=== PATIENT | female | born 1965 | race Caucasian/White ===

== ENCOUNTER 2020-09-15 10:52 | Emergency (ER) | payer SELFPAY ==
[2020-09-15 10:56] VITALS: BP 173/99; PULSE 89; RESP 16; TEMP 37.1; O2SAT 96; BMI 46.0
--- NOTE | 2020-09-15 11:24 | ED.EXTPRO ---
HPI - Extremity Problem General Chief complaint: Extremity Injury, Upper Stated complaint: shoulder,back and neck pain Time Seen by Provider: 09/15/20 11:24 Source: patient Mode of arrival: ambulatory Limitations: no limitations History of Present Illness HPI Narrative: 55 yo female with past medical history of PAD on plavix here with complaints of left-sided neck pain which radiates down the left arm times 2-3 months. No injury or trauma. Occasionally the patient has zaps of electricity which run down the arm. She denies any numbness or tingling. 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 MD Complaint: extremity pain Onset (ago): month(s) Pain Consistency: intermittent Location: left Quality: burning Radiation: distal Relieving factors: nothing Exacerbating factors: nothing Related Data Previous Rx's Medication Instructions Recorded cyclobenzaprine 10 mg PO TID PRN #10 tab 09/15/20 dexamethasone [Decadron] 4 mg PO DAILY #5 tab 09/15/20 oxycodone 5 mg PO Q6H PRN #10 tab 09/15/20 Allergies Allergy/AdvReac Type Severity Reaction Status Date / Time clarithromycin [From Biaxin] Allergy Unknown UNKNOWN Verified 09/15/20 11:01 Biaxin Allergy Unknown Unknown Uncoded 09/15/20 11:01 Review of Systems Review of Systems: Yes all other systems are reviewed and are negative Constitutional: Constitutional: Reports no additional constitutional complaints, Denies body ache(s), Denies chills, Denies fever(s), Denies headache(s) and Denies weakness Eyes: Eyes: Reports no additional eye complaints and Denies change in vision ENT: Reports system reviewed and no additional complaints, except as documented, Denies dizziness, Denies headache(s), Denies nasal congestion, Denies nasal discharge and Reports neck pain Cardiovascular: Cardiovascular: Reports no additional cardiovascular complaints, Denies chest pain, Denies leg edema and Denies dyspnea Respiratory: Respiratory: Reports no additional respiratory complaints, Denies cough and Denies dyspnea Gastrointestinal: Gastrointestinal: Reports no additional gastrointestinal complaints, Denies abdominal pain, Denies diarrhea, Denies nausea and Denies vomiting Genitourinary: Genitourinary: Reports no additional female genitourinary complaints and Denies urinary incontinence Musculoskeletal: Musculoskeletal: Reports no additional musculoskeletal complaints, Denies back pain, Reports arthralgias, Denies joint swelling, Reports neck pain, Denies numbness and Denies tingling Integumentary/Breasts: Skin/Breast: Reports system reviewed and no additional complaints, except as docu and Denies rash Neurologic: Reports system reviewed and no additional complaints, except as documented, Denies Abnormal speech present, Denies dizziness, Denies headache(s), Denies numbness, Denies tingling and Denies weakness PMFSH Past Medical History Attestation statement: The following information was validated with the patient. Source: old records reviewed and nursing notes reviewed Medical History Carpal tunnel syndrome Kidney stones Peripheral arterial disease Prediabetes Sleep apnea Surgical History History of appendectomy History of foot surgery Tubal ligation status Social History Social History Advance Directives: No Advance Directives Information Provided: Yes Physical Exam Vital Signs: Vital Signs: Last Vital Signs Temp 98.7 F 09/15/20 10:56 Pulse 89 09/15/20 10:56 Resp 16 09/15/20 10:56 BP 173/99 H 09/15/20 10:56 Pulse Ox 96 09/15/20 10:56 Body Mass Index 46.0 Const: General: cooperative, healthy appearing, comfortable and no acute distress Orientation/consciousness: patient oriented x3 Limitations: no limitations HENMT: Head: Yes normal to inspection Ears: hearing grossly normal bilaterally General nose exam: Normal external nose present Face and sinus: Yes normal facial exam Mouth: Normal oral and palatal mucosa present Throat: Yes posterior oropharynx normal Eyes: General: appearance normal, both eyes and all related structures Pupils: Equal, round and reactive pupils present Neck: Neck: Yes normal visual inspection Chest: Chest palpation & inspection: normal inspection of the chest Resp: Effort & Inspection: normal respiratory effort Auscultation: clear to auscultation bilaterally Cardio: Rate: regular rate Rhythm: regular rhythm Peripheral pulses: Peripheral pulses 2+ throughout GI: Inspection: Yes normal to inspection Palpation (GI): Soft to palpation and nontender Auscultation: normal bowel sounds Back/Spine/Pelvis: Other: Tenderness over the left trapezius with palpable muscle spasm. When this area is palpated the pain is able to be reproduced on the left arm. Full range of motion of shoulder. There is some pain withabduction but patient able. Neurovascularly intact distally. Normal cap refill. Thoracic/Lumbar Spine: thoracic and lumbar spine normal to inspection Skin: General skin exam: no rashes or lesions noted Neuro: General: patient oriented x3, no focal motor deficits and normal sensation to monofilament Cranial nerves: Yes Equal, round and reactive pupils present Cognition (Neuro): normal cognition Speech: No Abnormal speech present Gait exam (Neuro): Normal gait present Motor exam (neuro): 5/5 motor strength present throughout Extrem: General: Yes normal to inspection Course Course Course Narrative: 55-year-old female here with left-sided neck pain which radiates down the left arm from several months. 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 No specific injury or trauma. X-ray shows arthritis and possible bursitis with intra-articular loose bodies. A copy of the report was given to the patient. Believe she probably has some off bursitis as well as a cervical radiculopathy component. Recommended follow-up with rheumatology and Orthopedics. Supportive care in the meantime. Reviewed worrisome signs and symptoms of when to return to the emergency department. Comfortable discharge home. MDM - Extremity (Nontraumatic) Imaging Data shoulder xry: Attestation: I personally reviewed and interpreted this imaging study as follows: Radiologist's impression: EXAMINATION: XR SHOULDER, LEFT CLINICAL INFORMATION: Pain COMPARISON: Previous x-ray August 2010 TECHNIQUE: Three views of the left shoulder. FINDINGS: Bone alignment is normal. No fracture or dislocation is seen. There is arthritis at the glenohumeral and acromioclavicular joints. There are multiple periarticular soft tissue calcifications inferior to the clavicle in the region of the coracoclavicular ligament, adjacent to the greater tuberosity and projecting over the humeral head. XR/XR shoulder LT min 2V IMPRESSION: Arthritis at the acromioclavicular and glenohumeral joints. Numerous periarticular soft tissue calcifications questionable for calcific tendinitis, bursitis or possibly intra-articular loose bodies. 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
== END 2020-09-15 12:28 | disposition home or self-care (01) ==
PROVIDERS: Emergency Provider Emergency Medicine; PCP Internal Medicine
DX: M54.12 Radiculopathy, cervical region (principal); M75.52 Bursitis of left shoulder
CPT/HCPCS: 73030; 99283

== ENCOUNTER 2020-09-30 07:37 | Outpatient (REF) | payer OTHER, SELFPAY | END 2020-09-30 07:38 | disposition home or self-care (01) | LOC: HO.LAB 07:37 | PROVIDERS: PCP Internal Medicine; Visit Provider Internal Medicine | DX: Z20.822 Contact with and (suspected) exposure to COVID-19 (principal) | CPT/HCPCS: 36415; C9803; U0003 ==

== ENCOUNTER → 2020-10-01 10:27 | Outpatient (BNVA) | payer OTHER, SELFPAY | PROVIDERS: Visit Provider Physician Assistant | DX: M54.2 Cervicalgia (principal) | CPT/HCPCS: 99202 ==

== ENCOUNTER 2020-10-29 07:41 | Outpatient (REF) | payer OTHER, SELFPAY | END 2020-10-29 07:42 | disposition home or self-care (01) | LOC: HO.LAB 07:41 | PROVIDERS: Visit Provider Internal Medicine | DX: Z20.822 Contact with and (suspected) exposure to COVID-19 (principal) | CPT/HCPCS: 36415; C9803; U0003; U0005 ==

== ENCOUNTER 2021-10-16 10:26 | Emergency (ER) | payer OTHER, SELFPAY ==
[2021-10-16 10:42] VITALS: BP 162/98; PULSE 79; RESP 18; TEMP 36.9; O2SAT 96; BMI 46.0
--- NOTE | 2021-10-16 11:21 | ED_ITS ---
HPI - Skin/Abscess/Foreign Bdy General Chief complaint: Skin/Abscess/Foreign Body Stated complaint: cyst Time Seen by Provider: 10/16/21 10:56 Source: patient Mode of arrival: ambulatory Limitations: no limitations History of Present Illness HPI narrative: 56-year-old female with a history of [id number] diabetes non compliant with her metformin here with reports of redness, swelling and pain to the left side of the abdomen. Patient tells me she noticed a swollen area which is now draining. She denies any fevers or chills. She was recently diagnosed with diabetes and has gained some weight. 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 She has been checking her blood sugars in the been running 280-300. Related Data Previous Rx's Medication Instructions Recorded cyclobenzaprine 10 mg tablet 10 mg PO TID PRN #10 tab 09/15/20 dexamethasone 4 mg tablet 4 mg PO DAILY #5 tab 09/15/20 (Decadron) oxycodone 5 mg tablet 5 mg PO Q6H PRN #10 tab 09/15/20 cephalexin 500 mg capsule 500 mg PO BID #20 cap 10/16/21 doxycycline monohydrate 100 mg 100 mg PO BID #20 tab 10/16/21 tablet Allergies Allergy/AdvReac Type Severity Reaction Status Date / Time clarithromycin [From Allergy Unknown UNKNOWN Verified 09/15/20 11:01 Biaxin] Biaxin Allergy Unknown Unknown Uncoded 09/15/20 11:01 Review of Systems Verdana 4l Review of Systems: Yes all other systems are reviewed and Verdana 4d are negative Verdana 4l Constitutional: Verdana 4d Constitutional: Verdana 4d Verdana 4d Reports no additional constitutional complaints, Denies body ache(s), Denies chills, Denies fever(s), Denies headache(s) and Denies weakness Verdana 4l Eyes: Verdana 4d Verdana 4d Eyes: Verdana 4d Reports no additional eye complaints and Denies change in vision Verdana 4l ENT: Verdana 4d Reports system reviewed and no additional complaints, except as documented, Denies dizziness, Denies headache(s), Denies nasal congestion, Denies nasal discharge and Denies neck pain Verdana 4l Cardiovascular: Verdana 4d Cardiovascular: Verdana 4d Verdana 4d Reports no additional cardiovascular complaints, Denies chest pain, Denies leg edema and Denies dyspnea Verdana 4l Respiratory: Verdana 4d Verdana 4d Respiratory: Verdana 4d Reports no additional respiratory complaints, Denies cough and Denies dyspnea Verdana 4l Gastrointestinal: Verdana 4d Gastrointestinal: Verdana 4d Verdana 4d Reports no additional gastrointestinal complaints, Denies abdominal pain, Denies diarrhea, Denies nausea and Denies vomiting Verdana 4l Genitourinary: Verdana 4d Verdana 4d Genitourinary: Verdana 4d Reports no additional female genitourinary complaints and Denies urinary incontinence Verdana 4l Musculoskeletal: Verdana 4d Musculoskeletal: Verdana 4d Verdana 4d Reports no additional musculoskeletal complaints, Denies back pain, Denies arthralgias, Denies joint swelling, Denies neck pain, Denies numbness and Denies tingling Verdana 4l Integumentary/Breasts: Verdana 4d Skin/Breast: Verdana 4d Verdana 4d Reports system reviewed and no additional complaints, except as docu, Reports furuncle, Reports swelling, Reports erythema and Denies rash Verdana 4l Neurologic: Verdana 4d Reports system reviewed and no additional complaints, except as documented, Denies Abnormal speech present, Denies dizziness, Denies headache(s), Denies numbness, Denies tingling and Denies weakness PMFSH Past Medical History Attestation statement: The following information was validated with the patient. Source: old records reviewed and nursing notes reviewed Medical History Carpal tunnel syndrome Kidney stones Peripheral arterial disease Prediabetes Sleep apnea Surgical History History of appendectomy History of foot surgery Tubal ligation status Social History Social History Advance Directives: Yes Advance Directives Information Provided: Yes Advance Directives on File: No Patient : No Current occupation: [employer] - Right Handed Physical Exam Verdana 4l Vital Signs: Verdana 4d Verdana 4d Vital Signs: Verdana 4d Verdana 4Bd Last Vital Signs Verdana 4d Machine Shorthand Reporter New 4d Machine Shorthand Reporter New 4d Temp 98.5 F 10/16/21 10:42 Machine Shorthand Reporter New 4d Pulse 79 10/16/21 10:42 Machine Shorthand Reporter New 4d Resp 18 10/16/21 10:42 BP 162/98 H 10/16/21 10:42 Pulse Ox 96 10/16/21 10:42 BMI result Body Mass Index 46.0 Const: General: cooperative, healthy appearing, comfortable and no acute distress Orientation/consciousness: patient oriented x3 Limitations: no limitations HENMT: Head: Yes normal to inspection Ears: hearing grossly normal bilaterally General nose exam: Normal external nose present Face and sinus: Yes normal facial exam Mouth: Normal oral and palatal mucosa present Throat: Yes posterior oropharynx normal Eyes: General: appearance normal, both eyes and all related structures Pupils: Equal, round and reactive pupils present Neck: Neck: Yes normal visual inspection Chest: Chest palpation & inspection: normal inspection of the chest Resp: Effort & Inspection: normal respiratory effort Auscultation: clear to auscultation bilaterally Cardio: Rate: regular rate Rhythm: regular rhythm Peripheral pulses: Peripheral pulses 2+ throughout GI: Other: To the left lower abdomen and there is a a area of redness, warmth with a central site with drainage. There is no deeper abscess or fluctuance or induration noted. The area is outlined with a marker and the redness and warmth is within the outlined area Inspection: Yes normal to inspection Palpation (GI): Soft to palpation and nontender Auscultation: normal bowel sounds Back/Spine/Pelvis: Thoracic/Lumbar Spine: thoracic and lumbar spine normal to inspection Skin: General skin exam: no rashes or lesions noted Neuro: General: patient oriented x3, no focal motor deficits and normal sensation to monofilament Cranial nerves: Yes Equal, round and reactive pupils present Cognition (Neuro): normal cognition Speech: No Abnormal speech present Gait exam (Neuro): Normal gait present Motor exam (neuro): 5/5 motor strength present throughout Extrem: General: Yes normal to inspection Course Course Course Narrative: 56-year-old female with a history of thl-cytelji-ylfqssvry diabetes recently diagnosed who has not started her metformin here with reports of abdominal wall abscess with surrounding cellulitis. Patient denies any systemic symptoms of fevers, chills, vomiting. She has been checking her blood sugars and they have been running around 280-300. She has not started her metformin due to the cost. On exam the patient does have a local cellulitis with a central abscess that is already draining. There is no deeper abscess or fluctuance palpated. The area is already marked with a sharpie. There is no redness or warmth outside the marked areas. The patient and I had a lengthy discussion about her diabetes and how she needs to initiate her metformin or this may turn into a worsened infection or she may develop sepsis. Patient tells me that she plans on starting her metformin today and I did call and confirm with her pharmacy that they have this medication available for her. I did recommend we obtain some lab work and a blood glucose level with the patient tells me that she does not want this as financially she does not have the means to pay for the hospital bill. Reviewed worrisome signs and symptoms of when to return to the emergency department. Comfortable discharge home. MDM - Skin/Abscess/Foreign Bdy Differential Diagnosis Differential diagnosis: Likely abscess of skin or subcutaneous tissue Medical Records Attestation: I reviewed the patient's medical records. Lab Data Attestation: I reviewed the patient's lab results. Discharge Plan Discharge Clinical Impression: Cellulitis, Abscess of skin or subcutaneous tissue, Medication refill Patient Disposition: Home, Self-Care Instructions: Cellulitis (ED), Abscess (ED), Medicine Refill (ED) Additional Instructions: I refilled your metformin and is waiting at the pharmacy Return for fever, increasing redness or swelling Prescriptions: New doxycycline monohydrate 100 mg tablet 100 mg PO BID Qty: 20 0RF cephalexin 500 mg capsule 500 mg PO BID Qty: 20 0RF No Action dexamethasone [Decadron] 4 mg tablet 4 mg PO DAILY Qty: 5 0RF cyclobenzaprine 10 mg tablet 10 mg PO TID PRN (Reason: muscle spasm) Qty: 10 0RF oxycodone 5 mg tablet 5 mg PO Q6H PRN (Reason: pain) Qty: 10 0RF Referrals: Manuel Mtz MD [Primary Care Provider] - 1 week Interventions: ED Discharge Assessment Last Done: 10/16/21 11:20 Discharge Date/Time: 10/16/21 11:21
== END 2021-10-16 11:21 | disposition home or self-care (01) ==
PROVIDERS: Emergency Provider Emergency Medicine; PCP Internal Medicine
DX: L02.211 Cutaneous abscess of abdominal wall (principal); L03.311 Cellulitis of abdominal wall; E11.9 Type 2 diabetes mellitus without complications; Z91.14 Patient's other noncompliance with medication regimen
CPT/HCPCS: 99283

== ENCOUNTER 2022-10-31 22:54 | Emergency (ER) | payer OTHER, SELFPAY ==
--- NOTE | ~2022-10-31 | XR_ITS ---
EXAMINATION: XR SHOULDER, LEFT CLINICAL INFORMATION: Severe shoulder pain COMPARISON: 09/15/2020 TECHNIQUE: AP external rotation, Grashey, scapular Y, and axillary views of the left shoulder. FINDINGS: Glenohumeral alignment appears anatomic. No acute fracture is seen. There are soft tissue calcifications posterior and superior to the humeral head suspicious for calcific rotator cuff tendinopathy. Acromioclavicular joint is intact with moderate degenerative change. XR/XR shoulder LT min 2V IMPRESSION: No acute findings identified. Soft tissue calcifications suspicious for calcific rotator cuff tendinopathy.
[2022-10-31 23:09] VITALS: BP 190/105; PULSE 73; RESP 24; TEMP 36.5; O2SAT 97; BMI 41.1
--- NOTE | 2022-11-01 00:48 | ED.EXTPRO ---
HPI - Extremity Problem General Chief complaint: Extremity Injury, Upper Stated complaint: left shoulder pain Time Seen by Provider: 11/01/22 00:42 Source: patient Mode of arrival: ambulatory Limitations: no limitations History of Present Illness HPI Narrative: 57-year-old female came in for evaluation of left shoulder pain, patient is known to have left shoulder rotator cuff tendinitis was scheduled to have surgery on her left shoulder last month patient had to cancel the surgery, for the past 4 days with severe left shoulder pain, patient cannot raise her shoulder or touch it because the severe pain, no recent injury or fall. Related Data Previous Rx's Medication Instructions Recorded cyclobenzaprine 10 mg tablet 10 mg PO TID PRN muscle spasm #10 09/15/20 tabs dexamethasone 4 mg tablet 4 mg PO DAILY #5 tabs 09/15/20 (Decadron) oxycodone 5 mg tablet 5 mg PO Q6H PRN pain #10 tabs 09/15/20 cephalexin 500 mg capsule 500 mg PO BID #20 caps 10/16/21 doxycycline monohydrate 100 mg 100 mg PO BID #20 tabs 10/16/21 tablet oxycodone 5 mg tablet 5 mg PO BID PRN pain #10 tabs 11/01/22 Allergies Allergy/AdvReac Type Severity Reaction Status Date / Time clarithromycin [From Biaxin] Allergy Unknown UNKNOWN Verified 10/31/22 23:16 Biaxin Allergy Unknown Unknown Uncoded 09/15/20 11:01 Review of Systems Review of Systems: All other systems are reviewed and are negative Constitutional: Reports as per HPI and Reports no additional constitutional complaints Eyes: Reports as per HPI and Reports no additional eye complaints Reports system reviewed and no additional complaints, except as documented Cardiovascular: Reports as per HPI and Reports no additional cardiovascular complaints Respiratory: Reports as per HPI and Reports no additional respiratory complaints Gastrointestinal: Reports as per HPI and Reports no additional gastrointestinal complaints Genitourinary: Reports no additional female genitourinary complaints Musculoskeletal: Reports no additional musculoskeletal complaints Skin/Breast: Reports system reviewed and no additional complaints, except as docu Psychiatric: Reports no additional psychiatric complaints Endocrine: Reports no additional endocrine complaints Hematologic/Lymphatic: Reports no additional hematologic/lymphatic complaints Allergic/Immunologic: Reports no additional allergic/immunologic complaints Reports system reviewed and no additional complaints, except as documented and Reports Abnormal speech present [facility] Past Medical History Medical History Carpal tunnel syndrome Kidney stones Peripheral arterial disease Prediabetes Sleep apnea Surgical History History of appendectomy History of foot surgery Tubal ligation status Social History Social History Advance Directives: No Advance Directives Information Provided: Yes Current occupation: [employer] - Right Handed Physical Exam Vital Signs: Vital Signs: Last Vital Signs Temp 97.7 F 10/31/22 23:09 Pulse 81 11/01/22 01:57 Resp 15 11/01/22 01:57 BP 151/61 H 11/01/22 01:57 Pulse Ox 100 11/01/22 01:57 O2 Del Method 11/01/22 01:57 BMI result Body Mass Index 41.1 Vital signs have been reviewed as appeared to be correct. Blood pressure elevated. Heart rate normal. Respiration rate normal. Temperature normal. Oxygen saturation normal. Appearance: Alert. Oriented X3. No acute distress. Head: Normal external exam. Normocephalic. Atraumatic. No [place] signs noted. No raccoon eyes noted Eyes: PERRLA. EOMI. Conjunctiva and sclera normal. Eyelids normal. ENT: TM's Normal. Pharynx normal. Uvula midline. Moist mucous membranes. No trismus noted. No drooling noted. No muffled voice noted. Neck: Normal inspection. Neck supple. FROM. No adenopathy. Thyroid Normal. No meningeal signs. No neck mass noted. CVS: Normal heart rate and rhythm. Heart sound normal. No murmurs noted. Pulses normal throughout. Respiratory: No respiratory distress. Painless inspiration. Breath sounds normal. No wheezes/rales/rhonchi noted. Chest nontender. No accessory muscle usage noted or decreased air movement noted. Abdomen: Soft and nontender. Bowel sounds normal in all 4 quadrants. No distention noted. No organomegaly noted. No visible injury noted. Back: No CVA tenderness. Full range of motion noted. Skin: Skin warm and dry. Normal skin color. Normal skin turgor. No rashes/lesions/lacerations noted. Extremities: Left shoulder exam: Shoulder held in abduction position patient unable to abduct the shoulder, severe tenderness over greater tuberosity of the left humerus, no deformity, intact left brachial artery and left radial artery, sensation is intact distal and proximal to the shoulder. Neuro: Oriented X 3. Cranial nerve exam: II-XII are grossly intact No motor deficit. No sensory deficit. Reflexes normal. Course Course Course Narrative: 57-year-old female came in with severe left shoulder pain due to pre-existing rotator cuff tendinitis, patient was scheduled to have shoulder surgery but was canceled. Given Dilaudid/Toradol in the emergency department feels better with improvement of blood pressure, the x-ray is showing no acute fracture or pathology. Blood pressure was improved after pain control. Medications Administered Discontinued Medications Generic Name Dose Route Start Last Admin Trade Name Freq PRN Reason Stop Dose Admin Hydromorphone HCl 2 mg 11/01/22 00:47 11/01/22 00:57 Hydromorphone Hcl 2 Mg/Ml Vial IM 11/01/22 00:48 2 mg ONCE ONE Administration Protocol Ketorolac Tromethamine 60 mg 11/01/22 00:47 11/01/22 00:57 Ketorolac Tromethamine 60 Mg/2 Ml Vial IM 11/01/22 00:48 60 mg ONCE ONE Administration Medical Decision Making Differential Diagnosis Differential Diagnoses: The differential diagnosis associated with the presentation includes (Rotator cuff tendinitis, impaired mentation of the left shoulder, left shoulder dislocation, left shoulder fracture, left shoulder arthritis.) Independent Interpretation I performed an independent interpretation of an: Plain X-Ray (Left shoulder: No acute fracture dislocation.) Radiology Impression Discussion of test interpretation with radiology: I have reviewed the radiologist's reading. (No acute findings identified. Soft tissue calcifications suspicious for calcific rotator cuff tendinopathy. ) Discharge Plan Discharge Clinical Impression: Impingement syndrome, shoulder, left Patient Disposition: Home, Self-Care Instructions: Shoulder Impingement Syndrome (ED) Prescriptions: New oxycodone 5 mg tablet 5 mg PO BID PRN (Reason: pain) Qty: 10 0RF Rx Instructions: Partial Fill upon patient request. No Action dexamethasone [Decadron] 4 mg tablet 4 mg PO DAILY Qty: 5 0RF cyclobenzaprine 10 mg tablet 10 mg PO TID PRN (Reason: muscle spasm) Qty: 10 0RF oxycodone 5 mg tablet 5 mg PO Q6H PRN (Reason: pain) Qty: 10 0RF doxycycline monohydrate 100 mg tablet 100 mg PO BID Qty: 20 0RF cephalexin 500 mg capsule 500 mg PO BID Qty: 20 0RF Referrals: Naila Vargas MD [Primary Care Provider] -
[2022-11-01] MEDS: HYDROmorphone HCl 2 MG/ML VIAL IM (00:57)
[2022-11-01] MEDS: Ketorolac Tromethamine 60 MG/2 ML VIAL IM (00:57)
[2022-11-01 01:56] VITALS: PULSE 87; RESP 15; O2SAT 100
[2022-11-01 01:57] VITALS: BP 151/61; PULSE 81; RESP 15; O2SAT 100
== END 2022-11-01 02:16 | disposition home or self-care (01) ==
PROVIDERS: Emergency Provider Emergency Medicine; PCP Internal Medicine
DX: M75.42 Impingement syndrome of left shoulder (principal); M25.512 Pain in left shoulder
CPT/HCPCS: 73030; 96372; 99284; J1170; J1885

== ENCOUNTER 2022-11-02 13:24 | Emergency (ER) | payer OTHER, SELFPAY ==
[2022-11-02 14:03] VITALS: BP 220/130; PULSE 75; RESP 20; TEMP 36.6; O2SAT 98; BMI 41.1
--- NOTE | 2022-11-02 14:05 | ED.UPPEXIN ---
HPI - Extremity Injury (Upper) General Chief Complaint: Extremity Injury, Upper <MILI Rudd Last Filed: 11/02/22 14:10> Stated Complaint: L shoulder pain <MILI Rudd Last Filed: 11/02/22 14:10> Time Seen by Provider: 11/02/22 14:24 <MILI Rudd Last Filed: 11/02/22 14:10> Source: patient <MILI Kwan Last Filed: 11/02/22 15:36> Mode of arrival: ambulatory <MILI Kwan Last Filed: 11/02/22 15:36> Limitations: no limitations <MILI Kwan Last Filed: 11/02/22 15:36> History of Present Illness HPI narrative: 57 [id number] presenting today with worsening chronic left shoulder pain x 1 week. She has known left rotator cuff tear requiring surgery which was scheduled in September but she had to cancel it due to financial troubles. She has contacted her orthopedic surgeon, Dr. Eladio Encarnacion at [facility], who is unable to schedule another surgery until February. No new injury. No chest pain. Was seen here on 11/01, where she had dilaudid/toradol, which caused her significant pain relief. She is here for another orthopedic referral as well as an anti-inflammatory medication. She denies any dizziness, chest pain or shortness of breath, extremity edema, recent falls or new trauma, dyspnea on exertion orthopnea, palpitations, paresthesias, weakness or any other symptoms complaints or concerns at this time. <MILI Kwan Last Filed: 11/02/22 15:36> MD complaint: injury to: left <MILI Kwan Last Filed: 11/02/22 15:36> Onset (ago): week(s) (1) <MILI Kwan Last Filed: 11/02/22 15:36> Other Extremity Injury: left: shoulder <MILI Kwan Last Filed: 11/02/22 15:36> Other injuries: none <MILI Kwan Last Filed: 11/02/22 15:36> Severity: moderate <MILI Kwan Last Filed: 11/02/22 15:36> Relieving factors: other (Last time she was seen here she had relief with Toradol and Dilaudid and is requesting anti-inflammatory medications to go home) <MILI Kwan - Last Filed: 11/02/22 15:36> Exacerbating factors: movement of extremity <MILI Kwan Last Filed: 11/02/22 15:36> Associated symptoms: denies other symptoms <MILI Kwan Last Filed: 11/02/22 15:36> Treatments prior to arrival: other (See above) <MILI Kwan Last Filed: 11/02/22 15:36> Related Data Home Medications: Previous Rx's Medication Instructions Recorded cyclobenzaprine 10 mg tablet 10 mg PO TID PRN muscle spasm #10 09/15/20 tabs dexamethasone 4 mg tablet 4 mg PO DAILY #5 tabs 09/15/20 (Decadron) oxycodone 5 mg tablet 5 mg PO Q6H PRN pain #10 tabs 09/15/20 cephalexin 500 mg capsule 500 mg PO BID #20 caps 10/16/21 doxycycline monohydrate 100 mg 100 mg PO BID #20 tabs 10/16/21 tablet oxycodone 5 mg tablet 5 mg PO BID PRN pain #10 tabs 11/01/22 ketorolac 10 mg tablet 10 mg PO Q8H #20 tabs 11/02/22 <MILI Rudd - Last Filed: 11/02/22 14:10> Allergies/Adverse Reactions: Allergies Allergy/AdvReac Type Severity Reaction Status Date / Time clarithromycin [From Biaxin] Allergy Unknown UNKNOWN Verified 11/02/22 14:13 Biaxin Allergy Unknown Unknown Uncoded 11/02/22 14:13 <MILI Rudd - Last Filed: 11/02/22 14:10> Review of Systems Review of Systems: Constitutional : No Weight loss, No Fever, No Chills, No Night Sweats, No Fatigue, No Malaise ENT/Mouth : No Hearing loss, No Ear Pain, No Nasal Congestion, No Sinus Pain, No Hoarseness, No sore throat, No Rhinorrhea, No Swallowing Difficulty Eyes: No Eye Pain, No Swelling, No Redness, No Foreign Body, No Discharge, No Vision Changes Cardiovascular : No Chest Pain, No SOB, No Dyspnea on Exertion, No Orthopnea, No Edema, No Palpitations Respiratory : No Cough, No Sputum, No Wheezing, No Smoke Exposure, No Dyspnea Gastrointestinal : No Nausea, No Vomiting, No Diarrhea, No Constipation, No abdominal Pain, No Hematochezia, No Melena Genitourinary : no irregular bleeding, No Dysuria, No Urinary Frequency, No Hematuria, No Urinary Incontinence, No Urgency, No Flank Pain, No Urinary Flow Changes, No Hesitancy Musculoskeletal : + left shoulder joint pain, No Myalgias, No Joint Swelling Skin : No Skin Lesions, No rash Neuro : No Weakness, No Numbness, No Paresthesias, No Loss of Consciousness, No Dizziness, No Headache Psych : No Anxiety/Panic, No Depression, No SI/HI/AH/VH, No Social Issues, Heme/Lymph: No Bruising, No Bleeding,No Lymphadenopathy Endocrine : No Polyuria, No Polydipsia, No Temperature Intolerance <MILI Kwan - Last Filed: 11/02/22 15:36> Yes all other systems are reviewed and are negative <MILI Kwan - Last Filed: 11/02/22 15:36> [facility] Past Medical History Attestation statement: The following information was validated with the patient. <MILI Kwan - Last Filed: 11/02/22 15:36> Source: old records reviewed and nursing notes reviewed <MILI Kwan - Last Filed: 11/02/22 15:36> Medical History: Medical History Carpal tunnel syndrome Kidney stones Peripheral arterial disease Prediabetes Sleep apnea <MILI Rudd - Last Filed: 11/02/22 14:10> Surgical History: Surgical History History of appendectomy History of foot surgery Tubal ligation status <MILI Rudd - Last Filed: 11/02/22 14:10> Social History Social History: Social History Advance Directives: No Advance Directives Information Provided: Yes Current occupation: [employer] - Right Handed <MILI Rudd - Last Filed: 11/02/22 14:10> Physical Exam Vital Signs: Vital Signs: Last Vital Signs Temp 98 F 11/02/22 14:03 Pulse 75 11/02/22 14:03 Resp 20 11/02/22 14:03 BP 200/81 H 11/02/22 15:12 Pulse Ox 98 11/02/22 14:03 O2 Del Method 11/02/22 14:03 BMI result Body Mass Index 41.1 <MILI Rudd - Last Filed: 11/02/22 14:10> Vital Signs: Last Vital Signs Temp 98 F 11/02/22 14:03 Pulse 75 11/02/22 14:03 Resp 20 11/02/22 14:03 BP 200/81 H 11/02/22 15:12 Pulse Ox 98 11/02/22 14:03 O2 Del Method 11/02/22 14:03 BMI result Body Mass Index 41.1 vital signs have been reviewed as normal and appeared to be correct. Blood pressure normal Heart rate normal. Respiration rate normal. Temperature normal. Oxygen saturation normal. <MILI Kwan - Last Filed: 11/02/22 15:36> Appearance: Alert. Oriented X3. No acute distress. Head: Normal external exam. Normocephalic. Atraumatic. Eyes: PERRLA. EOMI. Conjunctiva and sclera normal. Eyelids normal. ENT: Pharynx normal. Uvula midline. Moist mucous membranes. Neck: Normal inspection. Neck supple. FROM. CVS: Normal heart rate and rhythm. Respiratory: No respiratory distress. Painless inspiration. Skin: Skin warm and dry. Normal skin color. Normal skin turgor. No rashes/lesions/lacerations noted. Extremities: Patient moderate tenderness palpation to left AC joint with limited range of motion due to pain. No obvious weakness. No upper extremity edema. Otherwise all other extremities exhibit normal range of motion nontender. Neuro: Oriented X 3. No motor deficit. No sensory deficit. Reflexes normal. Normal steady gait. No focal neuro deficits noted. Vascular: + radial pulses Normal cap refill. No cyanosis noted to upper extremity nails <MILI Kwan - Last Filed: 11/02/22 15:36> Course Course Course Narrative: RME: 57 [id number] presenting today with worsening chronic left shoulder pain x 1 week. She has known left rotator cuff tear requiring surgery which was scheduled in September but she had to cancel it due to financial troubles. She has contacted her orthopedic surgeon, Dr. Eladio Encarnacion at [facility], who is unable to schedule another surgery until February. No new injury. No chest pain. Was seen here on 11/01, where she had dilaudid/toradol, which caused her significant pain relief. She is here for another orthopedic referral as well as an anti-inflammatory medication. Patient tearful in triage secondary to pain. BP is 220/130 in triage. <MILI Rudd - Last Filed: 11/02/22 14:10> Reevaluation(s) Reevaluation #1: Patient was given Dilaudid and Toradol reports moderate symptomatic relief. Her blood pressure was rechecked and it has improved. Therefore at this time will DC home with referral to our orthopedic surgeons and Toradol with instructions return if any new or worsening symptoms and to continue taking her previously prescribed medications as prescribed. Patient understands agrees with this plan. <MILI Kwan - Last Filed: 11/02/22 15:36> Time: 15:34 <MILI Kwan - Last Filed: 11/02/22 15:36> Medications Administered Discontinued Medications Generic Name Dose Route Start Last Admin Trade Name Freq PRN Reason Stop Dose Admin Hydromorphone HCl 2 mg 11/02/22 14:11 11/02/22 14:29 Hydromorphone Hcl 2 Mg/Ml Vial IM 11/02/22 14:12 2 mg ONCE ONE Administration Protocol Ketorolac Tromethamine 60 mg 11/02/22 14:11 11/02/22 14:29 Ketorolac Tromethamine 60 Mg/2 Ml Vial IM 11/02/22 14:12 60 mg ONCE ONE Administration <MILI Rudd - Last Filed: 11/02/22 14:10> Medications Administered Discontinued Medications Generic Name Dose Route Start Last Admin Trade Name Freq PRN Reason Stop Dose Admin Hydromorphone HCl 2 mg 11/02/22 14:11 11/02/22 14:29 Hydromorphone Hcl 2 Mg/Ml Vial IM 11/02/22 14:12 2 mg ONCE ONE Administration Protocol Ketorolac Tromethamine 60 mg 11/02/22 14:11 11/02/22 14:29 Ketorolac Tromethamine 60 Mg/2 Ml Vial IM 11/02/22 14:12 60 mg ONCE ONE Administration <MILI Kwan - Last Filed: 11/02/22 15:36> Discharge Plan Discharge Clinical Impression: Left shoulder pain <MILI Rudd - Last Filed: 11/02/22 14:10> Patient Disposition: Home, Self-Care <MILI Rudd - Last Filed: 11/02/22 14:10> Instructions: Shoulder Pain (ED) <MILI Rudd - Last Filed: 11/02/22 14:10> Prescriptions: New ketorolac 10 mg tablet 10 mg PO Q8H Qty: 20 0RF Rx Instructions: First dose given in the ER by IM and patient tolerated well. No Action dexamethasone [Decadron] 4 mg tablet 4 mg PO DAILY Qty: 5 0RF cyclobenzaprine 10 mg tablet 10 mg PO TID PRN (Reason: muscle spasm) Qty: 10 0RF oxycodone 5 mg tablet 5 mg PO Q6H PRN (Reason: pain) Qty: 10 0RF doxycycline monohydrate 100 mg tablet 100 mg PO BID Qty: 20 0RF cephalexin 500 mg capsule 500 mg PO BID Qty: 20 0RF oxycodone 5 mg tablet 5 mg PO BID PRN (Reason: pain) Qty: 10 0RF Rx Instructions: Partial Fill upon patient request. <MILI Rudd - Last Filed: 11/02/22 14:10> Referrals: [facility] [place] Orthopedic Surgeons [Provider Group] (Call to make a follow-up appointment as needed) Naila Vargas MD [Primary Care Provider] - <MILI Rudd - Last Filed: 11/02/22 14:10>
[2022-11-02] MEDS: HYDROmorphone HCl 2 MG/ML VIAL IM (14:29)
[2022-11-02] MEDS: Ketorolac Tromethamine 60 MG/2 ML VIAL IM (14:29)
--- NOTE | 2022-11-02 14:41 | PC.NURSE ---
pt medicated per provider order.
[2022-11-02 15:12] VITALS: BP 200/81
[2022-11-02 15:34] VITALS: BP 177/71
== END 2022-11-02 16:14 | disposition home or self-care (01) ==
PROVIDERS: Emergency Provider Emergency Medicine; PCP Internal Medicine
DX: M25.512 Pain in left shoulder (principal); Z79.899 Other long term (current) drug therapy
CPT/HCPCS: 96372; 99283; 99284; J1170; J1885

== ENCOUNTER 2023-10-11 10:14 | Emergency (ER) | payer MEDICAID, SELFPAY ==
--- NOTE | ~2023-10-11 | CT_ITS ---
EXAMINATION: CTA OF THE HEAD AND NECK CLINICAL INFORMATION: Headache. COMPARISON: None available. TECHNIQUE: Test bolus sequences followed by intravenous administration 70 mL of Omnipaque 350. Helical imaging was performed in the axial plane from the mediastinum to the skull vertex. Delayed postcontrast imaging of the head was also performed. The data was processed at the invasive cardiovascular technologist's workstation for generation of MIP sequences. Three-dimensional volume rendered reformatted images were also generated at an offline 3-D workstation. Stenoses are assessed in accordance with NASCET criteria unless otherwise indicated. This CT examination was performed using dose optimization techniques as appropriate, variously including the following: *Automated exposure control *Adjustment of mA and/or kV according to patient size (this includes techniques or standardized protocols for targeted exams where dose is matched to indication/reason for exam; i.e. extremities or head) *Use of iterative reconstruction technique DLP: 2256 mGy-cm. FINDINGS: CT head: There is no evidence of acute intracranial hemorrhage or territorial infarction. There is no loss of [place] to white matter differentiation. No abnormal mass effect or midline shift is seen. No extra-axial fluid collections are identified. There is no pathologic enhancement. The ventricles are normal in size. There is no abnormal attenuation within the brain parenchyma. The osseous structures and soft tissues are normal. The mastoid air cells and visualized portions of the paranasal sinuses are well aerated. CTA neck: The imaged aortic arch and origins of the great vessels are normal. The common carotid arteries are widely patent. The vertebral arteries opacify normally and are of normal caliber. There are mild wall calcifications at the left carotid bifurcation and origin of the left internal carotid artery without significant stenosis. At the right carotid bifurcation, there are moderate atherosclerotic wall calcifications resulting in a severe 80% stenosis. Remainder of the cervical right ICA is otherwise normal in caliber. The soft tissues of the neck are unremarkable. [id number] cervical spondylosis noted with multilevel hypertrophic facet arthropathy and uncovertebral joint spurring resulting in significant foraminal encroachment, particularly on the left side at C2-C3 and C3-C4, and on the right side at the C4-C5 and C5-C6 levels. There are mild subsegmental atelectatic changes in both lungs. CTA head: The intradural vertebral arteries and basilar artery are normal. The posterior cerebral arteries are widely patent. The internal carotid arteries are relatively of normal caliber with mild atherosclerotic wall calcifications. The HUSSEIN and MCA vascular complexes bilaterally are normal. The venous sinuses opacify normally. CT/CT angio head neck IMPRESSION: No hemodynamically significant stenosis or vessel occlusion in the intracranial vasculature at the level of the [place]. Significant atherosclerotic disease at the right carotid bifurcation and origin of the right ICA with an 80% stenosis. Multilevel cervical spondylosis with exuberant facet arthropathy contributing to significant foraminal narrowing at various levels. Imaging findings reported to MILI Ricci at 12:04 PM on 10/11/2023.
[2023-10-11 10:17] VITALS: BP 182/100; PULSE 69; RESP 18; TEMP 36.1; O2SAT 97; BMI 40.3
--- NOTE | 2023-10-11 10:39 | ED_ITS ---
HPI - General Adult General Chief complaint: Headache Stated complaint: Headache Time Seen by Provider: 10/11/23 10:37 Source: patient Mode of arrival: ambulatory Limitations: no limitations History of Present Illness HPI narrative: Patient is a 58 year old assigned female at with a history of HTN and DM presenting to the emergency department today with a headache. Patient states that the lower back of her head has hurt for the last 3 days after she felt something like a pop. Patient denies any dizziness, lightheadedness, abdominal pain, nausea, vomiting, fever, chills, blurry vision, double vision, loss of vision, chest pain, difficulty breathing, shortness of breath, back pain, night sweats, pain with urination, increased urinary frequency, increased urinary urgency, blood in her urine or stool, syncope or a near syncopal episode, recent trauma or falls, bowel incontinence, bladder incontinence, bowel retention, bladder retention, or any other complaints at this time. Location: head Severity: mild Relieving factors: none Exacerbating factors: none Associated symptoms: denies other symptoms Treatments prior to arrival: none Related Data Previous Rx's Medication Instructions Recorded cyclobenzaprine 10 mg tablet 10 mg PO TID PRN muscle spasm #10 09/15/20 tabs dexamethasone 4 mg tablet 4 mg PO DAILY #5 tabs 09/15/20 (Decadron) oxycodone 5 mg tablet 5 mg PO Q6H PRN pain #10 tabs 09/15/20 cephalexin 500 mg capsule 500 mg PO BID #20 caps 10/16/21 doxycycline monohydrate 100 mg 100 mg PO BID #20 tabs 10/16/21 tablet oxycodone 5 mg tablet 5 mg PO BID PRN pain #10 tabs 11/01/22 ketorolac 10 mg tablet 10 mg PO Q8H #20 tabs 11/02/22 cyclobenzaprine 5 mg tablet 5 mg PO TID PRN muscle spasm 7 10/11/23 days #21 tabs Allergies Allergy/AdvReac Type Severity Reaction Status Date / Time clarithromycin [From Biaxin] Allergy Unknown UNKNOWN Verified 11/02/22 14:13 Biaxin Allergy Unknown Unknown Uncoded 11/02/22 14:13 Review of Systems 2 Constitutional: Constitutional: Reports no additional constitutional complaints, Denies chills, Denies fever(s), Reports headache(s) and Denies night sweats Eyes: Eyes: Reports no additional eye complaints, Denies blurry vision, Denies change in vision, Denies diplopia, Denies eye discharge, Denies loss of vision and Denies eye pain ENT: Denies dizziness and Reports headache(s) Cardiovascular: Cardiovascular: Reports no additional cardiovascular complaints, Denies chest pain, Denies lightheadedness, Denies Loss of Consciousness and Denies dyspnea Respiratory: Respiratory: Reports no additional respiratory complaints and Denies dyspnea Gastrointestinal: Gastrointestinal: Reports no additional gastrointestinal complaints, Denies abdominal pain, Denies melena, Denies hematochezia, Denies change in bowel habits and Denies change in stool character Genitourinary: Genitourinary: Denies hematuria, Denies urinary frequency, Denies dysuria, Denies urinary incontinence, Denies urinary hesitancy and Denies urinary urgency Musculoskeletal: Musculoskeletal: Reports no additional musculoskeletal complaints, Denies numbness and Denies tingling Neurologic: Denies dizziness, Reports headache(s), Denies loss of vision, Denies numbness and Denies tingling Psychiatric: Psychiatric: Reports no additional psychiatric complaints Endocrine: Endocrine: Reports no additional endocrine complaints Hematologic/Lymphatic: Hematologic/Lymphatic: Reports no additional hematologic/lymphatic complaints Allergic/Immunologic: Allergic/Immunologic: Reports no additional allergic/immunologic complaints [facility] Past Medical History Attestation statement: The following information was validated with the patient. Source: old records reviewed and nursing notes reviewed Medical History Carpal tunnel syndrome Kidney stones Prediabetes Sleep apnea Peripheral arterial disease Surgical History Tubal ligation status History of appendectomy History of foot surgery Social History Social History Smoked in Last 30 Days: No Use of substances other than those prescribed or required for medical reasons: Yes Substance Use Type: Marijuana Advance Directives: No Advance Directives Information Provided: Yes Patient : No Current occupation: [employer] - Right Handed Physical Exam ED Vital Signs: Vital Signs - 24 hr 10/11/23 10:17 10/11/23 10:44 10/11/23 12:16 Temperature 97 F 98.5 F Pulse Rate 69 64 Respiratory Rate 18 18 17 Blood Pressure 182/100 H 189/97 H Pulse Oximetry 97 99 Oxygen Delivery Method Room Air Room Air BMI result Body Mass Index 40.3 Const General: cooperative, no acute distress, alert and awake Nutritional Appearance: well nourished Orientation/consciousness: patient oriented x3 Limitations: no limitations HENMT Head: Yes normal to inspection and Yes atraumatic Ears: hearing grossly normal bilaterally and external ears normal General nose exam: Normal external nose present, no nasal discharge noted and no epistaxis Face and sinus: Yes normal facial exam, No abrasion and No laceration Mouth: Normal oral and palatal mucosa present, no drooling and no muffled voice Eyes General: appearance normal, both eyes and all related structures Periorbital: periorbital findings normal Eyelids: Yes eyelids normal Conjunctivae: conjunctivae normal Pupils: Equal, round and reactive pupils present EOM: EOMs intact bilaterally Neck Neck: Yes normal visual inspection, Yes full ROM and Yes no lymphadenopathy Chest Chest palpation & inspection: normal inspection of the chest Resp Effort & Inspection: normal respiratory effort and able to speak in complete sentences GI Inspection: Yes normal to inspection Neuro General: patient oriented x3 and moves all extremities Cranial nerves: Yes Equal, round and reactive pupils present Cognition (Neuro): normal cognition Motor exam (neuro): 5/5 motor strength present throughout Sensory Exam: Normal double simultaneous stimulation for sensation Coordination: [id number] test normal Extrem General: Yes normal to inspection, Yes full ROM and Yes capillary refill normal Psych Appearance: grossly normal Mental Status: mental status grossly normal Affect: normal affect Attitude: cooperative Thought process: Normal thought process present Thought content: Normal thought content present Insight: Good insight present (Psych) Medications Administered Discontinued Medications Generic Name Dose Route Start Last Admin Trade Name Malcom PRN Reason Stop Dose Admin Cyclobenzaprine HCl 5 mg 10/11/23 12:44 10/11/23 13:14 Cyclobenzaprine Hcl 5 Mg Tablet PO 10/11/23 12:45 5 mg ONCE ONE Administration Morphine Sulfate 4 mg 10/11/23 12:10 10/11/23 12:16 Morphine Sulfate 4 Mg/Ml Cartridge IVPUSH 10/11/23 12:11 4 mg ONCE ONE Administration Protocol Ondansetron HCl 4 mg 10/11/23 12:10 10/11/23 12:16 Ondansetron Hcl 4 Mg/2 Ml Vial IVPUSH 10/11/23 12:11 4 mg ONCE ONE Administration Medical Decision Making Medical Decision Making [facility] Narrative: Patient is a 58 year old assigned female at with a history of HTN and DM presenting to the emergency department today with a headache after feeling something in her neck pop. Patient's physical exam was unremarkable. Patient's blood work was unremarkable. Patient's urine showed no acute process. Patient's CTA of the head and neck showed no findings that would cause the patient's symptoms. However, the patient was found to have an 80% stenosis of the right ICA. I consulted with the vascular team who recommended outpatient follow up with daily ASA. Patient states that she already takes a daily ASA when she remembers to . I explained to the patient that she needs to take the ASA, daily, every time. I explained my physical exam findings as well as all test results to the patient and the patient's . I answered all questions asked by the patient and the patient's . Patient received IV morphine which she stated helped her symptoms significantly. I stressed the importance of the patient taking her medication as prescribed. I stressed the importance of the patient following up with her primary care provider and the vascular team. I stressed the importance of the patient returning to the emergency department immediately if her symptoms were to worsen or if she were to develop any dizziness, shortness of breath, difficulty breathing, chest pain, blurry vision, loss of vision, nausea, vomiting, abdominal pain, fever, chills, back pain, or any other complaints. Patient verbalized agreement and understanding with this treatment plan and discharge. Differential Diagnosis Differential Diagnoses: The differential diagnosis associated with the presentation includes Headache Aneurysm Intracranial bleed Stroke CVA Admission/Observation Consideration of admission/observation: Escalation of care including admission/observation considered Patient would have been admitted to the hospital had her work up had any findings where hospital admission was appropriate and her clinical presentation warranted hospital admission. Consult Healthcare Provider Management of the patient was discussed with: [employer] (spoke with the vascular team as noted in the MDM Rationale portion of this note.) Lab Data [facility] Lab Attestation statement: I reviewed the patient's lab results. My interpretation of these results are in the MDM Rationale portion of this note. 10/11/23 10:49 10/11/23 10:49 Labs: Lab Results 10/11/23 10/11/23 10/11/23 Range/Units 10:48 10:49 11:23 WBC 6.7 (4.8-10.8) X10*3/uL RBC 4.56 (4.20-5.50) X10*6/uL Hgb 14.9 (12.0-16.0) g/dl Hct 43.6 (37.0-47.0) % MCV 95.6 (80.0-98.0) fL MCH 32.7 (27.0-33.0) pg MCHC 34.2 (31.0-35.0) g/dl RDW 13.4 (11.0-16.0) % Plt Count 280 (160-400) X10*3/uL MPV 8.8 L (9.4-12.3) fL Immature Gran % (Auto) 0.3 (0.0-0.4) % Neut % (Auto) 61.5 (45-73) % Lymph % (Auto) 27.1 (20-40) % [place] % (Auto) 8.0 (2-11) % Eos % (Auto) 2.6 (0-4) % Baso % (Auto) 0.5 (0-2) % Lymph # (Auto) 1.8 (1.2-4.9) X10*3/uL [place] # (Auto) 0.5 (0.1-1.2) X10*3/uL Eos # (Auto) 0.2 (0.0-0.4) X10*3/uL Baso # (Auto) 0.0 (0.0-0.2) X10*3/uL Abs Immat Gran (auto) 0.02 (0.00-0.03) X10*3/uL Absolute Neuts (auto) 4.1 (2.0-8.3) x10*3/uL Absolute Nucleated RBC 0.000 (0.0-0.012) X10*3/uL Nucleated RBC % (auto) 0.0 (0.0-0.2) /100WBC Hold Blue Top SEE NOTE Sodium 141 (135-145) mmol/L Potassium 4.3 (3.3-5.1) mmol/L Chloride 110 H (96-108) mmol/L Carbon Dioxide 21 L (22-29) mmol/L Anion Gap 14 (12-20) BUN 12 (9-16) mg/dL Creatinine 0.83 (0.5-1.4) mg/dL Estim Creat Clear Calc 89.1 Estimated GFR > 60 Random Glucose 135 H (60-115) mg/dL Calcium 9.3 (8.4-10.2) mg/dL Magnesium 2.0 (1.6-2.6) mg/dL Total Bilirubin 0.5 (0.0-1.0) mg/dL AST 27 (5-31) U/L ALT 26 (0-31) U/L Alkaline Phosphatase 58 (39-117) U/L Total Protein 7.5 (6.5-8.0) g/dL Albumin 4.3 (3.5-5.0) g/dL Urine Color Yellow Urine Appearance Clear Urine pH 5.5 (5.0-9.0) Ur Specific [place] 1.020 (1.005-1.025) Urine Protein Negative (Neg-Trace) mg/dL Urine Glucose (UA) Negative (Negative) mg/dL Urine Ketones Negative (Negative) mg/dL Urine Blood Small (1+) H (Negative) Urine Nitrite Negative (Negative) Ur Leukocyte Esterase Negative (Negative) Urine RBC 3-5 H (0-2) /HPF Urine WBC 0-5 (0-5) /HPF Ur Squamous Epith Cells 0-2 (0-2) /HPF Urine Bacteria Trace (None Seen) Hyaline Casts 0-2 (0-2) /LPF Independent Interpretation I performed an independent interpretation of an: CT Scan Interpretation: My interpretation is in agreement with the radiologist's impression of this imaging study. - EXAMINATION: CTA OF THE HEAD AND NECK CLINICAL INFORMATION: Headache. COMPARISON: None available. TECHNIQUE: Test bolus sequences followed by intravenous administration 70 mL of Omnipaque 350. Helical imaging was performed in the axial plane from the mediastinum to the skull vertex. Delayed postcontrast imaging of the head was also performed. The data was processed at the neurodiagnostic technologist's workstation for generation of MIP sequences. Three-dimensional volume rendered reformatted images were also generated at an offline 3-D workstation. Stenoses are assessed in accordance with NASCET criteria unless otherwise indicated. This CT examination was performed using dose optimization techniques as appropriate, variously including the following: *Automated exposure control *Adjustment of mA and/or kV according to patient size (this includes techniques or standardized protocols for targeted exams where dose is matched to indication/reason for exam; i.e. extremities or head) *Use of iterative reconstruction technique DLP: 2256 mGy-cm. FINDINGS: CT head: There is no evidence of acute intracranial hemorrhage or territorial infarction. There is no loss of [place] to white matter differentiation. No abnormal mass effect or midline shift is seen. No extra-axial fluid collections are identified. There is no pathologic enhancement. The ventricles are normal in size. There is no abnormal attenuation within the brain parenchyma. The osseous structures and soft tissues are normal. The mastoid air cells and visualized portions of the paranasal sinuses are well aerated. CTA neck: The imaged aortic arch and origins of the great vessels are normal. The common carotid arteries are widely patent. The vertebral arteries opacify normally and are of normal caliber. There are mild wall calcifications at the left carotid bifurcation and origin of the left internal carotid artery without significant stenosis. At the right carotid bifurcation, there are moderate atherosclerotic wall calcifications resulting in a severe 80% stenosis. Remainder of the cervical right ICA is otherwise normal in caliber. The soft tissues of the neck are unremarkable. [id number] cervical spondylosis noted with multilevel hypertrophic facet arthropathy and uncovertebral joint spurring resulting in significant foraminal encroachment, particularly on the left side at C2-C3 and C3-C4, and on the right side at the C4-C5 and C5-C6 levels. There are mild subsegmental atelectatic changes in both lungs. CTA head: The intradural vertebral arteries and basilar artery are normal. The posterior cerebral arteries are widely patent. The internal carotid arteries are relatively of normal caliber with mild atherosclerotic wall calcifications. The HUSSEIN and MCA vascular complexes bilaterally are normal. The venous sinuses opacify normally. CT/CT angio head neck IMPRESSION: No hemodynamically significant stenosis or vessel occlusion in the intracranial vasculature at the level of the [place]. Significant atherosclerotic disease at the right carotid bifurcation and origin of the right ICA with an 80% stenosis. Multilevel cervical spondylosis with exuberant facet arthropathy contributing to significant foraminal narrowing at various levels. Imaging findings reported to MILI Ricci at 12:04 PM on 10/11/2023. Dictated By: JYOTSNA FREIRE MD Signed By: Electronically signed by JYOTSNA FREIRE MD 10/11/23 6825 Radiology Impression Discussion of test interpretation with radiology: I have reviewed the radiologist's reading. Independent Historian Clinical information obtained from an independent historian. History obtained from or confirmed by: Spouse (patient's provided additional history and confirmed the history provided by the patient.) Chronic Conditions Patient?s care impacted by: Diabetes and Hypertension Critical Care Time Critical Care Time Critical Care Time: Yes Total Critical Care Time: 45 Attestation: I spent 45 minutes of Critical Care Time with this patient. This does not include time spent on separately reported billable procedures. Discharge Plan Discharge Clinical Impression: Muscle spasm, Headache, Carotid artery stenosis Patient Disposition: Home, Self-Care Instructions: Carotid Artery Disease (DC), Acute Headache (DC), Muscle Spasm (ED) Additional Instructions: Follow up with your primary care provider and the vascular team. Your CT scan of the head and neck showed an 80% stenosis (narrowing) of your right internal carotid artery (major vessel needed to live). THIS NEEDS FOLLOW UP WITH A VASCULAR SURGEON. TAKE YOUR ASPIRIN - DAILY. NOT EVERY OTHER DAY. DAILY. Also, please make sure to take your blood pressure medication. Return to the emergency department immediately if your symptoms worsen or if you develop any dizziness, shortness of breath, difficulty breathing, chest pain, blurry vision, loss of vision, nausea, vomiting, abdominal pain, fever, chills, back pain, or any other complaints. Prescriptions: New cyclobenzaprine 5 mg tablet 5 mg PO TID PRN (Reason: muscle spasm) 7 Days Qty: 21 0RF No Action dexamethasone [Decadron] 4 mg tablet 4 mg PO DAILY Qty: 5 0RF cyclobenzaprine 10 mg tablet 10 mg PO TID PRN (Reason: muscle spasm) Qty: 10 0RF oxycodone 5 mg tablet 5 mg PO Q6H PRN (Reason: pain) Qty: 10 0RF doxycycline monohydrate 100 mg tablet 100 mg PO BID Qty: 20 0RF cephalexin 500 mg capsule 500 mg PO BID Qty: 20 0RF ketorolac 10 mg tablet 10 mg PO Q8H Qty: 20 0RF Rx Instructions: First dose given in the ER by IM and patient tolerated well. oxycodone 5 mg tablet 5 mg PO BID PRN (Reason: pain) Qty: 10 0RF Rx Instructions: Partial Fill upon patient request. Referrals: Naila Vargas MD [Primary Care Provider] - Yimi Shafer MD [Physician] - (Call to establish and follow up with a vascular surgeon (to discuss the narrowing of the artery in your neck).) Print Language: Macedonian
[2023-10-11 10:44] VITALS: BP 189/97; PULSE 64; RESP 18; TEMP 36.9; O2SAT 99
[2023-10-11 10:54] LABS: MANUAL DIFF FLAG NO
[2023-10-11 10:58] LABS: Basophils Percent Auto 0.5 % (0-2); Eosinophils Absolute Auto 0.2 X10*3/uL (0.0-0.4); Eosinophils Percent Auto 2.6 % (0-4); Hematocrit 43.6 % (37.0-47.0); Hemoglobin 14.9 g/dl (12.0-16.0); Imm Gran Abs Auto 0.02 X10*3/uL (0.00-0.03); Imm Gran Pct Auto 0.3 % (0.0-0.4); Lymphocytes Absolute Auto 1.8 X10*3/uL (1.2-4.9); Lymphocytes Percent Auto 27.1 % (20-40); Mean Corpuscular HGB Conc 34.2 g/dl (31.0-35.0); Mean Corpuscular Hemoglobin 32.7 pg (27.0-33.0); Mean Corpuscular Volume 95.6 fL (80.0-98.0); Mean Platelet Volume 8.8 fL (9.4-12.3); Monocytes Absolute Auto 0.5 X10*3/uL (0.1-1.2); Neutrophils Absolute Auto 4.1 x10*3/uL (2.0-8.3); Neutrophils Percent Auto 61.5 % (45-73); Platelet Count 280 X10*3/uL (160-400); Red Blood Count 4.56 X10*6/uL (4.20-5.50); Red Cell Distribution Width 13.4 % (11.0-16.0); White Blood Count 6.7 X10*3/uL (4.8-10.8)
--- NOTE | 2023-10-11 10:58 | PC.NURSE ---
Pt awake, alert and oriented. Breathing even and unlabored. Skin warm and dry. Pt reports feeling a pop in her head Monday followed by severe pain on left side of head. Pt reports headache worsening over the past couple of days with dizziness and overall not feeling well. No slurred speech or facial droop noted. Pt reports taking tyelnol with no relief, pain 5/10 now, sharp.
[2023-10-11 11:14] LABS: Alanine Aminotransferase 26 U/L (0-31); Albumin Level 4.3 g/dL (3.5-5.0); Alkaline Phosphatase 58 U/L (39-117); Anion Gap 14 (12-20); Aspartate Amino Transferase 27 U/L (5-31); Bilirubin Total 0.5 mg/dL (0.0-1.0); Blood Urea Nitrogen 12 mg/dL (9-16); Calcium 9.3 mg/dL (8.4-10.2); Carbon Dioxide 21 mmol/L (22-29); Chloride 110 mmol/L (96-108); Creatinine Clr Calc Pharmacy 89.1; Estimated Glomerular Filt Rate > 60; Glucose Random 135 mg/dL (60-115); Potassium 4.3 mmol/L (3.3-5.1); Sodium 141 mmol/L (135-145); Total Protein 7.5 g/dL (6.5-8.0)
--- NOTE | 2023-10-11 11:21 | PC.NURSE ---
pt back from CT.
[2023-10-11 11:32] LABS: Appearance Urine Clear; Color Urine Yellow; Glucose Urine UA Negative (Negative); Leukocyte Esterase Urine Negative (Negative); Nitrite Urine Negative (Negative); PH 5.5 (5.0-9.0); UMIC TRIGGER UACC YES; Urine Blood Small (1+) (Negative); Urine Ketones Negative (Negative); Urine Protein Negative (Neg-Trace)
[2023-10-11 11:48] LABS: Squamous Epithelial Cell Urine 0-2 /HPF (0-2); WBC Urine 0-5 /HPF (0-5)
[2023-10-11 11:49] LABS: Bacteria Urine Trace (None Seen); Hyaline Casts Urine 0-2 /LPF (0-2)
[2023-10-11 12:16] VITALS: RESP 17
[2023-10-11] MEDS: ondansetron HCL 4 MG/2 ML VIAL IVPUSH (12:16)
[2023-10-11] MEDS: Morphine Sulfate 4 MG/ML CARTRIDGE IVPUSH (12:16)
--- NOTE | 2023-10-11 12:22 | PC.NURSE ---
pt reports increase in pain to 6/10, sharp on left side of head. Provider aware, pt medicated per MAR for pain and nausea. pt denies any other new complaints.
[2023-10-11] MEDS: Cyclobenzaprine HCl 5 MG TABLET PO (13:14)
--- NOTE | 2023-10-11 13:17 | PC.NURSE ---
pt resting in bed, no resp distress. pt reports pain improved after morphine to 3/10. pt medicated per MAR
[2023-10-11 14:09] VITALS: BP 149/96; PULSE 62; RESP 16
== END 2023-10-11 14:10 | disposition home or self-care (01) ==
PROVIDERS: Physician Assistant Medical; Emergency Provider Emergency Medicine Emergency Medical Services; PCP Internal Medicine
DX: I65.21 Occlusion and stenosis of right carotid artery (principal); M62.838 Other muscle spasm; R51.9 Headache, unspecified; I10 Essential (primary) hypertension; E11.9 Type 2 diabetes mellitus without complications; E78.00 Pure hypercholesterolemia, unspecified; Z87.891 Personal history of nicotine dependence; Z79.899 Other long term (current) drug therapy
CPT/HCPCS: 36415; 70496; 70498; 80053; 81001; 83735; 85025; 96374; 96375; 99284; J2270; J2405

== ENCOUNTER 2023-10-12 08:52 | Outpatient (AMB) | payer MEDICAID, SELFPAY ==
[2023-10-12 08:51] VITALS: BP 136/82; PULSE 65; O2SAT 98; BMI 40.3
--- NOTE | 2023-10-12 08:51 | A.OFFVIS_ITS ---
Intake Vital Signs 10/12/23 08:51 10/12/23 09:05 Height 5 ft 4 in Weight 235 lb BMI 40.3 BP 136/82 114/74 Blood Pressure Location Rt brachial Lt femoral Position Sitting Sitting Pulse 65 Pulse Source Pulse Oximeter Pulse Oximetry (%) 98 Oxygen Delivery Method Room Air Intake Visit Reasons: [employer]/ ED Urgent Referral for carotid stenosis Intake Note: ED referral urgent per add-on s/p CTA Head/Neck 10/11/23.Pt states that she has had a terrible headache, starting monday night at 630 pm. has had a few episodes since discharge yesterday. Pt seeing spots and electrical like currents, ringing in ears, dizziness and neausea from the pain. Pt states she has pressure at the base of her neck and goes up around ear to temporal area. States 1 week ago she felt/heard a snapping noise in her head. Accompanied by: Spouse Allergies clarithromycin [From Biaxin] Allergy (Unknown, Verified 10/12/23 08:57) UNKNOWN Biaxin Allergy (Unknown, Uncoded 10/12/23 08:57) Unknown HPI [employer]/ ED Urgent Referral for carotid stenosis HPI Details Very pleasant 58-year-old female presents for for follow-up evaluation from the emergency room. At that time she reported pain and dizziness in her head that was present for about 3 days. She had been given medicine and treated for a migraine headache. It seems to have improved. But during the workup she was noted to have high-grade right-sided carotid stenosis. At that time she was negative for stroke. She now presents for urgent follow-up regarding carotid stenosis. Of note she does have a history of PA D. At some point she did have a lower extremity stent performed by Dr. Levy. She reports that it does not work and apparently did not have follow-up with him. 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 Review of Systems Const All systems reviewed & are unremarkable except as noted in HPI and below Reports no additional complaints ENT Reports Normal hearing present Card Denies chest pain, Denies chest pain at rest, Denies chest pain with activity and Denies pedal edema Resp Denies cough GI Denies abdominal pain Musc Denies abnormal gait, Denies muscle cramps and Denies radiating pain into limb Skin/Breast Denies skin ulcer and Denies wounds Neuro Reports Normal hearing present and Denies abnormal gait Psych Reports no additional complaints Physical Exam Vital Signs: Last Vital Signs Pulse 65 10/12/23 08:51 BP 114/74 10/12/23 09:05 Pulse Ox 98 10/12/23 08:51 Oxygen Delivery Method Room Air 10/12/23 08:51 BMI result Body Mass Index 40.3 Const General: cooperative, healthy appearing and comfortable Orientation/consciousness: oriented to person, oriented to place and oriented to time HEENT Head: Yes normal to inspection Neck Neck: Yes normal visual inspection Carotids: no bruits Chest Chest palpation & inspection: normal inspection of the chest Resp Effort & Inspection: normal respiratory effort and able to speak in complete sentences Auscultation: clear to auscultation bilaterally, no crackles, no rales, no rhonchi and no wheezes Cardio Rate: regular rate Rhythm: regular rhythm Heart sounds: S1 normal heart sound present and S2 normal heart sound present Bruits: no carotid bruits Peripheral pulses: Peripheral pulses 2+ throughout GI Inspection: Yes normal to inspection Skin Wounds: no wounds Hair: normal Neuro General: oriented to person, oriented to place and oriented to time Cranial nerves: Yes CN's II-XII intact bilaterally and Yes Normal hearing present Cognition (Neuro): normal cognition Motor exam (neuro): 5/5 motor strength present throughout Extrem Other: venous exam: No significant superficial varicosities or spider telangiectasias, minimal edema General: No clubbing, No cyanosis and No edema Psych Appearance: grossly normal Mental Status: mental status grossly normal Speech and movement: Normal speech and movement present Results Reviewed Results Reviewed: CT angiogram of the carotids dated 10/11/2023 demonstrates right-sided stenosis of 80%. Written report and images were reviewed. Assessment & Plan Assessment & Plan (1) Carotid stenosis, right: Code(s): I65.21 - Occlusion and stenosis of right carotid artery Plan: In short the patient has high-grade right carotid stenosis. She is asymptomatic from this and I do believe that the migraines are separate issue. She does need to be treated for this high-grade carotid stenosis. She will require right carotid endarterectomy. Risks benefits complications including but not limited to bleeding infection stroke and were discussed in detail with the patient. They understood and would like to move forward. was at bedside during discussion. She will require cardiac risk stratification. She is scheduled for surgery for November 06. (2) Peripheral arterial disease: Comment: Unknown lower extremity stenting performed by Dr. Levy Code(s): I73.9 - Peripheral vascular disease, unspecified Plan: She does have a prior history of lower extremity stenting. At the current time would like to dress the carotids 1st. At some point she will require surveillance ultrasound follow-up of the lower extremities in to see the status of that. We did discuss risk factor modification which would be beneficial thank you for allowing us to assist in her care. If there are any questions or concerns please do not hesitate to contact us. Coding Level of Care Code New Pt Level 4 (44295) Diagnoses Carotid stenosis, right I65.21 Peripheral arterial disease I73.9
[2023-10-12 09:05] VITALS: BP 114/74
== END 2023-10-12 09:47 | disposition home or self-care (01) ==
PROVIDERS: PCP Internal Medicine; Visit Provider Surgery Vascular Surgery
DX: I65.21 Occlusion and stenosis of right carotid artery (principal); I73.9 Peripheral vascular disease, unspecified
CPT/HCPCS: 99204

== ENCOUNTER → 2023-10-12 08:52 | Outpatient (BNVA) | payer MEDICAID, SELFPAY | PROVIDERS: PCP Internal Medicine; Visit Provider Surgery Vascular Surgery | DX: I65.21 Occlusion and stenosis of right carotid artery (principal); I73.9 Peripheral vascular disease, unspecified | CPT/HCPCS: 99202 ==

== ENCOUNTER 2023-10-17 10:19 | Emergency (ER) | payer MEDICAID, SELFPAY ==
--- NOTE | ~2023-10-17 | CT_ITS ---
CT HEAD WITHOUT IV CONTRAST INDICATION: Hypertension. Headache. COMPARISON: CTA head and neck 10/11/2023. TECHNIQUE: Multidetector CT acquisitions of the head was obtained without IV contrast. This CT examination was performed using dose optimization techniques as appropriate, variously including the following: *Automated exposure control *Adjustment of mA and/or kV according to patient size (this includes techniques or standardized protocols for targeted exams where dose is matched to indication/reason for exam; i.e. extremities or head) *Use of iterative reconstruction technique FINDINGS: Partially empty sella. There is no intracranial hemorrhage, hydrocephalus, extra-axial surface collection, midline shift, or other herniation pattern. [place]ouse to white matter differentiation is diffusely maintained without evidence of an evolved acute territorial infarct. The basilar cisterns are preserved. No significant soft tissue abnormality. No acute osseous abnormality. The paranasal sinuses and the mastoid air cells are well aerated. CT/CT head/brain wo IV con IMPRESSION: No acute intracranial abnormality. Partially empty sella.
--- NOTE | ~2023-10-17 | XR_ITS ---
EXAMINATION: XR CHEST CLINICAL INFORMATION: Hypertension. COMPARISON: None available. TECHNIQUE: Frontal view of the chest was obtained. FINDINGS: The lungs are clear. The cardiomediastinal silhouette is normal in size. There is no pleural effusion or pneumothorax. No acute osseous abnormality. XR/XR chest 1V IMPRESSION: No acute cardiopulmonary findings.
[2023-10-17 10:34] VITALS: BP 204/126; PULSE 80; RESP 20; TEMP 36.1; O2SAT 96; BMI 41.6
--- NOTE | 2023-10-17 11:42 | ECG_ITS ---
Test Reason : HEADACHE Blood Pressure : / mmHG Vent. Rate : 079 BPM Atrial Rate : 079 BPM P-R Int : 134 ms QRS Dur : 086 ms QT Int : 416 ms P-R-T Axes : 055 -04 066 degrees QTc Int : 477 ms Sinus rhythm with occasional Premature ventricular complexes Low voltage QRS Borderline ECG When compared with ECG of 05-JAN-2012 07:47, Premature ventricular complexes are now Present Referred By: Eleonora Arce Electronically Signed By:DONAVAN BATES
--- NOTE | 2023-10-17 11:50 | ED.HA ---
HPI - Headache General Chief Complaint: Headache Stated Complaint: Head Pain Vomiting Time Seen by Provider: 10/17/23 11:30 Source: patient Mode of arrival: ambulatory Limitations: no limitations History of Present Illness HPI Narrative: 58-year-old female history of hypertension presented with severe headache for the past 8 days. Patient was seen and evaluated 2 weeks ago for similar headache was noted a very high blood pressure throughout the ED visit. patient had CT angio of the head and neck which showed grossly normal intracranial cerebral vessels but patient had 80% right carotid artery occlusion that the patient is going for carotid endarterectomy by Dr. Shafer in the next couple weeks. Headache today started about 8 days ago described as severe, associated with nausea and vomiting today, no photophobia, no blurry vision, no neck pain or neck stiffness. No fever, no chills. blood pressure was noted again to be very high in the emergency department. Patient takes losartan at home to control blood pressure. Related Data Home Medications Medication Instructions Recorded Confirmed albuterol sulfate 90 mcg/actuation 1 inh inhalation QID 10/12/23 aerosol inhaler biotin 10,000 mcg capsule mcg PO 10/12/23 cholecalciferol (vitamin D3) 125 125 mcg PO DAILY 10/12/23 mcg (5,000 unit) capsule cilostazol 100 mg tablet 100 mg PO BID 10/12/23 fluoxetine 20 mg capsule 20 mg PO DAILY 10/12/23 levothyroxine 25 mcg capsule 25 mcg PO DAILY 10/12/23 losartan 25 mg tablet 25 mg PO DAILY 10/12/23 mecobalamin (vitamin B12) 500 mcg mcg PO 10/12/23 chewable tablet metformin 500 mg tablet 500 mg PO BID 10/12/23 omeprazole 40 mg capsule,delayed 40 mg PO DAILY 10/12/23 release simvastatin 40 mg tablet 40 mg PO DAILY 10/12/23 Previous Rx's Medication Instructions Recorded cyclobenzaprine 10 mg tablet 10 mg PO TID PRN muscle spasm #10 09/15/20 tabs dexamethasone 4 mg tablet 4 mg PO DAILY #5 tabs 09/15/20 (Decadron) oxycodone 5 mg tablet 5 mg PO Q6H PRN pain #10 tabs 09/15/20 cephalexin 500 mg capsule 500 mg PO BID #20 caps 10/16/21 doxycycline monohydrate 100 mg 100 mg PO BID #20 tabs 10/16/21 tablet oxycodone 5 mg tablet 5 mg PO BID PRN pain #10 tabs 11/01/22 ketorolac 10 mg tablet 10 mg PO Q8H #20 tabs 11/02/22 cyclobenzaprine 5 mg tablet 5 mg PO TID PRN muscle spasm 7 10/11/23 days #21 tabs amlodipine 2.5 mg tablet 2.5 mg PO DAILY #14 tabs 10/17/23 Allergies Allergy/AdvReac Type Severity Reaction Status Date / Time clarithromycin [From Biaxin] Allergy Unknown UNKNOWN Verified 10/17/23 10:40 Biaxin Allergy Unknown Unknown Uncoded 10/17/23 10:40 Review of Systems Review of Systems: All other systems are reviewed and are negative Constitutional: Reports as per HPI and Reports no additional constitutional complaints Eyes: Reports as per HPI and Reports no additional eye complaints Reports system reviewed and no additional complaints, except as documented Cardiovascular: Reports as per HPI and Reports no additional cardiovascular complaints Respiratory: Reports as per HPI and Reports no additional respiratory complaints Gastrointestinal: Reports as per HPI and Reports no additional gastrointestinal complaints Genitourinary: Reports no additional female genitourinary complaints Musculoskeletal: Reports no additional musculoskeletal complaints Skin/Breast: Reports system reviewed and no additional complaints, except as docu Psychiatric: Reports no additional psychiatric complaints Endocrine: Reports no additional endocrine complaints Hematologic/Lymphatic: Reports no additional hematologic/lymphatic complaints Allergic/Immunologic: Reports no additional allergic/immunologic complaints Reports system reviewed and no additional complaints, except as documented and Reports Abnormal speech present COUNT INCLUDES THE [facility] Past Medical History Medical History Hypothyroidism Hypercholesteremia Carpal tunnel syndrome Kidney stones Prediabetes Sleep apnea Peripheral arterial disease Surgical History Tubal ligation status History of appendectomy History of foot surgery Social History Social History Patient Tobacco Use Status: Former Tobacco user Quit Date: 2016 Smoked in Last 30 Days: No Substance Use Type: Other Substance Use Type Other:: cbd gummies Advance Directives: No Advance Directives Information Provided: Yes Patient : No Current occupation: [employer] - Right Handed Physical Exam Vital Signs: Vital Signs: Last Vital Signs Temp 98.2 F 10/17/23 13:13 Pulse 66 10/17/23 13:13 Resp 16 10/17/23 13:13 BP 142/65 H 10/17/23 13:13 Pulse Ox 96 10/17/23 13:13 O2 Del Method Room Air 10/17/23 13:13 BMI result Body Mass Index 41.6 Vital signs have been reviewed and appear to be correct. Blood pressure elevated. Heart rate normal. Respiratory rate normal. Temperature normal. Oxygen saturation normal. Appearance: Alert. Oriented X3. No acute distress. Head: Normal external exam. Normocephalic. Atraumatic. No [place] signs noted. No raccoon eyes noted Eyes: PERRLA. EOMI. Conjunctiva and sclera normal. Eyelids normal. ENT: TM's Normal. Pharynx normal. Uvula midline. Moist mucous membranes. No trismus noted. No drooling noted. No muffled voice noted. Neck: Normal inspection. Neck supple. FROM. No adenopathy. Thyroid Normal. No meningeal signs. No neck mass noted. CVS: Normal heart rate and rhythm. Heart sound normal. No murmurs noted. Pulses normal throughout. Respiratory: No respiratory distress. Painless inspiration. Breath sounds normal. No wheezes/rales/rhonchi noted. Chest nontender. No accessory muscle usage noted or decreased air movement noted. Abdomen: Soft and nontender. Bowel sounds normal in all 4 quadrants. No distention noted. No organomegaly noted. No visible injury noted. Back: No CVA tenderness. Full range of motion noted. Skin: Skin warm and dry. Normal skin color. Normal skin turgor. No rashes/lesions/lacerations noted. Extremities: No lower extremity edema. Extremities exhibit normal range of motion. Extremities nontender. Neuro: Oriented X 3. Cranial nerve exam: II-XII are grossly intact No motor deficit. No sensory deficit. Reflexes normal. NIH Stroke Scale Time: 12:05 Level of Consciousness: Alert Level of Consciousness Questions: Answers both questions correctly Level of Consciousness Commands: Performs both tasks correctly Best Gaze: Normal Visual: No visual loss Facial Palsy: Normal Motor Arm (Right): No drift Motor Arm (Left): No drift Motor Leg (Right): No drift Motor Leg (Left): No drift Limb Ataxia: Absent Sensory: Normal Best Language: No aphasia Dysarthia: Normal Extinction and Inattention: No abnormality Score: 0 Course Reevaluation(s) Reevaluation #1: Chart with old VS record was reviewed patient had high blood pressure in particular diastolic blood pressure when she complains of headache, head CT /neuro exam is unremarkable for acute neurological deficit, CT angio of the head and neck done 2 weeks ago is unremarkable for aneurysm, patient today was given amlodipine which helped to gradually lower the blood pressure patient now is feeling much better, repeat neuro exam is unremarkable. patient need a better blood pressure control management will add amlodipine 2.5 mg daily to her current medication patient was instructed to follow-up with her PCP for continuous BP monitoring. Time: 14:40 Medications Administered Discontinued Medications Generic Name Dose Route Start Last Admin Trade Name Freq PRN Reason Stop Dose Admin Amlodipine Besylate 5 mg 10/17/23 11:42 10/17/23 11:52 Amlodipine Besylate 5 Mg Tablet PO 10/17/23 11:43 5 mg ONCE ONE Administration Protocol Sodium Chloride 1,000 mls @ 500 mls/hr 10/17/23 11:42 10/17/23 11:52 Ns IV 10/17/23 13:41 500 mls/hr .Q2H ONE Administration Morphine Sulfate 1 mg 10/17/23 11:51 10/17/23 11:58 Morphine Sulfate 2 Mg/Ml Cartridge IVPUSH 10/17/23 11:52 1 mg ONCE ONE Administration Protocol Ondansetron HCl 4 mg 10/17/23 11:44 10/17/23 11:52 Ondansetron Hcl 4 Mg/2 Ml Vial IVPUSH 10/17/23 11:45 4 mg ONCE ONE Administration Medical Decision Making Differential Diagnosis Differential Diagnoses: The differential diagnosis associated with the presentation includes ( Intracranial bleed, stroke, cerebral aneurysm, hypertensive urgency, ACS, electrolyte abnormality, severe anemia , UTI.) Admission/Observation Consideration of admission/observation: Escalation of care including admission/observation considered Lab Data MDM Lab Attestation statement: I reviewed the patient's lab results. 10/17/23 11:54 10/17/23 11:54 Labs: Lab Results 10/17/23 Range/Units 11:54 WBC 9.9 (4.8-10.8) X10*3/uL RBC 4.57 (4.20-5.50) X10*6/uL Hgb 15.1 (12.0-16.0) g/dl Hct 43.4 (37.0-47.0) % MCV 95.0 (80.0-98.0) fL MCH 33.0 (27.0-33.0) pg MCHC 34.8 (31.0-35.0) g/dl RDW 13.4 (11.0-16.0) % Plt Count 291 (160-400) X10*3/uL MPV 8.7 L (9.4-12.3) fL Immature Gran % (Auto) 0.3 (0.0-0.4) % Neut % (Auto) 67.1 (45-73) % Lymph % (Auto) 22.0 (20-40) % [place] % (Auto) 6.2 (2-11) % Eos % (Auto) 4.0 (0-4) % Baso % (Auto) 0.4 (0-2) % Lymph # (Auto) 2.2 (1.2-4.9) X10*3/uL [place] # (Auto) 0.6 (0.1-1.2) X10*3/uL Eos # (Auto) 0.4 (0.0-0.4) X10*3/uL Baso # (Auto) 0.0 (0.0-0.2) X10*3/uL Abs Immat Gran (auto) 0.03 (0.00-0.03) X10*3/uL Absolute Neuts (auto) 6.7 (2.0-8.3) x10*3/uL Absolute Nucleated RBC 0.000 (0.0-0.012) X10*3/uL Nucleated RBC % (auto) 0.0 (0.0-0.2) /100WBC Sodium 140 (135-145) mmol/L Potassium 3.6 (3.3-5.1) mmol/L Chloride 105 (96-108) mmol/L Carbon Dioxide 24 (22-29) mmol/L Anion Gap 15 (12-20) BUN 8 L (9-16) mg/dL Creatinine 1.01 (0.5-1.4) mg/dL Estim Creat Clear Calc 74.5 Estimated GFR 56 Random Glucose 140 H (60-115) mg/dL Calcium 9.6 (8.4-10.2) mg/dL Total Bilirubin 0.4 (0.0-1.0) mg/dL Direct Bilirubin 0.2 (0.0-0.5) mg/dL AST 17 (5-31) U/L ALT 18 (0-31) U/L Alkaline Phosphatase 62 (39-117) U/L Troponin I High Sens < 2.7 (<3.5-17.0) ng/L B-Natriuretic Peptide < 10 (<100) pg/mL Total Protein 7.6 (6.5-8.0) g/dL Albumin 4.5 (3.5-5.0) g/dL Lipase 10 (8-78) U/L Urine Color Yellow Urine Appearance Clear Urine pH 5.5 (5.0-9.0) Ur Specific [place] 1.015 (1.005-1.025) Urine Protein Negative (Neg-Trace) mg/dL Urine Glucose (UA) Negative (Negative) mg/dL Urine Ketones Negative (Negative) mg/dL Urine Blood Trace H (Negative) Urine Nitrite Negative (Negative) Ur Leukocyte Esterase Negative (Negative) Urine RBC 0-2 (0-2) /HPF Urine WBC 0-5 (0-5) /HPF Ur Squamous Epith Cells 0-2 (0-2) /HPF Urine Bacteria None Seen (None Seen) Hyaline Casts 0-2 (0-2) /LPF Acetaminophen < 3 (<30) mcg/mL Independent Interpretation I performed an independent interpretation of an: CT Scan ( Head: No acute intracranial pathology.) Radiology Impression Discussion of test interpretation with radiology: I have reviewed the radiologist's reading. Chronic Conditions Patient?s care impacted by: Hypertension Critical Care Time Critical Care Time Critical Care Time: Yes Total Critical Care Time: 40 Attestation: I spent 40 minutes providing critical care service to the patient, this including time spent at the bedside to evaluate the patient, reassess the patient, monitoring vital signs, review labs, and radiographic studies, counseling the patient/family, discussing the case with consultants, disposition the patient. Discharge Plan Discharge Clinical Impression: Tension headache, Hypertensive urgency Patient Disposition: Home, Self-Care Instructions: Tension Headache (ED) Prescriptions: New amlodipine 2.5 mg tablet 2.5 mg PO DAILY Qty: 14 0RF No Action dexamethasone [Decadron] 4 mg tablet 4 mg PO DAILY Qty: 5 0RF cyclobenzaprine 10 mg tablet 10 mg PO TID PRN (Reason: muscle spasm) Qty: 10 0RF oxycodone 5 mg tablet 5 mg PO Q6H PRN (Reason: pain) Qty: 10 0RF doxycycline monohydrate 100 mg tablet 100 mg PO BID Qty: 20 0RF cephalexin 500 mg capsule 500 mg PO BID Qty: 20 0RF ketorolac 10 mg tablet 10 mg PO Q8H Qty: 20 0RF Rx Instructions: First dose given in the ER by IM and patient tolerated well. oxycodone 5 mg tablet 5 mg PO BID PRN (Reason: pain) Qty: 10 0RF Rx Instructions: Partial Fill upon patient request. cyclobenzaprine 5 mg tablet 5 mg PO TID PRN (Reason: muscle spasm) 7 Days Qty: 21 0RF cilostazol 100 mg tablet 100 mg PO BID omeprazole 40 mg capsule,delayed release(DR/EC) 40 mg PO DAILY metformin 500 mg tablet 500 mg PO BID losartan 25 mg tablet 25 mg PO DAILY fluoxetine 20 mg capsule 20 mg PO DAILY simvastatin 40 mg tablet 40 mg PO DAILY levothyroxine 25 mcg capsule 25 mcg PO DAILY albuterol sulfate 90 mcg/actuation HFA aerosol inhaler 1 inh inhalation QID biotin 10,000 mcg capsule PO mecobalamin (vitamin B12) 500 mcg tablet,chewable PO cholecalciferol (vitamin D3) 125 mcg (5,000 unit) capsule 125 mcg PO DAILY Referrals: Naila Vargas MD [Primary Care Provider] -
[2023-10-17] MEDS: 0.9 % Sodium Chloride 1,000 ML 500 ML IV (11:52)
[2023-10-17] MEDS: amLODIPine Besylate 5 MG TABLET PO (11:52)
[2023-10-17] MEDS: ondansetron HCL 4 MG/2 ML VIAL IVPUSH (11:52)
[2023-10-17 11:58] LABS: MANUAL DIFF FLAG NO
[2023-10-17] MEDS: Morphine Sulfate 2 MG/ML CARTRIDGE 1 MG IVPUSH (11:58)
[2023-10-17 12:00] LABS: Basophils Percent Auto 0.4 % (0-2); Eosinophils Absolute Auto 0.4 X10*3/uL (0.0-0.4); Hematocrit 43.4 % (37.0-47.0); Hemoglobin 15.1 g/dl (12.0-16.0); Imm Gran Abs Auto 0.03 X10*3/uL (0.00-0.03); Imm Gran Pct Auto 0.3 % (0.0-0.4); Lymphocytes Absolute Auto 2.2 X10*3/uL (1.2-4.9); Mean Corpuscular HGB Conc 34.8 g/dl (31.0-35.0); Mean Platelet Volume 8.7 fL (9.4-12.3); Monocytes Absolute Auto 0.6 X10*3/uL (0.1-1.2); Monocytes Percent Auto 6.2 % (2-11); Neutrophils Absolute Auto 6.7 x10*3/uL (2.0-8.3); Neutrophils Percent Auto 67.1 % (45-73); Platelet Count 291 X10*3/uL (160-400); Red Blood Count 4.57 X10*6/uL (4.20-5.50); Red Cell Distribution Width 13.4 % (11.0-16.0); White Blood Count 9.9 X10*3/uL (4.8-10.8)
--- NOTE | 2023-10-17 12:01 | PC.NURSE ---
pt a&ox3, vss, ekg performed, pt c/o 02/18 headache, pt medicated for pain, ivf running per order, pt to have head ct, call garza withinr each, will continue to monitor
[2023-10-17 12:02] LABS: Appearance Urine Clear; Color Urine Yellow; Glucose Urine UA Negative (Negative); Leukocyte Esterase Urine Negative (Negative); Nitrite Urine Negative (Negative); PH 5.5 (5.0-9.0); Specific Gravity - Urine 1.015 (1.005-1.025); UMIC TRIGGER UACC YES; Urine Blood Trace (Negative); Urine Ketones Negative (Negative); Urine Protein Negative (Neg-Trace)
[2023-10-17 12:07] LABS: Bacteria Urine None Seen (None Seen); Hyaline Casts Urine 0-2 /LPF (0-2); RBC Urine 0-2 /HPF (0-2); Squamous Epithelial Cell Urine 0-2 /HPF (0-2); WBC Urine 0-5 /HPF (0-5)
[2023-10-17 12:16] LABS: Alanine Aminotransferase 18 U/L (0-31); Albumin Level 4.5 g/dL (3.5-5.0); Alkaline Phosphatase 62 U/L (39-117); Anion Gap 15 (12-20); Aspartate Amino Transferase 17 U/L (5-31); Bilirubin Direct 0.2 mg/dL (0.0-0.5); Bilirubin Total 0.4 mg/dL (0.0-1.0); Blood Urea Nitrogen 8 mg/dL (9-16); Calcium 9.6 mg/dL (8.4-10.2); Carbon Dioxide 24 mmol/L (22-29); Chloride 105 mmol/L (96-108); Creatinine Clr Calc Pharmacy 74.5; Estimated Glomerular Filt Rate 56; Glucose Random 140 mg/dL (60-115); Lipase 10 U/L (8-78); Potassium 3.6 mmol/L (3.3-5.1); Sodium 140 mmol/L (135-145); Total Protein 7.6 g/dL (6.5-8.0)
[2023-10-17 12:20] LABS: B Type Natriuretic Peptide < 10 pg/mL (<100)
[2023-10-17 12:43] LABS: Acetaminophen LAB < 3 mcg/mL (<30)
[2023-10-17 12:57] LABS: Troponin-I High Sensitivity < 2.7 ng/L (<3.5-17.0)
[2023-10-17 13:13] VITALS: BP 142/65; PULSE 66; RESP 16; TEMP 36.8; O2SAT 96
== END 2023-10-17 15:20 | disposition home or self-care (01) ==
PROVIDERS: Emergency Provider Emergency Medicine; PCP Internal Medicine
DX: G44.209 Tension-type headache, unspecified, not intractable (principal); I16.0 Hypertensive urgency; E78.00 Pure hypercholesterolemia, unspecified; E11.9 Type 2 diabetes mellitus without complications; Z87.891 Personal history of nicotine dependence; Z79.899 Other long term (current) drug therapy; Z79.84 Long term (current) use of oral hypoglycemic drugs; Z79.02 Long term (current) use of antithrombotics/antiplatelets
CPT/HCPCS: 36415; 70450; 71045; 80048; 80076; 80143; 81001; 81003; 83690; 83880; 84484; 85025; 93005; 96374; 96375; 99284; 99285; J2270; J2405

== ENCOUNTER → 2023-10-17 11:42 | Outpatient (BNV) | payer MEDICAID, SELFPAY | PROVIDERS: Emergency Provider Emergency Medicine; PCP Internal Medicine; Visit Provider Internal Medicine | DX: I49.3 Ventricular premature depolarization (principal) | CPT/HCPCS: 93010 ==

== ENCOUNTER 2023-11-06 06:15 | Inpatient (IN) | payer OTHER, SELFPAY ==
--- NOTE | 2023-11-02 10:24 | HO.ANESPROP2 ---
Documented by User: Shaneka Lyman NP 11/03/23 13:33 HPI - Anesthesia Eval Consult details Narrative: 58yo F for Right Carotid Endarterectomy ED visit for SANDOVAL, no stroke, no residual Cardiology optimization at [facility] pending nml stress test. (Negative nuc stress 11/01/23) No recent illness No CP/SOB Asthma. Advair daily. Rescue inhaler ~ 1 x monthly DM. Metformin. Random BS ~ 180 GERD. ppi controls well MARSHA. CPAP QHS PAD. Hx of LE stent 2019. PMFSH Active Problems Active Problems: All Active Problems (Updated 11/02/23 @ 10:20 by Kenya Guardado RN) Carotid stenosis, right (Acute) Cervical pain (neck) (Acute) Impingement syndrome, shoulder, left (Acute) Peripheral arterial disease (Acute) Past Medical History Medical History Asthma Pre-op exam Depression Arthritis Cervical radiculitis Renal calculi HTN (hypertension) Diabetes Glaucoma GERD (gastroesophageal reflux disease) Hypothyroidism Hypercholesteremia Carpal tunnel syndrome Sleep apnea Peripheral arterial disease Family History Family history of problems with anesthesia: No Surgical History Surgical History History of esophagogastroduodenoscopy (EGD) Hx of colonoscopy Hx of tubal ligation Hx of repair of rotator cuff Hx of carpal tunnel repair Hx of lithotripsy History of appendectomy History of foot surgery History of Problems with Anesthesia: No Social History Social History Are you a primary special needs child caregiver to a significant other at home: No Do you presently have visiting nurse or other home services: No Comment: uses cane occasionally Patient Tobacco Use Status: Former Tobacco user Quit Date: 2016 Tobacco use type: Cigarette Years Smoked: 40 Use of substances other than those prescribed or required for medical reasons: Yes Substance Use Type: Other Substance Use Type Other:: THC/CBD gummy combo Substance Use Frequency: Occasionally Have you been hit, kicked, punched, or otherwise hurt by someone within the past year? If so, by whom?: No Are you DNR?: No Advance Directives: No Advance Directives Information Provided: Yes (brochure given) Advance Directives on File: No Recently lost weight without trying: No Eating poorly because of decreased appetite: No Nutrition Risks: No Nutritional Risk FDLMP: N/A Poor oral hygiene: No (lower partial, does not wear / upper & lower missing teeth) Current occupation: [employer] - Right Handed Meds Allergies Allergy/AdvReac Type Severity Reaction Status Date / Time clarithromycin [From Biaxin] Allergy Intermediate Rash Verified 11/02/23 10:36 Home Medications Medication Instructions Recorded Confirmed Last Taken Type cilostazol 100 mg tablet 100 mg PO BID 10/12/23 11/06/23 11/05/23 History 100 mg fluoxetine 20 mg capsule 20 mg PO QAM 10/12/23 11/06/23 11/05/23 History levothyroxine 25 mcg capsule 25 mcg PO QAM 10/12/23 11/06/23 11/05/23 History losartan 25 mg tablet 25 mg PO QAM 10/12/23 11/06/23 11/05/23 History mecobalamin (vitamin B12) 500 mcg 500 mcg PO QAM 10/12/23 11/06/23 11/05/23 History chewable tablet metformin 500 mg tablet 500 mg PO BID 10/12/23 11/06/23 11/05/23 History omeprazole 40 mg capsule,delayed 40 mg PO QAM 10/12/23 11/06/23 11/06/23 History release simvastatin 40 mg tablet 40 mg PO QAM 10/12/23 11/06/23 11/05/23 History albuterol sulfate 90 mcg/actuation 2 puff inhalation Q4-6H PRN 11/01/23 11/06/23 11/06/23 History aerosol inhaler (Ventolin HFA) Shortness Of Breath Or Wheezing ascorbic acid (vitamin C) 100 mg 100 mg PO QAM 11/01/23 11/06/23 11/05/23 History tablet aspirin 81 mg tablet,delayed 81 mg PO BEDTIME 11/01/23 11/06/23 11/05/23 History release fluticasone propionate 230 2 puff inhalation BID 11/01/23 11/06/23 11/05/23 History mcg-salmeterol 21 mcg/actuation HFA inhaler (Advair HFA) lamotrigine 25 mg tablet 25 mg PO QAM 11/01/23 11/06/23 11/05/23 History quetiapine 50 mg tablet 50 mg PO QAM 11/01/23 11/06/23 11/05/23 History amlodipine 2.5 mg tablet 2.5 mg PO QAM 11/02/23 11/06/23 11/06/23 History biotin 1,000 mcg chewable tablet 1,000 mcg PO QAM 11/02/23 11/06/23 11/05/23 History cholecalciferol (vitamin D3) 1,250 1,250 mcg PO QWEEK 11/06/23 11/06/23 Unknown History mcg (50,000 unit) capsule Exam Pertinent Lab Results Pertinent Lab Results: Laboratory Tests 10/17/23 11:54 WBC 9.9 Hgb 15.1 Hct 43.4 Plt Count 291 Sodium 140 Potassium 3.6 Chloride 105 Carbon Dioxide 24 BUN 8 L Creatinine 1.01 Calcium 9.6 Total Bilirubin 0.4 Direct Bilirubin 0.2 AST 17 ALT 18 Alkaline Phosphatase 62 Troponin I High Sens < 2.7 B-Natriuretic Peptide < 10 Total Protein 7.6 Albumin 4.5 Lipase 10 Narrative Narrative: EKG 10/2023 Vent. Rate : 079 BPM Atrial Rate : 079 BPM P-R Int : 134 ms QRS Dur : 086 ms QT Int : 416 ms P-R-T Axes : 055 -04 066 degrees QTc Int : 477 ms Sinus rhythm with occasional Premature ventricular complexes Low voltage QRS Borderline ECG When compared with ECG of 05-JAN-2012 07:47, Premature ventricular complexes are now Present Nuc Stress 11/01/23 Negative stress with nuc imaging. No CP and no EKG changes suggestive of ischemia. Nuc imaging revealed nml perfusion imaging with Regadenoson. Nml LV function and thickening with an LVEF 75% with stress. Mod coronary artery calcification on CT Airway Mallampati Class: II TM Dist: >3cm Neck ROM: Full Partial: Lower Heart: RRR Lungs: CTAB Assessment and Plan Assessment Anesthesia Assessment: Anesthesia Plan Discussed and PAT Visit Final Anesthetic Review Family History of Problems with Anesthesia: No History of Problems with Anesthesia: No Documented by User: Adriana Mcwilliams MD 11/06/23 08:28 [facility] Past Medical History Medical History Asthma Pre-op exam Depression Arthritis Cervical radiculitis Renal calculi HTN (hypertension) Diabetes Glaucoma GERD (gastroesophageal reflux disease) Hypothyroidism Hypercholesteremia Carpal tunnel syndrome Sleep apnea Peripheral arterial disease Surgical History Surgical History History of esophagogastroduodenoscopy (EGD) Hx of colonoscopy Hx of tubal ligation Hx of repair of rotator cuff Hx of carpal tunnel repair Hx of lithotripsy History of appendectomy History of foot surgery Social History Social History Are you a primary special needs child caregiver to a significant other at home: No Do you presently have visiting nurse or other home services: No Comment: uses cane occasionally Patient Tobacco Use Status: Former Tobacco user Quit Date: 2016 Tobacco use type: Cigarette Years Smoked: 40 Use of substances other than those prescribed or required for medical reasons: Yes Substance Use Type: Other Substance Use Type Other:: THC/CBD gummy combo Substance Use Frequency: Occasionally Have you been hit, kicked, punched, or otherwise hurt by someone within the past year? If so, by whom?: No Are you DNR?: No Advance Directives: No Advance Directives Information Provided: Yes (brochure given) Advance Directives on File: No Recently lost weight without trying: No Eating poorly because of decreased appetite: No Nutrition Risks: No Nutritional Risk FDLMP: N/A Poor oral hygiene: No (lower partial, does not wear / upper & lower missing teeth) Current occupation: [email or web address] - Right Handed Meds Allergies Allergy/AdvReac Type Severity Reaction Status Date / Time clarithromycin [From Biaxin] Allergy Intermediate Rash Verified 11/02/23 10:36 Home Medications Medication Instructions Recorded Confirmed Last Taken Type cilostazol 100 mg tablet 100 mg PO BID 10/12/23 11/06/23 11/05/23 History 100 mg fluoxetine 20 mg capsule 20 mg PO QAM 10/12/23 11/06/23 11/05/23 History levothyroxine 25 mcg capsule 25 mcg PO QAM 10/12/23 11/06/23 11/05/23 History losartan 25 mg tablet 25 mg PO QAM 10/12/23 11/06/23 11/05/23 History mecobalamin (vitamin B12) 500 mcg 500 mcg PO QAM 10/12/23 11/06/23 11/05/23 History chewable tablet metformin 500 mg tablet 500 mg PO BID 10/12/23 11/06/23 11/05/23 History omeprazole 40 mg capsule,delayed 40 mg PO QAM 10/12/23 11/06/23 11/06/23 History release simvastatin 40 mg tablet 40 mg PO QAM 10/12/23 11/06/23 11/05/23 History albuterol sulfate 90 mcg/actuation 2 puff inhalation Q4-6H PRN 11/01/23 11/06/23 11/06/23 History aerosol inhaler (Ventolin HFA) Shortness Of Breath Or Wheezing ascorbic acid (vitamin C) 100 mg 100 mg PO QAM 11/01/23 11/06/23 11/05/23 History tablet aspirin 81 mg tablet,delayed 81 mg PO BEDTIME 11/01/23 11/06/23 11/05/23 History release fluticasone propionate 230 2 puff inhalation BID 11/01/23 11/06/23 11/05/23 History mcg-salmeterol 21 mcg/actuation HFA inhaler (Advair HFA) lamotrigine 25 mg tablet 25 mg PO QAM 11/01/23 11/06/23 11/05/23 History quetiapine 50 mg tablet 50 mg PO QAM 11/01/23 11/06/23 11/05/23 History amlodipine 2.5 mg tablet 2.5 mg PO QAM 11/02/23 11/06/23 11/06/23 History biotin 1,000 mcg chewable tablet 1,000 mcg PO QAM 11/02/23 11/06/23 11/05/23 History cholecalciferol (vitamin D3) 1,250 1,250 mcg PO QWEEK 11/06/23 11/06/23 Unknown History mcg (50,000 unit) capsule Assessment and Plan Final Anesthetic Review NPO: Yes ASA Class: III Final Preanesthetic Review: Meds/Allgs Chart Reviewed, Consent Obtained/Reviewed and Anes Risks/Benef Reviewed Patient Risk: Intermediate Procedure Risk: High Anesthetic Plan Anesthetic Plan: GA Disposition: Inp. Admit - ICU
[2023-11-02 10:36] VITALS: BP 147/77; PULSE 70; RESP 18; O2SAT 97; BMI 41.2
[2023-11-06] VITALS (23 sets, daily range): BP systolic 109–178; BP diastolic 45–108; PULSE 73–105; RESP 12–26; TEMP 36.2–37; O2SAT 89–100; BMI 47.4
[2023-11-06 06:26] LABS: Glucose, Whole Blood 148 mg/dL (60-115)
[2023-11-06] MEDS: Lactated Ringers 1,000 ML 100 ML IVCONT ×2 (06:52→11:49)
[2023-11-06 07:01] LABS: Hematocrit 40.9 % (37.0-47.0); Hemoglobin 14.4 g/dl (12.0-16.0); Mean Corpuscular HGB Conc 35.2 g/dl (31.0-35.0); Mean Corpuscular Hemoglobin 33.3 pg (27.0-33.0); Mean Corpuscular Volume 94.7 fL (80.0-98.0); Mean Platelet Volume 8.5 fL (9.4-12.3); Platelet Count 310 X10*3/uL (160-400); Red Blood Count 4.32 X10*6/uL (4.20-5.50); Red Cell Distribution Width 13.1 % (11.0-16.0); White Blood Count 10.8 X10*3/uL (4.8-10.8)
[2023-11-06 07:08] LABS: INTERNATIONAL NORM RATIO 0.9 (0.9-1.1); Prothrombin Time 10.9 SEC (11.1-13.3)
[2023-11-06 07:10] LABS: Partial Thromboplastin Time 28.7 SEC (26.0-36.8)
[2023-11-06 07:14] LABS: Anion Gap 11 (12-20); Blood Urea Nitrogen 9 mg/dL (9-16); Calcium 9.6 mg/dL (8.4-10.2); Carbon Dioxide 25 mmol/L (22-29); Chloride 108 mmol/L (96-108); Creatinine Clr Calc Pharmacy 109.3; Estimated Glomerular Filt Rate > 60; Glucose Random 131 mg/dL (60-115); Potassium 3.6 mmol/L (3.3-5.1); Sodium 140 mmol/L (135-145)
--- NOTE | 2023-11-06 07:40 | MHC.SHP ---
Pre-Procedural Eval Section A - 24 Hr Update-Section A only Date of Service: 11/06/23 The patient is an INPATIENT: No Changes since office visit: Yes Patient answered all questions The patient has been examined within 24 hours of the surgical procedure. The History & Physical has been completed within 30 days and I have reviewed it.: Yes Section B - Complete if H&P > 30 days Chief Complaint: Postop Allergies: Allergies Allergy/AdvReac Type Severity Reaction Status Date / Time clarithromycin [From Biaxin] Allergy Intermediate Rash Verified 11/02/23 10:36 Plan I have reviewed the history and physical and performed a pertinent physical examination on my patient. No changes have occurred unless specified. Time Spent With Patient Time: Total time managing care of this patient today ____ minutes.
--- NOTE | 2023-11-06 08:01 | PHA.MEDREC ---
Pharmacy Consult ? Medication Reconciliation Pharmacy has reviewed the medication reconciliation done by RN. I did change 1 thing however, RN had vitamin D2 however patient is on vitamin D3 [id number]
--- NOTE | 2023-11-06 08:06 | PC.NURSE ---
received call from chemistry. lab missed covid spec during change of shift. will need reswab in pacu. call placed in preop prior to pt leaving preop ? about covid, placed on hold for a time. dr. mancini states ok, just need prior to admission.
--- NOTE | 2023-11-06 10:46 | P.OP_ITS ---
Operative Note Operative Note Date of Service: 11/06/23 Narrative: Operative note by [facility] Preoperative diagnosis:1. Right Carotid stenosis Postoperative diagnosis: Same Procedure: Right Carotid endarterectomy with patch angioplasty Surgeon:Yimi Shafer M.D. Telephone Operators Supervisor: None Anesthesia: General Specimens: 1 Drains: 1 Estimated blood loss: 100 mL Indications: 58-year-old female who originally presented to the emergency room for workup for migraine headache. At the time she was found to have high-grade carotid stenosis. She had CTA which confirmed right-sided 80% stenosis. She now presents for operative intervention The patient has signed the informed consent after reviewing risks, complications, benefits, and alternatives previously discussed with the patient. The patient was given the opportunity to ask any additional questions or voice any concerns. All questions were answered to the patient's satisfaction. Procedure in detail: Patient was taken to the operating room and placed in a supine position and prepped and draped in sterile manner with ChloraPrep. Longitudinal incision was made along the right anterior border of the sternocleidomastoid carried down through the subcutaneous fat and fascia. Hemostasis was obtained with electrocautery. The platysma muscle was then divided. The carotid sheath was identified in open. The vagus nerve, Ancef cervicalis, and hypoglossal nerves were identified and avoided. The common internal and external carotids were then freed from the surrounding tissue. At this point, 8000 units of heparin was administered and allowed to circulate for 5 minutes time to take effect. The internal, common, external carotids were clamped in that order. Once this was accomplished, we proceeded with the procedure. The carotid bulb was opened with an 11 blade and extended with Baldwin scissors through the very tight lesion into normal internal carotid artery. This was then extended down into the common carotid artery. We then placed a Cornelius shunt. Then the plaque was sharply excised proximally and an eversion endarterectomy was performed successfully at the external. The plaque tapered nicely on to the internal and no tacking sutures were necessary. Heparinized saline was injected and no evidence of flapping or other debris was noted. The remaining carotid was examined, which showed no debris or flaps present. At this point a XenoSure patch was brought on to the field. This was anastomosed to the artery using a 6 0 Prolene in a running fashion. Once approximately 4/5 of the patch was sewn in the shunt was then removed. Prior to the last stitch the internal carotid was back bled through this. Heparinized saline was instilled into the carotid. The last stitch was tied. Hemostasis was excellent. The internal carotid was gently occluded while while of the external and internal were open in that order. Finally the internal was then opened and flow was restored to the entire system. Hemostasis was achieved with interrupted 7-0 Prolene sutures. The wound was irrigated thoroughly. We then placed a 7 flat Herberth-Aguilar drain. Deep layer was reapproximated using a 2-0 poly Sorb and finally the superficial layer with a 3-0 Polysorb. The skin was closed in a subcuticular manner. The patient awoke and neurologic status was checked and appeared to be intact. Sponge, needle and instrument counts were correct. The patient tolerated the procedure well. Returned to recovery with stable vitals. This note is constructed using voice recognition software. While every effort has been made to ensure accuracy, bike technician errors may have been included. Thank you for allowing me to participate in the care of your patient. Yours sincerely, Yimi Shafer MD, FACS, R.P.V.I.
[2023-11-06] MEDS: ondansetron HCL 4 MG/2 ML VIAL IVPUSH (10:58)
[2023-11-06] MEDS: Morphine Sulfate 2 MG/ML CARTRIDGE IVPUSH ×2 (11:38→18:40)
[2023-11-06] MEDS: fentaNYL citrate/PF 100 MCG/2 ML VIAL 50 MCG IVPUSH (13:20)
[2023-11-06 13:21] LABS: Glucose, Whole Blood 181 mg/dL (60-115)
[2023-11-06] MEDS: amLODIPine Besylate 10 MG TABLET PO (13:44)
[2023-11-06] MEDS: Omeprazole 40 MG CAPSULE.DR PO (13:45)
[2023-11-06] MEDS: FLUoxetine HCl 20 MG CAPSULE PO (13:45)
[2023-11-06] MEDS: Levothyroxine Sodium 25 MCG TABLET PO (13:45)
[2023-11-06] MEDS: lamoTRIgine 25 MG TABLET PO (13:46)
[2023-11-06] MEDS: Losartan Potassium 25 MG TABLET PO (13:46)
[2023-11-06] MEDS: QUEtiapine Fumarate 50 MG TABLET PO (13:46)
--- NOTE | 2023-11-06 13:58 | P.HPCC_ITS ---
History of Present Illness Date of Service: 11/06/23 Chief Complaint: Status post elective right carotid endarterectomy 58-year-old lady with underlying history of hypertension, diabetes mellitus, peripheral artery disease, hypothyroidism now postoperative day 0 after an elective right carotid endarterectomy being monitored in the intensive care unit. Review of Systems 2 Constitutional: Constitutional: Denies daytime sleepiness, Denies excessive sweating, Denies fatigue, Denies fever(s), Denies lethargy, Denies malaise, Denies night sweats, Denies snoring and Denies weight loss Eyes: Eyes: Denies blurry vision and Denies itchy eyes ENT: Denies nasal congestion, Denies post nasal drip, Denies sinus pain, Denies sinus pressure and Denies other ( Thrush) Cardiovascular: Cardiovascular: Denies chest pain, Denies pedal edema, Denies dyspnea, Denies orthopnea and Denies paroxysmal nocturnal dyspnea Respiratory: Respiratory: Denies cough, Denies hemoptysis, Denies excessive phlegm production, Denies dyspnea, Denies snoring and Denies wheezing Gastrointestinal: Gastrointestinal: Denies abdominal pain and Denies heartburn Musculoskeletal: Musculoskeletal: Denies myalgias, Denies arthralgias and Denies joint swelling Integumentary/Breasts: Skin/Breast: Denies rash Neurologic: Denies memory loss and Denies seizure-like activity Psychiatric: Psychiatric: Denies abnormal sleep pattern, Denies anxiety and Denies memory loss Endocrine: Endocrine: Denies excessive sweating, Denies fatigue and Denies heat intolerance Hematologic/Lymphatic: Hematologic/Lymphatic: Denies easy bruising Allergic/Immunologic: Allergic/Immunologic: Denies itchy eyes, Denies seasonal rhinorrhea and Denies wheezing PMFSH Past Medical History Medical History (Updated 11/06/23 @ 14:00 by Augie Fong MD) Asthma Pre-op exam Depression Arthritis Cervical radiculitis Renal calculi HTN (hypertension) Diabetes Glaucoma GERD (gastroesophageal reflux disease) Hypothyroidism Hypercholesteremia Carpal tunnel syndrome Sleep apnea Peripheral arterial disease Surgical History Surgical History History of esophagogastroduodenoscopy (EGD) Hx of colonoscopy Hx of tubal ligation Hx of repair of rotator cuff Hx of carpal tunnel repair Hx of lithotripsy History of appendectomy History of foot surgery Social History Social History Are you a primary manager of care to a significant other at home: No Do you presently have visiting nurse or other home services: No Comment: counts correct Patient Tobacco Use Status: Former Tobacco user Quit Date: 2016 Tobacco use type: Cigarette Years Smoked: 40 Use of substances other than those prescribed or required for medical reasons: Yes Substance Use Type: Other Substance Use Type Other:: THC/CBD gummy combo Substance Use Frequency: Occasionally Have you been hit, kicked, punched, or otherwise hurt by someone within the past year? If so, by whom?: No Are you DNR?: No Advance Directives: No Advance Directives Information Provided: Yes (brochure given) Advance Directives on File: No Recently lost weight without trying: No Eating poorly because of decreased appetite: No Nutrition Risks: No Nutritional Risk FDLMP: N/A Poor oral hygiene: No (lower partial, does not wear / upper & lower missing teeth) Current occupation: [employer] Allergies Allergy/AdvReac Type Severity Reaction Status Date / Time clarithromycin [From Biaxin] Allergy Intermediate Rash Verified 11/02/23 10:36 Active Medications: Current Medications Acetaminophen (Acetaminophen 325 Mg Tablet) 650 mg PO ONCE PRN PRN Reason: Pain, Mild (Pain Scale 1-3) Albuterol Sulfate (Albuterol Sulfate 90 Mcg 8 Gm Inhaler) 2 puff INHALE Q4H PRN PRN Reason: Shortness Of Breath Or Wheezing Amlodipine Besylate (Amlodipine Besylate 2.5 Mg Tablet) 2.5 mg PO DAILY [facility]; Protocol Last Admin: 11/06/23 13:48 Dose: Not Given Amlodipine Besylate (Amlodipine Besylate 10 Mg Tablet) 10 mg PO DAILY [facility]; Protocol Last Admin: 11/06/23 13:44 Dose: 10 mg Aspirin (Aspirin Enteric Coated 81 Mg Tablet.Dr) 81 mg PO BEDTIME [facility] Atorvastatin Calcium (Atorvastatin Calcium 20 Mg Tablet) 20 mg PO DAILY@0900 [facility] Cilostazol (Cilostazol 100 Mg Tablet) 100 mg PO BID [facility] Cyclobenzaprine HCl (Cyclobenzaprine Hcl 5 Mg Tablet) 5 mg PO TID PRN PRN Reason: muscle spasm Fluoxetine HCl (Fluoxetine Hcl 20 Mg Capsule) 20 mg PO DAILY [facility] Last Admin: 11/06/23 13:45 Dose: 20 mg Lactated Ringer's (Lr) 1,000 mls @ 100 mls/hr IVCONT .Q10H [facility] Last Admin: 11/06/23 11:49 Dose: 100 mls/hr Cefazolin Sodium/Dextrose (Ancef) 2 gm in 50 mls @ 100 mls/hr IV POSTOP ONE Stop: 11/06/23 14:29 Insulin Human Lispro (Insulin Lispro 100 Unit/Ml 3 Ml Vial) 0 unit SUBCUT QIDACHS [facility]; Protocol Lamotrigine (Lamotrigine 25 Mg Tablet) 25 mg PO DAILY [facility] Last Admin: 11/06/23 13:46 Dose: 25 mg Levothyroxine Sodium (Levothyroxine Sodium 25 Mcg Tablet) 25 mcg PO DAILY [facility] Last Admin: 11/06/23 13:45 Dose: 25 mcg Losartan Potassium (Losartan Potassium 25 Mg Tablet) 25 mg PO DAILY [facility]; Protocol Last Admin: 11/06/23 13:46 Dose: 25 mg Metformin HCl (Metformin Hcl 500 Mg Tablet) 500 mg PO BID [facility] Morphine Sulfate (Morphine Sulfate 2 Mg/Ml Cartridge) 2 mg IVPUSH Q4H PRN; Protocol PRN Reason: Pain, Severe (Pain Scale 7-10) Last Admin: 11/06/23 11:38 Dose: 2 mg Omeprazole (Omeprazole 40 Mg Capsule.Dr) 40 mg PO DAILY [facility] Last Admin: 11/06/23 13:45 Dose: 40 mg Oxycodone HCl (Oxycodone Hcl Immed Release 5 Mg Tablet) 5 mg PO ONCE PRN PRN Reason: Pain, Severe (Pain Scale 7-10) Oxycodone HCl (Oxycodone Hcl Immed Release 5 Mg Tablet) 5 mg PO Q4H PRN PRN Reason: Pain, Moderate(Pain Scale 4-6) Quetiapine Fumarate (Quetiapine Fumarate 50 Mg Tablet) 50 mg PO DAILY [facility] Last Admin: 11/06/23 13:46 Dose: 50 mg Sodium Chloride (0.9 % Sodium Chloride Flush 3 Ml Syringe) 3 ml IVFLUSH QSHIFT [facility] Home Medications Medication Instructions Recorded Confirmed Last Taken Type cilostazol 100 mg tablet 100 mg PO BID 10/12/23 11/06/23 11/05/23 History 100 mg fluoxetine 20 mg capsule 20 mg PO QAM 10/12/23 11/06/23 11/05/23 History levothyroxine 25 mcg capsule 25 mcg PO QAM 10/12/23 11/06/23 11/05/23 History losartan 25 mg tablet 25 mg PO QAM 10/12/23 11/06/23 11/05/23 History mecobalamin (vitamin B12) 500 mcg 500 mcg PO QAM 10/12/23 11/06/23 11/05/23 History chewable tablet metformin 500 mg tablet 500 mg PO BID 10/12/23 11/06/23 11/05/23 History omeprazole 40 mg capsule,delayed 40 mg PO QAM 10/12/23 11/06/23 11/06/23 History release simvastatin 40 mg tablet 40 mg PO QAM 10/12/23 11/06/23 11/05/23 History albuterol sulfate 90 mcg/actuation 2 puff inhalation Q4-6H PRN 11/01/23 11/06/23 11/06/23 History aerosol inhaler (Ventolin HFA) Shortness Of Breath Or Wheezing ascorbic acid (vitamin C) 100 mg 100 mg PO QAM 11/01/23 11/06/23 11/05/23 History tablet aspirin 81 mg tablet,delayed 81 mg PO BEDTIME 11/01/23 11/06/23 11/05/23 History release fluticasone propionate 230 2 puff inhalation BID 11/01/23 11/06/23 11/05/23 History mcg-salmeterol 21 mcg/actuation HFA inhaler (Advair HFA) lamotrigine 25 mg tablet 25 mg PO QAM 11/01/23 11/06/23 11/05/23 History quetiapine 50 mg tablet 50 mg PO QAM 11/01/23 11/06/23 11/05/23 History amlodipine 2.5 mg tablet 2.5 mg PO QAM 11/02/23 11/06/23 11/06/23 History biotin 1,000 mcg chewable tablet 1,000 mcg PO QAM 11/02/23 11/06/23 11/05/23 History cholecalciferol (vitamin D3) 1,250 1,250 mcg PO QWEEK 11/06/23 11/06/23 Unknown History mcg (50,000 unit) capsule Physical Exam 2 Vital Signs: Vital Signs: Last Vital Signs Temp 97.7 F 11/06/23 13:13 Pulse 86 11/06/23 13:00 Resp 17 11/06/23 13:00 BP 178/86 H 11/06/23 13:00 Pulse Ox 100 11/06/23 13:00 O2 Del Method Nasal Cannula 11/06/23 13:00 O2 Flow Rate 2 11/06/23 13:00 Oxygen Flow Rate 2 11/06/23 08:28 BMI result Body Mass Index 47.4 Const: General: no acute distress and alert Nutritional Appearance: obese Orientation/consciousness: Other orientation findings ( oriented) HEENT: Head: Yes atraumatic Eyes: General: appearance normal, both eyes and all related structures S clerae: sclerae normal EOM: EOMs intact bilaterally Neck: Other: Right carotid surgical access site without hematoma Neck: Yes supple Lymphatic: no lymphadenopathy noted Resp: Effort & Inspection: normal respiratory effort and no use of accessory muscles Auscultation: clear to auscultation bilaterally Cardio: Rate: regular rate Rhythm: regular rhythm Heart sounds: no gallops, no murmurs and no rubs GI: Palpation (GI): Soft to palpation and nontender Auscultation: normal bowel sounds Skin: General skin exam: other ( warm) Extrem: General: No clubbing, No cyanosis and No edema Results Labs 11/06/23 06:39 11/06/23 06:39 Labs: Laboratory Results - last 24 hr 11/06/23 11/06/23 11/06/23 06:22 06:39 13:07 MCV 94.7 MCH 33.3 H MCHC 35.2 H RDW 13.1 Plt Count 310 MPV 8.5 L Absolute Nucleated RBC 0.000 Nucleated RBC % (auto) 0.0 PT 10.9 L INR 0.9 APTT 28.7 Anion Gap 11 L Estim Creat Clear Calc 109.3 Estimated GFR > 60 POC Glucose 148 H 181 H Random Glucose 131 H Calcium 9.6 Assessment and Plan (1) Carotid stenosis, right: Status: Acute (2) Diabetes: Status: Acute (3) HTN (hypertension): Status: Acute (4) Hypothyroidism: Status: Acute Plan Assessment: 58-year-old lady with underlying peripheral artery disease, hypertension, diabetes mellitus now day 0 status post elective right carotid endarterectomy being monitored in the intensive care unit. Plan: Neuro: No acute issues. Cardiac: Postoperative day 0 status post right carotid endarterectomy. Vascular surgery service care appreciated. Underlying history of peripheral artery disease and hypertension. Pulmonary: No acute issues. Renal: No acute issues. Endo: No acute issues. Underlying history of diabetes mellitus and hypothyroidism. GI: No acute issues. ID: No acute issues Heme/Onc: No acute issues. Psych: No acute issues. Miscellaneous: No acute issues. Prophylaxis: Per vascular surgery Diet: Diabetic
[2023-11-06] MEDS: Atorvastatin Calcium 20 MG TABLET PO (14:02)
[2023-11-06] MEDS: ceFAZolin Sodium/Dextrose,Iso 2 GM/50 ML PIGGYBACK IV (14:18)
--- NOTE | 2023-11-06 15:31 | PC.NURSE ---
Addendum entered by Anastasiia Jacobo RN 11/06/23 15:47: Per ICU MD, hold IVP lopressor 5mg and hold IVF LR @100 for hemodynamic stability. 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 Pt alert, awake, A+Ox4 Pt states headache 4/10 to right side of head with associated nausea. Pt has elevated SBP. ICU and Sx MD notified of BP 184/83. 10 mg amlodipine PO and 50 mcg fantanyl IVP given for rising headache pain 5/10. Neuro checks: midline tongue, equal arm raise and hand squeeze, equal foot strength. Right side of smile appears flat compared to left. MD notified. PERRLA 3mm. Pt able to take PO medications after water and saltine crackers. Pt slept in naps 15:15-15:45. BP improved to 134/56 via right radial arterial line. Pt ate late lunch 15:45, tolerated well.
[2023-11-06] MEDS: 0.9 % Sodium Chloride Flush 3 ML SYRINGE IVFLUSH (16:49)
[2023-11-06] MEDS: Insulin Lispro 100 UNIT/ML 3 ML VIAL SUBCUT (16:55)
[2023-11-06 16:56] LABS: Glucose, Whole Blood 213 mg/dL (60-115)
[2023-11-06 20:39] LABS: Glucose, Whole Blood 164 mg/dL (60-115)
[2023-11-06] MEDS: Aspirin Enteric Coated 81 MG TABLET.DR PO (22:02)
[2023-11-06] MEDS: metFORMIN HCl 500 MG TABLET PO (22:02)
[2023-11-06] MEDS: cilostazoL 100 MG TABLET PO (22:02)
[2023-11-06] MEDS: oxyCODONE HCl Immed Release 5 MG TABLET PO (22:06)
[2023-11-07] VITALS (15 sets, daily range): BP systolic 101–142; BP diastolic 47–81; PULSE 82–95; RESP 13–25; TEMP 36.2–36.4; O2SAT 92–98; BMI 47.4
[2023-11-07] MEDS: 0.9 % Sodium Chloride Flush 3 ML SYRINGE IVFLUSH ×2 (00:12→07:45)
[2023-11-07] MEDS: Morphine Sulfate 2 MG/ML CARTRIDGE IVPUSH (00:23)
[2023-11-07 04:47] LABS: MANUAL DIFF FLAG NO
[2023-11-07 04:51] LABS: Basophils Percent Auto 0.1 % (0-2); Hematocrit 38.4 % (37.0-47.0); Hemoglobin 13.1 g/dl (12.0-16.0); Imm Gran Abs Auto 0.03 X10*3/uL (0.00-0.03); Imm Gran Pct Auto 0.3 % (0.0-0.4); Lymphocytes Absolute Auto 1.4 X10*3/uL (1.2-4.9); Lymphocytes Percent Auto 12.9 % (20-40); Mean Corpuscular HGB Conc 34.1 g/dl (31.0-35.0); Mean Corpuscular Hemoglobin 33.2 pg (27.0-33.0); Mean Corpuscular Volume 97.2 fL (80.0-98.0); Mean Platelet Volume 8.7 fL (9.4-12.3); Monocytes Absolute Auto 0.9 X10*3/uL (0.1-1.2); Monocytes Percent Auto 7.8 % (2-11); Neutrophils Absolute Auto 8.8 x10*3/uL (2.0-8.3); Neutrophils Percent Auto 78.9 % (45-73); Platelet Count 261 X10*3/uL (160-400); Red Blood Count 3.95 X10*6/uL (4.20-5.50); Red Cell Distribution Width 13.2 % (11.0-16.0); White Blood Count 11.2 X10*3/uL (4.8-10.8)
[2023-11-07 05:12] LABS: Anion Gap 15 (12-20); Blood Urea Nitrogen 9 mg/dL (9-16); Calcium 9.5 mg/dL (8.4-10.2); Carbon Dioxide 23 mmol/L (22-29); Chloride 108 mmol/L (96-108); Creatinine Clr Calc Pharmacy 112.2; Estimated Glomerular Filt Rate > 60; Glucose Random 128 mg/dL (60-115); Magnesium 2.1 mg/dL (1.6-2.6); Phosphorus 3.5 mg/dL (2.7-4.5); Potassium 3.9 mmol/L (3.3-5.1); Sodium 142 mmol/L (135-145)
[2023-11-07 07:21] LABS: COVID-19 Test Negative (Negative); IDNOW Serial# 08D9AD1C
[2023-11-07 07:22] LABS: Glucose, Whole Blood 124 mg/dL (60-115)
[2023-11-07] MEDS: amLODIPine Besylate 10 MG TABLET PO (07:36)
[2023-11-07] MEDS: lamoTRIgine 25 MG TABLET PO (07:37)
[2023-11-07] MEDS: FLUoxetine HCl 20 MG CAPSULE PO (07:37)
[2023-11-07] MEDS: Omeprazole 40 MG CAPSULE.DR PO (07:38)
[2023-11-07] MEDS: metFORMIN HCl 500 MG TABLET PO (07:38)
[2023-11-07] MEDS: QUEtiapine Fumarate 50 MG TABLET PO (07:40)
[2023-11-07] MEDS: Losartan Potassium 25 MG TABLET PO (07:40)
[2023-11-07] MEDS: Levothyroxine Sodium 25 MCG TABLET PO (07:41)
[2023-11-07] MEDS: Atorvastatin Calcium 20 MG TABLET PO (07:41)
[2023-11-07] MEDS: cilostazoL 100 MG TABLET PO (07:42)
[2023-11-07] MEDS: oxyCODONE HCl Immed Release 5 MG TABLET PO ×2 (07:43→12:25)
--- NOTE | 2023-11-07 09:30 | MHC.CM.PN ---
Addendum entered by Hina Newby 11/07/23 09:32: Correction: HCP information given: pt will request CM assistance should she decide on completion Original Note: Met w/pt to review d/c planning needs: pt resides w/spouse, is independent w/all care needs and has no services or DME. Pt has a cell and will call her friend for transportation to home: No additional needs anticipated. HCP on file and verified
--- NOTE | 2023-11-07 10:17 | P.CDIM_ITS ---
PROVIDER RESPONSE TEXT: To clarify, the appropriate diagnosis supported by the clinical indicators: Severe or Morbid Obesity QUERY TEXT: PHYSICIAN'S DOCUMENTATION REQUEST Date of Query: 11/07/2023 08:36 AM EST Patient Name: Mis Garcia Admit Date: 11/06/2023 Dear Augie Fong, A review of the medical record indicates additional documentation may be needed. Please review below and update the documentation accordingly. Clinical Indicators: BMI 47.4 5ft 5in 129.3kg If possible, please provide an associated diagnosis related to the abnormal BMI, such as: Severe or Morbid Obesity Other Other (explain) Clinically unable to determine (explain) Thank you, Rebekah Copeland, CCS, CDIS Use of terms such as suspected, likely, concern for, or probable (associated with a specific diagnosi s that is being evaluated, monitored, or treated as if it exists) are acceptable and can be coded in the inpatient se tting, when documented at the time of discharge. Please use your independent medical judgment in providing your response. THIS QUERY IS PART OF THE PERMANENT MEDICAL RECORD
[2023-11-07] MEDS: Lactulose 20 GM/30 ML SOLUTION 30 GM PO (10:48)
[2023-11-07 11:42] LABS: Glucose, Whole Blood 127 mg/dL (60-115)
--- NOTE | 2023-11-07 12:29 | HO.POSTANES ---
Post Anesthesia Evaluation Post Anesthesia Evaluation Date of Service: 11/07/23 Vital Signs: Vital Signs Temp Pulse Resp BP Pulse Ox O2 Del Method O2 Flow Rate 11/07/23 12:00 97.5 F 86 25 H 142/78 H 98 Room Air 11/07/23 11:00 84 24 H 122/72 96 Room Air 11/07/23 10:00 89 22 H 125/72 97 Room Air 11/07/23 09:00 90 22 H 102/47 L 94 Room Air 11/07/23 08:28 95 Room Air 11/07/23 08:00 92 16 114/73 95 Room Air 11/07/23 07:00 85 23 H 119/55 L 95 Room Air 11/07/23 06:00 87 17 116/80 92 Room Air 11/07/23 05:00 92 20 114/63 93 Room Air 11/07/23 04:00 97.1 F 82 18 125/71 95 Room Air 11/07/23 03:00 93 18 101/61 95 Room Air 2 11/07/23 02:00 93 22 H 119/71 94 Room Air 2 11/07/23 01:00 95 20 103/57 L 95 Room Air 2 11/07/23 00:31 82 13 139/81 96 Room Air 1 Anesthesia: General Endotracheal-GETA Mental Status: Awake Pain Control: Satisfactory Nausea/Vomiting: None Hydration: Adequate Anesthesia-Related Issues: No Anes. Related Issues
--- NOTE | 2023-11-07 13:12 | PM.DS ---
DS: Providers Provider Date of Service: 11/07/23 Date of admission: 11/06/23 06:15 Primary care physician: Naila Vargas MD DS: Diagnosis Discharge Diagnosis (1) Carotid stenosis, right: Status: Acute (2) Diabetes: Status: Acute (3) HTN (hypertension): Status: Acute (4) Hypothyroidism: Status: Acute DS: Summary Hospital Course Hospital Course: Patient underwent right carotid endarterectomy on 11/06/2023. Postoperatively did well and was observed in our ICU. That same day tolerated a diet postop day 1 was hemodynamically stable A-line and Duarte were removed. She was up and ambulating. In addition RODERICK drain was removed as well. She was subsequently discharged neurologically intact with stable vitals Time Attestation Discharge coordination time: Greater than 30 minutes Quality: Safe Use of Opioids Does Pt have an Active Cancer Diagnosis on the Problem List?: No Quality: Stroke Does the patient have a stroke diagnosis?: No Physical Exam Vital Signs: Vital Signs: Last Vital Signs Temp 97.5 F 11/07/23 12:00 Pulse 86 11/07/23 12:00 Resp 25 H 11/07/23 12:00 BP 142/78 H 11/07/23 12:00 Pulse Ox 98 11/07/23 12:00 O2 Del Method Room Air 11/07/23 12:00 O2 Flow Rate 2 11/07/23 03:00 Oxygen Flow Rate 2 11/06/23 08:28 BMI result Body Mass Index 47.4 Const: General: cooperative, healthy appearing and no acute distress Orientation/consciousness: oriented to person, oriented to place and oriented to time HEENT: Head: Yes normal to inspection Neck: Carotids: no bruits Chest: Chest palpation & inspection: normal inspection of the chest Resp: Effort & Inspection: normal respiratory effort and able to speak in complete sentences Auscultation: clear to auscultation bilaterally Cardio: Rate: regular rate Heart sounds: S1 normal heart sound present and S2 normal heart sound present GI: Inspection: Yes normal to inspection Skin: Other: Neck incision well healing Steri-Strips intact RODERICK drain removed General skin exam: no rashes or lesions noted Wounds: no wounds Neuro: General: oriented to person, oriented to place, oriented to time and CN's II-XI intact bilaterally Extrem: General: Yes normal to inspection, Yes full ROM and Yes no clubbing, cyanosis or edema Psych: Appearance: grossly normal and well kempt Speech and movement: Normal speech and movement present Affect: normal affect DS: Data Data Completed and Pending Pending studies at discharge: Pending at discharge 11/06/23 09:20 Surgical [PTH] Routine Labs on day of discharge: Laboratory Results - last 24 hr 11/06/23 11/06/23 11/06/23 13:07 16:52 20:36 WBC RBC Hgb Hct MCV MCH MCHC RDW Plt Count MPV Immature Gran % (Auto) Neut % (Auto) Lymph % (Auto) Davison % (Auto) Eos % (Auto) Baso % (Auto) Lymph # (Auto) Davison # (Auto) Eos # (Auto) Baso # (Auto) Abs Immat Gran (auto) Absolute Neuts (auto) Absolute Nucleated RBC Nucleated RBC % (auto) Sodium Potassium Chloride Carbon Dioxide Anion Gap BUN Creatinine Estim Creat Clear Calc Estimated GFR POC Glucose 181 H 213 H 164 H Random Glucose Calcium Phosphorus Magnesium COVID-19 (SAM) COVID-19 Clin Com 11/07/23 11/07/23 11/07/23 04:29 06:25 07:18 WBC 11.2 H RBC 3.95 L Hgb 13.1 Hct 38.4 MCV 97.2 MCH 33.2 H MCHC 34.1 RDW 13.2 Plt Count 261 MPV 8.7 L Immature Gran % (Auto) 0.3 Neut % (Auto) 78.9 H Lymph % (Auto) 12.9 L Davison % (Auto) 7.8 Eos % (Auto) 0.0 Baso % (Auto) 0.1 Lymph # (Auto) 1.4 Davison # (Auto) 0.9 Eos # (Auto) 0.0 Baso # (Auto) 0.0 Abs Immat Gran (auto) 0.03 Absolute Neuts (auto) 8.8 H Absolute Nucleated RBC 0.000 Nucleated RBC % (auto) 0.0 Sodium 142 Potassium 3.9 Chloride 108 Carbon Dioxide 23 Anion Gap 15 BUN 9 Creatinine 0.75 Estim Creat Clear Calc 112.2 Estimated GFR > 60 POC Glucose 124 H Random Glucose 128 H Calcium 9.5 Phosphorus 3.5 Magnesium 2.1 COVID-19 (SAM) Negative COVID-19 Clin Com See Note 11/07/23 11:36 WBC RBC Hgb Hct MCV MCH MCHC RDW Plt Count MPV Immature Gran % (Auto) Neut % (Auto) Lymph % (Auto) Davison % (Auto) Eos % (Auto) Baso % (Auto) Lymph # (Auto) Davison # (Auto) Eos # (Auto) Baso # (Auto) Abs Immat Gran (auto) Absolute Neuts (auto) Absolute Nucleated RBC Nucleated RBC % (auto) Sodium Potassium Chloride Carbon Dioxide Anion Gap BUN Creatinine Estim Creat Clear Calc Estimated GFR POC Glucose 127 H Random Glucose Calcium Phosphorus Magnesium COVID-19 (SAM) COVID-19 Clin Com Discharge Plan Discharge Anticipated Discharge Date/Time: 11/07/23 13:08 Patient Disposition: Home, Self-Care Discharge Diagnosis: s/p right CEA Referrals: Naila Vargas MD [Primary Care Provider] - 1 Week Discharge Medications: New oxycodone-acetaminophen [Percocet] 5-325 mg tablet 1 tab PO Q8H PRN (Reason: pain) Qty: 10 0RF Rx Instructions: Partial Fill upon patient request. Continued cyclobenzaprine 5 mg tablet 5 mg PO TID PRN (Reason: muscle spasm) 7 Days Qty: 21 0RF aspirin 81 mg Tablet,Delayed Release (Dr/Ec) 81 mg PO BEDTIME lamotrigine 25 mg tablet 25 mg PO QAM ascorbic acid (vitamin C) 100 mg Tablet 100 mg PO QAM albuterol sulfate [Ventolin HFA] 90 mcg/actuation Hfa Aerosol Inhaler 2 puff INHALATION Q4-6H PRN (Reason: Shortness Of Breath Or Wheezing) quetiapine 50 mg tablet 50 mg PO QAM fluticasone propion-salmeterol [Advair HFA] 230-21 mcg/actuation Hfa Aerosol Inhaler 2 puff INHALATION BID biotin 1,000 mcg Tablet,Chewable 1,000 mcg PO QAM amlodipine 2.5 mg tablet 2.5 mg PO QAM cholecalciferol (vitamin D3) 1,250 mcg (50,000 unit) capsule 1,250 mcg PO QWEEK cilostazol 100 mg tablet 100 mg PO BID omeprazole 40 mg capsule,delayed release(DR/EC) 40 mg PO QAM metformin 500 mg tablet 500 mg PO BID losartan 25 mg tablet 25 mg PO QAM fluoxetine 20 mg capsule 20 mg PO QAM simvastatin 40 mg tablet 40 mg PO QAM levothyroxine 25 mcg capsule 25 mcg PO QAM mecobalamin (vitamin B12) 500 mcg tablet,chewable 500 mcg PO QAM Discharge Orders: Discharge Order (Routine); Ordered 11/07/23 Ordered By: Yimi Shafer Diet: Advance to usual diet Activity on Discharge: As tolerated Stand Alone Forms: Patient Portal Discharge page Activity Restrictions/Additional Instructions: You may shower tomorrow Take it easy today and you may ambulate around the house. Within 24 hours you can resume normal activity You may climb a flight of stairs as tolerated Do not lift anything heavier than a gallon of milk for [address] Shafer in follow-up in approximately 2 weeks time. You should already have an appointment if not please call my office at [phone] Please see above for any change in medications If you notice excessive bleeding from the neck please immediately call my office or return to the emergency room. Care Plan Goals: Prevent stroke Health Concerns: Carotid stenosis Plan of Treatment: Surveillance follow-up of carotids Assessment: Status post carotid endarterectomy
== END 2023-11-07 14:01 | disposition home or self-care (01) | DRG 24 ==
LOC: HO.SSSA 06:21 → HO.ICU 11:09
PROVIDERS: Admitting Provider Surgery Vascular Surgery; PCP Internal Medicine; Visit Provider Internal Medicine Pulmonary Disease
PROC: 03CM0ZZ Extirpation of Matter from Right External Carotid Artery, Open Approach (ICD-10-PCS; CPT 35301; principal; 2023-11-06 07:30)
DX: I65.21 Occlusion and stenosis of right carotid artery (principal); E11.51 Type 2 diabetes mellitus with diabetic peripheral angiopathy without gangrene; E03.9 Hypothyroidism, unspecified; I10 Essential (primary) hypertension; E66.01 Morbid (severe) obesity due to excess calories; Z68.42 Body mass index [BMI] 45.0-49.9, adult; Z20.822 Contact with and (suspected) exposure to COVID-19; Z87.891 Personal history of nicotine dependence; Z79.51 Long term (current) use of inhaled steroids; Z79.82 Long term (current) use of aspirin; Z79.84 Long term (current) use of oral hypoglycemic drugs; Z79.890 Hormone replacement therapy; Z79.899 Other long term (current) drug therapy
CPT/HCPCS: 36415; 80048; 82947; 83735; 84100; 85025; 85027; 85610; 85730; 86850; 86900; 86901; 87635; 88304; 88311; A4649; C1758; C1768; J0690; J1100; J1644; J1920; J2250; J2270; J2305; J2405; J2598; J2704; J2795; J3010; J7120

== ENCOUNTER → 2023-11-06 06:15 | Outpatient (BNV) | payer OTHER, SELFPAY | PROVIDERS: Admitting Provider Surgery Vascular Surgery; PCP Internal Medicine; Visit Provider Surgery Vascular Surgery | DX: I65.21 Occlusion and stenosis of right carotid artery (principal); E11.9 Type 2 diabetes mellitus without complications; I10 Essential (primary) hypertension; E03.9 Hypothyroidism, unspecified | CPT/HCPCS: 35301; 99024 ==

== ENCOUNTER → 2023-11-06 06:15 | Outpatient (BNV) | payer OTHER, SELFPAY | PROVIDERS: Admitting Provider Surgery Vascular Surgery; PCP Internal Medicine; Visit Provider Internal Medicine Pulmonary Disease | DX: I65.21 Occlusion and stenosis of right carotid artery (principal); E11.9 Type 2 diabetes mellitus without complications; I10 Essential (primary) hypertension; E03.9 Hypothyroidism, unspecified | CPT/HCPCS: 99222 ==

== ENCOUNTER 2023-11-30 14:40 | Outpatient (AMB) | payer OTHER, SELFPAY ==
--- NOTE | 2023-11-30 14:49 | A.OFFVIS_ITS ---
Intake Intake Visit Reasons: post op CEA 11/06/23 Intake Note: Patient presents for post op CEA 11/06/23. Patient states she can now move her neck more. Says the incision spot is sore but only if she touches it. Headaches are gone but she still sees spots and sometimes vision is fuzzy but she will be seeing an eye doctor for that. Accompanied by: Self / Same As Patient Allergies clarithromycin [From Biaxin] Allergy (Intermediate, Verified 11/30/23 14:53) Rash HPI post op CEA 11/06/23 HPI Details Very pleasant 58-year-old female status post right carotid endarterectomy. No postoperative issues. Doing relatively well. Pain well controlled. Incision healing well. [facility] Medical History Asthma Pre-op exam Depression Arthritis Cervical radiculitis Renal calculi HTN (hypertension) Diabetes Glaucoma GERD (gastroesophageal reflux disease) Hypothyroidism Hypercholesteremia Carpal tunnel syndrome Sleep apnea Peripheral arterial disease Surgical History History of esophagogastroduodenoscopy (EGD) Hx of colonoscopy Hx of tubal ligation Hx of repair of rotator cuff Hx of carpal tunnel repair Hx of lithotripsy History of appendectomy History of foot surgery Social History Household Members: Spouse Housing: House Are you a primary care team assistant to a significant other at home: No Do you presently have visiting nurse or other home services: No Comment: counts correct Patient Tobacco Use Status: Former Tobacco user Quit Date: 2016 Tobacco use type: Cigarette Years Smoked: 40 e-Cigarette/Vaping Use: Former Use Second Hand Smoke Exposure: No Substance Use Type: Marijuana service: No 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 Review of Systems Const All systems reviewed & are unremarkable except as noted in HPI and below Reports no additional complaints ENT Reports Normal hearing present Card Denies chest pain, Denies chest pain at rest, Denies chest pain with activity and Denies pedal edema Resp Denies cough GI Denies abdominal pain Musc Denies abnormal gait, Denies muscle cramps and Denies radiating pain into limb Skin/Breast Denies skin ulcer and Denies wounds Neuro Reports Normal hearing present and Denies abnormal gait Psych Reports no additional complaints Physical Exam Const General: cooperative, healthy appearing and comfortable Orientation/consciousness: oriented to person, oriented to place and oriented to time HEENT Head: Yes normal to inspection Neck Neck: Yes normal visual inspection Carotids: no bruits Chest Chest palpation & inspection: normal inspection of the chest Resp Effort & Inspection: normal respiratory effort and able to speak in complete sentences Auscultation: clear to auscultation bilaterally, no crackles, no rales, no rhonchi and no wheezes Cardio Rate: regular rate Rhythm: regular rhythm Heart sounds: S1 normal heart sound present and S2 normal heart sound present Bruits: no carotid bruits Peripheral pulses: Peripheral pulses 2+ throughout GI Inspection: Yes normal to inspection Skin Other: Incision line healing well. Steri-Strips removed Wounds: no wounds Hair: normal Neuro General: oriented to person, oriented to place and oriented to time Cranial nerves: Yes CN's II-XII intact bilaterally and Yes Normal hearing present Cognition (Neuro): normal cognition Motor exam (neuro): 5/5 motor strength present throughout Extrem Other: venous exam: No significant superficial varicosities or spider telangiectasias, minimal edema General: No clubbing, No cyanosis and No edema Psych Appearance: grossly normal Mental Status: mental status grossly normal Speech and movement: Normal speech and movement present Assessment & Plan Assessment & Plan (1) Bilateral carotid artery stenosis: Comment: 11/06/2023 - right carotid endarterectomy Code(s): I65.23 - Occlusion and stenosis of bilateral carotid arteries Plan: Doing well status post right carotid endarterectomy. Will plan for 3 month surveillance follow-up. (2) Peripheral arterial disease: Comment: lower extremity stenting performed by Dr. Levy ~ 2019 Code(s): I73.9 - Peripheral vascular disease, unspecified Plan: Has not had surveillance follow-up. Will need with surveillance follow-up of this at her next visit. Orders: Orders US carotid duplex BI 3 Months I65.23 - Occlusion and stenosis of bilateral carotid arteries Coding Level of Care Code Est Pt Level 4 (52957) Diagnoses Bilateral carotid artery stenosis I65.23 Peripheral arterial disease I73.9
== END 2023-11-30 15:07 | disposition home or self-care (01) ==
PROVIDERS: PCP Internal Medicine; Visit Provider Surgery Vascular Surgery
DX: I65.23 Occlusion and stenosis of bilateral carotid arteries (principal); I73.9 Peripheral vascular disease, unspecified
CPT/HCPCS: 99024

== ENCOUNTER → 2023-11-30 14:40 | Outpatient (BNVA) | payer OTHER, SELFPAY | PROVIDERS: PCP Internal Medicine; Visit Provider Surgery Vascular Surgery | DX: Z48.812 Encounter for surgical aftercare following surgery on the circulatory system (principal); I65.23 Occlusion and stenosis of bilateral carotid arteries; I73.9 Peripheral vascular disease, unspecified; Z98.890 Other specified postprocedural states | CPT/HCPCS: 99212 ==

== ENCOUNTER 2024-02-23 09:13 | Emergency (ER) | payer OTHER, SELFPAY ==
--- NOTE | ~2024-02-23 | XR_ITS ---
EXAMINATION: XR CHEST CLINICAL INFORMATION: Pain COMPARISON: Previous chest x-ray October 2023 TECHNIQUE: Frontal view of the chest was obtained. FINDINGS: No significant abnormality is noted involving the heart, lungs, mediastinum, bony thorax or soft tissues. XR/XR chest 1V IMPRESSION: Unremarkable examination.
--- NOTE | 2024-02-23 09:14 | ECG_ITS ---
Test Reason : chest pain Blood Pressure : / mmHG Vent. Rate : 068 BPM Atrial Rate : 068 BPM P-R Int : 140 ms QRS Dur : 080 ms QT Int : 422 ms P-R-T Axes : 033 -19 037 degrees QTc Int : 448 ms Sinus rhythm with occasional Premature ventricular complexes Otherwise normal ECG When compared with ECG of 17-OCT-2023 11:55, No significant change was found Referred By: Generic ED Physician Electronically Signed By:DONAVAN BATES
[2024-02-23 09:23] VITALS: BP 163/93; PULSE 68; RESP 18; TEMP 36.3; O2SAT 97; BMI 42.4
[2024-02-23 09:57] VITALS: BP 125/81; PULSE 65; RESP 24; TEMP 36.8; O2SAT 94
[2024-02-23 10:09] LABS: MANUAL DIFF FLAG NO
[2024-02-23 10:11] LABS: Basophils Percent Auto 0.6 % (0-2); Eosinophils Absolute Auto 0.2 X10*3/uL (0.0-0.4); Eosinophils Percent Auto 2.4 % (0-4); Hematocrit 40.5 % (37.0-47.0); Hemoglobin 14.2 g/dl (12.0-16.0); Imm Gran Abs Auto 0.03 X10*3/uL (0.00-0.03); Imm Gran Pct Auto 0.4 % (0.0-0.4); Lymphocytes Absolute Auto 1.5 X10*3/uL (1.2-4.9); Lymphocytes Percent Auto 21.6 % (20-40); Mean Corpuscular HGB Conc 35.1 g/dl (31.0-35.0); Mean Corpuscular Volume 94.2 fL (80.0-98.0); Mean Platelet Volume 8.7 fL (9.4-12.3); Monocytes Absolute Auto 0.5 X10*3/uL (0.1-1.2); Monocytes Percent Auto 7.2 % (2-11); Neutrophils Absolute Auto 4.8 x10*3/uL (2.0-8.3); Neutrophils Percent Auto 67.8 % (45-73); Platelet Count 285 X10*3/uL (160-400); Red Cell Distribution Width 13.3 % (11.0-16.0); White Blood Count 7.1 X10*3/uL (4.8-10.8)
--- NOTE | 2024-02-23 10:11 | PC.NURSE ---
a&ox4. vss and up to date aside from being slightly tachypneic. 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 pt presents to the ED w/ right sided chest pain that radiates to back of neck x 2 weeks. pt also verbalizing sob/naidu x some time. pt verbalizes hx of asthma and an increase in swelling in left ankle. slight swelling noted to left foot. otherwise no edema noted. lung sounds CTA. slight sob noted. pt positioned upright to promote patent airway. 20gIV placed in the left forearm - labs obtained/sent to lab. pt seen by ED provider/aware of plan of care moving forward. bedside for support. plan of care ongoing. call garza placed within reach.
[2024-02-23 10:26] LABS: Alanine Aminotransferase 26 U/L (0-31); Albumin Level 4.3 g/dL (3.5-5.0); Alkaline Phosphatase 55 U/L (39-117); Anion Gap 12 (12-20); Aspartate Amino Transferase 24 U/L (5-31); Bilirubin Total 0.4 mg/dL (0.0-1.0); Blood Urea Nitrogen 7 mg/dL (9-16); Calcium 9.7 mg/dL (8.4-10.2); Carbon Dioxide 26 mmol/L (22-29); Chloride 106 mmol/L (96-108); Creatinine Clr Calc Pharmacy 90.5; Estimated Glomerular Filt Rate > 60; Glucose Random 183 mg/dL (60-115); Potassium 3.9 mmol/L (3.3-5.1); Sodium 140 mmol/L (135-145); Total Protein 7.2 g/dL (6.5-8.0)
[2024-02-23 10:32] LABS: B Type Natriuretic Peptide < 10 pg/mL (<100)
--- NOTE | 2024-02-23 10:35 | ED_ITS ---
HPI - Chest Pain General Chief Complaint: Chest Pain Stated Complaint: CP X 2 Wks L Eye Infection Time Seen by Provider: 02/23/24 09:49 Source: patient and old records reviewed Mode of arrival: ambulatory Limitations: no limitations History of Present Illness ED Provider: JOSEPHINE NICOLE narrative: 59 yo female with PMH of DM, HTN, hypothyroidism, MARSHA, PAD, GERD who per records had normal cardiac cath in September of 2023 with Janina and had normal stress test at that time as well prior to her carotid endarterectomy. She presents today with c/o chest pain with exertion and dyspnea x 2 weeks when she exerts herself and notes she thought it was anxiety. She denies GIB symptoms, travel or procedures. MD complaint: chest pain Onset (ago): week(s) (2) Timing of current episode: episodic Prior episodes: Yes Onset: during exertion Pain location: left chest and right chest Pain radiation: none Severity: moderate Quality: heaviness Relieving factors: rest Exacerbating factors: exertion Associated symptoms: dyspnea Treatment prior to arrival: none Related Data Home Medications ?Medication ?Instructions ?Recorded ?Confirmed cilostazol 100 mg tablet 100 mg PO BID 10/12/23 11/06/23 fluoxetine 20 mg capsule 20 mg PO QAM 10/12/23 11/06/23 levothyroxine 25 mcg capsule 25 mcg PO QAM 10/12/23 11/06/23 losartan 25 mg tablet 25 mg PO QAM 10/12/23 11/06/23 mecobalamin (vitamin B12) 500 mcg 500 mcg PO QAM 10/12/23 11/06/23 chewable tablet metformin 500 mg tablet 500 mg PO BID 10/12/23 11/06/23 omeprazole 40 mg capsule,delayed 40 mg PO QAM 10/12/23 11/06/23 release simvastatin 40 mg tablet 40 mg PO QAM 10/12/23 11/06/23 albuterol sulfate 90 mcg/actuation 2 puff inhalation Q4-6H PRN 11/01/23 11/06/23 aerosol inhaler (Ventolin HFA) Shortness Of Breath Or Wheezing ascorbic acid (vitamin C) 100 mg 100 mg PO QAM 11/01/23 11/06/23 tablet aspirin 81 mg tablet,delayed 81 mg PO BEDTIME 11/01/23 11/06/23 release fluticasone propionate 230 2 puff inhalation BID 11/01/23 11/06/23 mcg-salmeterol 21 mcg/actuation HFA inhaler (Advair HFA) lamotrigine 25 mg tablet 25 mg PO QAM 11/01/23 11/06/23 quetiapine 50 mg tablet 50 mg PO QAM 11/01/23 11/06/23 amlodipine 2.5 mg tablet 2.5 mg PO QAM 11/02/23 11/06/23 biotin 1,000 mcg chewable tablet 1,000 mcg PO QAM 11/02/23 11/06/23 cholecalciferol (vitamin D3) 1,250 1,250 mcg PO QWEEK 11/06/23 11/06/23 mcg (50,000 unit) capsule Previous Rx's ?Medication ?Instructions ?Recorded cyclobenzaprine 5 mg tablet 5 mg PO TID PRN muscle spasm 7 10/11/23 days #21 tabs oxycodone-acetaminophen 5 mg-325 1 tab PO Q8H PRN pain #10 tabs 11/07/23 mg tablet (Percocet) ofloxacin 0.3 % eye drops 1 drp ophthalmic (eye) QID 5 days 02/23/24 #5 mL Allergies Allergy/AdvReac Type Severity Reaction Status Date / Time clarithromycin [From Biaxin] Allergy Intermediate Rash Verified 02/23/24 09:28 Review of Systems 2 Review of Systems: Constitutional : No Weight loss, No Fever, No Chills ENT/Mouth : No sore throat, No Rhinorrhea Eyes: No Eye Pain, No Swelling Cardiovascular : pos Chest Pain, pos SOB, no Dyspnea on Exertion, No Orthopnea, No Edema, No Palpitations Respiratory : No Cough, No Sputum Gastrointestinal : no Nausea, No Vomiting, No Diarrhea, No abdominal Pain, No Hematochezia, No Melena Genitourinary : No Dysuria, No Urinary Frequency Musculoskeletal : No joint pain, No Myalgias, No Joint Swelling Skin : No Skin Lesions, No rash Neuro : No Weakness, No Numbness, No Dizziness, No Headache Psych : No Anxiety/Panic, No Depression All other systems reviewed and are negative ON LICENSE OF [facility] Past Medical History Attestation statement: The following information was validated with the patient. Source: old records reviewed Medical History Asthma Pre-op exam Depression Arthritis Cervical radiculitis Renal calculi HTN (hypertension) Diabetes Glaucoma GERD (gastroesophageal reflux disease) Hypothyroidism Hypercholesteremia Carpal tunnel syndrome Sleep apnea Peripheral arterial disease Surgical History History of esophagogastroduodenoscopy (EGD) Hx of colonoscopy Hx of tubal ligation Hx of repair of rotator cuff Hx of carpal tunnel repair Hx of lithotripsy History of appendectomy History of foot surgery Social History Social History Household Members: Spouse Housing: House Are you a primary dog daycare provider to a significant other at home: No Do you presently have visiting nurse or other home services: No Alcohol intake: current Alcohol intake frequency: holidays/special occasions only Comment: counts correct Patient Tobacco Use Status: Former Tobacco user Tobacco use type: Cigarette Years Smoked: 40 Smoked in Last 30 Days: No e-Cigarette/Vaping Use: Former Use Second Hand Smoke Exposure: No Use of substances other than those prescribed or required for medical reasons: Yes Substance Use Type: Marijuana Advance Directives: No Advance Directives Information Provided: Yes Do you have a plan to hurt others: No Plan Patient : No service: No 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 Oriented X3. No acute distress. Eyes: Pupils equal, round and reactive to light. L lower lid mild erythema and stye noted no periorbital cellulitis ENT: Pharynx normal. Neck: Normal inspection. Neck supple. CVS: Normal heart rate and rhythm. Pulses normal. Respiratory: No respiratory distress. Breath sounds normal. Abdomen: Soft and nontender. Skin: Skin warm and dry. Normal skin color. Normal skin turgor. Extremities: No lower extremity edema. No calf ttp Neuro: Oriented X 3. No motor deficit. No sensory deficit. Medications Administered Discontinued Medications Generic Name Dose Route Start Last Admin Trade Name Malcom PRN Reason Stop Dose Admin Aspirin 81 mg 02/23/24 12:37 02/23/24 12:48 Aspirin 81 Mg Tab.Chew PO 02/23/24 12:38 81 mg ONCE ONE Administration Medical Decision Making Medical Decision Making [facility] Narrative: 59 yo female with PMH of DM, HTN, hypothyroidism, MARSHA, PAD, GERD who per reports just had clean cath in September and stress test at this time will obtain records to review and while her story is concerning if she had normal cardiac catheterization that does not make sense. Her EKG and trop are flat. Will obtain ddimer and CXR as well. Possible anxiety, ACS, VTE, deconditioning. outside records - no cardiac catheterization in past and patient confirms this she had normal stress test but CT scan with moderate coronary calcifications at this time I am going to call her cardiology provider through Differential Diagnosis Differential Diagnoses: The differential diagnosis associated with the presentation includes anxiety, ACS, VTE, deconditioning. Admission/Observation Consideration of admission/observation: Escalation of care including admission/observation considered spoke to Katlyn from cardiology who advised given symptoms concerning for UA to transfer to [facility] for possible cath I spoke to the patient and she states she cannot be admitted or transferred due to prior engagements. she refuses admission at this time and states she is going to go to [facility] if she has any recurrence of symptoms - she is alert and oriented answering questions I explained this was a serious issue and I am concerned she could have a heart attack and and she is aware Consult Healthcare Provider Management of the patient was discussed with: Electronic Assembler Group Leader Lab Data [facility] Lab Attestation statement: I reviewed the patient's lab results. 02/23/24 10:02 02/23/24 10:02 Labs: Lab Results 02/23/24 02/23/24 Range/Units 10:02 11:13 WBC 7.1 (4.8-10.8) X10*3/uL RBC 4.30 (4.20-5.50) X10*6/uL Hgb 14.2 (12.0-16.0) g/dl Hct 40.5 (37.0-47.0) % MCV 94.2 (80.0-98.0) fL MCH 33.0 (27.0-33.0) pg MCHC 35.1 H (31.0-35.0) g/dl RDW 13.3 (11.0-16.0) % Plt Count 285 (160-400) X10*3/uL MPV 8.7 L (9.4-12.3) fL Immature Gran % (Auto) 0.4 (0.0-0.4) % Neut % (Auto) 67.8 (45-73) % Lymph % (Auto) 21.6 (20-40) % Bracken % (Auto) 7.2 (2-11) % Eos % (Auto) 2.4 (0-4) % Baso % (Auto) 0.6 (0-2) % Lymph # (Auto) 1.5 (1.2-4.9) X10*3/uL Bracken # (Auto) 0.5 (0.1-1.2) X10*3/uL Eos # (Auto) 0.2 (0.0-0.4) X10*3/uL Baso # (Auto) 0.0 (0.0-0.2) X10*3/uL Abs Immat Gran (auto) 0.03 (0.00-0.03) X10*3/uL Absolute Neuts (auto) 4.8 (2.0-8.3) x10*3/uL Absolute Nucleated RBC 0.000 (0.0-0.012) X10*3/uL Nucleated RBC % (auto) 0.0 (0.0-0.2) /100WBC D-Dimer High Sensitivty < 150 NG/ML Sodium 140 (135-145) mmol/L Potassium 3.9 (3.3-5.1) mmol/L Chloride 106 (96-108) mmol/L Carbon Dioxide 26 (22-29) mmol/L Anion Gap 12 (12-20) BUN 7 L (9-16) mg/dL Creatinine 0.83 (0.5-1.4) mg/dL Estim Creat Clear Calc 90.5 Estimated GFR > 60 Random Glucose 183 H (60-115) mg/dL Calcium 9.7 (8.4-10.2) mg/dL Total Bilirubin 0.4 (0.0-1.0) mg/dL AST 24 (5-31) U/L ALT 26 (0-31) U/L Alkaline Phosphatase 55 (39-117) U/L Troponin I High Sens < 2.7 (<3.5-17.0) ng/L B-Natriuretic Peptide < 10 (<100) pg/mL Total Protein 7.2 (6.5-8.0) g/dL Albumin 4.3 (3.5-5.0) g/dL Influenza Type A (PCR) NEGATIVE (Negative) Influenza Type B (PCR) NEGATIVE (Negative) RSV RNA Qual (PCR) NEGATIVE (Negative) SARS-CoV-2 RNA (RT-PCR) NEGATIVE (Negative) Independent Interpretation I performed an independent interpretation of an: EKG and Plain X-Ray (normal ) Interpretation: Rate: 68 Rhythm: NSR with PVCs Guild: normal Normal P waves. Normal SHAN. Normal QRS complex. ST T wave : no SHAHNAZ, inverted t wave V1 qTC: 448 prior studies: no acute ischemia The study has been interpreted contemporaneously by me. . Radiology Impression Discussion of test interpretation with radiology: I have reviewed the radiologist's reading. Independent Historian Clinical information obtained from an independent historian. History obtained from or confirmed by: Spouse External Record Review External record reviewed: Outpatient record Critical Care Time Critical Care Time Critical Care Time: Yes Total Critical Care Time: 35 Attestation: review of records, medical consult, attempts to transfer, bedside discussions to get the patient to stay I attest to this time spent taking care of the patient Discharge Plan Discharge Clinical Impression: Unstable angina Hordeolum eyelid Qualifiers: Hordeolum type: unspecified type Laterality: left Eyelid: lower Qualified Code(s): H00.015 - Hordeolum externum left lower eyelid Patient Disposition: Left Against Medical Advice Instructions: Angina (ED), Stye (ED), Acute Coronary Syndrome (ED), Against Medical Advice (ED) Additional Instructions: you were advised to stay and be transferred for cardiac catheterization or further cardiac workup after spoke to your cardiology team. you declined. you need to take aspirin every day. seek immediate care for chest pain, trouble breathing, fainting or any other concerns. this is serious you could Prescriptions: New ofloxacin 0.3 % drops 1 drp ophthalmic (eye) QID 5 Days Qty: 5 0RF No Action cyclobenzaprine 5 mg tablet 5 mg PO TID PRN (Reason: muscle spasm) 7 Days Qty: 21 0RF aspirin 81 mg Tablet,Delayed Release (Dr/Ec) 81 mg PO BEDTIME lamotrigine 25 mg tablet 25 mg PO QAM ascorbic acid (vitamin C) 100 mg Tablet 100 mg PO QAM albuterol sulfate [Ventolin HFA] 90 mcg/actuation Hfa Aerosol Inhaler 2 puff INHALATION Q4-6H PRN (Reason: Shortness Of Breath Or Wheezing) quetiapine 50 mg tablet 50 mg PO QAM fluticasone propion-salmeterol [Advair HFA] 230-21 mcg/actuation Hfa Aerosol Inhaler 2 puff INHALATION BID biotin 1,000 mcg Tablet,Chewable 1,000 mcg PO QAM amlodipine 2.5 mg tablet 2.5 mg PO QAM cholecalciferol (vitamin D3) 1,250 mcg (50,000 unit) capsule 1,250 mcg PO QWEEK oxycodone-acetaminophen [Percocet] 5-325 mg tablet 1 tab PO Q8H PRN (Reason: pain) Qty: 10 0RF Rx Instructions: Partial Fill upon patient request. cilostazol 100 mg tablet 100 mg PO BID omeprazole 40 mg capsule,delayed release(DR/EC) 40 mg PO QAM metformin 500 mg tablet 500 mg PO BID losartan 25 mg tablet 25 mg PO QAM fluoxetine 20 mg capsule 20 mg PO QAM simvastatin 40 mg tablet 40 mg PO QAM levothyroxine 25 mcg capsule 25 mcg PO QAM mecobalamin (vitamin B12) 500 mcg tablet,chewable 500 mcg PO QAM Print Language: Georgian
[2024-02-23 10:37] LABS: Troponin-I High Sensitivity < 2.7 ng/L (<3.5-17.0)
[2024-02-23 10:56] LABS: Influenza A PCR NEGATIVE (Negative); Influenza B PCR NEGATIVE (Negative); Resp Syncy Virus RNA Qual PCR NEGATIVE (Negative); SARS COV2 PCR INHOUSE NEGATIVE (Negative)
--- NOTE | 2024-02-23 11:19 | PC.NURSE ---
labs obtained/sent to lab. pt waiting for chest xray to be completed at this time.
[2024-02-23 11:49] LABS: D Dimer High Sensitivity < 150 NG/ML
[2024-02-23 12:30] VITALS: BP 148/78; PULSE 69; RESP 14; TEMP 36.2; O2SAT 94
[2024-02-23] MEDS: Aspirin 81 MG TAB.CHEW PO (12:48)
[2024-02-23 13:08] VITALS: BP 148/78; PULSE 69; RESP 14; TEMP 36.2; O2SAT 94
--- NOTE | 2024-02-23 13:18 | PC.NURSE ---
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 dr. layne explained risks/possible complications inn the room. pt still refused. AMA form signed/filled out.
== END 2024-02-23 13:19 | disposition left against medical advice (07) ==
PROVIDERS: Emergency Provider Emergency Medicine; PCP Internal Medicine
DX: H00.015 Hordeolum externum left lower eyelid (principal); I20.0 Unstable angina; R06.02 Shortness of breath; R07.89 Other chest pain; Z87.891 Personal history of nicotine dependence; Z79.899 Other long term (current) drug therapy
CPT/HCPCS: 0241U; 36415; 71045; 80053; 83880; 84484; 85025; 85379; 93005; 99283; 99285

== ENCOUNTER → 2024-02-23 09:14 | Outpatient (BNV) | payer OTHER, SELFPAY | PROVIDERS: Emergency Provider Emergency Medicine; PCP Internal Medicine; Visit Provider Internal Medicine | DX: R07.9 Chest pain, unspecified (principal); I49.3 Ventricular premature depolarization | CPT/HCPCS: 93010 ==

== ENCOUNTER 2024-03-26 09:52 | Outpatient (REF) | payer OTHER, SELFPAY ==
--- NOTE | ~2024-03-26 | US_ITS ---
EXAMINATION: US EXTRACRANIAL CAROTID DUPLEX, BILATERAL CLINICAL INFORMATION: Bilateral carotid artery stenosis with history of CEA 11/06/2023. COMPARISON: None available. TECHNIQUE: Real-time ultrasound and Doppler techniques (integrating B-mode 2-D vascular images, Doppler spectral analysis and color-flow Doppler imaging) were utilized to interrogate the extracranial carotid arteries, the vertebral arteries and proximal subclavian arteries bilaterally. The degree of stenosis is determined by criteria similar to NASCET. FINDINGS: Right Side: 1. There is mild atherosclerotic plaque seen in the bifurcation/proximal ICA region. 2. The common carotid artery PSV proximally is 139 cm/s and distally 90 cm/s. 3. The proximal internal carotid artery velocities are 121 cm/s systolic and 23 cm/s diastolic. 4. The proximal external carotid artery PSV is 274 cm/s. 5. The vertebral artery shows antegrade flow. 6. The subclavian artery waveforms are normal. Left Side: 1. There is mild atherosclerotic plaque seen in the bifurcation/proximal ICA region. 2. The common carotid artery PSV proximally is 125 cm/s and distally 83 cm/s. 3. The proximal internal carotid artery velocities are 58 cm/s systolic and 18 cm/s diastolic. 4. The proximal external carotid artery PSV is 98 cm/s. 5. The vertebral artery shows antegrade flow. 6. The subclavian artery waveforms are normal. US/US carotid duplex BI IMPRESSION: 1. RIGHT: Minimal, non-hemodynamically significant stenosis of the proximal right internal carotid artery corresponding to a 0-49% stenosis by velocity criteria. 2. LEFT: Minimal, non-hemodynamically significant stenosis of the proximal left internal carotid artery corresponding to a 0-49% stenosis by velocity criteria.
== END 2024-03-26 09:53 | disposition home or self-care (01) ==
LOC: HO.US 09:52
PROVIDERS: PCP Internal Medicine; Visit Provider Surgery Vascular Surgery
DX: I65.23 Occlusion and stenosis of bilateral carotid arteries (principal)
CPT/HCPCS: 93880

== ENCOUNTER 2024-03-30 08:54 | Emergency (ER) | payer OTHER, SELFPAY ==
[2024-03-30 08:58] VITALS: BP 151/99; PULSE 94; RESP 18; TEMP 36.8; O2SAT 98; BMI 42.8
--- NOTE | 2024-03-30 09:35 | ED_ITS ---
HPI - Skin/Abscess/Foreign Bdy General Chief complaint: Skin/Abscess/Foreign Body Stated complaint: ? Kidney Infection Rash Time Seen by Provider: 03/30/24 09:18 Source: patient Mode of arrival: ambulatory Limitations: no limitations History of Present Illness ED Provider: Yesenia Tejada APRN HPI narrative: 59 yo female with PMH of DM, HTN, hypothyroidism, MARSHA, PAD on dual platelet therapy, GERD here with complaints of painful/burning rash to left flank. Patient reports she had prodrome of body aches, joint pain for several days. Noticed the rash <12 hrs ago. No fevers, chills, vomiting, abdominal pain, neck pain, headache, urinary symptoms, shortness of breath or URI symptoms. Also c/o left lower eyelid swelling/redness. Diagnosed with hordelum one month ago. Using unknown antibiotic drop, warm compresses with no change. Has not seen opthamologist. Related Data Home Medications ?Medication ?Instructions ?Recorded ?Confirmed cilostazol 100 mg tablet 100 mg PO BID 10/12/23 11/06/23 fluoxetine 20 mg capsule 20 mg PO QAM 10/12/23 11/06/23 levothyroxine 25 mcg capsule 25 mcg PO QAM 10/12/23 11/06/23 losartan 25 mg tablet 25 mg PO QAM 10/12/23 11/06/23 mecobalamin (vitamin B12) 500 mcg 500 mcg PO QAM 10/12/23 11/06/23 chewable tablet metformin 500 mg tablet 500 mg PO BID 10/12/23 11/06/23 omeprazole 40 mg capsule,delayed 40 mg PO QAM 10/12/23 11/06/23 release simvastatin 40 mg tablet 40 mg PO QAM 10/12/23 11/06/23 albuterol sulfate 90 mcg/actuation 2 puff inhalation Q4-6H PRN 11/01/23 11/06/23 aerosol inhaler (Ventolin HFA) Shortness Of Breath Or Wheezing ascorbic acid (vitamin C) 100 mg 100 mg PO QAM 11/01/23 11/06/23 tablet aspirin 81 mg tablet,delayed 81 mg PO BEDTIME 11/01/23 11/06/23 release fluticasone propionate 230 2 puff inhalation BID 11/01/23 11/06/23 mcg-salmeterol 21 mcg/actuation HFA inhaler (Advair HFA) lamotrigine 25 mg tablet 25 mg PO QAM 11/01/23 11/06/23 quetiapine 50 mg tablet 50 mg PO QAM 11/01/23 11/06/23 amlodipine 2.5 mg tablet 2.5 mg PO QAM 11/02/23 11/06/23 biotin 1,000 mcg chewable tablet 1,000 mcg PO QAM 11/02/23 11/06/23 cholecalciferol (vitamin D3) 1,250 1,250 mcg PO QWEEK 11/06/23 11/06/23 mcg (50,000 unit) capsule Previous Rx's ?Medication ?Instructions ?Recorded cyclobenzaprine 5 mg tablet 5 mg PO TID PRN muscle spasm 7 10/11/23 days #21 tabs oxycodone-acetaminophen 5 mg-325 1 tab PO Q8H PRN pain #10 tabs 11/07/23 mg tablet (Percocet) ofloxacin 0.3 % eye drops 1 drp ophthalmic (eye) QID 5 days 02/23/24 #5 mL erythromycin 5 mg/gram (0.5 %) eye 0.5 inch ophthalmic (eye) TID #3.5 03/30/24 ointment grams gabapentin 100 mg capsule 100 mg PO TID #21 caps 03/30/24 valacyclovir 1 gram tablet 1,000 mg PO BID #14 tabs 03/30/24 (Valtrex) Allergies Allergy/AdvReac Type Severity Reaction Status Date / Time clarithromycin [From Biaxin] Allergy Intermediate Rash Verified 03/30/24 09:01 Review of Systems 2 Review of Systems: Yes all other systems are reviewed and are negative Constitutional: Constitutional: Reports no additional constitutional complaints, Reports body ache(s), Denies chills, Denies fever(s), Denies headache(s) and Denies weakness Eyes: Eyes: Reports no additional eye complaints and Denies change in vision ENT: Reports system reviewed and no additional complaints, except as documented, Denies dizziness, Denies headache(s), Denies nasal congestion, Denies nasal discharge and Denies neck pain Cardiovascular: Cardiovascular: Reports no additional cardiovascular complaints, Denies chest pain, Denies leg edema and Denies dyspnea Respiratory: Respiratory: Reports no additional respiratory complaints, Denies cough and Denies dyspnea Gastrointestinal: Gastrointestinal: Reports no additional gastrointestinal complaints, Denies abdominal pain, Denies diarrhea, Denies nausea and Denies vomiting Genitourinary: Genitourinary: Reports no additional female genitourinary complaints and Denies urinary incontinence Musculoskeletal: Musculoskeletal: Reports no additional musculoskeletal complaints, Denies back pain, Denies arthralgias, Denies joint swelling, Denies neck pain, Denies numbness and Denies tingling Integumentary/Breasts: Skin/Breast: Reports system reviewed and no additional complaints, except as docu and Reports rash Neurologic: Reports system reviewed and no additional complaints, except as documented, Denies Abnormal speech present, Denies dizziness, Denies headache(s), Denies numbness, Denies tingling and Denies weakness PMFSH Past Medical History Attestation statement: The following information was validated with the patient. Source: old records reviewed and nursing notes reviewed Medical History Asthma Pre-op exam Depression Arthritis Cervical radiculitis Renal calculi HTN (hypertension) Diabetes Glaucoma GERD (gastroesophageal reflux disease) Hypothyroidism Hypercholesteremia Carpal tunnel syndrome Sleep apnea Peripheral arterial disease Surgical History History of esophagogastroduodenoscopy (EGD) Hx of colonoscopy Hx of tubal ligation Hx of repair of rotator cuff Hx of carpal tunnel repair Hx of lithotripsy History of appendectomy History of foot surgery Social History Social History Household Members: Spouse Housing: House Are you a primary health care assistant to a significant other at home: No Do you presently have visiting nurse or other home services: No Alcohol intake: current Alcohol intake frequency: holidays/special occasions only Comment: counts correct Patient Tobacco Use Status: Former Tobacco user Tobacco use type: Cigarette Years Smoked: 40 e-Cigarette/Vaping Use: Former Use Second Hand Smoke Exposure: No Substance Use Type: Marijuana Advance Directives: No Advance Directives Information Provided: No service: No 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 Physical Exam 2 Vital Signs: Vital Signs: Last Vital Signs Temp 98.2 F 03/30/24 08:58 Pulse 94 03/30/24 08:58 Resp 18 03/30/24 08:58 BP 151/99 H 03/30/24 08:58 Pulse Ox 98 03/30/24 08:58 O2 Del Method Room Air 03/30/24 08:58 BMI result Body Mass Index 42.8 Const: General: cooperative, healthy appearing, comfortable and no acute distress Orientation/consciousness: patient oriented x3 Limitations: no limitations HEENT: Head: Yes normal to inspection Ears: hearing grossly normal bilaterally General nose exam: Normal external nose present Face and sinus: Yes normal facial exam Mouth: Normal oral and palatal mucosa present Throat: Yes posterior oropharynx normal Eyes: Other: Hordeolum left lower eyelid General: appearance normal, both eyes and all related structures Visual Grimes: normal visual grimes by confrontation Alignment and Position: a lignment normal Periorbital: periorbital findings normal Conjunctivae: c onjunctivae normal Sclerae: sclerae normal Corneas: corneas normal P upils: Equal, round and reactive pupils present EOM: EOMs intact bilaterally Neck: Neck: Yes normal visual inspection, Yes full ROM, Yes no lymphadenopathy and Yes no meningeal signs Chest: Chest palpation & inspection: normal inspection of the chest Resp: Effort & Inspection: normal respiratory effort Auscultation: clear to auscultation bilaterally Cardio: Rate: regular rate Rhythm: regular rhythm Peripheral pulses: P eripheral pulses 2+ throughout GI: Inspection: Yes normal to inspection Palpation (GI): Soft to palpation and nontender Auscultation: normal bowel sounds Back/Spine/Pelvis: Thoracic/Lumbar Spine: thoracic and lumbar spine normal to inspection Skin: Other: Neuro: General: patient oriented x3, no meningeal signs, no focal motor deficits and normal sensation to monofilament Cranial nerves: Yes Equal, round and reactive pupils present Cognition (Neuro): normal cognition S peech: No Abnormal speech present Gait exam (Neuro): Normal gait present M otor exam (neuro): 5/5 motor strength present throughout Extrem: General: Yes normal to inspection Medical Decision Making Medical Decision Making MDM Narrative: 59 yo female with PMH of DM, HTN, hypothyroidism, MARSHA, PAD on dual platelet therapy, GERD here with complaints of painful/burning rash to left flank. Patient reports she had prodrome of body aches, joint pain for several days. Noticed the rash <12 hrs ago. No fevers, chills, vomiting, abdominal pain, neck pain, headache, urinary symptoms, shortness of breath or URI symptoms. Also c/o left lower eyelid swelling/redness. Diagnosed with hordelum one month ago. Using unknown antibiotic drop, warm compresses with no change. Has not seen opthamologist. See pictures in PE. C/W with herpes zoster. Will discharge patient with valtrex/gabapentin Also continued hordeleum. Has plans to see tech intern. Will recommend continuing warm compresses and erythromycin Differential Diagnosis Differential Diagnoses: The differential diagnosis associated with the presentation includes Herpes zoster Low suspicion for ACS, pyelonephritis, renal colic, cellulitis Hordeolum Low suspicion for orbital cellulitis, chalazion, Admission/Observation Consideration of admission/observation: Escalation of care including admission/observation considered Lab Data MDM Lab Attestation statement: I reviewed the patient's lab results. Labs: Lab Results 03/30/24 Range/Units 09:15 Urine Color Yellow Urine Appearance Clear Urine pH 5.5 (5.0-9.0) Ur Specific [place] 1.020 (1.005-1.025) Urine Protein Trace (Neg-Trace) mg/dL Urine Glucose (UA) Negative (Negative) mg/dL Urine Ketones Negative (Negative) mg/dL Urine Blood Small (1+) H (Negative) Urine Nitrite Negative (Negative) Ur Leukocyte Esterase Negative (Negative) Prescription Management I considered prescription management with: Pain Medication and Antibiotic Chronic Conditions Patient?s care impacted by: Diabetes Discharge Plan Discharge Clinical Impression: Herpes zoster, Hordeolum Patient Disposition: Home, Self-Care Instructions: Shingles (ED), Stye (ED) Additional Instructions: For your eye continue warm compresses. Use the topical antibiotic ointment. Follow-up with your tech intern For your shingles please take medications as prescribed. Follow up with primary care doctor as needed. Keep the areas covered with a shirt. Avoid contact with young children and elderly patients. Return for worsening symptoms Prescriptions: New erythromycin 5 mg/gram (0.5 %) ointment 0.5 inch ophthalmic (eye) TID Qty: 3.5 0RF valacyclovir [Valtrex] 1 gram tablet 1,000 mg PO BID Qty: 14 0RF gabapentin 100 mg capsule 100 mg PO TID Qty: 21 0RF No Action cyclobenzaprine 5 mg tablet 5 mg PO TID PRN (Reason: muscle spasm) 7 Days Qty: 21 0RF ofloxacin 0.3 % drops 1 drp ophthalmic (eye) QID 5 Days Qty: 5 0RF aspirin 81 mg Tablet,Delayed Release (Dr/Ec) 81 mg PO BEDTIME lamotrigine 25 mg tablet 25 mg PO QAM ascorbic acid (vitamin C) 100 mg Tablet 100 mg PO QAM albuterol sulfate [Ventolin HFA] 90 mcg/actuation Hfa Aerosol Inhaler 2 puff INHALATION Q4-6H PRN (Reason: Shortness Of Breath Or Wheezing) quetiapine 50 mg tablet 50 mg PO QAM fluticasone propion-salmeterol [Advair HFA] 230-21 mcg/actuation Hfa Aerosol Inhaler 2 puff INHALATION BID biotin 1,000 mcg Tablet,Chewable 1,000 mcg PO QAM amlodipine 2.5 mg tablet 2.5 mg PO QAM cholecalciferol (vitamin D3) 1,250 mcg (50,000 unit) capsule 1,250 mcg PO QWEEK oxycodone-acetaminophen [Percocet] 5-325 mg tablet 1 tab PO Q8H PRN (Reason: pain) Qty: 10 0RF Rx Instructions: Partial Fill upon patient request. cilostazol 100 mg tablet 100 mg PO BID omeprazole 40 mg capsule,delayed release(DR/EC) 40 mg PO QAM metformin 500 mg tablet 500 mg PO BID losartan 25 mg tablet 25 mg PO QAM fluoxetine 20 mg capsule 20 mg PO QAM simvastatin 40 mg tablet 40 mg PO QAM levothyroxine 25 mcg capsule 25 mcg PO QAM mecobalamin (vitamin B12) 500 mcg tablet,chewable 500 mcg PO QAM Print Language: Romanian
[2024-03-30 09:43] LABS: Appearance Urine Clear; Color Urine Yellow; Glucose Urine UA Negative (Negative); Leukocyte Esterase Urine Negative (Negative); Nitrite Urine Negative (Negative); PH 5.5 (5.0-9.0); UMIC TRIGGER UACC YES; Urine Blood Small (1+) (Negative); Urine Ketones Negative (Negative); Urine Protein Trace mg/dL (Neg-Trace)
[2024-03-30 09:57] LABS: Bacteria Urine None Seen (None Seen); Hyaline Casts Urine 0-2 /LPF (0-2); WBC Urine 0-5 /HPF (0-5)
[2024-03-30 10:17] VITALS: BP 151/99; PULSE 94; RESP 18; TEMP 36.8; O2SAT 98
== END 2024-03-30 10:18 | disposition home or self-care (01) ==
PROVIDERS: Emergency Provider Emergency Medicine; PCP Internal Medicine
DX: B02.9 Zoster without complications (principal); H00.015 Hordeolum externum left lower eyelid
CPT/HCPCS: 81001; 99282; 99283

== ENCOUNTER 2024-05-07 09:00 | Outpatient (AMB) | payer OTHER, SELFPAY ==
--- NOTE | 2024-05-07 09:00 | MHC.OFFVIS ---
Vital Signs 05/07/24 09:05 05/07/24 09:15 Height 5 ft 4 in Weight 249 lb BMI 42.7 BP 110/68 114/82 Blood Pressure Location Lt brachial Rt brachial Position Sitting Sitting Intake Visit Reasons: 3m follow up s/p Carotid US 03/26/24 Intake Note: 3 mo follow up carotid US 03/26/24 s/p Right CEA 11/06/23, pt states that she still has some numbness. Pt states that she has PAD and her legs are bothersome, states she gets cramping in bilateral LE, pins and needles. Left Leg worse than the Right Leg. Does have nueropathy. Pt has had falls due to LE weakness. Accompanied by: Self / Same As Patient Allergies clarithromycin [From Biaxin] Allergy (Intermediate, Verified 05/07/24 09:11) Rash HPI HPI 3m follow up s/p Carotid US 03/26/24: Details: Very pleasant 59-year-old female presents for follow-up regarding right carotid endarterectomy. This was done 3 months prior. She reports she is doing fairly well. No subsequent issues. Of note she is being maintained on an aspirin and statin. Upon further discussion with her she notes that she is having lower extremity discomfort. It is left more so than right. She can walk barely about 100-200 yd before cramping of the calves. She is concerned about that as well. [facility] Medical History Asthma Pre-op exam Depression Arthritis Cervical radiculitis Renal calculi HTN (hypertension) Diabetes Glaucoma GERD (gastroesophageal reflux disease) Hypothyroidism Hypercholesteremia Carpal tunnel syndrome Sleep apnea Peripheral arterial disease Surgical History History of esophagogastroduodenoscopy (EGD) Hx of colonoscopy Hx of tubal ligation Hx of repair of rotator cuff Hx of carpal tunnel repair Hx of lithotripsy History of appendectomy History of foot surgery Social History Household Members: Spouse Housing: House Are you a primary career coordinator to a significant other at home: No Do you presently have visiting nurse or other home services: No Alcohol intake: current Alcohol intake frequency: holidays/special occasions only Comment: counts correct Patient Tobacco Use Status: Former Tobacco user Tobacco use type: Cigarette Years Smoked: 40 e-Cigarette/Vaping Use: Former Use Second Hand Smoke Exposure: No Substance Use Type: Marijuana service: No 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 Review of Systems Const All systems reviewed & are unremarkable except as noted in HPI and below Reports no additional complaints ENT Reports Normal hearing present Card Denies chest pain, Denies chest pain at rest, Denies chest pain with activity and Denies pedal edema Resp Denies cough GI Denies abdominal pain Musc Denies abnormal gait, Denies muscle cramps and Denies radiating pain into limb Skin/Breast Denies skin ulcer and Denies wounds Neuro Reports Normal hearing present and Denies abnormal gait Psych Reports no additional complaints Physical Exam Vital Signs: Last Vital Signs BP 114/82 05/07/24 09:15 BMI result Body Mass Index 42.7 Const General: cooperative, healthy appearing and comfortable Orientation/consciousness: oriented to person, oriented to place and oriented to time HEENT Head: Yes normal to inspection Neck Neck: Yes normal visual inspection Carotids: no bruits Chest Chest palpation & inspection: normal inspection of the chest Resp Effort & Inspection: normal respiratory effort and able to speak in complete sentences Auscultation: clear to auscultation bilaterally, no crackles, no rales, no rhonchi and no wheezes Cardio Other: Bilateral DP signals Rate: regular rate Rhythm: regular rhythm Heart sounds: S1 normal heart sound present and S2 normal heart sound present Bruits: no carotid bruits Peripheral pulses: Peripheral pulses 2+ throughout GI Inspection: Yes normal to inspection Skin Wounds: no wounds Hair: normal Neuro General: oriented to person, oriented to place and oriented to time Cranial nerves: Yes CN's II-XII intact bilaterally and Yes Normal hearing present Cognition (Neuro): normal cognition Motor exam (neuro): 5/5 motor strength present throughout Extrem Other: venous exam: No significant superficial varicosities or spider telangiectasias, minimal edema General: No clubbing, No cyanosis and No edema Psych Appearance: grossly normal Mental Status: mental status grossly normal Speech and movement: Normal speech and movement present Results Reviewed Results Reviewed: Carotid ultrasound dated 03/26/2024 demonstrates bilateral 0-49% stenosis with peak systolic on the right of 121 and on the left of 58 Assessment & Plan Assessment & Plan (1) Bilateral carotid artery stenosis: Comment: 11/06/2023 - right carotid endarterectomy Code(s): I65.23 - Occlusion and stenosis of bilateral carotid arteries Category: Medical Plan: In short patient has is stable from her carotid endarterectomy. We have reviewed signs and symptoms of a stroke. We also discussed risk factor modification inclusive a healthy diet low in cholesterol. The patient will follow up with us with surveillance ultrasound of the carotids 6 months. Should there be any changes or signs or symptoms of a stroke we will be happy to see them back sooner. Thank you for allowing us to participate in this patient's care. If there are any questions or concerns please do not hesitate to contact us. Please note a longitudinal relationship has been created with the patient and we have been following and surveillance this chronic condition. (2) Peripheral arterial disease: Comment: lower extremity stenting performed by Dr. Levy ~ 2019 Code(s): I73.9 - Peripheral vascular disease, unspecified Category: Medical Plan: She does have an element of peripheral vascular disease. We will have to reassess this and I will order arterial surveillance follow-up for this. We did discuss routine risk factor modification and she will follow up with us as soon as testing is done. Orders: Orders US arterial duplex LE BI 1 Week I73.9 - Peripheral vascular disease, unspecified Coding Level of Care Code Est Pt Level 4 (84972) Complex EM visit Add On G2211 Diagnoses Bilateral carotid artery stenosis I65.23 Peripheral arterial disease I73.9
[2024-05-07 09:05] VITALS: BP 110/68; BMI 42.7
[2024-05-07 09:15] VITALS: BP 114/82
== END 2024-05-07 09:47 | disposition home or self-care (01) ==
PROVIDERS: PCP Internal Medicine; Visit Provider Surgery Vascular Surgery
DX: I65.23 Occlusion and stenosis of bilateral carotid arteries (principal); I73.9 Peripheral vascular disease, unspecified
CPT/HCPCS: 99213; G2211

== ENCOUNTER → 2024-05-07 09:00 | Outpatient (BNVA) | payer OTHER, SELFPAY | PROVIDERS: PCP Internal Medicine; Visit Provider Surgery Vascular Surgery | DX: I65.23 Occlusion and stenosis of bilateral carotid arteries (principal); I73.9 Peripheral vascular disease, unspecified | CPT/HCPCS: 99212 ==

== ENCOUNTER 2024-06-03 08:52 | Outpatient (REF) | payer OTHER, SELFPAY ==
--- NOTE | ~2024-06-03 | US_ITS ---
EXAMINATION: Noninvasive assessment of the bilateral lower extremities with ARTERIAL DUPLEX and ANKLE BRACHIAL INDICES (ABIs). CLINICAL INFORMATION: Peripheral vascular disease TECHNIQUE: Duplex Doppler techniques with waveform analysis and measurement of velocities in the bilateral common femoral, profunda femoris, superficial femoral, popliteal and tibial arteries were performed. Additionally, ankle pulse volume recordings, ankle pressure measurements and ankle brachial indices were obtained of the lower extremity arterial system bilaterally. The study was performed only at rest. COMPARISON: None FINDINGS: DIRECT DUPLEX DOPPLER FINDINGS: RIGHT LEG: Common femoral artery: 50.3 cm/s, phasicity: Triphasic Profunda femoris artery: 59.4 cm/s, phasicity: Triphasic Superficial femoral artery (proximal): Occluded Superficial femoral artery (mid): Occluded Superficial femoral artery (distal): 48 cm/s, phasicity: Monophasic Popliteal artery: 40.4 cm/s, phasicity: Monophasic Posterior tibial artery: 25.1 cm/s, phasicity: Monophasic Peroneal artery: 28.9 cm/s, phasicity: Monophasic Anterior tibial artery: 31.4 cm/s, phasicity: Monophasic Dorsalis pedis artery: 17.6 cm/s, phasicity:Monophasic LEFT LEG: Common femoral artery: 80.0 cm/s, phasicity: Triphasic Profunda femoris artery: 55.4 cm/s, phasicity: Biphasic Superficial femoral artery (proximal): Occluded Superficial femoral artery (mid): Occluded Superficial femoral artery (distal): Occluded Popliteal artery: 12.4 cm/s, phasicity: Monophasic Posterior tibial artery: 33.6 cm/s, phasicity: Monophasic Peroneal artery: 13.7 cm/s, phasicity: Monophasic Anterior tibial artery: 15.7 cm/s, phasicity: Monophasic Dorsalis pedis artery: 19.0 cm/s, phasicity: Monophasic ANKLE-BRACHIAL INDEX: Right: 0.77 Left: 0.86 ANKLE PRESSURES: Right: PT 125, DP 97 Left: PT 139, DP 129 ANKLE PVR WAVEFORMS: Right: Abnormal Left: Abnormal US/US arterial duplex LE BI IMPRESSION: Right leg: Mildly decreased ankle brachial index with moderately dampened PVR waveform. Chronic appearing occlusion of the proximal and mid superficial femoral artery with reconstituted monophasic flow in the popliteal below-knee runoff vessels as described above Left leg: Mildly decreased ankle brachial index with moderately dampened PVR waveform. Chronic appearing occlusion of the superficial femoral artery with reconstituted monophasic flow in the popliteal below-knee runoff vessels as described above DORA Reference: - >1.4 = calcified vessels - 0.9 - 1.4 = normal - no significant arterial disease - 0.7 - 0.89 = mild peripheral arterial disease - 0.51 - 0.69 = moderate peripheral arterial disease - d 0.50 = severe peripheral arterial disease - < .30 = critical arterial disease Electronically signed by: Fransisco Samano MD 06/03/2024 01:09 PM EDT
== END 2024-06-03 08:53 | disposition home or self-care (01) ==
LOC: HO.US 08:52
PROVIDERS: PCP Internal Medicine; Visit Provider Surgery Vascular Surgery
DX: I73.9 Peripheral vascular disease, unspecified (principal)
CPT/HCPCS: 93923; 93925

== ENCOUNTER 2024-07-02 10:59 | Outpatient (AMB) | payer OTHER, SELFPAY ==
--- NOTE | 2024-07-02 11:05 | MHC.OFFVIS ---
Vital Signs 07/02/24 11:06 Height 5 ft 4 in Weight 249 lb BMI 42.7 Intake Visit Reasons: follow up Arterial US 06/03/24 Intake Note: follow up arterial US 06/03/24. Pt states Left LE is worse than the right LE, however she states the pain in her Right Foot 2nd & 3rd toe are very extreme. Pt states she can barely walk 50 ft before severe cramping. Accompanied by: Self / Same As Patient Allergies clarithromycin [From Biaxin] Allergy (Intermediate, Verified 07/02/24 11:09) Rash HPI HPI follow up Arterial US 06/03/24: Details: Very pleasant 51-year-old female presents for follow-up regarding peripheral vascular disease. She reports that she is having an extremely difficult time ambulating. She can barely walk about 100-200 yd before she experiences bilateral calf cramping. 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 She now presents for routine follow-up with noninvasive arterial testing. Of note patient is being maintained on aspirin and statin. [facility] Medical History Asthma Pre-op exam Depression Arthritis Cervical radiculitis Renal calculi HTN (hypertension) Diabetes Glaucoma GERD (gastroesophageal reflux disease) Hypothyroidism Hypercholesteremia Carpal tunnel syndrome Sleep apnea Peripheral arterial disease Surgical History History of esophagogastroduodenoscopy (EGD) Hx of colonoscopy Hx of tubal ligation Hx of repair of rotator cuff Hx of carpal tunnel repair Hx of lithotripsy History of appendectomy History of foot surgery Social History Household Members: Spouse Housing: House Are you a primary home care provider to a significant other at home: No Do you presently have visiting nurse or other home services: No Alcohol intake: current Alcohol intake frequency: holidays/special occasions only Comment: counts correct Patient Tobacco Use Status: Former Tobacco user Tobacco use type: Cigarette Years Smoked: 40 e-Cigarette/Vaping Use: Former Use Second Hand Smoke Exposure: No Substance Use Type: Marijuana service: No 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 Review of Systems Const All systems reviewed & are unremarkable except as noted in HPI and below Reports no additional complaints ENT Reports Normal hearing present Card Denies chest pain, Denies chest pain at rest, Denies chest pain with activity and Denies pedal edema Resp Denies cough GI Denies abdominal pain Musc Denies abnormal gait, Denies muscle cramps and Denies radiating pain into limb Skin/Breast Denies skin ulcer and Denies wounds Neuro Reports Normal hearing present and Denies abnormal gait Psych Reports no additional complaints Physical Exam Vital Signs: BMI result Body Mass Index 42.7 Const General: cooperative, healthy appearing and comfortable Orientation/consciousness: oriented to person, oriented to place and oriented to time HEENT Head: Yes normal to inspection Neck Neck: Yes normal visual inspection Carotids: no bruits Chest Chest palpation & inspection: normal inspection of the chest Resp Effort & Inspection: normal respiratory effort and able to speak in complete sentences Auscultation: clear to auscultation bilaterally, no crackles, no rales, no rhonchi and no wheezes Cardio Other: Bilateral DP signals Rate: regular rate Rhythm: regular rhythm Heart sounds: S1 normal heart sound present and S2 normal heart sound present Bruits: no carotid bruits Peripheral pulses: Peripheral pulses 2+ throughout GI Inspection: Yes normal to inspection Skin Wounds: no wounds Hair: normal Neuro General: oriented to person, oriented to place and oriented to time Cranial nerves: Yes CN's II-XII intact bilaterally and Yes Normal hearing present Cognition (Neuro): normal cognition Motor exam (neuro): 5/5 motor strength present throughout Extrem Other: venous exam: No significant superficial varicosities or spider telangiectasias, minimal edema General: No clubbing, No cyanosis and No edema Psych Appearance: grossly normal Mental Status: mental status grossly normal Speech and movement: Normal speech and movement present Results Reviewed Results Reviewed: Noninvasive arterial testing dated 06/03/2024 demonstrates bilateral SFA occlusion Assessment & Plan Assessment & Plan (1) Peripheral arterial disease: Comment: Left lower extremity stenting performed by Dr. Levy ~ 2019 Code(s): I73.9 - Peripheral vascular disease, unspecified Category: Medical Plan: Unfortunately she has a known history of peripheral vascular disease. Stenting was performed by Interventional Radiology but had no post follow-up. It has progressively gotten worse. At the current time her right lower extremity seems to be more of an issue. I have discussed the pathophysiology of peripheral vascular disease with the patient. I have also discussed risk factor modification. I have reviewed the patient's arterial testing which reveals bilateral SFA occlusion. the patient would benefit from a right leg endovascular peripheral angiogram with possible angioplasty, stent, and/or atherectomy. This has been discussed in detail with the patient along with risks, benefits, and complications. This includes but is not limited to bleeding, infection, heart attack, need for emergent surgical repair, limb ischemia, blood vessel damage, bleeding, puncture, kidney injury, bruising, allergic reaction, and skin reaction. The patient demonstrates a clear understanding. We will schedule for the next appropriate time. Thank you for allowing us to assist in this patient's care. Please note a longitudinal relationship has been created with the patient and we have been following and surveillance this chronic condition. Coding Level of Care Code Est Pt Level 4 (92082) Complex EM visit Add On G2211 Diagnoses Peripheral arterial disease I73.9
[2024-07-02 11:06] VITALS: BMI 42.7
== END 2024-07-02 11:31 | disposition home or self-care (01) ==
PROVIDERS: PCP Internal Medicine; Visit Provider Surgery Vascular Surgery
DX: I73.9 Peripheral vascular disease, unspecified (principal)
CPT/HCPCS: 99214; G2211

== ENCOUNTER → 2024-07-02 10:59 | Outpatient (BNVA) | payer OTHER, SELFPAY | PROVIDERS: PCP Internal Medicine; Visit Provider Surgery Vascular Surgery | DX: E11.51 Type 2 diabetes mellitus with diabetic peripheral angiopathy without gangrene (principal) | CPT/HCPCS: 99212 ==

== ENCOUNTER 2024-07-10 05:46 | Day surgery (SDC) | payer OTHER, SELFPAY ==
[2024-07-10] VITALS (7 sets, daily range): BP systolic 104–140; BP diastolic 60–72; PULSE 70–84; RESP 16–18; TEMP 36.4–36.7; O2SAT 94–97; BMI 43.3
[2024-07-10 07:02] LABS: MANUAL DIFF FLAG NO
[2024-07-10 07:07] LABS: Basophils Percent Auto 0.6 % (0-2); Eosinophils Absolute Auto 0.5 X10*3/uL (0.0-0.4); Eosinophils Percent Auto 7.6 % (0-4); Hematocrit 40.9 % (37.0-47.0); Imm Gran Abs Auto 0.03 X10*3/uL (0.00-0.03); Imm Gran Pct Auto 0.4 % (0.0-0.4); Lymphocytes Absolute Auto 1.8 X10*3/uL (1.2-4.9); Lymphocytes Percent Auto 25.4 % (20-40); Mean Corpuscular HGB Conc 34.2 g/dl (31.0-35.0); Mean Corpuscular Hemoglobin 33.3 pg (27.0-33.0); Mean Corpuscular Volume 97.4 fL (80.0-98.0); Monocytes Absolute Auto 0.6 X10*3/uL (0.1-1.2); Monocytes Percent Auto 8.8 % (2-11); Neutrophils Absolute Auto 4.1 x10*3/uL (2.0-8.3); Neutrophils Percent Auto 57.2 % (45-73); Platelet Count 278 X10*3/uL (160-400); Red Cell Distribution Width 13.6 % (11.0-16.0); White Blood Count 7.1 X10*3/uL (4.8-10.8)
[2024-07-10 07:21] LABS: Blood Urea Nitrogen 10 mg/dL (9-16); Creatinine Clr Calc Pharmacy 89.4; Estimated Glomerular Filt Rate > 60
--- NOTE | 2024-07-10 09:09 | P.OP_ITS ---
Operative Note Operative Note Date of Service: 07/10/24 Narrative: Angiogram report from [facility] Preoperative diagnosis: Atherosclerosis of bilateral lower extremity with activity limiting claudication Postoperative diagnosis: Same Procedure: 1. Ultrasound-guided right common femoral access 2. Aortogram with bilateral lower extremity runoff Surgeon:Yimi Shafer M.D., FACS, RPVI Bag Press Operator:None Anesthesia: Local with moderate conscious sedation. Total intraservice moderate sedation time was 29 minutes. I monitored the patient's level of consciousness and physiologic status continuously throughout the procedure. Specimens:none Drains:none Estimated blood loss: Less than 10 ml Implant: None Indications: Pleasant 59-year-old female with a prior history of left SFA stenting at an outside location presents with activity limiting claudication. On noninvasive testing there was concern of inflow disease along with bilateral SFA disease. She now presents for endovascular intervention The patient has signed the informed consent after reviewing risks, complications, benefits, and alternatives previously discussed with the patient. The patient was given the opportunity to ask any additional questions or voice any concerns. All questions were answered to the patient's satisfaction. Procedure in detail: Patient was brought to the angiography suite prior to which a time-out was called for patient identification and site verification. Bilateral groins were prepped and draped in the standard surgical fashion. Under ultrasound guidance right common femoral was punctured with micro puncture needle and wire. Subsequently a precision 4 [place] Ze[place]ander sheath was then placed. Bentson wire was advanced to the level of the aorta. 4 [place]ander Flush catheter was brought up and parked at the level of the renal arteries. Aortogram was then undertaken. Catheter was brought down to the level of the iliac bifurcation. Iliacs were subsequently imaged. Catheter was then brought in up and over to the left side profundus. Runoff study was then undertaken. Patient was recognized to have a total SFA occlusion with reconstitution at the above knee pop. Multiple orthogonal views were undertaken. There is no option for intervention. We removed catheter and wire. Through the 5 [place] Ze[place]ander sheath we did a right lower extremity runoff study as well. Once again we recognized there was an SFA occlusion here as well. At this point it was determined that no intervention was possible. Sheath was then removed and aCELT closure device was deployed. Adequate hemostasis was achieved. Patient was returned to recovery with stable vitals. Interpretation of films: 1. Ultrasound demonstrates appropriate femoral access site. Vessel was patent with minimal stenosis. Needle entry was visualized. Image of ultrasound was saved. 2. Aortogram demonstrates appropriate caliber aorta. Minimal disease. Appropriate take-off of the renals. 3. Iliac images demonstrate no significant disease. Bifurcation was relatively clean. 4. Left Leg Common femoral artery: No significant disease Profundus Femoris: No significant disease Superficial femoral artery: Total occlusion prior stent was occluded does reconstitute at the above knee popliteal Popliteal artery (p1,p2,p3): P1 segment was present but was small in caliber, P2 and P3 were patent Anterior tibial artery: Patent to foot Peroneal artery: Patent to foot Posterior tibial artery: Occluded Dorsalis pedis/plantar arch: Incomplete 5. RightLeg Common femoral artery: No significant disease Profundus Femoris: No significant disease Superficial femoral artery: Total occlusion reconstitutes above knee popliteal Popliteal artery (p1,p2,p3): P1 P2 P3 segments were all patent with good caliber Anterior tibial artery: Patent to foot Peroneal artery: Patent to foot Posterior tibial artery: Patent to foot Dorsalis pedis/plantar arch: Complete Conclusion: 1. Successful diagnostic angiogram. Unable to intervene. If clinically indicated will require bilateral fem-pop bypasses. 2. Anticoagulation status: No change This note is constructed using voice recognition software. While every effort has been made to ensure accuracy, calendar control clerk blood bank errors may have been included. Thank you for allowing me to participate in the care of your patient. Yours sincerely, Yimi Shafer MD, FACS, R.P.V.I.
[2024-07-10 09:51] LABS: Glucose, Whole Blood 139 mg/dL (60-115)
[2024-07-10] MEDS: oxyCODONE HCl Immed Release 5 MG TABLET PO (10:41)
== END 2024-07-10 11:12 | disposition home or self-care (01) ==
PROVIDERS: PCP Internal Medicine; Visit Provider Surgery Vascular Surgery
DX: E11.51 Type 2 diabetes mellitus with diabetic peripheral angiopathy without gangrene (principal); I70.213 Atherosclerosis of native arteries of extremities with intermittent claudication, bilateral legs; Z79.84 Long term (current) use of oral hypoglycemic drugs
CPT/HCPCS: 36247; 36415; 75630; 76937; 82565; 82947; 84520; 85025; 99152; 99153; C1760; C1769; C1887; C1894; J1644; J2250; J2270; J2310; J3010; Q9967

== ENCOUNTER → 2024-07-10 05:46 | Outpatient (BNV) | payer OTHER, SELFPAY | PROVIDERS: PCP Internal Medicine; Visit Provider Surgery Vascular Surgery | DX: I70.213 Atherosclerosis of native arteries of extremities with intermittent claudication, bilateral legs (principal) | CPT/HCPCS: 36247; 75625; 75716; 76937; 99152 ==

== ENCOUNTER 2024-07-23 10:52 | Outpatient (AMB) | payer OTHER, SELFPAY ==
--- NOTE | 2024-07-23 11:00 | A.OFFVIS_ITS ---
Intake Visit Reasons: 2w follow up s/p Right leg angiogram Intake Note: 2 week follow up Right LE angiogram 07/10/24, pt states that she is having extreme cramping w/ or w/o ambulation and nocturnal. Accompanied by: Self / Same As Patient Allergies clarithromycin [From Biaxin] Allergy (Intermediate, Verified 07/23/24 11:09) Rash HPI HPI 2w follow up s/p Right leg angiogram: Details: Very pleasant 59-year-old female with a prior history of SFA stenting on the left leg and outside institution presents for follow-up status post are angiogram. This was done on 07/10/2024. She reports no postprocedure complications but continuous significant pain bilateral lower extremities. Is not associated with ambulation. Of note she does have a prior history of spinal stenosis. [facility] Medical History Asthma Pre-op exam Depression Arthritis Cervical radiculitis Renal calculi HTN (hypertension) Diabetes Glaucoma GERD (gastroesophageal reflux disease) Hypothyroidism Hypercholesteremia Carpal tunnel syndrome Sleep apnea Peripheral arterial disease Surgical History History of esophagogastroduodenoscopy (EGD) Hx of colonoscopy Hx of tubal ligation Hx of repair of rotator cuff Hx of carpal tunnel repair Hx of lithotripsy History of appendectomy History of foot surgery Social History Household Members: Spouse Housing: House Are you a primary urgent care technician to a significant other at home: No Do you presently have visiting nurse or other home services: No Alcohol intake: current Alcohol intake frequency: holidays/special occasions only Comment: counts correct Patient Tobacco Use Status: Former Tobacco user Tobacco use type: Cigarette Years Smoked: 40 e-Cigarette/Vaping Use: Former Use Second Hand Smoke Exposure: No Substance Use Type: Marijuana service: No 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 Review of Systems Const All systems reviewed & are unremarkable except as noted in HPI and below Reports no additional complaints ENT Reports Normal hearing present Card Denies chest pain, Denies chest pain at rest, Denies chest pain with activity and Denies pedal edema Resp Denies cough GI Denies abdominal pain Musc Denies abnormal gait, Denies muscle cramps and Denies radiating pain into limb Skin/Breast Denies skin ulcer and Denies wounds Neuro Reports Normal hearing present and Denies abnormal gait Psych Reports no additional complaints Physical Exam Const General: cooperative, healthy appearing and comfortable Orientation/consciousness: oriented to person, oriented to place and oriented to time HEENT Head: Yes normal to inspection Neck Neck: Yes normal visual inspection Carotids: no bruits Chest Chest palpation & inspection: normal inspection of the chest Resp Effort & Inspection: normal respiratory effort and able to speak in complete sentences Auscultation: clear to auscultation bilaterally, no crackles, no rales, no rhonchi and no wheezes Cardio Other: Bilateral DP signals Rate: regular rate Rhythm: regular rhythm Heart sounds: S1 normal heart sound present and S2 normal heart sound present Bruits: no carotid bruits GI Inspection: Yes normal to inspection Skin Wounds: no wounds Hair: normal Neuro General: oriented to person, oriented to place and oriented to time Cranial nerves: Yes CN's II-XII intact bilaterally and Yes Normal hearing present Cognition (Neuro): normal cognition Motor exam (neuro): 5/5 motor strength present throughout Extrem Other: venous exam: No significant superficial varicosities or spider tel angiectasias, minimal edema General: No clubbing, No cyanosis and No edema Psych Appearance: grossly normal Mental Status: mental status grossly normal Speech and movement: Normal speech and movement present Assessment & Plan Assessment & Plan (1) Bilateral carotid artery stenosis: Comment: 11/06/2023 - right carotid endarterectomy Code(s): I65.23 - Occlusion and stenosis of bilateral carotid arteries Category: Medical Plan: Patient will require routine surveillance regarding her carotids. (2) Peripheral arterial disease: Comment: Left lower extremity stenting performed by Dr. Levy ~ 2019 Code(s): I73.9 - Peripheral vascular disease, unspecified Category: Medical Plan: Will plan for 3 month arterial surveillance follow-up of the lower extremities. She does appear to be well collateral circulation vascularized. At the current time I do believe that the majority of her issues may be related to her back and may be more neurogenic in nature. (3) Spinal stenosis: Code(s): M48.00 - Spinal stenosis, site unspecified Category: Medical Qualifiers: Spinal region: lumbar Neurogenic claudication status: unspecified Qualified Code(s): M48.061 - Spinal stenosis, lumbar region without neurogenic claudication Plan: In short she does have spinal stenosis and may have an element of neurogenic claudication. We have taken the liberty of referring her to pain management. She will follow up with us for her carotids and peripheral vascular disease. But I do believe that the majority of her pain will be more neurogenic in nature. Orders: Orders US arterial duplex LE BI 3 Months I73.9 - Peripheral vascular disease, unspecified US carotid duplex BI 3 Months I65.23 - Occlusion and stenosis of bilateral carotid arteries Referrals Pain Management Referral M79.604 - Pain in right leg, M79.605 - Pain in left leg Coding Level of Care Code Est Pt Level 4 (17319) Complex EM visit Add On G2211 Diagnoses Bilateral carotid artery stenosis I65.23 Peripheral arterial disease I73.9 Spinal stenosis of lumbar region, unspecified whether neurogenic claudication present M48.061 Spinal region: lumbar Neurogenic claudication status: unspecified
== END 2024-07-23 11:37 | disposition home or self-care (01) ==
PROVIDERS: PCP Internal Medicine; Visit Provider Surgery Vascular Surgery
DX: I65.23 Occlusion and stenosis of bilateral carotid arteries (principal); I73.9 Peripheral vascular disease, unspecified; M48.061 Spinal stenosis, lumbar region without neurogenic claudication
CPT/HCPCS: 99214; G2211

== ENCOUNTER → 2024-07-23 10:52 | Outpatient (BNVA) | payer OTHER, SELFPAY | PROVIDERS: PCP Internal Medicine; Visit Provider Surgery Vascular Surgery | DX: I65.23 Occlusion and stenosis of bilateral carotid arteries (principal); I73.9 Peripheral vascular disease, unspecified; M48.061 Spinal stenosis, lumbar region without neurogenic claudication; M79.604 Pain in right leg; M79.605 Pain in left leg | CPT/HCPCS: 99212 ==

== ENCOUNTER 2024-10-11 07:30 | Emergency (ER) | payer OTHER, SELFPAY ==
[2024-10-11 07:33] VITALS: BP 148/97; PULSE 78; RESP 16; TEMP 36.9; O2SAT 93; BMI 41.6
--- NOTE | 2024-10-11 07:45 | ED_ITS ---
HPI - Skin/Abscess/Foreign Bdy General Chief complaint: Skin/Abscess/Foreign Body Stated complaint: Cellulitis, kidney pain Time Seen by Provider: 10/11/24 07:41 Source: patient and old records reviewed Mode of arrival: ambulatory Limitations: no limitations History of Present Illness ED Provider: JOSEPHINE NICOLE narrative: 59 yo female with PMH of hypothyroidism, GERD, asthma, HTN, DM, PAD, spinal stenosis here with c/o 2 days of L lower abdominal pain and redness. Subjective fevers but no n/v/d. She denies any history of MRSA. She is able to eat and drink MD complaint: rash Onset (ago): day(s) (2) Tetanus up to date: yes Location: generalized (abdominal pain) Severity: moderate Quality: constant Pain Consistency: constant Relieving factors: none Exacerbating factors: palpation Associated symptoms: fever Treatments prior to arrival: none Related Data Home Medications ?Medication ?Instructions ?Recorded ?Confirmed cilostazol 100 mg tablet 100 mg PO BID 10/12/23 11/06/23 fluoxetine 20 mg capsule 20 mg PO QAM 10/12/23 11/06/23 levothyroxine 25 mcg capsule 25 mcg PO QAM 10/12/23 11/06/23 losartan 25 mg tablet 25 mg PO QAM 10/12/23 11/06/23 mecobalamin (vitamin B12) 500 mcg 500 mcg PO QAM 10/12/23 11/06/23 chewable tablet metformin 500 mg tablet 500 mg PO BID 10/12/23 11/06/23 omeprazole 40 mg capsule,delayed 40 mg PO QAM 10/12/23 11/06/23 release simvastatin 40 mg tablet 40 mg PO QAM 10/12/23 11/06/23 albuterol sulfate 90 mcg/actuation 2 puff inhalation Q4-6H PRN 11/01/23 11/06/23 aerosol inhaler (Ventolin HFA) Shortness Of Breath Or Wheezing ascorbic acid (vitamin C) 100 mg 100 mg PO QAM 11/01/23 11/06/23 tablet aspirin 81 mg tablet,delayed 81 mg PO BEDTIME 11/01/23 11/06/23 release fluticasone propionate 230 2 puff inhalation BID 11/01/23 11/06/23 mcg-salmeterol 21 mcg/actuation HFA inhaler (Advair HFA) lamotrigine 25 mg tablet 25 mg PO QAM 11/01/23 11/06/23 quetiapine 50 mg tablet 50 mg PO QAM 11/01/23 11/06/23 amlodipine 2.5 mg tablet 2.5 mg PO QAM 11/02/23 11/06/23 biotin 1,000 mcg chewable tablet 1,000 mcg PO QAM 11/02/23 11/06/23 cholecalciferol (vitamin D3) 1,250 1,250 mcg PO QWEEK 11/06/23 11/06/23 mcg (50,000 unit) capsule Previous Rx's ?Medication ?Instructions ?Recorded cyclobenzaprine 5 mg tablet 5 mg PO TID PRN muscle spasm 7 10/11/23 days #21 tabs oxycodone-acetaminophen 5 mg-325 1 tab PO Q8H PRN pain #10 tabs 11/07/23 mg tablet (Percocet) ofloxacin 0.3 % eye drops 1 drp ophthalmic (eye) QID 5 days 02/23/24 #5 mL erythromycin 5 mg/gram (0.5 %) eye 0.5 inch ophthalmic (eye) TID #3.5 03/30/24 ointment grams gabapentin 100 mg capsule 100 mg PO TID #21 caps 03/30/24 valacyclovir 1 gram tablet 1,000 mg PO BID #14 tabs 03/30/24 (Valtrex) cephalexin 500 mg capsule 500 mg PO QID 7 days #28 caps 10/11/24 doxycycline hyclate 100 mg capsule 100 mg PO BID 7 days #14 caps 10/11/24 Allergies Allergy/AdvReac Type Severity Reaction Status Date / Time clarithromycin [From Biaxin] Allergy Intermediate Rash Verified 10/11/24 07:35 Review of Systems 2 Review of Systems: Constitutional : pos Fever, No Chills ENT/Mouth : No sore throat, No Rhinorrhea Eyes: No Eye Pain, No Swelling, No Redness Cardiovascular : No Chest Pain, No SOB Respiratory : No Cough, No Sputum Gastrointestinal : No Nausea, No Vomiting, No Diarrhea, No abdominal Pain Genitourinary : No Dysuria, No Hematuria Musculoskeletal : No joint pain, No Myalgias, No Joint Swelling Skin : No Skin Lesions, positive skin rash Neuro : No Weakness, No Numbness, No Headache Psych : No Anxiety, No Depression Heme/Lymph: No Bruising, No Bleeding,No Lymphadenopathy Endocrine : No Polyuria, No Polydipsia All other systems reviewed and are negative [facility] Past Medical History Attestation statement: The following information was validated with the patient. Source: old records reviewed Medical History Asthma Pre-op exam Depression Arthritis Cervical radiculitis Renal calculi HTN (hypertension) Diabetes Glaucoma GERD (gastroesophageal reflux disease) Hypothyroidism Hypercholesteremia Carpal tunnel syndrome Sleep apnea Peripheral arterial disease Surgical History History of esophagogastroduodenoscopy (EGD) Hx of colonoscopy Hx of tubal ligation Hx of repair of rotator cuff Hx of carpal tunnel repair Hx of lithotripsy History of appendectomy History of foot surgery Social History Social History Household Members: Spouse Housing: House Are you a primary district manager primary care sales to a significant other at home: No Do you presently have visiting nurse or other home services: No Alcohol intake: current Alcohol intake frequency: holidays/special occasions only Comment: counts correct Patient Tobacco Use Status: Former Tobacco user Tobacco use type: Cigarette Years Smoked: 40 e-Cigarette/Vaping Use: Former Use Second Hand Smoke Exposure: No Substance Use Type: Marijuana Advance Directives: No Advance Directives Information Provided: Yes service: No Current occupation: [id number] - Right Handed Physical Exam 2 Vital Signs: Vital Signs: Last Vital Signs Temp 97.9 F 10/11/24 10:26 Pulse 70 10/11/24 10:26 Resp 16 10/11/24 10:26 BP 139/72 10/11/24 10:26 Pulse Ox 98 10/11/24 10:26 O2 Del Method Room Air 10/11/24 10:26 BMI result Body Mass Index 41.6 Appearance: Alert. Oriented X3. No acute distress. Eyes: Pupils equal, round and reactive to light. ENT: Pharynx normal. Neck: Normal inspection. Neck supple. CVS: Normal heart rate and rhythm. Pulses normal. Respiratory: No respiratory distress. Breath sounds normal. Abdomen: Soft and nontender. L lower pannus redness and no abscess noted 6cm area noted, no crepitus felt Skin: Skin warm and dry. Normal skin color. Normal skin turgor. Extremities: No lower extremity edema. No calf ttp Neuro: Oriented X 3. No motor deficit. No sensory deficit. CN2-12 intact Medications Administered Discontinued Medications Generic Name Dose Route Start Last Admin Trade Name Kamronq PRN Reason Stop Dose Admin Piperacillin Sod/Tazobactam 50 mls @ 100 mls/hr 10/11/24 08:06 10/11/24 09:30 Sod 3.375 gm/ Sodium Chloride IV 10/11/24 08:35 Infused ONCE ONE Infusion Vancomycin HCl 2,000 mg in 500 mls @ 250 mls/hr 10/11/24 08:06 10/11/24 09:36 Vancomycin/Ns IV 10/11/24 10:05 250 mls/hr ONCE ONE Administration Medical Decision Making Medical Decision Making [facility] Narrative: 59 yo female with PMH of hypothyroidism, HTN, DM, PAD, spinal stenosis here with c/o L lower pannus rash and pain - subj fevers on exam there is a small cellulitis L pannus but no abscess or fluctuance noted. She will need basic labs, start IV abx and reassess possible oral therapy if labs reassuring and no spreading of area during her visit. She is not toxic. Differential Diagnosis Differential Diagnoses: The differential diagnosis associated with the presentation includes cellulitis, pannicultitis Admission/Observation Consideration of admission/observation: Escalation of care including admission/observation considered no WBC count, no fevers, not toxic can be managed as oupatient repeat exam no extension of cellulitis while in ED Lab Data [facility] Lab Attestation statement: I reviewed the patient's lab results. 10/11/24 07:55 10/11/24 07:55 Labs: Lab Results 10/11/24 10/11/24 10/11/24 Range/Units 07:55 08:00 08:25 WBC 5.3 (4.8-10.8) X10*3/uL RBC 4.10 L (4.20-5.50) X10*6/uL Hgb 13.5 (12.0-16.0) g/dl Hct 39.4 (37.0-47.0) % MCV 96.1 (80.0-98.0) fL MCH 32.9 (27.0-33.0) pg MCHC 34.3 (31.0-35.0) g/dl RDW 13.7 (11.0-16.0) % Plt Count 241 (160-400) X10*3/uL MPV 8.7 L (9.4-12.3) fL Immature Gran % (Auto) 0.4 (0.0-0.4) % Neut % (Auto) 55.4 (45-73) % Lymph % (Auto) 31.9 (20-40) % Kershaw % (Auto) 8.1 (2-11) % Eos % (Auto) 3.6 (0-4) % Baso % (Auto) 0.6 (0-2) % Lymph # (Auto) 1.7 (1.2-4.9) X10*3/uL Kershaw # (Auto) 0.4 (0.1-1.2) X10*3/uL Eos # (Auto) 0.2 (0.0-0.4) X10*3/uL Baso # (Auto) 0.0 (0.0-0.2) X10*3/uL Abs Immat Gran (auto) 0.02 (0.00-0.03) X10*3/uL Absolute Neuts (auto) 2.9 (2.0-8.3) x10*3/uL Absolute Nucleated RBC 0.000 (0.0-0.012) X10*3/uL Nucleated RBC % (auto) 0.0 (0.0-0.2) /100WBC Sodium 141 (135-145) mmol/L Potassium 3.9 (3.3-5.1) mmol/L Chloride 109 H (96-108) mmol/L Carbon Dioxide 23 (22-29) mmol/L Anion Gap 13 (12-20) BUN 10 (9-16) mg/dL Creatinine 0.77 (0.5-1.4) mg/dL Estim Creat Clear Calc 100.0 Estimated GFR > 60 Random Glucose 149 H (60-115) mg/dL Lactic Acid 1.3 (0.5-2.0) mmol/L Calcium 9.3 (8.4-10.2) mg/dL Total Bilirubin 0.4 (0.0-1.0) mg/dL AST 32 H (5-31) U/L ALT 36 H (0-31) U/L Alkaline Phosphatase 58 (39-117) U/L Total Protein 7.2 (6.5-8.0) g/dL Albumin 4.1 (3.5-5.0) g/dL Urine Color Yellow Urine Appearance Clear Urine pH 5.5 (5.0-9.0) Ur Specific Herman 1.025 (1.005-1.025) Urine Protein Trace (Neg-Trace) mg/dL Urine Glucose (UA) Negative (Negative) mg/dL Urine Ketones Trace (Negative) mg/dL Urine Blood Trace H (Negative) Urine Nitrite Negative (Negative) Ur Leukocyte Esterase Negative (Negative) Urine RBC 3-5 H (0-2) /HPF Urine WBC 0-5 (0-5) /HPF Ur Squamous Epith Cells 3-5 (0-2) /HPF Urine Bacteria None Seen (None Seen) Hyaline Casts 0-2 (0-2) /LPF External Record Review External record reviewed: Outpatient record Prescription Management I considered prescription management with: Antibiotic Discharge Plan Discharge Clinical Impression: Cellulitis Qualifiers: Site of cellulitis: trunk Site of cellulitis of trunk: abdominal wall Qualified Code(s): L03.311 - Cellulitis of abdominal wall Patient Disposition: Home, Self-Care Instructions: Cellulitis (ED) Additional Instructions: return for fevers, vomiting or any other concerns make sure redness and swelling does not worsen next dose of antiboitics dinner time tonight take both with food On a cephalosporin?antibiotic, softer bowel movements are to be expected. Call your provider if you move your bowels more than 4 times a day, your bowel movements are almost all liquid, or you get a rash.?? On doxycycline, do not take pills immediately before going to bed and swallow pills with plenty of water. Avoid direct sunlight, iron, antacids, and Pepto Bismol. Call your provider if you develop new ringing in your ears, new problems hearing, dizziness, difficulty swallowing, rash, abdominal discomfort, nausea, or diarrhea.? Prescriptions: New doxycycline hyclate 100 mg capsule 100 mg PO BID 7 Days Qty: 14 0RF cephalexin 500 mg capsule 500 mg PO QID 7 Days Qty: 28 0RF No Action cyclobenzaprine 5 mg tablet 5 mg PO TID PRN (Reason: muscle spasm) 7 Days Qty: 21 0RF ofloxacin 0.3 % drops 1 drp ophthalmic (eye) QID 5 Days Qty: 5 0RF aspirin 81 mg Tablet,Delayed Release (Dr/Ec) 81 mg PO BEDTIME lamotrigine 25 mg tablet 25 mg PO QAM ascorbic acid (vitamin C) 100 mg Tablet 100 mg PO QAM albuterol sulfate [Ventolin HFA] 90 mcg/actuation Hfa Aerosol Inhaler 2 puff INHALATION Q4-6H PRN (Reason: Shortness Of Breath Or Wheezing) quetiapine 50 mg tablet 50 mg PO QAM fluticasone propion-salmeterol [Advair HFA] 230-21 mcg/actuation Hfa Aerosol Inhaler 2 puff INHALATION BID biotin 1,000 mcg Tablet,Chewable 1,000 mcg PO QAM amlodipine 2.5 mg tablet 2.5 mg PO QAM cholecalciferol (vitamin D3) 1,250 mcg (50,000 unit) capsule 1,250 mcg PO QWEEK oxycodone-acetaminophen [Percocet] 5-325 mg tablet 1 tab PO Q8H PRN (Reason: pain) Qty: 10 0RF Rx Instructions: Partial Fill upon patient request. erythromycin 5 mg/gram (0.5 %) ointment 0.5 inch ophthalmic (eye) TID Qty: 3.5 0RF valacyclovir [Valtrex] 1 gram tablet 1,000 mg PO BID Qty: 14 0RF gabapentin 100 mg capsule 100 mg PO TID Qty: 21 0RF cilostazol 100 mg tablet 100 mg PO BID omeprazole 40 mg capsule,delayed release(DR/EC) 40 mg PO QAM metformin 500 mg tablet 500 mg PO BID losartan 25 mg tablet 25 mg PO QAM fluoxetine 20 mg capsule 20 mg PO QAM simvastatin 40 mg tablet 40 mg PO QAM levothyroxine 25 mcg capsule 25 mcg PO QAM mecobalamin (vitamin B12) 500 mcg tablet,chewable 500 mcg PO QAM Print Language: Macedonian
[2024-10-11 08:04] LABS: MANUAL DIFF FLAG NO
[2024-10-11 08:05] LABS: Basophils Percent Auto 0.6 % (0-2); Eosinophils Absolute Auto 0.2 X10*3/uL (0.0-0.4); Eosinophils Percent Auto 3.6 % (0-4); Hematocrit 39.4 % (37.0-47.0); Hemoglobin 13.5 g/dl (12.0-16.0); Imm Gran Abs Auto 0.02 X10*3/uL (0.00-0.03); Imm Gran Pct Auto 0.4 % (0.0-0.4); Lymphocytes Absolute Auto 1.7 X10*3/uL (1.2-4.9); Lymphocytes Percent Auto 31.9 % (20-40); Mean Corpuscular HGB Conc 34.3 g/dl (31.0-35.0); Mean Corpuscular Hemoglobin 32.9 pg (27.0-33.0); Mean Corpuscular Volume 96.1 fL (80.0-98.0); Mean Platelet Volume 8.7 fL (9.4-12.3); Monocytes Absolute Auto 0.4 X10*3/uL (0.1-1.2); Monocytes Percent Auto 8.1 % (2-11); Neutrophils Absolute Auto 2.9 x10*3/uL (2.0-8.3); Neutrophils Percent Auto 55.4 % (45-73); Platelet Count 241 X10*3/uL (160-400); Red Cell Distribution Width 13.7 % (11.0-16.0); White Blood Count 5.3 X10*3/uL (4.8-10.8)
--- OUTSIDE RECORDS SUMMARY | 2024-10-11 08:06 | XMS_ITS | Clinical Summary ---
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 12/20/19 23 Active aspirin 81 MG EC tablet Take 81 mg by mouth in the morning. Active Azelastine HCl 0.15 % solution azelastine 205.5 mcg (0.15 %) nasal spray USE 1 TO 2 SPRAYS INTRANASALLY TWICE A DAY Active baclofen (Lioresal) 10 MG tablet baclofen 10 mg tablet TAKE 1 TABLET BY MOUTH EVERY DAY Active Cetirizine HCl (ZyrTEC ALLERGY) 10 MG capsule Take 10 mg by mouth in the morning. 12/20/19 23 Active cholecalciferol (Vitamin D-3) 1.25 MG (96208 UT) capsule Take 50,000 Units by mouth once a week. 12/16/19 23 Active ciclopirox (Loprox) 0.77 % cream Apply to affected cuticle after washing hands 07/09/20 20 Active cilostazol (Pletal) 100 MG tablet cilostazol 100 mg tablet TAKE 1 TABLET BY MOUTH TWICE A DAY 02/17/20 22 Active colchicine 0.6 MG tablet PLEASE SEE ATTACHED FOR DETAILED DIRECTIONS 02/02/20 23 Active cyanocobalamin (Vitamin B-12) 1000 MCG tablet cyanocobalamin (vit B-12) 1,000 mcg tablet TAKE 1 TABLET BY MOUTH EVERY DAY 12/16/19 23 Active FLUoxetine (PROzac) 20 MG capsule Take 20 mg by mouth in the morning. 09/18/19 23 Active fluticasone (Flonase) 50 MCG/ACT nasal spray Administer 100 mcg into affected nostril(s). 12/20/19 23 Active fluticasone-salm eterol (Advair HFA) 230-21 MCG/ACT inhaler Inhale 2 puffs. 12/20/19 23 Active influenza vaccine split quadravalent (Afluria Quadrivalent) 0.5 ML suspension prefilled syringe Afluria Qd 2018- (36 mos up)(PF)60 mcg (15 mcg x4)/0.5 mL IM syringe Active lamoTRIgine (LaMICtal) 25 MG tablet 12/15/19 23 Active lisinopril 5 MG tablet lisinopril 5 mg tablet TAKE 1 TABLET BY MOUTH EVERY DAY Active losartan (Cozaar) 25 MG tablet losartan 25 mg tablet TAKE 1 TABLET BY MOUTH EVERY DAY 03/25/20 22 Active metFORMIN (Glucophage) 500 MG tablet Take 1 tablet by mouth with breakfast and with evening meal. 01/07/20 23 Active miSOPROStol (Cytotec) 100 MCG tablet misoprostol 100 mcg tablet TAKE 1 TABLET BY MOUTH TWICE A DAY WITH FOOD WITH DICLOFENAC 03/22/20 21 Active neomycin-polymyx in-dexAMETHasone 0.1 % ointment neomycin 3.5 mg/g-polymyxin B 10,000 unit/g-dexameth 0.1 % eye oint Active omeprazole (PriLOSEC) [address] capsule omeprazole 40 mg capsule,delayed release TAKE 1 CAPSULE BY MOUTH DAILY 30 MINUTES PRIOR TO FOOD OR DRINK 02/02/20 23 Active QUEtiapine (SEROquel) 50 MG tablet 12/15/19 23 Active simvastatin (Zocor) 40 MG tablet simvastatin 40 mg tablet TAKE 1 TABLET BY MOUTH EVERYDAY AT BEDTIME 03/24/20 22 Active tiotropium (Spiriva HandiHaler) 18 MCG inhalation capsule Spiriva with HandiHaler 18 mcg and inhalation capsules Active Active Problems Problem Noted Date Diagnosed Date Normal oral exam 09/03/2024 Periodontal disease 10/23/2023 Excessive attrition of teeth, limited to enamel 10/23/2023 Dental calculus 02/10/2023 Localized gingival recession 02/10/2023 Encounters Date Type Department Care Team Description 09/03/2024 8:00 AM EST Office Visit [facility] [address] [place], [place] [id number] Socorro Kelly Periodontal disease (Primary Dx); Localized gingival recession; Dental calculus; Excessive attrition of teeth, limited to enamel; Normal oral exam from Last 3 Months Social History Tobacco Use Types Packs/Day Years Used Date Smoking Tobacco: Former Cigarettes Passive Smoke Exposure: Never Smokeless Tobacco: Never Tobacco Cessation:Counseling Given: Not Answered Comments Unknown Sex and Gender Information Value Date Recorded Sex Assigned at Female 07/11/2022 10:23 AM EDT Legal Sex Female 10:23 AM EDT Gender Identity Female 07/11/2022 10:23 AM EDT Sexual Orientation Choose not to disclose 2021 10:23 AM EDT Last Filed Vital Signs Vital Sign Reading Time Taken Comments Blood Pressure 140/88 09/03/2024 8:02 AM EST Pulse 72 10/23/2023 10:04 AM EST Temperature - - Respiratory Rate - - Oxygen Saturation - - Inhaled Oxygen Concentration - - Weight - - Height - - Body Mass Index - - Plan of Treatment Upcoming Encounters Date Type Department Care Team (Late st Contact Info) Description 03/05/2025 10:00 AM EDT Office Visit [facility] [address] [place] [address] Socorro Kelly [address] [place] [address] Health Maintenance Due Date Last Done Comments CT Colonography 1966 Colonoscopy 1966 Colorectal Cancer Screening 1966 Depression Screening 1966 FIT DNA/Cologuard 1966 FIT 1966 FOBT 1966 HIV Screening 1966 Lipid Panel 1966 SDOH Screening 1966 Sigmoidoscopy 1966 Alcohol/Substance Use Screening 1978 Hepatitis C Screening 02/15/1984 DTaP/Tdap/Td Vaccines (1 - Tdap) 1985 Hepatitis B Vaccines (1 of 3 - 19+ 3-dose series) 1985 Pap Smear 1987 Cervical Cancer Screening 02/15/1996 HPV/Cotest 02/15/1996 Zoster Vaccines (1 of 2) 02/15/2016 Pneumococcal Vaccine: 50+ Years (2 of 2 - PCV) 10/06/2022 10/06/2021 COVID-19 Vaccine ( season) 2024 06/13/2022, 08/15/2021, 12/26/2020, Additional history exists Dental Oral Exam 03/05/2025 09/03/2024, 08/2024, 04/22/2022, Additional history exists Dental Prophylaxis 03/05/2025 09/03/2024, 0 10/23/2023, 02/10/2023, Additional history exists Tobacco Screening 09/03/2025 09/03/2024 Dental X-Ray: Bitewings 09/04/2025 09/03/20, 10/23/2023, 04/22/2022, Additional history exists Mammogram 08/26/2026 08/26/2024 Dental X-Ray: Full Mouth 10/24/2026 024, 11/14/2019, 07/02/2015, Additional history exists RSV Patients and Patients Aged 60 years or older (1 - 1-dose 75+ series) 2041 Pneumococcal Vaccine: Pediatrics (0 to 5 Years) and At-Risk Patients (6 to 49) Years) Aged Out 10/06/2021 No longer eligible based on patient's age to complete this topic Influenza Vaccine Completed 07/09/2024, , 07/25/2022, Additional history exists HIB Vaccines Aged Out No longer eligi ble based on patient's age to complete this topic HPV Vaccines Aged Out No longer eligi ble based on patient's age to complete this topic Hepatitis A Vaccines Aged Out No long er eligible based on patient's age to complete this topic IPV Vaccines Aged Out No longer eligi ble based on patient's age to complete this topic Meningococcal Vaccine Aged Out No stephan krishan eligible based on patient's age to complete this topic RSV under 20 months Aged Out No longe r eligible based on patient's age to complete this topic Rotavirus Vaccines Aged Out No longer eligible based on patient's age to complete this topic Procedures Procedure Name Priority Date/Time Associated Diagnosis Comments PERIODIC ORAL EVALUATION - ESTABLISHED PATIENT Routine 09/03/2024 8:00 AM EST ADJUNCTIVE GENERAL SERVICES - PROFESSIONAL VISITS - CASE PRESENTATION, SUBSEQUENT TO DETAILED AND EXTENSIVE TREATMENT PLANNING Routine 09/03/2024 8:00 AM EST Periodontal disease Localized gingival recession Dental calculus Excessive attrition of teeth, limited to enamel INTRAORAL - PERIAPICAL FIRST RADIOGRAPHIC IMAGE Routine 09/03/2024 8:00 AM EST Periodontal disease Localized gingival recession Dental calculus Excessive attrition of teeth, limited to enamel INTRAORAL - PERIAPICAL EACH ADDITIONAL RADIOGRAPHIC IMAGE Routine 09/03/2024 8:00 AM EST Periodontal disease Localized gingival recession Dental calculus Excessive attrition of teeth, limited to enamel ORAL HYGIENE INSTRUCTIONS Routine 2023 8:00 AM EST Periodontal disease Localized gingival recession Dental calculus Excessive attrition of teeth, limited to enamel BITEWINGS - 4 RADIOGRAPHIC IMAGES Routine 09/03/2024 8:00 AM EST Periodontal disease Localized gingival recession Dental calculus Excessive attrition of teeth, limited to enamel Full PROPHYLAXIS - ADULT Routine 024 8:00 AM EST Periodontal disease Dental calculus DIAGNOSTIC - DIAGNOSTIC IMAGING - INTRAORAL - COMPREHENSIVE SERIES OF RADIOGRAPHIC IMAGES Routine 10/23/2023 10:00 AM EST Dental calculus Periodontal disease Localized gingival recession from Last 3 Months or Most Recently Relevant to Health Maintenance Insurance [facility] MEDICAID STAND ADULT
--- OUTSIDE RECORDS SUMMARY | 2024-10-11 08:06 | XMS_ITS | Encounter Summary ---
Author Organization [facility] Address [address] [place] [address] Care Team Providers Care Chemical Research Worker Name Role Phone Naila Vargas MD Primary Care Provider [phone] Encounter Details Date Type Department Care Team (Late st Contact Info) Description 09/27/2024 Telephone Pulmonolgy - [place] [address] [address] [place] [id number] Maricel Hawkins NP [address] [facility] [address] [place] [address] Social History Tobacco Use Types Packs/Day Years Used Date Smoking Tobacco: Former Cigarettes 1 34.2 0 09/11/1983 - 12/07/2017 Smokeless Tobacco: Never Alcohol Use Standard Drinks/Week Comments No 0 (1 standard drink = 0.6 oz pur e alcohol) Sex and Gender Information Value Date Recorded Sex Assigned at Not on file Gender Identity Not on file Sexual Orientation Not on file Job Start Date Occupation Industry Not on file Not on file Not on file documented as of this encounter Progress Notes * Irish Lorenzo MA - 09/27/2024 10:12 AM EST I will fax over to [employer] today. * Mer Mota - 09/27/2024 9:58 AM EST Patient was called as she was under the impression that provider was going to send in a NEBULIZER machine as well, as patient has never had a NEBULIZER, and provider intentions was to give her nebulizer from the office but there were non available in our office. Can we please send in order to vendor and or Jin. Please call patient when changes have been made and order has been send. Patient will be at work after 1:30 Please advice documented in this encounter Plan of Treatment Upcoming Encounters Date Type Department Care Team (Late st Contact Info) Description 11/22/2024 1:00 PM EDT Office Visit Adult Medicine [facility] [address] [place] [address] Naila Vargas MD [address] [place] [phone] 12/23/2024 9:30 AM EDT Office Visit Pulmonolgy - [place] [address] [facility] [address] [place] [address] Maricel Hawkins NP [address] [facility] [address] [place] [address] documented as of this encounter Visit Diagnoses Not on filedocumented in this encounter Care Teams Chemical Research Worker Relationship Specialty Start Date End Date Naila Vargas MD [address] [place] [id number] PCP - General Internal Medicine 04/18/22 documented as of this encounter
--- OUTSIDE RECORDS SUMMARY | 2024-10-11 08:06 | XMS_ITS | Encounter Summary ---
Author Organization [facility] Address [address] [place] [address] Care Team Providers Care [employer] Name Role Phone Niala Vargas MD Primary Care Provider [phone] Reason for Referral * Medications - Pending Review Specialty Diagnoses / Procedures Referred By Case ha Referred To Contact Diagnoses Moderate persistent asthma with exacerbation Maricel Hawkins NP [address] [facility] [address] [place] [address] Referral ID Status Reason Start Date Expiration Date V isits Requested Visits Authorized [id number] Pending Review 1 1 * Medications - Closed Specialty Diagnoses / Procedures Referred By Case ha Referred To Contact Diagnoses Moderate persistent asthma with exacerbation Maricel Hawkins NP [address] [facility] [address] [place] [address] Referral ID Status Reason Start Date Expiration Date Visits Re quested Visits Authorized [id number] Closed 1 1 Reason for Visit * Reason Comments sick visit +covid 09/13/24, Pneumonia Encounter Details Date Type Department Care Team (Late st Contact Info) Description 09/20/2024 9:30 AM EST Office Visit Pulmonolgy - [place] [address] [facility] [address] [place] [address] Maricel Hawkins NP [address] [facility] [address] [place] [address] Moderate persistent asthma with exacerbation (Primary Dx); Obstructive sleep apnea; Nocturnal hypoxia; Morbid obesity with BMI of 40.0-44.9, adult ([facility]) Social History Tobacco Use Types Packs/Day Years Used Date Smoking Tobacco: Former Cigarettes 1 34.2 0 09/11/1983 - 12/07/2017 Smokeless Tobacco: Never Tobacco Cessation:Counseling Given: Not Answered Alcohol Use Standard Drinks/Week Comments No 0 (1 standard drink = 0.6 oz pur e alcohol) Sex and Gender Information Value Date Recorded Sex Assigned at Not on file Gender Identity Not on file Sexual Orientation Not on file Job Start Date Occupation Industry Not on file Not on file Not on file documented as of this encounter Last Filed Vital Signs Vital Sign Reading Time Taken Comments Blood Pressure 130/90 09/20/2024 9:22 AM EST Pulse 71 09/20/2024 9:22 AM EST Temperature 36 ??C (96.8 ??F) 09/20/2024 9:22 AM EST Respiratory Rate 18 09/20/2024 9:22 AM EST Oxygen Saturation 97% 09/20/2024 9:22 AM EST Inhaled Oxygen Concentration - - Weight 114 kg (250 lb 6.4 oz) 09/20/2024 9:22 AM EST Height 162.6 cm (5' 4 ) 09/20/2024 9:22 AM EST Body Mass Index 42.98 09/20/2024 9:22 AM EST documented in this encounter Ordered Prescriptions Prescription Sig Dispensed Refills Start Date End Da te albuterol HFA (PROAIR HFA ; PROVENTIL HFA ; VENTOLIN HFA) 90 mcg/actuation inhalerIndications:Mod erate persistent asthma with exacerbation Inhale 2 puffs by mouth every 4 (four) hours if needed for wheezing or shortness of breath (cough and chest tightness). 54 g 3 09/20/2024 fluticasone propion-salmeteroL (ADVAIR HFA) 230-21 mcg/actuation inhalerIndications:Mod erate persistent asthma with exacerbation Inhale 2 puffs by mouth 2 (two) times a day. Rinse mouth with water after use to reduce aftertaste and incidence of candidiasis. Do not swallow. 3 each 2 09/20/2024 tiotropium (Spiriva Respimat) 2.5 mcg/actuation inhalation sprayIndications:Moder ate persistent asthma with exacerbation Inhale 2 puffs by mouth 1 (one) time each day. 1 each 12 09/20/2024 09/20/2025 albuterol 2.5 mg /3 mL (0.083 %) nebulizer solutionIndications:Mo derate persistent asthma with exacerbation Take 3 mL (2.5 mg total) by nebulization every 6 (six) hours if needed for wheezing. 75 mL 09/20/2024 09/20/2025 albuterol 2.5 mg /3 mL (0.083 %) nebulizer solutionIndications:Mo derate persistent asthma with exacerbation Take 3 mL (2.5 mg total) by nebulization every 6 (six) hours if needed for wheezing. 100 mL 2 09/20/2024 09/20/2025 predniSONE (DELTASONE) 10 mg tabletIndications:Mode rate persistent asthma with exacerbation Take 1 tablet (10 mg total) by mouth 1 (one) time each day for 7 days, THEN 0.5 tablets (5 mg total) 1 (one) time each day for 7 days. 11 tablet 09/20/2024 10/04/2024 documented in this encounter Progress Notes * Maricel Hawkins, PERFECT BINDER OPERATOR - 09/20/2024 9:30 AM EST ADULT PULMONARY MEDICINE FOLLOW UP CHIEF COMPLAINT or REASON FOR CONSULTATION: sick visit (+covid 09/13/24, ) and Pneumonia HISTORY OF PRESENT ILLNESS: Mis Garcia is a 59 y.o. female, former smoker with hx of asthma/COD overlap and moderate MARSHA who comes for sick visit post . Has PMH of PAD, DM 2, HTN, PVD, HLD, depression/anxiety and morbid obesity. She was last seen 12/22/2023 and comes for follow up.and sick visit Since last appointment contracted COVID on 09/13/2023. Her breathing worsened. She used Advair 3 x day and Albuterol 4-5 per day but did not help. No home nebulizer but states helped when given previously. States her grandson was sickbut was diagnosed with RSV few weeks earlier.She went to [facility] where CXR was taken and showedPneumonia and she was given Doxy 100 mg BID x 5 days after which felt better but her wheezes and dyspnea still persisted. States was not given prednisone. States has cough which clear if productive white cough, wheezing, occasional chest tightness on exertion with shortness of breath with short dist ances and mild hills or stairs about 6-8 steps or bending. Unfortunately patient has allergies and GERD which affects her breathing. She is former smoker quit in 2018. Last LDCT was done in 02/2024. received letter to follow up in 1 year. She alllergies welll controlled on Cetirizine and Flonase Has been using PAP therapy since 2019. Last machine since 04/2020. Current machine setting is CPAP at 6-16cm through [facility] for [place]. Sleep apnea and CPAP previously managed by: Salma Pretreatment symptoms based on patient recall were: snoring, observed apnea, nocturnal dyspnea, restless legs, abnormal behavior during sleep, chronic insomnia, excessive daytime sleepiness and AM headache or confusion. While using the machine: nocturnal dyspnea, restless legs, abnormal behavior during sleep and chronic insomnia. Having the following issues with therapy: need supplies Current Sleep History Normal hours of sleep: 730-530 Length of time to fall asleep: 5min Cause(s) of waking at night: pee, turn Times waking at night: 3 Length of time to fall back to asleep after nighttime wakincsec [place] Sleep Scale Score: 10(previous) Restless Leg Symptoms: Do you feel a crawling, tingling, restless, cramping or painful discomfort in your legs while sitting or lying down? Yes Do you have an urge to move your legs while sitting or lying down? Yes Does movement relieve the urge to move your legs? Yes Do you have the urge to move your legs more often in the evening? Yes Sleep position: back Weight in the past year: loss 5lb States had carotid endoractomy in and was not able to use machine to due strap rubbing onincision. Patient has history of high blood pressure and compliant with medications resume losartan 25 mg daily. She denies any side effects of medications. Patient states that her depression is worsening and now she is also having anxiety and panic attacks. Started to see this specialist who prescribed her 2 medications but she was not able to obtain them due to morning issues at this time. Patient seeing therapist as well. Reflux controlled on omeprazole increased dose States seeing Pipo Fatima in GI. She is morbidly obese but multiple comorbidities affecting/hindering her weight loss. Not able to do anything at this time. ALLERGIES: Allergies Allergen Reactions Clarithromycin Other Environmental seasonal allergies; Seasonal Allergies Pollen Extracts ACTIVE MEDICATIONS: Outpatient Medications Marked as Taking for the 09/20/24 encounter (Office Visit) with Maricel Hawkins NP Medication Sig Dispense Refill acetaminophen (TYLENOL) 500 mg tablet Take 1 Tablet by mouth every 6 hours as needed. albuterol HFA (PROAIR HFA ; PROVENTIL HFA ; VENTOLIN HFA) 90 mcg/actuation inhaler Inhale 2 puffs by mouth every 4 (four) hours if needed for wheezing or shortness of breath (cough and chest tightness). 54 g 3 amLODIPine (NORVASC) 2.5 mg tablet Take 1 Tablet by mouth daily. aspirin 81 mg EC tablet Take 81 mg by mouth daily. biotin 10 mg tablet Take by mouth. blood sugar diagnostic (FreeStyle Lite Strips) test strip Use to check blood sugar once daily blood-glucose meter kit Use to check blood sugar once daily blood-glucose meter kit Use to check blood sugar daily as needed cetirizine (ZyrTEC) 10 mg capsule Take 10 mg by mouth daily. ciclopirox (LOPROX) 0.77 % cream Apply to affected cuticle after washing hands cilostazoL (PLETAL) 100 mg tablet TAKE 1 TABLET BY MOUTH TWICE A DAY cyanocobalamin (VITAMIN B-12) 1,000 mcg tablet Take 1 Tablet by mouth daily. diclofenac (VOLTAREN) 1 % topical gel Apply 2 g topically 2 times daily as needed for Other (Elbow pain). DIETARY SUPPLEMENT ORAL Take by mouth. 10,000 Units once a week doxycycline (ADOXA) 100 mg tablet Take 1 tablet (100 mg total) by mouth 2 (two) times a day. for 5 days FINASTERIDE ORAL Take by mouth daily. FLUoxetine (PROzac) 20 mg capsule TAKE 1 CAPSULE BY MOUTH EVERY DAY 90 capsule 1 fluticasone propion-salmeteroL (ADVAIR HFA) 230-21 mcg/actuation inhaler Inhale 2 puffs by mouth 2 (two) times a day. Rinse mouth with water after use to reduce aftertaste and incidence of candidiasis. Do not swallow. 3 each 2 fluticasone propionate (FLONASE) 50 mcg/actuation nasal spray 2 Sprays by Each Nare route daily. gabapentin (NEURONTIN) 300 mg capsule Take 1 Capsule by mouth at bedtime. hydrOXYzine HCL (ATARAX) 25 mg tablet lamoTRIgine (LaMICtal) 25 mg tablet daily. lancets (OneTouch Delica Plus Lancet) 33 gauge USE ONCE DAILY TO CHECK FASTING BLOOD SUGAR 100 each1 levothyroxine (SYNTHROID, LEVOTHROID) 25 mcg tablet TAKE 1 TABLET BY MOUTH EVERY DAY yanpet-wxyvomgv-plgazsg (Creon) 36,000-114,000- 180,000 unit capsule,delayed release(DR/EC) Take 2 Capsules by mouth 3 times daily (with meals). poodln-uwnwjwpj-chcqjhd (Creon) 36,000-114,000- 180,000 unit capsule,delayed release(DR/EC) Take 2 capsules by mouth 3 (three) times a day. 540 capsule 4 losartan (COZAAR) 25 mg tablet Take 1 Tablet by mouth daily. metFORMIN (GLUCOPHAGE) 500 mg tablet TAKE 2 TABLETS BY MOUTH TWICE A DAY WITH MEALS 360 tablet 1 vvxghsfw-mfqklsxus-hfdwsumogkrcrkbndq (POLYDEX) 3.5 mg/g-10,000 unit/g-0.1 % ointment neomycin 3.5 mg/g-polymyxin B 10,000 unit/g-dexameth 0.1 % eye oint omeprazole (PriLOSEC) [address] capsule TAKE 1 CAPSULE BY MOUTH DAILY. TAKE IN A.M. ON EMPTY STOMACH, WAIT 30 MINUTES AND THEN EAT ONETOUCH DELICA LANCETS MISC Use to test blood sugar daily QUEtiapine (SEROquel) 50 mg tablet daily. simvastatin (ZOCOR) 40 mg tablet TAKE 1 TABLET BY MOUTH AT BEDTIME. valacyclovir HCl (VALACYCLOVIR ORAL) Take 1,000 mg by mouth 2 times daily. Vitamin C tablet Take 1 Tablet by mouth daily. [DISCONTINUED] albuterol HFA (PROAIR HFA ; PROVENTIL HFA ; VENTOLIN HFA) 90 mcg/actuation inhaler Inhale 2 Puffs into the lungs every 6 hours as needed for Cough, Wheezing or Shortness of Breath. [DISCONTINUED] fluticasone propion-salmeteroL (ADVAIR HFA) 230-21 mcg/actuation inhaler Inhale 2 Puffs into the lungs 2 times daily. This medication has inhaler steroid: Rinse mouth with water and expectorate after each dose to prevent oral/esophageal candidiasis or fungal infection. [DISCONTINUED] tiotropium (SPIRIVA) 18 mcg per inhalation capsule Spiriva with HandiHaler 18 mcg and inhalation capsules REVIEW OF SYSTEMS: GENERAL: No wt lost, fever, chills or night sweats or +fatigue. ENT: Denies any changes in taste, smell, vision or voice. +runny nose, itchy nose, ears and eyes.+ PND Eye:Patient denies any eye pain, changes in vision, or watery eyes,+ risk for glaucoma RESPIRATORY: See HPI CARDIOVASCULAR: No chest pain, +leg swelling and no palpitations GI: Denies abdominal pain, changes in bowels,+ acid reflux better on omerpasole MUSCULOSKELETAL: No joint or muscle aches HEMATOLOGY/LYMPHOLOGY No prolonged bleeding, easy bruisability ENDOCRINE: No cold/heat intolerance,No polyphagia polyuria or polydypsia NEURO: Denies persistent headache, syncope, numbness and tingling to L hand going for CTS(better). .:Denies urinary problem but has stress incontinence Psych some depression and anxiety slight canges on medication no suicidal thoughts. PAST MEDICAL HISTORY: Past Medical History: Diagnosis Date Achilles tendon disorder right DX:Achilles tendon disorder; COMMENT: s/p PT, f/u with bilingual manager Anatomical narrow angle 11/20/2017 DX:Anatomical narrow angle Arthritis DX:Arthritis; COMMENT: Hips, knees. Atherosclerosis of [place] artery of both lower extremities with intermittent claudication ([facility])03/21/2018 DX:Atherosclerosis of [place] artery of both lower extremities with intermittent claudication ([facility]) Atypical chest pain 02/12/2018 DX:Atypical chest pain; COMMENT: Negative nuclear stress 02/2018 Carpal tunnel syndrome, bilateral 05/16/2018 DX:Carpal tunnel syndrome, bilateral; COMMENT: Severe s/p EMG 05/2018 referred to general surgery Change in bowel function DX:Change in bowel function; COMMENT: More oily and floating in the toilet DM (diabetes mellitus), type 2 with neurological complications (CMS/HCC) 11/01/2021 DX:DM (diabetes mellitus), type 2 with neurological complications (HCC) DM (diabetes mellitus), type 2 with peripheral vascular complications (CMS/HCC) 02/15/2021 DX:DM (diabetes mellitus), type 2 with peripheral vascular complications (HCC) Dyslipidemia DX:Dyslipidemia Esophageal reflux DX:Esophageal reflux Family history of breast cancer 10/09/2015 DX:Family history of breast cancer; COMMENT: Patient is BRCA negative Former tobacco use DX:Former tobacco use; COMMENT: Since age 13, quit 02/2018 Gassiness DX:Gassiness Gassiness DX:Gassiness Nuclear sclerosis of both eyes 11/20/2017 DX:Nuclear sclerosis of both eyes Obesity (BMI 35.0-39.9 without comorbidity) 02/21/2019 DX:Obesity (BMI 35.0-39.9 without comorbidity) PAD (peripheral artery disease) ([facility]) 12/18/2017 DX:PAD (peripheral artery disease) ([facility]); COMMENT: CT angio with bilateral SFA occlusions, pending repair 12/2017, follows with vascular Pancreatic insufficiency DX:Pancreatic insufficiency Plantar fasciitis, bilateral 12/11/2017 DX:Plantar fasciitis, bilateral; COMMENT: Follows with orthopedic and podiatry Prediabetes 11/14/2017 DX:Prediabetes Stye external DX:Stye external Tarsal tunnel syndrome, right 12/11/2017 DX:Tarsal tunnel syndrome, right; COMMENT: Follows with podiatry Type 2 diabetes mellitus with cataract ([facility]) 04/16/2022 DX:Type 2 diabetes mellitus with cataract ([facility]) Vitamin D deficiency DX:Vitamin D deficiency PAST SURGICAL HISTORY: Past Surgical History: Procedure Laterality Date APPENDECTOMY PROCEDURE: HISTORICAL APPENDECTOMY CARPAL TUNNEL RELEASE PROCEDURE: ID NEUROPLASTY &/TRANSPOS MEDIAN NRV CARPAL TUNNE; COMMENT: L side COLONOSCOPY 09/25 PROCEDURE: HISTORICAL COLONOSCOPY COLONOSCOPY PROCEDURE: HISTORICAL COLONOSCOPY; COMMENT: Performed on November 24, 2020 with endoscopy, no evidenceof microscopic colitis ESOPHAGOGASTRODUODENOSCOPY PROCEDURE: ID EGD TRANSORAL BIOPSY SINGLE/MULTIPLE; COMMENT: Performed on November 24, 2020-performed with colonoscopy, negative celiac FOOT SURGERY Left 2009 PROCEDURE: HISTORICAL FOOT SURGERY; COMMENT: arthritis KNEE SURGERY Left 2009 PROCEDURE: HISTORICAL KNEE SURGERY; COMMENT: OA LITHOTRIPSY PROCEDURE: HISTORICAL LITHOTRIPSY; COMMENT: x 2 OTHER SURGICAL HISTORY PROCEDURE: ID EXCISION PILONIDAL CYST/SINUS COMPLICATED; COMMENT: x 2 TONSILLECTOMY PROCEDURE: HISTORICAL TONSILLECTOMY TUBAL LIGATION PROCEDURE: HISTORICAL TUBAL LIGATION SOCIAL HISTORY: TOBACCO: Started 19years old, Quit: 2018 around 1 pack daily at the most, for at least 34 years. Patient is 35 PPY. 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 LUNGS FAMILY HISTORY: uncle-mesothelioma, grandma emphysema IMMUNIZATION: past Influenza Vaccine never Pneumococcal 13 never Pneumococcal 23 12/2020 Pfizer and 08/15/21 booster PULMONARY HOSPITALIZATION Hx: Never PHYSICAL EXAM: Visit Vitals BP (!) 130/90 Pulse 71 Temp 36 ??C (96.8 ??F) (Temporal) Resp 18 Ht 1.626 m (64 ) Wt 114 kg (250 lb 6.4 oz) SpO2 97% BMI 42.98 kg/m?? OB Status Perimenopausal Smoking Status Former BSA 2.16 m?? BMI PLAN BMI BMI is greater than 25.0 (above the normal range) - see Plan APPEARANCE: Morbidly obese(42.98). Not falling asleep female. Alert and in no acute distress but became weepy when speaks of depression. Speaks in full sentences. EYES: PERRL, conjunctiva and sclera normal. NOSE/SINUS: Nares normal. Septum midline. Mucosa pale boggy with millky drainage without sinus tenderness. MOUTH/THROAT: Moist and pink without erythema or exudates. Mallampati class IV NECK: Neck supple, no adenopathy, thyroid symmetric and of enlarge neck size HEART: RRR with normal S1 and S2, no murmurs, no gallops, no JVD appreciated CHEST: non-tender LUNG: Bilateral lung sounds adequate without wheezing, rhonchi, rales, crackles, or rales. Tactile fremitus is normal. Equal chest expansion. EXTREMITIES: Extremities warm and well perfused without clubbing, cyanosis, or edema NEURO: Awake, alert and oriented x 3 with symmetrical reflexes SKIN: Skin color, texture, turgor normal. No rashes or lesions. DIAGNOSTIC TESTING: PULMONARY RELATED OXYGEN TEST: Peripheral oxygen saturation or SpO2 on RA today is 97%. PULMONARY RELATED LAB TEST: 08/2023 TSH normal CARDIOPULMONARY TEST: Last Pulmonary function Test showed: 07/22/2020. Complete PFT with pre/post bronchodilator, lung volumes and DLCO diffusion Technique: Reproducible and Repeatable Graphic recording: There is not obstruction or restriction on the graphic recording. No Obstruction. No Restriction. Normal DLCO diffusion. All of these findings compatible with Normal PFT SPO2 on RA 97% RADIOLOGIST IMAGING: Radiologic Exam Chest 2 Views Result Date: 08/07/2019 PA and lateral chest: HISTORY: Cough COMPARISON: 12/29/2014 No active lung or pleural pathology. Mildly prominent costal cartilage calcification unchanged from baseline study. Heart and mediastinal contours appear normal. No focal bone pathology. IMPRESSION: No active lung disease or interval change from baseline 12/29/2014. Polysomnography: Home sleep apnea testing on April 01, 2020 Indications: Excessive fatigue/sleepiness, snoring, witnessed apnea, choking/gasping, and leg jerksduring the sleep. Interpretation: This study demonstrates sufficient respiratory disturbances to meet diagnostic criteria for obstructive sleep apnea. The PET apnea/hypopnea index was 26 events per hour. Average oxygen saturation was 95% and oxygen yvrose was 83%. Frequent snoring was recorded. Recommendations study are consistent with moderate degree of sleep apnea. In lab CPAP titration study or trial of home auto CPAP with pressures ranges of 6 to 16 cm H2O are advised. ASSESSMENT: 1. Moderate persistent asthma with exacerbation Nebulizer Set Up predniSONE (DELTASONE) 10 mg tablet albuterol 2.5 mg /3 mL (0.083 %) nebulizer solution albuterol 2.5 mg /3 mL (0.083 %) nebulizer solution tiotropium (Spiriva Respimat) 2.5 mcg/actuation inhalation spray fluticasone propion-salmeteroL (ADVAIR HFA) 230-21 mcg/actuation inhaler albuterol HFA (PROAIR HFA ; PROVENTIL HFA ; VENTOLIN HFA) 90 mcg/actuation inhaler 2. Obstructive sleep apnea 3. Nocturnal hypoxia 4. Morbid obesity with BMI of 40.0-44.9, adult ([facility]) Mis is former smoker with mild persistant asthma/COPD and moderate MARSHA. Since last visit on 12/22/2023 since which was doing well until contracted COVID on September 13. [facility] acute bronchitis with left lower lobe pneumonia. Treated with doxycycline 100 mg twice a day for 5 days. Feeling better but her breathing still not acting baseline. She uses Advair 230/21 2p 2-3 times daily and albuterol multiple times but does not feel relief. She feels wheezy but her lungs are clear today. This is consistent with postviral asthma exacerbation and will treat with prednisone 10 mg taper 4 tablets x 3 days, 3 tablets x 3 days, 2 tablets, 3 days, and 1 tablet for 3 days. Patient would benefit from home nebulizer machine which will prescribe. Will uptitrate her therapy by adding Spiriva 2.5 mcg. Her PFT in 12/29/2022 shows continuous loss of function but in normal ranges FEV1/FVC is 88%, FEV1 is 107, FVC 94, no bronchodilator changes, TLC 99, RV 88, and DLCO 82%. 6MWT close no significant drop in oxygen with exertion and slight dyspnea with normal cardiac response. Patient is former smoker with 34 PPD and followed by lung screening program. Last CT scan in February 2024 shows no significant nodules and minimal emphysema. She will follow-up with program in February 2025. Her MARSHA well controlled on CPAP and she tolerating well with good compliance. Feels that current pressure sometimes is insuffucient Continued use is medically necessary.[facility]. Sleep study had O2 83%. Overnight oximetry on CPAP on 01/30/2023 shows good control of her oxygenation. Her Airview shows AHI 3.9 in the last year. She uses 82% and compliant with treatment. She has HTN and DM2 and HLD which prone her to CAD and untreated MARSHA can worsen this risk. HTN wellcontrolled on Losartan 25mg. BP is 112/70 today. She has GERD which improved on PPI which she will continue. She is morbidly obese and would benefit from significant weight loss. Unfortunately, at this time patient is not following any particular diet or exercise program. She educated on the weight loss approaches. PLAN: MARSHA --Pathophysiology, diagnostic, treatment options, risks and benefits of CPAP/Bipap use, risks of nontreatment of MARSHA/central apnea, and care/maintenance of CPAP/BiPAP were discussed. All questions answered. Patient also agreed not to drive or operate heavy machinery if he/she should feel sleepy, toe puller to a safe part of the road and not resume until fully awake. -sent to [facility] CPAP 02-24 with mask of patient's choice -discussed contacting provider if pressure are uncofortable -discussed to contact DME if mask, humidification, temp is not working correctly. HYPOXIA - shows good control on CPAP. FORMER SMOKER -Continue to follow-up with thoracic surgery for low-dose CT screening. Next on 02/2025 HTN -continue on Losartan 25mg. -discused link MARSHA and HTN -discussed lower sodium intake -instructed to follow up with pcp on this heaht issue GERD -continue on Omeprazole 40mg daily -discussed low acidic diet -instructed to follow up with pcp on this health issue ASTHMA - continue Advair to 230/21 2 puff BID -Add Spiriva 2.5 mcg 2 puffs daily -continue on Albuterol 2pff Q6H PRN -Prescribed nebulizer set -Start albuterol nebs every 6 hours as needed -Prescribe prednisone taper ALLERGIES -continue on Cetrizine 10mg daily prn -continue on Flonase 2 sprays daily prn -continue on nasal wash prn - obtain blood work for allergies. OBESITY -discussed portion control -discused diet changes -discussed physical activities -instructed to follow up with pcp on this health issue. - The patient was educated about asthma exacerbation and when to seek emergency care, discussed useof CPAP machine and weight loss management for improving outcomes, assessment and plan was reviewedand explained, some educational material about his pulmonary problems was given with the discharge summary. All questions were answered. Based on physical exam, symptomatology, tests requested and baseline pulmonary evaluation/disease, I instructed the patient to follow-up with in 3 month(s) and as needed in the interim if other concerns/worsening symptoms. - Follow up with Naila Vargas for the other co-morbidities. Thanks Naila Vargas for allowing me to have the opportunity to assist in the care of this patient. documented in this encounter Plan of Treatment Upcoming Encounters Date Type Department Care Team (Late st Contact Info) Description 11/22/2024 1:00 PM EDT Office Visit Adult Medicine [address] [phone] Naila Vargas MD [address] [place] [id number] 12/23/2024 9:30 AM EDT Office Visit Pulmonol[address] [place] [id number] Maricel Hawkins, ALFREDA [address] [facility] [address] [place] [address] documented as of this encounter Visit Diagnoses Diagnosis Moderate persistent asthma with exacerbation- Primary Unspecified asthma, with exacerbation Obstructive sleep apnea Obstructive sleep apnea (adult) (pediatric) Nocturnal hypoxia Morbid obesity with BMI of 40.0-44.9, adult ([facility]) documented in this encounter Discontinued Medications Medication Sig Discontinue Reason Start Date End Da te tiotropium (SPIRIVA) 18 mcg per inhalation capsule Spiriva with HandiHaler 18 mcg and inhalation capsules 09/20/2024 albuterol HFA (PROAIR HFA ; PROVENTIL HFA ; VENTOLIN HFA) 90 mcg/actuation inhaler Inhale 2 Puffs into the lungs every 6 hours as needed for Cough, Wheezing or Shortness of Breath. Reorder 12/22/2023 09/20/2024 fluticasone propion-salmeteroL (ADVAIR HFA) 230-21 mcg/actuation inhaler Inhale 2 Puffs into the lungs 2 times daily. This medication has inhaler steroid: Rinse mouth with water and expectorate after each dose to prevent oral/esophageal candidiasis or fungal infection. Reorder 12/22/2023 09/20/2024 documented as of this encounter Historical Medications * This list may reflect changes made after this encounter. Medication Sig Dispensed Refills Start Date End Date doxycycline (ADOXA) 100 mg tablet Take 1 tablet (100 mg total) by mouth 2 (two) times a day. for 5 days 09/14/2024 added in this encounter Orders General Supply Count Last Ordered Date First Or dered Date CPAP DME 1 09/29/2024 NEBULIZER SET UP 09/20/2024 documented in this encounter Care Teams [employer] Relationship Specialty Start Date End Date Naila Vargas MD [address] [place] [id number] PCP - General Internal Medicine 04/18/22 documented as of this encounter
--- OUTSIDE RECORDS SUMMARY | 2024-10-11 08:06 | XMS_ITS | Clinical Summary ---
Author Organization [facility] Address [address] [place] [address] Phone Care Team Providers Care Economics Faculty Member Name Role Phone Naila Vargas MD Primary Care Provider [phone] Allergies Active Allergy Reactions Criticality Noted Date Comments Clarithromycin 01/15/2014 Other 02/21/2019 Environmental seasonal allergies; Seasonal Allergies Pollen Extracts 02/21/2019 Medications Medication Sig Dispensed Refills Start Date End Date Status acetaminophen (TYLENOL) 500 mg tablet Take 1 Tablet by mouth every 6 hours as needed. Active amLODIPine (NORVASC) 2.5 mg tablet Take 1 Tablet by mouth daily. 4 Active Vitamin C tablet Take 1 Tablet by mouth daily. Active aspirin 81 mg EC tablet Take 81 mg by mouth daily. Active biotin 10 mg tablet Take by mouth. Active blood-glucose meter kit Use to check blood sugar once daily 4 Active blood-glucose meter kit Use to check blood sugar daily as needed 4 Active cetirizine (ZyrTEC) 10 mg capsule Take 10 mg by mouth daily. 4 Active ciclopirox (LOPROX) 0.77 % cream Apply to affected cuticle after washing hands 2 Active cyanocobalamin (VITAMIN B-12) 1,000 mcg tablet Take 1 Tablet by mouth daily. 3 Active diclofenac (VOLTAREN) 1 % topical gel Apply 2 g topically 2 times daily as needed for Other (Elbow pain). 4 Active FINASTERIDE ORAL Take by mouth daily. Active fluticasone propionate (FLONASE) 50 mcg/actuation nasal spray 2 Sprays by Each Nare route daily. 4 Active gabapentin (NEURONTIN) 300 mg capsule Take 1 Capsule by mouth at bedtime. 4 Active blood sugar diagnostic (FreeStyle Lite Strips) test strip Use to check blood sugar once daily 4 Active lamoTRIgine (LaMICtal) 25 mg tablet daily. 3 Active losartan (COZAAR) 25 mg tablet Take 1 Tablet by mouth daily. 3 Active neomycin-polymyx in-dexamethameth asone (POLYDEX) 3.5 mg/g-10,000 unit/g-0.1 % ointment neomycin 3.5 mg/g-polymyxin B 10,000 unit/g-dexameth 0.1 % eye oint Active omeprazole (PriLOSEC) [address] capsule TAKE 1 CAPSULE BY MOUTH DAILY. TAKE IN A.M. ON EMPTY STOMACH, WAIT 30 MINUTES AND THEN EAT 4 Active ONETOUCH DELICA LANCETS MISC Use to test blood sugar daily 2 Active lipase-protease- amylase (Creon) 36,000-114,000- 180,000 unit capsule,delayed release(DR/EC) Take 2 Capsules by mouth 3 times daily (with meals). 4 Active QUEtiapine (SEROquel) 50 mg tablet daily. 3 Active simvastatin (ZOCOR) 40 mg tablet TAKE 1 TABLET BY MOUTH AT BEDTIME. 4 Active valacyclovir HCl (VALACYCLOVIR ORAL) Take 1,000 mg by mouth 2 times daily. Active DIETARY SUPPLEMENT ORAL Take by mouth. 10,000 Units once a week Active metFORMIN (GLUCOPHAGE) 500 mg tablet TAKE 2 TABLETS BY MOUTH TWICE A DAY WITH MEALS 360 tablet 1 4 Active FLUoxetine (PROzac) 20 mg capsule TAKE 1 CAPSULE BY MOUTH EVERY DAY 90 capsule 1 4 Active lancets (OneTouch Delica Plus Lancet) 33 gauge USE ONCE DAILY TO CHECK FASTING BLOOD SUGAR 100 each 1 4 Active hydrOXYzine HCL (ATARAX) 25 mg tablet 4 Active lipase-protease- amylase (Creon) 36,000-114,000- 180,000 unit capsule,delayed release(DR/EC) Take 2 capsules by mouth 3 (three) times a day. 540 capsule 4 4 Active doxycycline (ADOXA) 100 mg tablet Take 1 tablet (100 mg total) by mouth 2 (two) times a day. for 5 days 5 Active albuterol 2.5 mg /3 mL (0.083 %) nebulizer solutionIndicati ons:Moderate persistent asthma with exacerbation Take 3 mL (2.5 mg total) by nebulization every 6 (six) hours if needed for wheezing. 100 mL 2 5 09/20/19 26 Active albuterol 2.5 mg /3 mL (0.083 %) nebulizer solutionIndicati ons:Moderate persistent asthma with exacerbation Take 3 mL (2.5 mg total) by nebulization every 6 (six) hours if needed for wheezing. 75 mL 5 09/20/19 26 Active tiotropium (Spiriva Respimat) 2.5 mcg/actuation inhalation sprayIndications :Moderate persistent asthma with exacerbation Inhale 2 puffs by mouth 1 (one) time each day. 1 each 12 5 09/20/19 26 Active fluticasone propion-salmeter oL (ADVAIR HFA) 230-21 mcg/actuation inhalerIndicatio ns:Moderate persistent asthma with exacerbation Inhale 2 puffs by mouth 2 (two) times a day. Rinse mouth with water after use to reduce aftertaste and incidence of candidiasis. Do not swallow. 3 each 2 5 Active albuterol HFA (PROAIR HFA ; PROVENTIL HFA ; VENTOLIN HFA) 90 mcg/actuation inhalerIndicatio ns:Moderate persistent asthma with exacerbation Inhale 2 puffs by mouth every 4 (four) hours if needed for wheezing or shortness of breath (cough and chest tightness). 54 g 3 5 Active cilostazoL (PLETAL) 100 mg tablet TAKE 1 TABLET BY MOUTH TWICE A DAY 180 tablet 5 Active levothyroxine (SYNTHROID, LEVOTHROID) 25 mcg tablet TAKE 1 TABLET BY MOUTH EVERY DAY 90 tablet 1 5 Active albuterol HFA (PROAIR HFA ; PROVENTIL HFA ; VENTOLIN HFA) 90 mcg/actuation inhaler Inhale 2 Puffs into the lungs every 6 hours as needed for Cough, Wheezing or Shortness of Breath. 4 09/20/19 25 Discontinued(Re order) cilostazoL (PLETAL) 100 mg tablet TAKE 1 TABLET BY MOUTH TWICE A DAY 4 10/07/19 25 Discontinued fluticasone propion-salmeter oL (ADVAIR HFA) 230-21 mcg/actuation inhaler Inhale 2 Puffs into the lungs 2 times daily. This medication has inhaler steroid: Rinse mouth with water and expectorate after each dose to prevent oral/esophageal candidiasis or fungal infection. 4 09/20/19 25 Discontinued(Re order) levothyroxine (SYNTHROID, LEVOTHROID) 25 mcg tablet TAKE 1 TABLET BY MOUTH EVERY DAY 10/07/19 25 Discontinued tiotropium (SPIRIVA) 18 mcg per inhalation capsule Spiriva with HandiHaler 18 mcg and inhalation capsules 09/20/19 25 Discontinued predniSONE (DELTASONE) 10 mg tabletIndication s:Moderate persistent asthma with exacerbation Take 1 tablet (10 mg total) by mouth 1 (one) time each day for 7 days, THEN 0.5 tablets (5 mg total) 1 (one) time each day for 7 days. 11 tablet 5 10/04/19 25 Active Problems Problem Noted Date Diagnosed Date Achilles tendon disorder 07/18/2024 Overview (07/18/2024): Right s/p PT, f/u with pairer Arthritis 07/18/2024 Overview (07/18/2024): Hips, knees. Follows with [facility] Dyslipidemia 07/18/2024 Pancreatic insufficiency 07/18/2024 Vitamin D deficiency 07/18/2024 Precordial pain 03/01/2024 Carotid artery stenosis 10/31/2023 Overview (07/18/2024): Right ICA 80% on CTA @ [facility] 10/11/2023 Nocturnal hypoxia 03/09/2023 Overview (07/18/2024): 01/30/2023 overnight oximetry on CPAP showed pulmonary 1. Lowest oxygen saturation 87%. 2. Time spent<88 or below is 2 minutes. 3. Time spent on CPAP with adequate oxygen. 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), type 2 with neurological complications 11/01/2021 Overview (07/18/2024): Dx 09/2021, significant improvement with dietary management DM (diabetes mellitus), type 2 with peripheral vascular complications 02/15/2021 Vitamin B12 deficiency 02/15/2021 Essential hypertension 01/29/2021 Morbid obesity with BMI of 40.0-44.9, adult 01/10 Cervical radiculitis 10/28/2020 Obstructive sleep apnea 04/07/2020 Overview (07/18/2024): moderate AHI 20 SMS Home Sleep Apnea Test: Date 04/01/2020; BMI 39; RDI 31, AHI 27; average oxygen saturation 95% (lowest 83% without saturations <88% for 5% or more of study) - Obstructive Sleep Apnea - moderate; without sleep related hypoventilation by 2019 home sleep apnea test. Stress incontinence of urine 02/07/2020 SOB (shortness of breath) 01/07/2020 Overview (07/18/2024): PFT pending, normal chest x-ray and nuclear stress test, normal CT chest 02/2020 Moderate episode of recurrent major depressive d isorder 10/08/2019 Carpal tunnel syndrome, bilateral 05/16/2018 Overview (07/18/2024): Severe s/p EMG 05/2018 referred to general surgery Atypical chest pain 02/12/2018 Overview (07/18/2024): Negative nuclear stress 02/2018 Peripheral vascular disease 12/18/2017 Overview (07/18/2024): CT angio with bilateral SFA occlusions, s/p left SFA repair 12/2017, follows with vascular Plantar fasciitis, bilateral 12/11/2017 Overview (07/18/2024): Follows with orthopedic and podiatry Tarsal tunnel syndrome, bilateral 12/11/2017 Overview (07/18/2024): Follows with podiatry Anatomical narrow angle 11/20/2017 Overview (07/18/2024): s/p LPI Nuclear sclerosis of both eyes 11/20/2017 Encounters Date Type Department Care Team Description 09/30/2024 Telephone Pulmonolgy - [place] [address] [phone] Irish Lorenzo MA DME 09/30/2024 Telephone Pulmonolgy - [place] [address] [phone] Irish Lorenzo MA DME 09/27/2024 Telephone Pulmonolgy - [place] [address] [phone] Maricel Hawkins NP 09/20/2024 9:30 AM EST Office Visit Pulmonolgy [address] [phone] Maricel Hawkins NP Moderate persistent asthma with exacerbation (Primary Dx); Obstructive sleep apnea; Nocturnal hypoxia; Morbid obesity with BMI of 40.0-44.9, adult ([facility]) 08/26/2024 9:04 AM EST - 08/26/2024 11:59 PM EST Hospital Encounter Radiology Department - [address] [phone] Screening breast examination Discharge Disposition: Home or Self Care 08/21/2024 9:20 AM EST Office Visit Gastroenterology - [place] [address] [phone] Pipo Fatima PA Gastroesophageal reflux disease without esophagitis (Primary Dx); Pancreatic insufficiency; Rectal bleeding; PVD (peripheral vascular disease) ([facility]/HCC); Diabetes 1.5, managed as type 2 ([facility]) from Last 3 Months Immunizations Name Administration Dates Next Due Influenza Quadravalent, MDCK , 0.5ml, preservative free (Flucelvax) 6mo and older 08/09/2023,07/25/2022,05/28/2020 Influenza trivalent, 0.5mL, preservative free (Fluarix; FluLaval; Fluzone) ages 6mo and older (Afluria) 3 years and older 07/09/2024,07/02/2018,08/22/2017,06/27,07/01/2014 Influenza, Unspecified 06/21/2021,07/07/2019 Pneumococcal polysaccharide 23 valent (Pneumovax 23) 2yo and older 10/06/2021 Surgical History Surgery Date Site/Laterality Comments KNEE SURGERY 2009 Left PROCEDURE: HISTORICAL KNEE SURGERY; COMMENT: OA FOOT SURGERY 2009 Left PROCEDURE: HISTORICAL FOOT SURGERY; COMMENT: arthritis TONSILLECTOMY PROCEDURE: HISTORICAL TONSILLECTOMY APPENDECTOMY PROCEDURE: HISTORICAL APPENDECTOMY TUBAL LIGATION PROCEDURE: HISTORICAL TUBAL LIGATION OTHER SURGICAL HISTORY PROCEDURE: CO EXCISION PILONIDAL CYST/SINUS COMPLICATED; COMMENT: x 2 COLONOSCOPY 09/25 PROCEDURE: HISTORICAL COLONOSCOPY LITHOTRIPSY PROCEDURE: HISTORICAL LITHOTRIPSY; COMMENT: x 2 CARPAL TUNNEL RELEASE PROCEDURE: CO NEUROPLASTY &/TRANSPOS MEDIAN NRV CARPAL TUNNE; COMMENT: L side ESOPHAGOGASTRODUODENOSCOPY PROCEDURE: CO EGD TRANSORAL BIOPSY SINGLE/MULTIPLE; COMMENT: Performed on November 24, 2020-performed with colonoscopy, negative celiac COLONOSCOPY PROCEDURE: HISTORICAL COLONOSCOPY; COMMENT: Performed on November 24, 2020 with endoscopy, no evidence of microscopic colitis Medical History Medical History Date Comments Dyslipidemia DX:Dyslipidemia Achilles tendon disorder right DX:Achi lles tendon disorder; COMMENT: s/p PT, f/u with pairer Vitamin D deficiency DX:Vitamin D deficiency Prediabetes 11/14/2017 DX:Prediabetes Tarsal tunnel syndrome, right 12/11/2017 DX :Tarsal tunnel syndrome, right; COMMENT: Follows with podiatry Plantar fasciitis, bilateral 12/11/2017 DX: Plantar fasciitis, bilateral; COMMENT: Follows with orthopedic and podiatry Anatomical narrow angle 11/20/2017 DX:Anato mical narrow angle Arthritis DX:Arthritis; CO MMENT: Hips, knees. Family history of breast cancer 10/09/2015 DX:Family history of breast cancer; COMMENT: Patient is BRCA negative Nuclear sclerosis of both eyes 11/20/2017 D X:Nuclear sclerosis of both eyes PAD (peripheral artery disea se) ([facility]/HCC) 12/18/2017 DX:PAD (peripheral artery di sease) ([facility]); COMMENT: CT angio with bilateral SFA occlusions, pending repair 12/2017, follows with vascular Atypical chest pain 02/12/2018 DX:Atypical chest pain; COMMENT: Negative nuclear stress 02/2018 Carpal tunnel syndrome, bilateral 05/16/2018 DX:Carpal tunnel syndrome, bilateral; COMMENT: Severe s/p EMG 05/2018 referred to general surgery Former tobacco use DX:Former tob acco use; COMMENT: Since age 13, quit 02/2018 Atherosclerosis of [place] of both lower extremities with intermittent claudication ([facility]/HCC) 03/21/2018 DX:Atherosclerosis of [place] artery of both lower extremities with intermittent claudication ([facility]) Obesity (BMI 35.0-39.9 witho ut comorbidity) 02/21/2019 DX:Obesity (BMI 35.0-39.9 wi thout comorbidity) Gassiness DX:Gassiness Change in bowel function DX:[place] ge in bowel function; COMMENT: More oily and floating in the toilet Pancreatic insufficiency DX:Panc reatic insufficiency DM (diabetes mellitus), type 2 with peripheral vascular complications ([facility]) 02/15/2021 DX:DM (diabetes mellitus), t ype 2 with peripheral vascular complications (HCC) DM (diabetes mellitus), type 2 with neurological complications ([facility]) 11/01/2021 DX:DM (diabetes m ellitus), type 2 with neurological complications (HCC) Type 2 diabetes mellitus wit h cataract ([facility]) 04/16/2022 DX:Type 2 diabetes mellitus with cataract (HCC) Gassiness DX:Gassiness Esophageal reflux DX:Esophageal reflux Stye external DX:Stye external Family History Medical History Relation Name Comments Other: cancer,other Maternal Grandfather worked at [employer]; in his mid 50s Cataracts Maternal Grandmother Emphysema Maternal Grandmother - age 82 Breast cancer Mother's side 1 2 m cousin 30s Breast cancer Mother's side 2 aunt -with nodes Breast cancer Mother's side 3 1st cousin- bilateral Breast cancer Mother's side 4 1st cousin- bilateral Ovarian cancer Mother's side 5 aunt; poss ibly cervical; in her 40s Breast cancer Other m neiram 40s maternal niece x2 40's Other: Other Paternal Grandfather unknown to Homero Breast cancer Sister 1 50s Breast cancer Sister 2 60ish Other: mesothelioma Uncle in his 50s Relation Name Status Comments Maternal Grandfather Maternal Grandmother Mother's side 1 2 m cousin 30s Alive Mother's side 2 Mother's side 3 Mother's side 4 Mother's side 5 Other m neiram 40s Alive Paternal Grandfather Sister 1 50s Alive Sister 2 60ish Uncle Social History Tobacco Use Types Packs/Day Years [...] file Not on file Not on file Obstetrics History Para Term AB IAB SAB Ectopic Multiple Livin g Live Births 0 0 0 Last Filed Vital Signs Vital Sign Reading [...] Mass Index 42.98 09/20/2024 9:22 AM EST Plan of Treatment Upcoming Encounters Date Type Department Care Team (Late st Contact Info) Description 11/22/2024 1:00 PM EDT Office Visit Adult Medicine [address] [phone] Naila Vargas MD [address] [place] [phone] 12/23/2024 9:30 AM EDT Office Visit Pulmonolgy - [place] [address] [place] [phone] Maricel Hawkins NP [address] [place] [address] Health Maintenance Due Date Last Done Comments Diabetes: Annual Foot Exam 02/15/1976 Diabetes: Annual Retina Eye Exam 02/15/1976 DTaP,Tdap,and Td Vaccines (1 - Tdap) 1985 Hepatitis B Vaccines (1 of 3 - 19+ 3-dose series) 1985 Zoster Vaccines (1 of 2) 02/15/2016 HIV Screening 08/20/2022 Social Influencers of Health Screening 08/20/2022 Pneumococcal Vaccine: Pediatrics (0 to 5 Years) and At-Risk Patients (6 to 64 Years) (2 of 2 - PCV) 10/06/2022 10/06/2021 COVID-19 Vaccine ( season) 2024 06/13/2022, 08/15/2021, 12/26/2020, Additional history exists Diabetes: Blood Sugar Control Test (HGBA1C) 10/25/2024 04/24/2024, 04/24/2024, 10/04/2022 Lung Cancer Screening (Low Dose CT) 02/20/2025 02/21/2024, 02/21/2024 Depression Screening 04/08/2025 04/08/2024 Diabetes: Annual Urine Albumin-Creatinine Ratio (uACR) 04/24/2025 04/24/2024 Cervical Cancer Screening: HPV 08/05/2025 08/05/2020 Diabetes: Annual GFR (Glomerular Filtration Rate) 08/21/2025 08/21/2024, 05/07/2024, 05/07/2024, Additional history exists Hypertension/CHF/CAD Annual BMP Blood Test 08/21/2025 08/21/2024, 05/07/2024, 05/07/2024, Additional history exists Breast Cancer Screening 08/26/2026 08/26/20 24, 05/20/2023, 05/14/2022, Additional history exists Cholesterol Screening (Lipid Panel) 03/01/2029 03/01/2024, 03/01/2024 Colorectal Cancer Screening: Colonoscopy 11/24/2030 11/24/2020 Hepatitis C Screening Completed 05/20/2014 Influenza Vaccine Completed 07/09/2024, , 07/25/2022, Additional [...] on patient's age to complete this topic MMR Vaccines Aged Out No longer eligi ble based on patient's age to complete this topic Meningococcal ACWY Vaccine Aged Out N o longer eligible based on patient's age to complete this topic RSV Immunization Patients Under 20 months Aged Out No longer eligible based on patient's age to complete this topic Varicella Vaccines Aged Out No longer eligible based on patient's age to complete this topic Procedures Procedure Name Priority Date/Time Associated Diagnosis Comments MG MAMMO DIGITAL SCREENING W FARAZ BILAT Routine 08/26/2024 9:27 AM EST Screening breast examination CBC WITH AUTO DIFFERENTIAL Routine 08/21/2024 10:33 AM EST Gastroesophageal reflux disease without esophagitis Pancreatic insufficiency Rectal bleeding PVD (peripheral vascular disease) (CMS/HCC) IRON Routine 08/21/2024 10:33 AM EST Gastroesophageal reflux disease without esophagitis Pancreatic insufficiency Rectal bleeding PVD (peripheral vascular disease) (CMS/HCC) FERRITIN Routine 08/21/2024 10:33 AM EST Gastroesophageal reflux disease without esophagitis Pancreatic insufficiency Rectal bleeding PVD (peripheral vascular disease) (CMS/HCC) COMPREHENSIVE METABOLIC PANEL Routine 08/21/2024 10:33 AM EST Gastroesophageal reflux disease without esophagitis Pancreatic insufficiency Rectal bleeding PVD (peripheral vascular disease) (CMS/HCC) CBC AND DIFFERENTIAL Routine 08/21/2024 10:33 AM EST Gastroesophageal reflux disease without esophagitis Pancreatic insufficiency Rectal bleeding PVD (peripheral vascular disease) (CMS/HCC) HM URINE ALBUMIN CREATININE RATIO Routine 04/24/2024 HEMOGLOBIN A1C Routine 04/24/2024 HM DEPRESSION SCREENING Routine 04/08/2024 LIPID PANEL Routine 03/01/2024 CT LUNG SCREENING LOW DOSE Routine 02/21/2024 11:38 AM EDT Encounter for screening for malignant neoplasm of respiratory organs HM COLONOSCOPY Routine 11/24/2020 HM HPV Routine 08/05/2020 HEPATITIS C SCREENING Routine 05/20/2014 from Last 3 Months or Most Recently Relevant to Health Maintenance Results * MG Mammo Digital Screening w Faraz bilat (08/26/2024 9:27 AM EST) Anatomical Region Laterality Modality Breast Bilateral Mammography 08/26/2024 9:41 AM EST Addenda Addendum by Michaela Mccallum MD on 08/26/2024 9:45 AM EST EXAMINATION TYPE: MG MAMMO DIGITAL SCREENING W FARAZ BILAT DATE OF EXAM ORDERED: 08/26/2024 9:09 AM COMPARISON: Prior mammograms, latest from 05/20/2023. REASON FOR STUDY: ??Breast cancer screen, avg risk, asymptomatic (Age => 40y) TECHNIQUE: Bilateral mediolateral oblique and craniocaudal views ??were obtained digitally with 3-D mammogram (digital breast tomosynthesis) with CAD. Computer-aided detection was utilized in evaluation of this examination (SecondLook; iCAD). FINDINGS: The breast tissue distribution pattern is unchanged. There is no suspicious mass, suspicious calcifications or suspicious architectural distortion. BREAST DENSITY: B - There are scattered areas of fibroglandular density. IMPRESSION: No mammographic evidence for malignancy. BI-RADS CATEGORY: 1 - NEGATIVE RECOMMENDATION: Screening bilateral mammogram is recommended in 1 year. Screening bilateral mammogram is recommended in 1 year. -------- FINAL REPORT -------- Dictated By: Michaela Mccallum Dictated Date: 08/26/2024 09:41 ET Assigned Physician: Michaela Mccallum Reviewed and Electronically Signed By: Michaela Mccallum Signed Date: 08/26/2024 09:45 ET Workstation ID: [id number] Transcribed By: Self Edit Transcribed Date: 08/26/2024 09:41 ET Impressions 08/26/2024 9:45 AM EST No mammographic evidence for malignancy. BI-RADS CATEGORY: 1 - NEGATIVE RECOMMENDATION: Screening bilateral mammogram is recommended in 1 year. Screening bilateral mammogram is recommended in 1 year. -------- FINAL REPORT -------- Dictated By: Michaela Mccallum Dictated Date: 08/26/2024 09:41 ET Assigned Physician: Michaela Mccallum Reviewed and Electronically Signed By: Michaela Mccallum Signed Date: 08/26/2024 09:45 ET Workstation ID: [id number] Transcribed By: Self Edit Transcribed Date: 08/26/2024 09:41 ET Narrative 08/26/2024 9:45 AM EST EXAMINATION TYPE: MAMMO DIGITAL SCREENING W FARAZ BILAT DATE OF EXAM ORDERED: 08/26/2024 9:09 AM COMPARISON: Prior mammograms, latest from 05/20/2023. REASON FOR STUDY: ??Breast cancer screen, avg risk, asymptomatic (Age => 40y) TECHNIQUE: Bilateral mediolateral oblique and craniocaudal views ??were obtained digitally with 3-D mammogram (digital breast tomosynthesis) with CAD. Computer- aided detection was utilized in evaluation of this examination (Forgame; iCAD). FINDINGS: The breast tissue distribution pattern is unchanged. There is no suspicious mass, suspicious calcifications or suspicious architectural distortion. BREAST DENSITY: B - There are scattered areas of fibroglandular density. Procedure Note Michaela Mccallum MD - 08/26/2024 EXAMINATION TYPE: MG MAMMO DIGITAL SCREENING W FARAZ BILAT DATE OF EXAM ORDERED: 08/26/2024 9:09 AM COMPARISON: Prior mammograms, latest from 05/20/2023. REASON FOR STUDY: Breast cancer screen, avg risk, asymptomatic (Age =>40y) TECHNIQUE: Bilateral mediolateral oblique and craniocaudal views wereobtained digitally with 3-D mammogram (digital breast tomosynthesis) withCAD. Computer- aided detection was utilized in evaluation of thisexamination (SecondLook; iCAD). FINDINGS: The breast tissue distribution pattern is unchanged. There is nosuspicious mass, suspicious calcifications or suspicious architecturaldistortion. BREAST DENSITY: B - There are scattered areas of fibroglandular density. IMPRESSION: No mammographic evidence for malignancy. BI-RADS CATEGORY: 1 - NEGATIVE RECOMMENDATION: Screening bilateral mammogram is recommended in 1 year. Screeningbilateral mammogram is recommended in 1 year. -------- FINAL REPORT -------- Dictated By: Michaela Mccallum Dictated Date: 08/26/2024 09:41 ET Assigned Physician: Michaela Mccallum Reviewed and Electronically Signed By: Michaela Mccallum Signed Date: 08/26/2024 09:45 ET Workstation ID: [id number] Transcribed By: Self Edit Transcribed Date: 08/26/2024 09:41 ET Naila Vargas MD [facility] [place] BI PROCEDURES * (ABNORMAL) CBC auto differential (08/21/2024 10:33 AM EST) WBC 7.1 4.8 - 10.8 K/mcL LAB HEMETOLOGY METHOD 08/21/2024 2:29 PM EST [facility] RBC 4.40 3.80 - 4.80 M/mcL LAB HEMETOLOGY METHOD 08/21/2024 2:29 PM EST [facility] Hemoglobin 14.1 11.5 - 16.0 g/dL LAB HEMETOLOGY METHOD 08/21/2024 2:29 PM [facility] Hematocrit 43.0 35.0 - 47.0 % LAB HEMETOLOGY METHOD 08/21/2024 2:29 PM [facility] MCV 98.9(H) 79.0 - 98.0 FL LAB HEMETOLOGY METHOD 08/21/2024 2:29 PM [facility] MCH 32.4(H) 27.0 - 32.0 pcg LAB HEMETOLOGY METHOD 08/21/2024 2:29 PM [facility] MCHC 32.8 32.0 - 37.0 g/dL LAB HEMETOLOGY METHOD 08/21/2024 2:29 PM [facility] RDW 13.6 11.0 - 15.0 % LAB HEMETOLOGY METHOD 08/21/2024 2:29 PM [facility] Platelets 300 130 - 400 K/mcL LAB HEMETOLOGY METHOD 08/21/2024 2:29 PM [facility] MPV 9.4 7.0 - 11.0 FL LAB HEMETOLOGY METHOD 08/21/2024 2:29 PM [facility] NRBC 0.0 <1.0 % LAB HEMETOLOGY METHOD 08/21/2024 2:29 PM [facility] NRBC Absolute 0.00 <0.10 K/mcL LAB HEMETOLOGY METHOD 08/21/2024 2:29 PM [facility] Neutrophils Relative 60.2 % LAB HEMETOLOGY METHOD 08/21/2024 2:29 PM [facility] Lymphocytes Relative 28.5 % LAB HEMETOLOGY METHOD 08/21/2024 2:29 PM [facility] Monocytes Relative 7.9 % LAB HEMETOLOGY METHOD 08/21/2024 2:29 PM [facility] Eosinophils Relative 2.5 % LAB HEMETOLOGY METHOD 08/21/2024 2:29 PM EST [facility] Basophils Relative 0.6 % LAB HEMETOLOGY METHOD 08/21/2024 2:29 PM EST [facility] Immature Granulocytes Relative 0.3 % LAB HEMETOLOGY METHOD 08/21/2024 2:29 PM EST [facility] Neutrophils Absolute 4.26 1.50 - 7.00 K/mcL LAB HEMETOLOGY METHOD 08/21/2024 2:29 PM EST [facility] Lymphocytes Absolute 2.02 1.00 - 5.00 K/mcL LAB HEMETOLOGY METHOD 08/21/2024 2:29 PM EST [facility] Monocytes Absolute 0.56 0.20 - 1.00 K/mcL LAB HEMETOLOGY METHOD 08/21/2024 2:29 PM [facility] Eosinophils Absolute 0.18 0.00 - 0.50 K/mcL LAB HEMETOLOGY METHOD 08/21/2024 2:29 PM EST [facility] Basophils Absolute 0.04 0.00 - 0.20 K/mcL LAB HEMETOLOGY METHOD 08/21/2024 2:29 PM EST [facility] Immature Granulocytes Absolute 0.02 0.00 - 0.03 K/mcL LAB HEMETOLOGY METHOD 08/21/2024 2:29 PM [facility] Blood Venous blood specimen / Unknown Venipuncture / Unknown 08/21/2024 10:33 AM EST 08/21/2024 10:33 AM EST Pipo GARCES LAB BLOOD ORDERABLES [facility] [address] [place] [address], * Iron (08/21/2024 10:33 AM EST) Iron 115 40 - 150 mcg/dL LAB CHEMISTRY METHOD 08/21/2024 3:19 PM EST [facility] Blood Venous blood specimen / Unknown Venipuncture / Unknown 08/21/2024 10:33 AM EST 08/21/2024 10:33 AM EST Pipo Aidan GARCES LAB BLOOD ORDERABLES Performing Organization Address City/[facility]/ZIP Co de Phone Number [facility] [address] [place] [address], * Ferritin (08/21/2024 10:33 AM EST) Pathologist [facility] Ferritin 60 8 - 252 ng/mL LAB CHEMISTRY METHOD 08/21/2024 3:19 PM [facility] Blood Venous blood specimen / Unknown Venipuncture / Unknown 08/21/2024 10:33 AM EST 08/21/2024 10:33 AM EST Pipo Aidan GARCES LAB BLOOD ORDERABLES Performing Organization Address City/[facility]/ZIP Co de Phone Number [facility] [address] [place] [address], * (ABNORMAL) Comprehensive metabolic panel (08/21/2024 10:33 AM EST) Pathologist [facility] Sodium 138 133 - 145 mmol/L LAB CHEMISTRY METHOD 08/21/2024 3:19 PM [facility] Potassium 4.2 3.5 - 5.5 mmol/L LAB CHEMISTRY METHOD 08/21/2024 3:19 PM [facility] Chloride 105 96 - 110 mmol/L LAB CHEMISTRY METHOD 08/21/2024 3:19 PM [facility] CO2 26 21 - 32 mmol/L LAB CHEMISTRY METHOD 08/21/2024 3:19 PM [facility] Anion Gap 7 3 - 11 LAB CHEMISTRY METHOD 08/21/2024 3:19 PM [facility] Glucose 123(H) 70 - 100 mg/dL LAB CHEMISTRY METHOD 08/21/2024 3:19 PM [facility] BUN 8 5 - 25 mg/dL LAB CHEMISTRY METHOD 08/21/2024 3:19 PM [facility] Creatinine 0.94 0.50 - 1.10 mg/dL LAB CHEMISTRY METHOD 08/21/2024 3:19 PM [facility] eGFR 70 >=60 mL/min/1. 73m2 LAB CHEMISTRY METHOD 08/21/2024 3:19 PM [facility] Comment:Calculation based on the??Chronic Kidney Disease Epidemiology Collaboration (CKD-EPI) equation refit??without adjustment for race. BUN/Creatinine Ratio 8.5 LAB CHEMISTRY METHOD 08/21/2024 3:19 PM [facility] Calcium 9.8 8.5 - 10.5 mg/dL LAB CHEMISTRY METHOD 08/21/2024 3:19 PM [facility] AST (SGOT) 22 10 - 42 unit/L LAB CHEMISTRY METHOD 08/21/2024 3:19 PM [facility] ALT (SGPT) 48 10 - 60 unit/L LAB CHEMISTRY METHOD 08/21/2024 3:19 PM [facility] Alkaline Phosphatase 61 42 - 121 unit/L LAB CHEMISTRY METHOD 08/21/2024 3:19 PM [facility] Total Protein 7.4 6.0 - 8.0 g/dL LAB CHEMISTRY METHOD 08/21/2024 3:19 PM [facility] Albumin 4.2 3.2 - 5.0 g/dL LAB CHEMISTRY METHOD 08/21/2024 3:19 PM [facility] Total Bilirubin 0.4 0.0 - 1.4 mg/dL LAB CHEMISTRY METHOD 08/21/2024 3:19 PM [facility] Blood Venous blood specimen / Unknown Venipuncture / Unknown 08/21/2024 10:33 AM EST 08/21/2024 10:33 AM EST Pipo GARCES LAB BLOOD ORDERABLES [facility] [address] [place] [address], * HM Urine Albumin Creatinine Ratio (04/24/2024) Urine Albumin Creatinine Ratio Abstracted Historical Provider MD LOERA MAINALICIAANC E * (ABNORMAL) Hemoglobin A1c (04/24/2024) Hemoglobin A1C 6.9(A) 6.5 % Blood Venous blood specimen / Unknown Historical Provider LAB BLOOD ORDERAB LES * Hm Depression Screening (04/08/2024) Depression Screening Abstracted Historical Provider [facility] MAINALICIAANC E * (ABNORMAL) Lipid panel (03/01/2024) LDL/HDL Ratio 4 0 - 4 Triglycerides 267(A) 0 - 150 mg/dL Cholesterol 194 0 - 200 mg/dL HDL 49 40 mg/dL LDL Cholesterol 92 0 - 100 mg/dL Blood Venous blood specimen / Unknown Historical Provider LAB BLOOD ORDERAB LES * CT LUNG SCREENING LOW DOSE (02/21/2024 11:38 AM EDT) Anatomical Region Laterality Modality Computed Tomogra phy 02/21/2024 9:18 AM EDT Narrative 02/21/2024 11:38 AM EDT [facility] Diagnostic Imaging Department [address] [place], [place] [id number] Patient: ??HOMERO ALEGRIA ?/Age/Sex: 1965 - 59 - F Unit#: ??[id number] ? Location/Status: ??SPDICATLS/REG CLI ? Mnemonic/Ordering Site: ??CTLUNGLD/SPCT Ordering Physician: ??DOUG VILLARREAL MD CT Lung Screening Low Dose - 02/21/24 - 1023 Report Status:Signed PROCEDURE: CT chest lung cancer screening low dose examination. INDICATION: CT lung screening. TECHNIQUE: Chest CT without intravenous contrast was performed. ??Low-dose examination was performed. ??Reformatted images were evaluated. DOSE: CTDIvol: 4.8mGy. ??Total exam DLP: 155.0mGy-cm COMPARISON: ??None. ??Baseline exam FINDINGS: NODULES: No significant nodules are identified. LUNGS: Minimal emphysematous changes. OTHER: Limited views of the upper abdomen appear normal. ??Mediastinum appears within normal limits. ??No significant mediastinal lymphadenopathy. ??Coronary atherosclerotic disease. ??Mild degenerative changes in the spine. IMPRESSION: No significant nodules identified. Lung-RADS 1. ??Follow up examination is advised in one year. Dictating Physician: ??EHLAM KIRK MD Electronically Signed by: ??ELHAM KIRK MD Dic Date/Time: ??02/21/24 1126 Sign date/Time: ??02/21/24 1138 Procedure Note Elham Kirk MD - 06/26/2024 [facility] Diagnostic Imaging Department [address] [place] [address] Patient: HOMERO ALEGRIA /Age/Sex: 1965 - 59 - F Unit#: [id number] Location/Status: SPDICATLS/REG CLI Mnemonic/[facility] Ordering Physician: DOUG VILLARREAL MD CT Lung Screening Low Dose - 02/21/24 - 1023 Report Status:Signed PROCEDURE: CT chest lung cancer screening low dose examination. INDICATION: CT lung screening. TECHNIQUE: Chest CT without intravenous contrast was performed.Low-dose examination was performed. Reformatted images were evaluated. DOSE: CTDIvol: 4.8mGy. Total exam DLP: 155.0mGy-cm COMPARISON: None. Baseline exam FINDINGS: NODULES: No significant nodules are identified. LUNGS: Minimal emphysematous changes. OTHER: Limited views of the upper abdomen appear normal. Mediastinumappears within normal limits. No significant mediastinal lymphadenopathy.Coronary atherosclerotic disease. Mild degenerative changes in the spine. IMPRESSION: No significant nodules identified. Lung-RADS 1. Follow up examination is advised in one year. Dictating Physician: ELHAM KIRK MD Electronically Signed by: ELHAM KIRK MD Dic Date/Time: 02/21/24 1126 Sign date/Time: 02/21/24 1138 Doug Villarreal MD [facility] CT PROCEDURES * Colonoscopy (11/24/2020) Colonoscopy No interpretation , Abstracted Anatomical Region Laterality Modality Other Historical Provider [facility] CHICHI E * Cervical Cancer Screening: HPV (08/05/2020) Cervical Cancer Screening: HPV Negative, Abstracted Historical Provider MD LUZ MARIA Alcantara * Hepatitis C Screening (05/20/2014) Hepatitis C Screening Abstracted Historical Provider MD LUZ MARIA CADET E from Last 3 Months or Most Recently Relevant to Health Maintenance Advance Directives Documents on File Type Date Recorded Patient Storeperson Expl anation Health Care Decision (hx) 12/30/2017 AD CHAVEZ DIRECTIVE Health Care Decision (hx) 12/30/2017 AD CHAVEZ DIRECTIVE Health Care Decision (hx) 12/30/2017 AD CHAVEZ DIRECTIVE Health Care Decision (hx) 12/30/2017 AD CHAVEZ DIRECTIVE Health Care Decision (hx) 12/30/2017 AD CHAVEZ DIRECTIVE Health Care Decision (hx) 12/30/2017 AD CHAVEZ DIRECTIVE Health Care Decision (hx) 12/30/2017 AD CHAVEZ DIRECTIVE Health Care Decision (hx) 12/30/2017 AD CHAVEZ DIRECTIVE Health Care Decision (hx) 12/30/2017 AD CHAVEZ DIRECTIVE Health Care Decision (hx) 12/30/2017 AD CHAVEZ DIRECTIVE Health Care Decision (hx) 12/30/2017 AD CHAVEZ DIRECTIVE Health Care Decision (hx) 12/30/2017 AD CHAVEZ DIRECTIVE Health Care Decision (hx) 12/30/2017 AD CHAVEZ DIRECTIVE Health Care Decision (hx) 12/30/2017 AD CHAVEZ DIRECTIVE Care Teams Economics Faculty Member Relationship Specialty Start Date End Date Naila Vargas MD [address] [place] [address] PCP - General Internal Medicine 04/18/22
--- OUTSIDE RECORDS SUMMARY | 2024-10-11 08:06 | XMS_ITS | Encounter Summary ---
Author Organization [facility] Address [address] [place] [address] Care Team Providers Care Drug Abuse Counselor Name Role Phone Naila Vargas MD Primary Care Provider [phone] Reason for Visit * Reason Onset Date Comments DME 09/30/2024 Encounter Details Date Type Department Care Team (Late Contact Info) Description 09/30/2024 Telephone Pulmonol - [place] [address] [facility] [address] [place] [phone] Irish Lorenzo MA DME Social History Tobacco Use Types Packs/Day Years [...] as of this encounter Progress Notes * Karla Chavez MA - 10/04/2024 9:28 AM EST Nebulizer order sent to [facility] due to [facility] don't take [facility] * Irish Lorenzo MA - 09/30/2024 1:52 PM EST Order for nebulizer faxed to [facility]. Fax confirmation received. documented in this encounter Plan of Treatment Upcoming Encounters Date Type Department Care Team (Late st Contact Info) Description 11/22/2024 1:00 PM EDT Office Visit Adult Medicine [facility] [address] [place] [address] Naila Vargas MD [address] [place] [address] 12/23/2024 9:30 AM EDT Office Visit Pulmonolgy - [place] [address] [facility] [address] [place] [address] Maricel Hawkins NP [address] [facility] [address] [place] [address] documented as of this encounter Visit Diagnoses Not on filedocumented in this encounter Care Teams Drug Abuse Counselor Relationship Specialty Start Date End Date Naila Vargas MD [address] [place] [phone] PCP - General Internal Medicine 04/18/22 documented as of this encounter
--- OUTSIDE RECORDS SUMMARY | 2024-10-11 08:06 | XMS_ITS | Encounter Summary ---
Author Organization [facility] Address [address] [facility] 7 [place] [address] Care Team Providers Care Dental Resident Name Role Phone Unavailable Primary Care Provider Unavailabl e Encounter Details Date Type Department Care Team (Latest Contact Info) Description 02/18/2021 Abstract [facility] CONVERSIONS Dental, Provider, DDS Social History Tobacco Use Types Packs/Day Years Used Date Smoking Tobacco: Never Assessed Comments Unknown Sex and Gender Information Value Date Recorded Sex Assigned at Female 07/11/2022 10:23 AM EDT Legal Sex Female 10:23 AM EDT Gender Identity Female 07/11/2022 10:23 AM EDT Sexual Orientation Choose not to disclose 2021 10:23 AM EDT documented as of this encounter Plan of Treatment Upcoming Encounters Date Type Department Care Team (Late st Contact Info) Description 03/05/2025 10:00 AM EDT Office Visit [facility] ADULT DENTAL [address] [place] [address] [place], [place] [address] [place] [address] documented as of this encounter Visit Diagnoses Not on filedocumented in this encounter
--- OUTSIDE RECORDS SUMMARY | 2024-10-11 08:06 | XMS_ITS | Encounter Summary ---
Author Organization [facility] Address [address] [place] [address] Care Team Providers Care Physical Science Professor Name Role Phone Naila Vargas MD Primary Care Provider [phone] Reason for Visit * Reason Onset Date Comments DME 09/30/2024 Encounter Details Date Type Department Care Team (Late Contact Info) Description [facility] [address] [facility] [address] [place] [address] Irish Lorenzo MA DME Social History Tobacco [...] Progress Notes * Irish Lorenzo MA - 09/30/2024 3:30 PM EST Order for CPAP supplies faxed to [facility]. Fax confirmation received. documented in this encounter Plan of Treatment Upcoming Encounters Date Type Department Care Team (Late Contact Info) Description 11/22/2024 1:00 PM EDT Office Visit Adult Medicine [address] [address] Naila Vargas MD [address] [place] [address] 12/23/2024 9:30 AM EDT Office Visit Pulmonolgy - [place] [address] [facility] [address] [place] [address] Maricel Hawkins NP [address] [facility] [address] [place] [address] documented as of this encounter Visit Diagnoses Not on filedocumented in this encounter Care Teams Physical Science Professor Relationship Specialty Start Date End Date Naila Vargas MD [address] [place] [phone] PCP - General Internal Medicine 04/18/22 documented as of this encounter
--- OUTSIDE RECORDS SUMMARY | 2024-10-11 08:06 | XMS_ITS | Encounter Summary ---
Author Organization [facility] Address [address] [facility] [address] [place] [address] Care Team Providers Care Oil Exploration Engineer Name Role Phone Unavailable Primary Care Provider Unavailabl e Encounter Details Date Type Department Care Team (Latest Contact Info) Description 11/14/2019 Abstract [facility] CONVERSIONS Dental, Provider, DDS Social History [...] Description 03/05/2025 10:00 AM EDT Office Visit [facility] ADULT DENTAL [address] [place] [address] [place] [address] [place] [address] documented as of this encounter Visit Diagnoses Not on filedocumented in this encounter
--- OUTSIDE RECORDS SUMMARY | 2024-10-11 08:06 | XMS_ITS | Encounter Summary ---
Author Organization [facility] Address [address] [facility] [address] [place] [address] Care Team Providers Care Transmission Line Engineer Name Role Phone Unavailable Primary Care Provider Unavailabl e Encounter Details Date Type Department Care Team (Latest Contact Info) Description 04/22/2022 Abstract [facility] CONVERSIONS Dental, Provider, DDS Social History [...] Description 03/05/2025 10:00 AM EDT Office Visit [facility] ADULT DENTAL [address] [place] [address] [place], [place] [address] [place] [address] documented as of this encounter Visit Diagnoses Not on filedocumented in this encounter
--- OUTSIDE RECORDS SUMMARY | 2024-10-11 08:07 | XMS_ITS | Encounter Summary ---
Author Organization [facility] Address [address] [facility] [address] [place] [address] Care Team Providers Care Radiographer Mammographer Name Role Phone Unavailable Primary Care Provider Unavailabl e Encounter Details Date Type Department Care Team (Latest Contact Info) Description 11/09/2018 Abstract [facility] CONVERSIONS Dental, Provider, DDS Social History [...] Description 03/05/2025 10:00 AM EDT Office Visit [facility] ADULT DENTAL [address] [place] [address] [place] [address] [place] [address] documented as of this encounter Visit Diagnoses Not on filedocumented in this encounter
[2024-10-11 08:10] LABS: Appearance Urine Clear; Color Urine Yellow; Glucose Urine UA Negative (Negative); Leukocyte Esterase Urine Negative (Negative); Nitrite Urine Negative (Negative); PH 5.5 (5.0-9.0); Specific Gravity - Urine 1.025 (1.005-1.025); UMIC TRIGGER UACC YES; Urine Blood Trace (Negative); Urine Ketones Trace mg/dL (Negative); Urine Protein Trace mg/dL (Neg-Trace)
[2024-10-11 08:15] LABS: Bacteria Urine None Seen (None Seen); Hyaline Casts Urine 0-2 /LPF (0-2); WBC Urine 0-5 /HPF (0-5)
[2024-10-11] MEDS: Piperacillin Sodium/Tazobactam 3.375 GM in 0.9 % Sodium Chloride 50 ML IV (08:34)
[2024-10-11 08:36] LABS: Albumin Level 4.1 g/dL (3.5-5.0); Alkaline Phosphatase 58 U/L (39-117); Anion Gap 13 (12-20); Aspartate Amino Transferase 32 U/L (5-31); Bilirubin Total 0.4 mg/dL (0.0-1.0); Blood Urea Nitrogen 10 mg/dL (9-16); Calcium 9.3 mg/dL (8.4-10.2); Carbon Dioxide 23 mmol/L (22-29); Chloride 109 mmol/L (96-108); Estimated Glomerular Filt Rate > 60; Glucose Random 149 mg/dL (60-115); Potassium 3.9 mmol/L (3.3-5.1); Sodium 141 mmol/L (135-145); Total Protein 7.2 g/dL (6.5-8.0)
[2024-10-11 08:42] LABS: Alanine Aminotransferase 36 U/L (0-31)
[2024-10-11 08:48] LABS: Lactic Acid 1.3 mmol/L (0.5-2.0)
[2024-10-11] MEDS: vancomycin/NS 2,000 MG/500 ML PLAST..BAG 250 MG IV (09:36)
[2024-10-11 10:26] VITALS: BP 139/72; PULSE 70; RESP 16; TEMP 36.6; O2SAT 98
[2024-10-11 11:32] VITALS: BP 130/74; PULSE 74; RESP 18; TEMP 36.7; O2SAT 98
== END 2024-10-11 11:44 | disposition home or self-care (01) ==
PROVIDERS: Emergency Provider Emergency Medicine; PCP Internal Medicine
DX: L03.311 Cellulitis of abdominal wall (principal); I10 Essential (primary) hypertension; E11.9 Type 2 diabetes mellitus without complications; R50.9 Fever, unspecified; R10.2 Pelvic and perineal pain; Z79.899 Other long term (current) drug therapy; Z87.891 Personal history of nicotine dependence
CPT/HCPCS: 36415; 80053; 81001; 83605; 85025; 87040; 96365; 96366; 96367; 99283; 99284; J2543; J3370

== ENCOUNTER 2024-11-05 12:34 | Inpatient (IN) | payer OTHER, SELFPAY ==
--- NOTE | ~2024-11-05 | XR_ITS ---
EXAMINATION: XR CHEST CLINICAL INFORMATION: chest pain COMPARISON: February 23, 2024. TECHNIQUE: 2 views of the chest were obtained. FINDINGS: Indistinct margins in the perihilar regions. Prominence of the interstitial markings. No consolidation pleural effusion or pneumothorax. Cardiomediastinal silhouette size is normal. Multilevel thoracic spondylosis. XR/XR chest 2V IMPRESSION: Pulmonary edema versus small airway acute inflammatory process. Electronically signed by: Amilcar Valencia MD 11/05/2024 02:21 PM SHORTY PEPE
--- NOTE | 2024-11-05 12:35 | ECG_ITS ---
Test Reason : chest pain Blood Pressure : */* mmHG Vent. Rate : 84 BPM Atrial Rate : 84 BPM P-R Int : 132 ms QRS Dur : 76 ms QT Int : 388 ms P-R-T Axes : 37 -15 68 degrees QTcB Int : 458 ms Normal sinus rhythm Nonspecific ST and T wave abnormality Abnormal ECG When compared with ECG of 23-Feb-2024 09:18, Premature ventricular complexes are no longer Present Referred By: Lena Russell Electronically Signed By: DONAVAN BATES
[2024-11-05 13:38] VITALS: BP 137/90; PULSE 83; RESP 22; TEMP 37.1; O2SAT 96; BMI 41.6
--- NOTE | 2024-11-05 13:39 | ED.GENADULT ---
HPI - General Adult General Chief complaint: Chest Pain Stated complaint: chest pain Time Seen by Provider: 11/05/24 16:21 Source: patient and old records reviewed Mode of arrival: ambulatory Limitations: no limitations History of Present Illness ED Provider: DR. Arce HPI narrative: 59-year-old female history of HTN, DM, HLD, ex-smoker, PVD presented for evaluation of chest pain. Chest pain started since 23:00 last night woke her up from sleep, patient tried to walk to the bathroom felt generalized weakness, near syncope, with mid chest heaviness and bilateral arm pain, pain persistent next morning came to the hospital for further evaluation. No recent travel, no lower extremity swelling or tenderness, no fever, no chills. Related Data Home Medications ?Medication ?Instructions ?Recorded ?Confirmed cilostazol 100 mg tablet 100 mg PO BID 10/12/23 11/05/24 fluoxetine 20 mg capsule 20 mg PO DAILY 10/12/23 11/05/24 metformin 500 mg tablet 1,000 mg PO BID 10/12/23 11/05/24 omeprazole 40 mg capsule,delayed 40 mg PO QAM 10/12/23 11/05/24 release albuterol sulfate 90 mcg/actuation 2 puff inhalation Q4-6H PRN 11/01/23 11/05/24 aerosol inhaler (Ventolin HFA) Shortness Of Breath Or Wheezing aspirin 81 mg tablet,delayed 81 mg PO BEDTIME 11/01/23 11/05/24 release fluticasone propionate 230 2 puff inhalation BID PRN 11/01/23 11/05/24 mcg-salmeterol 21 mcg/actuation Shortness Of Breath Or Wheezing HFA inhaler (Advair HFA) lamotrigine 25 mg tablet 50 mg PO DAILY 11/01/23 11/05/24 amlodipine 2.5 mg tablet 2.5 mg PO DAILY 11/02/23 11/05/24 biotin 1,000 mcg chewable tablet 1,000 mcg PO DAILY 11/02/23 11/05/24 albuterol sulfate 2.5 mg/3 mL 2.5 mg inhalation Q6H PRN wheezing 11/05/24 11/05/24 (0.083 %) solution for nebulization cetirizine 10 mg tablet 10 mg PO DAILY PRN Allergy Symptoms 11/05/24 11/05/24 cholecalciferol (vitamin D3) 25 25 mcg PO DAILY 11/05/24 11/05/24 mcg (1,000 unit) tablet fluticasone propionate 50 2 spray intranasal DAILY PRN 11/05/24 11/05/24 mcg/actuation nasal Allergy Symptoms spray,suspension hydroxyzine HCl 25 mg tablet 25 mg PO TID PRN Anxiety 11/05/24 11/05/24 levothyroxine 25 mcg tablet 25 mcg PO DAILY 11/05/24 11/05/24 [id number]-[id number] 2 cap PO TIDWM 11/05/24 11/05/24 36,000-114,000-180,000 unit capsule,delay rel (Creon) multivitamin 1 tab PO DAILY 11/05/24 11/05/24 tiotropium bromide 2.5 2 puff inhalation DAILY PRN 11/05/24 11/05/24 mcg/actuation mist for inhalation Shortness Of Breath Or Wheezing (Spiriva Respimat) Previous Rx's ?Medication ?Instructions ?Recorded atorvastatin 40 mg tablet 40 mg PO DAILY #30 tabs 11/07/24 enoxaparin 120 mg/0.8 mL 110 mg (0.7333 mL) subcut Q12H #4 11/07/24 subcutaneous syringe mL insulin lispro 100 unit/mL See Protocol subcut QIDACHS #10 mL 11/07/24 subcutaneous solution (Admelog U-100 Insulin lispro) metoprolol tartrate 25 mg tablet 25 mg PO BID #60 tabs 11/07/24 oseltamivir 75 mg capsule (Tamiflu) 75 mg PO BID #6 caps 11/07/24 Allergies Allergy/AdvReac Type Severity Reaction Status Date / Time clarithromycin [From Biaxin] Allergy Intermediate Rash Verified 11/05/24 13:41 Review of Systems Review of Systems: All other systems are reviewed and are negative Constitutional: Reports as per HPI and Reports no additional constitutional complaints Eyes: Reports as per HPI and Reports no additional eye complaints Reports system reviewed and no additional complaints, except as documented Cardiovascular: Reports as per HPI and Reports no additional cardiovascular complaints Respiratory: Reports as per HPI and Reports no additional respiratory complaints Gastrointestinal: Reports as per HPI and Reports no additional gastrointestinal complaints Genitourinary: Reports no additional female genitourinary complaints Musculoskeletal: Reports no additional musculoskeletal complaints Skin/Breast: Reports system reviewed and no additional complaints, except as docu Psychiatric: Reports no additional psychiatric complaints Endocrine: Reports no additional endocrine complaints Hematologic/Lymphatic: Reports no additional hematologic/lymphatic complaints Allergic/Immunologic: Reports no additional allergic/immunologic complaints Reports system reviewed and no additional complaints, except as documented and Reports Abnormal speech present FOR[facility]LY [facility] Past Medical History Medical History Asthma Pre-op exam Depression Arthritis Cervical radiculitis Renal calculi HTN (hypertension) Diabetes Glaucoma GERD (gastroesophageal reflux disease) Hypothyroidism Hypercholesteremia Carpal tunnel syndrome Sleep apnea Peripheral arterial disease Surgical History History of esophagogastroduodenoscopy (EGD) Hx of colonoscopy Hx of tubal ligation Hx of repair of rotator cuff Hx of carpal tunnel repair Hx of lithotripsy History of appendectomy History of foot surgery Social History Social History Household Members: Significant Other Housing: House Are you a primary date night caregiver to a significant other at home: No Do you presently have visiting nurse or other home services: No Alcohol intake: current Alcohol intake frequency: holidays/special occasions only Comment: counts correct Patient Tobacco Use Status: Former Tobacco user Tobacco use type: Cigarette Years Smoked: 40 e-Cigarette/Vaping Use: Former Use Second Hand Smoke Exposure: No Substance Use Type: Marijuana service: No 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 Blood pressure elevated. Heart rate normal. Respiratory rate normal. Temperature normal. Oxygen saturation normal. Appearance: Alert. Oriented X3. No acute distress. Head: Normal external exam. Normocephalic. Atraumatic. No [place] signs noted. No raccoon eyes noted Eyes: PERRLA. EOMI. Conjunctiva and sclera normal. Eyelids normal. ENT: TM's Normal. Pharynx normal. Uvula midline. Moist mucous membranes. No trismus noted. No drooling noted. No muffled voice noted. Neck: Normal inspection. Neck supple. FROM. No adenopathy. Thyroid Normal. No meningeal signs. No neck mass noted. CVS: Normal heart rate and rhythm. Heart sound normal. No murmurs noted. Pulses normal throughout. Respiratory: No respiratory distress. Painless inspiration. Breath sounds normal. No wheezes/rales/rhonchi noted. Chest nontender. No accessory muscle usage noted or decreased air movement noted. Abdomen: Soft and nontender. Bowel sounds normal in all 4 quadrants. No distention noted. No organomegaly noted. No visible injury noted. Back: No CVA tenderness. Full range of motion noted. Skin: Skin warm and dry. Normal skin color. Normal skin turgor. No rashes/lesions/lacerations noted. Extremities: No lower extremity edema. Extremities exhibit normal range of motion. Extremities nontender. Neuro: Oriented X 3. Cranial nerve exam: II-XII are grossly intact No motor deficit. No sensory deficit. Reflexes normal. Course Course Course Narrative: This is a rapid medical exam performed by Rafaela Russell NP: Additional HPI, ROS, PE not included below will be deferred to primary provider. Patient is a 59-year-old female with history of DM, HTN, high cholesterol, bilat carotid stenosis, PAD presenting with complaint of chest pain which woke her from sleep at 11:15 last night. Pain radiated to both arms, was to right of sternum, associated shortness of breath. Rates a 9/10 at onset, 2/10 now. Has been missing her losartan for the past month, lost the bottle and unable to fill due to insurance. Plan: EKG, labs, CXR Reevaluation(s) Reevaluation #1: NSTEMI 1. Case discussed with Dr. Jackson who recommended either to transfer out to [facility] (no available beds at [facility] and closed for transfer), or admit the patient to [facility]. 2. Will start on aspirin, nitro, beta kannan, Lovenox, statin. 3. Influenza A positive. Time: 16:48 Medications Administered Discontinued Medications Generic Name Dose Route Start Last Admin Trade Name Freq PRN Reason Stop Dose Admin Acetaminophen 650 mg 11/05/24 16:56 11/05/24 17:00 Acetaminophen 325 Mg Tablet PO 11/05/24 16:57 650 mg ONCE STA Administration Acetaminophen 650 mg 11/05/24 17:33 11/06/24 17:49 Acetaminophen 325 Mg Tablet PO 650 mg Q6H PRN Administration Pain, Mild 1-3,fever,headache Amlodipine Besylate 2.5 mg 11/06/24 09:00 11/07/24 09:31 Amlodipine Besylate 2.5 Mg Tablet PO 2.5 mg DAILY DARSHAN Administration Protocol Aspirin 325 mg 11/05/24 16:29 11/05/24 16:48 Aspirin 325 Mg Tablet PO 11/05/24 16:30 325 mg ONCE ONE Administration Aspirin 81 mg 11/06/24 09:00 11/07/24 09:31 Aspirin 81 Mg Tab.Chew PO 81 mg DAILY DARSHAN Administration Atorvastatin Calcium 80 mg 11/05/24 16:29 11/05/24 16:47 Atorvastatin Calcium 80 Mg Tablet PO 11/05/24 16:30 80 mg ONCE ONE Administration Atorvastatin Calcium 40 mg 11/06/24 09:00 11/07/24 09:32 Atorvastatin Calcium 40 Mg Tablet PO 40 mg DAILY DARSHAN Administration Cilostazol 100 mg 11/05/24 21:00 11/07/24 10:40 Cilostazol 100 Mg Tablet PO 100 mg BID DARSHAN Administration Enoxaparin Sodium 120 mg 11/05/24 16:34 11/05/24 16:49 Enoxaparin Sodium 120 Mg/0.8 Ml Syringe 1 mg/kg (120 mg) 11/05/24 16:35 120 mg SUBCUT Administration ONCE ONE Enoxaparin Sodium 110 mg 11/06/24 05:00 11/07/24 16:55 Enoxaparin Sodium 120 Mg/0.8 Ml Syringe SUBCUT 110 mg Q12H DARSHAN Administration Fluoxetine HCl 20 mg 11/06/24 09:00 11/07/24 09:31 Fluoxetine Hcl 20 Mg Capsule PO 20 mg DAILY DARSHAN Administration Fluticasone/Vilanterol 1 puff 11/06/24 08:00 11/07/24 07:56 Fluticasone/Vilanterol 200/25 Blst.W.Dev INHALE 1 puff RDAILY DARSHAN Administration Hydroxyzine HCl 25 mg 11/05/24 20:02 11/06/24 21:52 Hydroxyzine Hcl 25 Mg Tablet PO 25 mg TID PRN Administration Anxiety Insulin Human Lispro 0 unit 11/05/24 21:00 11/07/24 16:54 Insulin Lispro 100 Unit/Ml 3 Ml Vial SUBCUT 2 unit QIDACHS [facility] Administration Protocol Lamotrigine 50 mg 11/06/24 09:00 11/07/24 09:31 Lamotrigine 25 Mg Tablet PO 50 mg DAILY [facility] Administration Levothyroxine Sodium 25 mcg 11/06/24 06:00 11/07/24 05:57 Levothyroxine Sodium 25 Mcg Tablet PO 25 mcg DAILY@0600 [facility] Administration Lorazepam 1 mg 11/05/24 20:10 11/05/24 20:26 Lorazepam 1 Mg Tablet PO 11/05/24 20:11 1 mg ONCE ONE Administration Magnesium Hydroxide 30 ml 11/05/24 17:33 11/07/24 16:56 Milk Of Magnesia 30 Ml Oral.Susp PO 30 ml DAILY PRN Administration Constipation Metoprolol Tartrate 12.5 mg 11/05/24 16:29 11/05/24 16:47 Metoprolol Tartrate 12.5 Mg Halftab PO 11/05/24 16:30 12.5 mg ONCE ONE Administration Protocol Metoprolol Tartrate 25 mg 11/06/24 09:00 11/07/24 09:31 Metoprolol Tartrate 25 Mg Tablet PO 25 mg BID [facility] Administration Protocol Multivitamins/Vitamin C 1 tab 11/06/24 09:00 11/07/24 09:31 Multivitamin Tablet PO 1 tab DAILY [facility] Administration Nitroglycerin 1 inch 11/05/24 16:29 11/05/24 16:48 Nitroglycerin 2 % Oint 1 Gm Packet TRANSDERMA 11/05/24 16:30 1 inch ONCE ONE Administration Oseltamivir Phosphate 75 mg 11/05/24 21:00 11/07/24 09:31 Oseltamivir Phosphate 75 Mg Capsule PO 11/10/24 09:01 75 mg BID [facility] Administration Pantoprazole Sodium 40 mg 11/06/24 06:30 11/07/24 05:57 Pantoprazole Sodium 20 Mg Tablet.Dr PO 40 mg DAILY@0630 [facility] Administration Tiotropium Frederic 2 puff 11/05/24 20:02 11/07/24 07:56 Tiotropium Frederic 2.5 Mcg 1 Puff/2.5 Mcg Mist.Inhal INHALE 2 puff DAILY PRN Administration Shortness Of Breath Or Wheezing Vitamin D 25 mcg 11/06/24 09:00 11/07/24 09:31 Cholecalciferol (Vitamin D3) 25 Mcg Tablet PO 25 mcg DAILY DARSHAN Administration Medical Decision Making Differential Diagnosis Differential Diagnoses: The differential diagnosis associated with the presentation includes (ACS, pneumonia, pneumothorax, pleural effusion, pulmonary embolism, influenza a, COVID-19 infection, RSV, electrolyte derangement, severe anemia) Admission/Observation Consideration of admission/observation: Escalation of care including admission/observation considered Lab Data 11/06/24 04:37 11/06/24 04:37 Labs: Lab Results 11/05/24 11/05/24 11/05/24 Range/Units 13:49 15:53 16:53 WBC 6.8 6.3 (4.8-10.8) X10*3/uL RBC 4.42 4.37 (4.20-5.50) X10*6/uL Hgb 14.7 14.3 (12.0-16.0) g/dl Hct 42.2 42.2 (37.0-47.0) % MCV 95.5 96.6 (80.0-98.0) fL MCH 33.3 H 32.7 (27.0-33.0) pg MCHC 34.8 33.9 (31.0-35.0) g/dl RDW 13.4 13.5 (11.0-16.0) % Plt Count 238 225 (160-400) X10*3/uL MPV 8.9 L 8.9 L (9.4-12.3) fL Immature Gran % (Auto) 0.3 (0.0-0.4) % Neut % (Auto) 76.9 H (45-73) % Lymph % (Auto) 13.0 L (20-40) % [place] % (Auto) 8.2 (2-11) % Eos % (Auto) 1.2 (0-4) % Baso % (Auto) 0.4 (0-2) % Lymph # (Auto) 0.9 L (1.2-4.9) X10*3/uL [place] # (Auto) 0.6 (0.1-1.2) X10*3/uL Eos # (Auto) 0.1 (0.0-0.4) X10*3/uL Baso # (Auto) 0.0 (0.0-0.2) X10*3/uL Abs Immat Gran (auto) 0.02 (0.00-0.03) X10*3/uL Absolute Neuts (auto) 5.2 (2.0-8.3) x10*3/uL Absolute Nucleated RBC 0.000 0.000 (0.0-0.012) X10*3/uL Nucleated RBC % (auto) 0.0 0.0 (0.0-0.2) /100WBC PT 11.7 11.8 (10.9-12.4) SEC INR 1.0 1.0 (0.9-1.1) APTT 26.6 (26.0-36.8) SEC D-Dimer High Sensitivty 158 NG/ML Sodium 139 (135-145) mmol/L Potassium 3.8 (3.3-5.1) mmol/L Chloride 109 H (96-108) mmol/L Carbon Dioxide 20 L (22-29) mmol/L Anion Gap 14 (12-20) BUN 7 L (9-16) mg/dL Creatinine 0.80 (0.5-1.4) mg/dL Estim Creat Clear Calc 96.3 Estimated GFR > 60 Random Glucose 159 H (60-115) mg/dL Calcium 9.8 (8.4-10.2) mg/dL Total Bilirubin 0.6 (0.0-1.0) mg/dL AST 54 H (5-31) U/L ALT 40 H (0-31) U/L Alkaline Phosphatase 62 (39-117) U/L Troponin I High Sens 211.8 H* D 302.6 H* (<3.5-17.0) ng/L Total Protein 8.0 (6.5-8.0) g/dL Albumin 4.4 (3.5-5.0) g/dL Influenza Type A (PCR) POSITIVE A (Negative) Influenza Type B (PCR) NEGATIVE (Negative) RSV RNA Qual (PCR) NEGATIVE (Negative) SARS-CoV-2 RNA (RT-PCR) NEGATIVE (Negative) Discharge Plan Discharge Clinical Impression: Non-ST elevation myocardial infarction (NSTEMI) Patient Disposition: Admitted As Inpatient Interventions: Admission Worksheet (ED) Last Done: 11/07/24 07:59 Discharge Date/Time: 11/07/24 08:56
[2024-11-05 13:56] LABS: MANUAL DIFF FLAG NO
[2024-11-05 13:57] LABS: Basophils Percent Auto 0.4 % (0-2); Eosinophils Absolute Auto 0.1 X10*3/uL (0.0-0.4); Eosinophils Percent Auto 1.2 % (0-4); Hematocrit 42.2 % (37.0-47.0); Hemoglobin 14.7 g/dl (12.0-16.0); Imm Gran Abs Auto 0.02 X10*3/uL (0.00-0.03); Imm Gran Pct Auto 0.3 % (0.0-0.4); Lymphocytes Absolute Auto 0.9 X10*3/uL (1.2-4.9); Mean Corpuscular HGB Conc 34.8 g/dl (31.0-35.0); Mean Corpuscular Hemoglobin 33.3 pg (27.0-33.0); Mean Corpuscular Volume 95.5 fL (80.0-98.0); Mean Platelet Volume 8.9 fL (9.4-12.3); Monocytes Absolute Auto 0.6 X10*3/uL (0.1-1.2); Monocytes Percent Auto 8.2 % (2-11); Neutrophils Absolute Auto 5.2 x10*3/uL (2.0-8.3); Neutrophils Percent Auto 76.9 % (45-73); Platelet Count 238 X10*3/uL (160-400); Red Blood Count 4.42 X10*6/uL (4.20-5.50); Red Cell Distribution Width 13.4 % (11.0-16.0); White Blood Count 6.8 X10*3/uL (4.8-10.8)
[2024-11-05 14:01] LABS: Prothrombin Time 11.7 SEC (10.9-12.4)
[2024-11-05 14:18] LABS: Alanine Aminotransferase 40 U/L (0-31); Albumin Level 4.4 g/dL (3.5-5.0); Alkaline Phosphatase 62 U/L (39-117); Anion Gap 14 (12-20); Aspartate Amino Transferase 54 U/L (5-31); Bilirubin Total 0.6 mg/dL (0.0-1.0); Blood Urea Nitrogen 7 mg/dL (9-16); Calcium 9.8 mg/dL (8.4-10.2); Carbon Dioxide 20 mmol/L (22-29); Chloride 109 mmol/L (96-108); Creatinine Clr Calc Pharmacy 96.3; Estimated Glomerular Filt Rate > 60; Glucose Random 159 mg/dL (60-115); Potassium 3.8 mmol/L (3.3-5.1); Sodium 139 mmol/L (135-145)
[2024-11-05 14:21] LABS: Troponin-I High Sensitivity 211.8 ng/L (<3.5-17.0)
[2024-11-05 14:36] LABS: Influenza A PCR POSITIVE (Negative); Influenza B PCR NEGATIVE (Negative); Resp Syncy Virus RNA Qual PCR NEGATIVE (Negative); SARS COV2 PCR INHOUSE NEGATIVE (Negative)
[2024-11-05 16:04] VITALS: BP 151/84; PULSE 98; RESP 25; TEMP 37.7; O2SAT 96
--- OUTSIDE RECORDS SUMMARY | 2024-11-05 16:13 | XMS_ITS | Encounter Summary ---
Author Organization [employer] [facility] Address [address] [place] [address] Care Team Providers Care Kiln Burner Helper Name Role Phone Unavailable Primary Care Provider Unavailabl e Encounter Details Date Type Department Care Team (Latest Contact Info) Description 04/22/2022 Abstract [facility] CONVERSIONS Dental, Provider, DDS Social History [...] Description 03/05/2025 10:00 AM EDT Office Visit [facility] ADULT DENTAL [address] [place] [address] Leticia, [place] [address] [place] [address] documented as of this encounter Visit Diagnoses Not on filedocumented in this encounter
--- OUTSIDE RECORDS SUMMARY | 2024-11-05 16:13 | XMS_ITS | Encounter Summary ---
Author Organization [employer] [facility] Address [address] [place] [address] Care Team Providers Care Pitch Filler Name Role Phone Unavailable Primary Care Provider Unavailabl e Encounter Details Date Type Department Care Team (Latest Contact Info) Description 02/18/2021 Abstract [facility] CONVERSIONS Dental, Provider, DDS Social History Tobacco [...] Description 03/05/2025 10:00 AM EDT Office Visit [facility] ADULT DENTAL [address] [place] [address] Leticia, [place] [address] [place] [address] documented as of this encounter Visit Diagnoses Not on filedocumented in this encounter
--- OUTSIDE RECORDS SUMMARY | 2024-11-05 16:13 | XMS_ITS | Encounter Summary ---
Author Organization [employer] [facility] Address [address] [place] [address] Care Team Providers Care [place] Gold Attendant Name Role Phone Unavailable Primary Care Provider Unavailabl e Encounter Details Date Type Department Care Team (Latest Contact Info) Description 11/14/2019 Abstract [facility] CONVERSIONS Dental, Provider, DDS Social History [...] Description 03/05/2025 10:00 AM EDT Office Visit [facility] ADULT DENTAL [address] [place] [address] Leticia [place] [address] [place] [address] documented as of this encounter Visit Diagnoses Not on filedocumented in this encounter
--- OUTSIDE RECORDS SUMMARY | 2024-11-05 16:13 | XMS_ITS | Clinical Summary ---
Author Organization 175 [facility] Address [address] [place] [address] Phone Care Team Providers Care Vision Teacher Name Role Phone Naila Vargas MD Primary Care Provider [phone] Allergies Active Allergy Reactions Criticality Noted Date Comments Clarithromycin 01/15/2014 Other 02/21/2019 Environmental seasonal allergies; Seasonal Allergies Pollen Extracts 02/21/2019 Medications acetaminophen (TYLENOL) 500 mg tablet Take 1 Tablet by mouth every 6 hours as needed. Active amLODIPine (NORVASC) 2.5 mg tablet Take 1 Tablet by mouth daily. 07/09/20 24 Active Vitamin C tablet Take 1 Tablet by mouth daily. Active aspirin 81 mg EC tablet Take 81 mg by mouth daily. Active biotin 10 mg tablet Take by mouth. Activ e blood-glucose meter kit Use to check blood sugar once daily 07/09/20 24 Active blood-glucose meter kit Use to check blood sugar daily as needed 04/11/20 24 Active cetirizine (ZyrTEC) 10 mg capsule Take 10 mg by mouth daily. 12/22/19 24 Active ciclopirox (LOPROX) 0.77 % cream Apply to affected cuticle after washing hands 07/25/20 22 Active cyanocobalamin (VITAMIN B-12) 1,000 mcg tablet Take 1 Tablet by mouth daily. 01/07/20 23 Active diclofenac (VOLTAREN) 1 % topical gel Apply 2 g topically 2 times daily as needed for Other (Elbow pain). 07/09/20 24 Active FINASTERIDE ORAL Take by mouth daily. Active fluticasone propionate (FLONASE) 50 mcg/actuation nasal spray 2 Sprays by Each Nare route daily. 12/22/19 24 Active gabapentin (NEURONTIN) 300 mg capsule Take 1 Capsule by mouth at bedtime. 04/08/20 24 Active blood sugar diagnostic (FreeStyle Lite Strips) test strip Use to check blood sugar once daily 07/09/20 24 Active lamoTRIgine (LaMICtal) 25 mg tablet daily. 12/15/19 23 Active losartan (COZAAR) 25 mg tablet Take 1 Tablet by mouth daily. 09/29/19 23 Active neomycin-polymy shivam-dexamethame thasone (POLYDEX) 3.5 mg/g-10,000 unit/g-0.1 % ointment neomycin 3.5 mg/g-polymyxin B 10,000 unit/g-dexameth 0.1 % eye oint Active omeprazole (PriLOSEC) [address] capsule TAKE 1 CAPSULE BY MOUTH DAILY. TAKE IN A.M. ON EMPTY STOMACH, WAIT 30 MINUTES AND THEN EAT 06/11/20 24 Active ONETOUCH DELICA LANCETS MISC Use to test blood sugar daily 09/30/19 22 Active lipase-protease -amylase (Creon) 36,000-114,000- 180,000 unit capsule,delayed release(DR/EC) Take 2 Capsules by mouth 3 times daily (with meals). 01/10/20 24 Active QUEtiapine (SEROquel) 50 mg tablet daily. 12/15/19 23 Active simvastatin (ZOCOR) 40 mg tablet TAKE 1 TABLET BY MOUTH AT BEDTIME. 01/26/20 24 Active valacyclovir HCl (VALACYCLOVIR ORAL) Take 1,000 mg by mouth 2 times daily. Active DIETARY SUPPLEMENT ORAL Take by mouth. 10,000 Units once a week Active metFORMIN (GLUCOPHAGE) 500 mg tablet TAKE 2 TABLETS BY MOUTH TWICE A DAY WITH MEALS 360 tablet 1 07/29/20 24 Active FLUoxetine (PROzac) 20 mg capsule TAKE 1 CAPSULE BY MOUTH EVERY DAY 90 capsule 1 08/19/20 24 Active lancets (OneTouch Delica Plus Lancet) 33 gauge USE ONCE DAILY TO CHECK FASTING BLOOD SUGAR 100 each 1 08/19/20 24 Active hydrOXYzine HCL (ATARAX) 25 mg tablet 08/14/20 24 Active lipase-protease -amylase (Creon) 36,000-114,000- 180,000 unit capsule,delayed release(DR/EC) Take 2 capsules by mouth 3 (three) times a day. 540 capsule 4 08/21/20 24 Active doxycycline (ADOXA) 100 mg tablet Take 1 tablet (100 mg total) by mouth 2 (two) times a day. for 5 days 09/14/19 25 Active albuterol 2.5 mg /3 mL (0.083 %) nebulizer solutionIndicat ions:Moderate persistent asthma with exacerbation Take 3 mL (2.5 mg total) by nebulization every 6 (six) hours if needed for wheezing. 100 mL 2 09/20/19 25 2025 Active albuterol 2.5 mg /3 mL (0.083 %) nebulizer solutionIndicat ions:Moderate persistent asthma with exacerbation Take 3 mL (2.5 mg total) by nebulization every 6 (six) hours if needed for wheezing. 75 mL 09/20/19 25 2025 Active tiotropium (Spiriva Respimat) 2.5 mcg/actuation inhalation sprayIndication s:Moderate persistent asthma with exacerbation Inhale 2 puffs by mouth 1 (one) time each day. 1 each 12 09/20/19 25 2025 Active fluticasone propion-salmete roL (ADVAIR HFA) 230-21 mcg/actuation inhalerIndicati ons:Moderate persistent asthma with exacerbation Inhale 2 puffs by mouth 2 (two) times a day. Rinse mouth with water after use to reduce aftertaste and incidence of candidiasis. Do not swallow. 3 each 2 09/20/19 25 Active albuterol HFA (PROAIR HFA ; PROVENTIL HFA ; VENTOLIN HFA) 90 mcg/actuation inhalerIndicati ons:Moderate persistent asthma with exacerbation Inhale 2 puffs by mouth every 4 (four) hours if needed for wheezing or shortness of breath (cough and chest tightness). 54 g 3 09/20/19 25 Active cilostazoL (PLETAL) 100 mg tablet TAKE 1 TABLET BY MOUTH TWICE A DAY 180 tablet 10/07/19 25 Active levothyroxine (SYNTHROID, LEVOTHROID) 25 mcg tablet TAKE 1 TABLET BY MOUTH EVERY DAY 90 tablet 1 10/07/19 25 Active cilostazoL (PLETAL) 100 mg tablet TAKE 1 TABLET BY MOUTH TWICE A DAY 06/17/20 24 2024 Discontinued levothyroxine (SYNTHROID, LEVOTHROID) 25 mcg tablet TAKE 1 TABLET BY MOUTH EVERY DAY 03/06/20 24 2024 Discontinued Active Problems Problem Noted Date Diagnosed Date Achilles tendon disorder 07/18/2024 Overview (07/18/2024): Right s/p PT, f/u with pictures editor Arthritis 07/18/2024 Overview (07/18/2024): Hips, knees. Follows with [facility] Dyslipidemia 07/18/2024 Pancreatic insufficiency 07/18/2024 Vitamin D deficiency 07/18/2024 Precordial pain 03/01/2024 Carotid artery stenosis 10/31/2023 Overview (07/18/2024): Right ICA 80% on CTA @ [facility] 10/11/2023 Nocturnal hypoxia 03/09/2023 Overview (07/18/2024): [...] Morbid obesity with BMI of 40.0-44.9, adult /09/2020 Cervical radiculitis 10/28/2020 Obstructive sleep apnea 04/07/2020 [...] Care Team Description 09/30/2024 Telephone [place]gy [place] [address] [facility] [address] [place] [phone] Irish Lorenzo MA DME 09/30/2024 Telephone Pulmonolgy - [place] [address] [place] [phone] Irish Lorenzo MA DME 09/27/2024 Telephone [facility] [place] [address] [place] [phone] Maricel Hawkins NP 09/20/2024 9:30 AM EST Office Visit [facility]olgy [place] [address] [facility] [address] [place] [phone] Maricel Hawkins NP Moderate persistent asthma with exacerbation (Primary Dx); Obstructive sleep apnea; Nocturnal hypoxia; Morbid obesity with BMI of 40.0-44.9, adult ([facility]) 08/26/2024 9:04 AM EST - 08/26/2024 11:59 PM EST Hospital Encounter Radiology Department - [address] [phone] Screening breast examination Discharge Disposition: Home or Self Care 08/21/2024 9:20 AM EST Office Visit Gastroenterology - [place] [facility] [address] [place] [phone] Pipo Fatima, PA Gastroesophageal reflux disease without esophagitis (Primary Dx); Pancreatic insufficiency; Rectal bleeding; PVD (peripheral vascular disease) ([facility]); Diabetes 1.5, managed as type 2 ([facility]) from Last 3 Months Immunizations Name Administration [...] HISTORICAL TUBAL LIGATION OTHER SURGICAL HISTORY PROCEDURE: IN EXCISION PILONIDAL CYST/SINUS COMPLICATED; COMMENT: x 2 COLONOSCOPY 09/25 PROCEDURE: HISTORICAL COLONOSCOPY LITHOTRIPSY PROCEDURE: HISTORICAL LITHOTRIPSY; COMMENT: x 2 CARPAL TUNNEL RELEASE PROCEDURE: IN NEUROPLASTY &/TRANSPOS MEDIAN NRV CARPAL TUNNE; COMMENT: L side ESOPHAGOGASTRODUODENOSCOPY PROCEDURE: IN EGD TRANSORAL BIOPSY SINGLE/MULTIPLE; COMMENT: Performed on November 24, 2020-performed with colonoscopy, negative celiac COLONOSCOPY PROCEDURE: HISTORICAL COLONOSCOPY; COMMENT: Performed on November 24, 2020 with endoscopy, no evidence of microscopic colitis Medical History Medical History Date Comments Dyslipidemia DX:Dyslipidemia Achilles tendon disorder right DX:Achi lles tendon disorder; COMMENT: s/p PT, f/u with pictures editor Vitamin D deficiency DX:Vitamin D deficiency Prediabetes [...] both eyes PAD (peripheral artery disea se) (CMS/HCC) 12/18/2017 DX:PAD (peripheral artery di sease) ([facility]); COMMENT: CT angio with bilateral SFA occlusions, pending repair 12/2017, follows with vascular Atypical chest pain 02/12/2018 DX:Atypical chest pain; COMMENT: Negative nuclear stress 02/2018 Carpal tunnel syndrome, bilateral 05/16/2018 DX:Carpal tunnel syndrome, bilateral; COMMENT: Severe s/p EMG 05/2018 referred to general surgery Former tobacco use DX:Former tob acco use; COMMENT: Since age 13, quit 02/2018 Atherosclerosis of wainwright ar yamila of both lower extremities with intermittent claudication (CMS/HCC) 03/21/2018 DX:Atherosclerosis of wainwright artery of both lower extremities with intermittent claudication (HCC) Obesity (BMI 35.0-39.9 witho ut comorbidity) 02/21/2019 DX:Obesity (BMI 35.0-39.9 wi thout comorbidity) Gassiness DX:Gassiness Change in bowel function DX:Gilliland ge in bowel function; COMMENT: More oily and floating in the toilet Pancreatic insufficiency DX:Panc reatic insufficiency DM (diabetes mellitus), type 2 with peripheral vascular complications ([facility]) 02/15/2021 DX:DM (diabetes mellitus), t ype 2 with peripheral vascular complications (HCC) DM (diabetes mellitus), type 2 with neurological complications (CMS/HCC) 11/01/2021 DX:DM (diabetes m ellitus), type 2 with neurological complications (HCC) Type 2 diabetes mellitus wit h cataract (CMS/HCC) 04/16/2022 DX:Type 2 diabetes mellitus with cataract (HCC) Gassiness DX:Gassiness Esophageal reflux DX:Esophageal reflux Stye external DX:Stye external Family History Medical History Relation Name Comments Other: cancer,other Maternal Grandfather worked at [employer]; in his mid 50s Cataracts Maternal Grandmother Emphysema Maternal Grandmother - age 82 Breast cancer Mother's side 1 2 m cousin 30s Breast cancer Mother's side 2 aunt -with nodes Breast cancer Mother's side 3 1st cousin- bilateral Breast cancer Mother's side 4 1st cousin- bilateral Ovarian cancer Mother's side 5 aunt; poss ibly cervical; in her 40s Breast cancer Other m neice 40s maternal niece x2 40's Other: Other Paternal Grandfather unknown to Homero Breast cancer Sister 1 50s Breast cancer Sister 2 60ish Other: mesothelioma Uncle in his 50s Relation Name Status Comments Maternal Grandfather Maternal Grandmother Mother's side 1 2 m cousin 30s Alive Mother's side 2 Mother's side 3 Mother's side 4 Mother's side 5 Other m neice 40s Alive Paternal Grandfather Sister 1 50s Alive Sister 2 60ish Uncle Social History Tobacco Use Types Packs/Day Years Used Date Smoking Tobacco: Former Cigarettes 1 34.2 0 09/11/1983 - 12/07/2017 Smokeless Tobacco: Never Tobacco Cessation:Counseling Given: Not Answered Alcohol Use Standard Drinks/Week Comments No 0 (1 standard drink = 0.6 oz pur e alcohol) Comments No Sex and Gender Information Value Date Recorded Sex Assigned at Not on file Legal Sex Female 3:33 PM EST Gender Identity Not on file Sexual Orientation Not on file Obstetrics History Para Term [...] 1:00 PM EDT Office Visit Adult Medicine [facility] [address] [place] [address] Naila Vargas MD [address] [place] [address] 12/23/2024 9:30 AM EDT [facility] [address] [phone] Maricel Hawkins NP [address] [address] Health Maintenance Due Date Last Done Comments Diabetes: Annual Foot Exam 02/15/1976 Diabetes: Annual Retina Eye Exam 02/15/1976 DTaP,Tdap,and Td Vaccines (1 - Tdap) 1985 Hepatitis B Vaccines (1 of 3 - 19+ 3-dose series) 1985 Zoster Vaccines (1 of 2) 02/15/2016 HIV Screening 08/20/2022 Social Influencers of Health Screening 08/20/2022 Pneumococcal Vaccine: 50+ Years (2 of 2 - PCV) 10/06/2022 10/06/2021 Pneumococcal Vaccine: Pediatrics (0 to 5 Years) and At-Risk Patients (6 to 64 Years) (2 of 2 - PCV) 10/06/2022 10/06/2021 COVID-19 Vaccine (5 - season) 2024 06/13/2022, 08/15/2021, 12/26/2020, Additional history [...] patient's age to complete this topic Meningococcal B Vacine Aged Out No lo nger eligible based on patient's age to complete this topic RSV Immunization Patients Under 20 months Aged Out No longer eligible based on patient's age to complete this topic Varicella Vaccines Aged Out No longer eligible based on patient's age to complete this topic Procedures Procedure Name Priority Date/Time Associated Diagnosis Comments IN SLEEP STUDY ATTENDED Routine 10/28/2024 11:31 AM EST MG MAMMO DIGITAL SCREENING W FARAZ BILAT [...] of respiratory organs HM COLONOSCOPY Routine 11/24/2020 HPV Routine 08/05/2020 HEPATITIS C SCREENING Routine 05/20/2014 from Last 3 Months or Most Recently Relevant to Health Maintenance Results * General sleep study (10/28/2024 11:31 AM EST) us Historical Provider SLEEP CENTER ORDERABLES F inal Result * MG Mammo Digital Screening w Faraz [...] was utilized in evaluation of this examination ([employer]; iCAD). FINDINGS: The breast tissue distribution pattern [...] Signed Date: 08/26/2024 09:45 ET Workstation ID: [id number] Transcribed By: Self Edit Transcribed Date: 08/26/2024 [...] Signed Date: 08/26/2024 09:45 ET Workstation ID: [id number] Transcribed By: Self Edit Transcribed Date: 08/26/2024 09:41 ET Narrative 08/26/2024 9:45 AM EST EXAMINATION TYPE: MG [...] was utilized in evaluation of this examination ([employer]; iCAD). FINDINGS: The breast tissue distribution pattern [...] detection was utilized in evaluation of thisexamination (Ross; Madalyn). FINDINGS: The breast tissue distribution pattern is [...] Signed Date: 08/26/2024 09:45 ET Workstation ID: [id number] Transcribed By: Self Edit Transcribed Date: 08/26/2024 09:41 ET us Naila Vargas MD [facility] PROCEDURES Edited Result - Final * (ABNORMAL) CBC auto differential (08/21/2024 10:33 AM EST) WBC 7.1 4.8 - 10.8 K/mcL LAB HEMETOLOGY METHOD 08/21/2024 2:29 PM [facility] RBC 4.40 3.80 - 4.80 M/mcL LAB HEMETOLOGY METHOD 08/21/2024 2:29 PM [facility] Hemoglobin 14.1 11.5 - 16.0 g/dL LAB HEMETOLOGY METHOD 08/21/2024 2:29 PM [facility] Hematocrit 43.0 35.0 - 47.0 % LAB HEMETOLOGY METHOD 08/21/2024 2:29 PM [facility] MCV 98.9(H) 79.0 - 98.0 FL LAB HEMETOLOGY METHOD 08/21/2024 2:29 PM [facility] MCH 32.4(H) 27.0 - 32.0 pcg LAB HEMETOLOGY METHOD 08/21/2024 2:29 PM [facility] MCHC 32.8 32.0 - 37.0 g/dL LAB HEMETOLOGY METHOD 08/21/2024 2:29 PM [facility] RDW 13.6 11.0 - 15.0 % LAB HEMETOLOGY METHOD 08/21/2024 2:29 PM [facility] Platelets 300 130 - 400 K/mcL LAB HEMETOLOGY METHOD 08/21/2024 2:29 PM [facility] MPV 9.4 7.0 - 11.0 FL LAB HEMETOLOGY METHOD 08/21/2024 2:29 PM [facility] NRBC 0.0 <1.0 % LAB HEMETOLOGY METHOD 08/21/2024 2:29 PM [facility] NRBC Absolute 0.00 <0.10 K/mcL LAB HEMETOLOGY METHOD 08/21/2024 2:29 PM [facility] Neutrophils Relative 60.2 % LAB HEMETOLOGY METHOD 08/21/2024 2:29 PM [facility] Lymphocytes Relative 28.5 % LAB HEMETOLOGY METHOD 08/21/2024 2:29 PM [facility] Monocytes Relative 7.9 % LAB HEMETOLOGY METHOD 08/21/2024 2:29 PM [facility] Eosinophils Relative 2.5 % LAB HEMETOLOGY METHOD 08/21/2024 2:29 PM [facility] Basophils Relative 0.6 % LAB HEMETOLOGY METHOD 08/21/2024 2:29 PM [facility] Immature Granulocytes Relative 0.3 % LAB HEMETOLOGY METHOD 08/21/2024 2:29 PM [facility] Neutrophils Absolute 4.26 1.50 - 7.00 K/mcL LAB HEMETOLOGY METHOD 08/21/2024 2:29 PM [facility] Lymphocytes Absolute 2.02 1.00 - 5.00 K/mcL LAB HEMETOLOGY METHOD 08/21/2024 2:29 PM EST [facility] Monocytes Absolute 0.56 0.20 - 1.00 K/[facility] LAB HEMETOLOGY METHOD 08/21/2024 2:29 PM EST [facility] Eosinophils Absolute 0.18 0.00 - 0.50 K/[facility] LAB HEMETOLOGY METHOD 08/21/2024 2:29 PM EST [facility] Basophils Absolute 0.04 0.00 - 0.20 K/[facility] LAB HEMETOLOGY METHOD 08/21/2024 2:29 PM EST [facility] Immature Granulocytes Absolute 0.02 0.00 - 0.03 K/[facility] LAB HEMETOLOGY METHOD 08/21/2024 2:29 PM EST [facility] Blood Venous blood specimen / Unknown Venipuncture / Unknown 08/21/2024 10:33 AM EST 08/21/2024 10:33 AM EST us Pipo GARCES LAB BLOOD ORDERABLES Final Resu lt [facility] [address] [place] [address], [place] [phone] * Iron (08/21/2024 10:33 AM EST) Iron 115 40 - 150 mcg/dL LAB CHEMISTRY METHOD 08/21/2024 3:19 PM EST [facility] Blood Venous blood specimen / Unknown Venipuncture / Unknown 08/21/2024 10:33 AM EST 08/21/2024 10:33 AM EST us Pipo Fatima PA LAB BLOOD ORDERABLES Final Resu lt [facility] [address] [place] [address], [place] [phone] * Ferritin (08/21/2024 10:33 AM EST) Ferritin 60 8 - 252 ng/mL LAB CHEMISTRY METHOD 08/21/2024 3:19 PM [facility] Blood Venous blood specimen / Unknown Venipuncture / Unknown 08/21/2024 10:33 AM EST 08/21/2024 10:33 AM EST Pipo GARCES LAB BLOOD ORDERABLES Final Resu lt [facility] [address] [place] [address], * (ABNORMAL) Comprehensive metabolic panel (08/21/2024 10:33 AM EST) Pathologist [facility] Sodium 138 133 - 145 mmol/L LAB CHEMISTRY METHOD 08/21/2024 3:19 PM [facility] Potassium 4.2 3.5 - 5.5 mmol/L LAB CHEMISTRY METHOD 08/21/2024 3:19 PM [facility] Chloride 105 96 - 110 mmol/L LAB CHEMISTRY METHOD 08/21/2024 3:19 PM [facility] CO2 26 21 - 32 mmol/L LAB CHEMISTRY METHOD 08/21/2024 3:19 PM [facility] Anion Gap 7 3 - 11 LAB CHEMISTRY METHOD 08/21/2024 3:19 PM [facility] Glucose 123(H) 70 - 100 mg/dL LAB CHEMISTRY METHOD 08/21/2024 3:19 PM [facility] BUN 8 5 - 25 mg/dL LAB CHEMISTRY METHOD 08/21/2024 3:19 PM [facility] Creatinine 0.94 0.50 - 1.10 mg/dL LAB CHEMISTRY METHOD 08/21/2024 3:19 PM [facility] eGFR 70 >=60 mL/min/1. 73m2 LAB CHEMISTRY METHOD 08/21/2024 3:19 PM [facility] Comment:Calculation based on the??Chronic Kidney Disease Epidemiology Collaboration (CKD-EPI) equation refit??without adjustment for race. BUN/Creatinine Ratio 8.5 LAB CHEMISTRY METHOD 08/21/2024 3:19 PM [facility] Calcium 9.8 8.5 - 10.5 mg/dL LAB CHEMISTRY METHOD 08/21/2024 3:19 PM [facility] AST (SGOT) 22 10 - 42 unit/L LAB CHEMISTRY METHOD 08/21/2024 3:19 PM [facility] ALT (SGPT) 48 10 - 60 unit/L LAB CHEMISTRY METHOD 08/21/2024 3:19 PM [facility] Alkaline Phosphatase 61 42 - 121 unit/L LAB CHEMISTRY METHOD 08/21/2024 3:19 PM [facility] Total Protein 7.4 6.0 - 8.0 g/dL LAB CHEMISTRY METHOD 08/21/2024 3:19 PM [facility] Albumin 4.2 3.2 - 5.0 g/dL LAB CHEMISTRY METHOD 08/21/2024 3:19 PM [facility] Total Bilirubin 0.4 0.0 - 1.4 mg/dL LAB CHEMISTRY METHOD 08/21/2024 3:19 PM [facility] Blood Venous blood specimen / Unknown Venipuncture / Unknown 08/21/2024 10:33 AM EST 08/21/2024 10:33 AM EST us Ppio GARCES LAB BLOOD ORDERABLES Final Resu lt [facility] [address] [place] [address], [place] [phone] * Urine Albumin Creatinine Ratio (04/24/2024) Urine Albumin Creatinine Ratio Abstracted Historical Provider HEALTH MAINTENANCE Final Result * (ABNORMAL) Hemoglobin A1c (04/24/2024) [facility] Hemoglobin A1C 6.9(A) <=6.5 % Blood Venous blood specimen / Unknown Historical Provider LAB BLOOD ORDERABLES Leidy l Result * Depression Screening (04/08/2024) [facility] Depression Screening Abstracted Historical Provider HEALTH MAINTENANCE Final Result * (ABNORMAL) Lipid panel (03/01/2024) [facility] LDL/HDL Ratio 4 0 - 4 Triglycerides 267(A) 0 - 150 mg/dL Cholesterol 194 0 - 200 mg/dL HDL 49 >=40 mg/dL LDL Cholesterol 92 0 - 100 mg/dL Blood Venous blood specimen / Unknown Result [facility] Provider LAB BLOOD ORDERABLES Leidy l Result * CT LUNG SCREENING LOW DOSE (02/21/2024 11:38 AM EDT) Anatomical Region Laterality Modality Computed Tomogra phy 02/21/2024 9:18 AM EDT Narrative 02/21/2024 11:38 AM EDT [facility] Diagnostic Imaging Department [address] [place], [place] [id number] Patient: ??HOMERO ALEGRIA ?/Age/Sex: 1965 - 59 - F Unit#: ??[id number] ? Location/Status: ??SPDICATLS/REG CLI ? Mnemonic/Ordering Site: [...] is advised in one year. Dictating Physician: ??ELHAM KIRK MD Electronically Signed by: ??ELHAM KIRK MD Dic Date/Time: ??02/21/24 1126 Sign date/Time: ??02/21/24 1138 Procedure Note Elham Kirk MD - 06/26/2024 [facility] Diagnostic Imaging Department [address] [place] [id number] Patient: HOMERO ALEGRIAO.B./Age/Sex: 1965 - 59 - F Unit#: [id number] Location/Status: SPDICATLS/REG CLI Mnemonic/Ordering Site: [facility] Ordering Physician: DOUG VILLARREAL MD CT Lung [...] Sign date/Time: 02/21/24 1138 Doug Villarreal MD IM CT PROCEDURES Final Result * Colonoscopy (11/24/2020) [facility] Colonoscopy No interpretation , Abstracted Anatomical Region Laterality Modality Other Historical Provider HEALTH MAINTENANCE Final Result * Cervical Cancer Screening: HPV (08/05/2020) [facility] Cervical Cancer Screening: HPV Negative, Abstracted Historical Provider HEALTH MAINTENANCE Final Result * Hepatitis C Screening (05/20/2014) [facility] Hepatitis C Screening Abstracted us Historical Provider HEALTH MAINTENANCE Final Result from Last 3 Months or Most Recently Relevant to Health Maintenance Insurance [facility] Advance Directives Documents on File Type Date Recorded Patient Wheel Buffer Expl anation Health Care Decision (hx) 12/30/2017 [...] (hx) 12/30/2017 AD CHAVEZ DIRECTIVE Care Teams Vision Teacher Relationship Specialty Start Date End Date Naila Vargas MD [address] [place] [id number] PCP - General Internal Medicine 04/18/22
--- OUTSIDE RECORDS SUMMARY | 2024-11-05 16:13 | XMS_ITS | Encounter Summary ---
Author Organization [facility] [address] Address [address] [place] [address] Care Team Providers Care President Finance Company Name Role Phone Naila Vargas MD Primary Care Provider [phone] Encounter Details Date Type Department Care Team (Late st Contact Info) Description 09/27/2024 Telephone Pulmonolgy - [place] [address] [facility] [address] [place] [id number] Maricel Hawkins NP 175 [facility] [address] [place] [address] Social History Tobacco Use Types Packs/Day Years [...] on file Sexual Orientation Not on file documented as of this [...] 1:00 PM EDT Office Visit Adult Medicine [facility] [address] [place] [phone] Naila Vargas MD [address] [place] [phone] 12/23/2024 9:30 AM EDT Office Visit Pulmonolgy - [place] 175 [facility] [address] [place] [address] Maricel Hwakins NP [address] [address] documented as of this encounter Visit Diagnoses Not on filedocumented in this encounter Care Teams President Finance Company Relationship Specialty Start Date End Date Naila Vargas MD [address] [place] [phone] PCP - General Internal Medicine 04/18/22 documented as of this encounter
--- OUTSIDE RECORDS SUMMARY | 2024-11-05 16:13 | XMS_ITS | Encounter Summary ---
Author Organization [employer] [facility] Address [address] [facility] [address] [place] [address] Care Team Providers Care Construction Safety Manager Name Role Phone Unavailable Primary Care Provider Unavailabl e Encounter Details Date Type Department Care Team (Latest Contact Info) Description 11/09/2018 Abstract [facility] CONVERSIONS Dental, Provider, DDS Social History [...] Description 03/05/2025 10:00 AM EDT Office Visit [facility] ADULT DENTAL [address] [place] [address] Leticia Socorro [address] [place] [address] documented as of this encounter Visit Diagnoses Not on filedocumented in this encounter
--- OUTSIDE RECORDS SUMMARY | 2024-11-05 16:13 | XMS_ITS | Clinical Summary ---
Author Organization [employer] Address [address] [facility] [address] [place] [address] Care Team Providers Care Director Home Name Role Phone Unavailable Primary Care Provider [...] 23 Active cholecalciferol (Vitamin D-3) 1.25 MG (56890 UT) capsule Take 50,000 Units by mouth [...] Description 09/03/2024 8:00 AM EST Office Visit [facility] ADULT DENTAL [address] [place], [place] [phone] Socorro Kelly Periodontal disease (Primary Dx); Localized [...] Description 03/05/2025 10:00 AM EDT Office Visit [facility] ADULT DENTAL [address] [place] [address] Socorro Kelly [address] [place] [address] Health Maintenance Due Date Last Done Comments [...] ESTABLISHED PATIENT Routine 09/03/2024 8:00 AM EST CASE PRESENTATION, DETAILED AND EXTENSIVE TREATMENT PLANNING Routine 09/03/2024 [...] limited to enamel ORAL HYGIENE INSTRUCTIONS Routine 09/03/2024 8:00 AM EST Periodontal disease Localized gingival recession Dental calculus Excessive attrition of teeth, limited to enamel BITEWINGS - 4 RADIOGRAPHIC IMAGES Routine 09/03/2024 8:00 AM EST Periodontal disease Localized gingival recession Dental calculus Excessive attrition of teeth, limited to enamel Full PROPHYLAXIS - ADULT Routine 024 8:00 AM EST Periodontal disease Dental calculus INTRAORAL - COMPLETE SERIES OF RADIOGRAPHIC IMAGES Routine 10/23/2023 10:00 AM EST Dental calculus Periodontal disease Localized gingival recession from Last 3 Months or Most Recently Relevant to Health Maintenance [facility] ST[facility] ADULT
[2024-11-05 16:20] LABS: Troponin-I High Sensitivity 302.6 ng/L (<3.5-17.0)
[2024-11-05] MEDS: Atorvastatin Calcium 80 MG TABLET PO (16:47)
[2024-11-05] MEDS: Metoprolol Tartrate 12.5 MG HALFTAB PO (16:47)
[2024-11-05] MEDS: Aspirin 325 MG TABLET PO (16:48)
[2024-11-05] MEDS: Nitroglycerin 2 % Oint 1 GM Packet 1 INCH TRANSDERMA (16:48)
[2024-11-05] MEDS: Enoxaparin Sodium 120 MG/0.8 ML SYRINGE SUBCUT (16:49)
[2024-11-05] MEDS: Acetaminophen 325 MG TABLET 650 MG PO (17:00)
[2024-11-05 17:01] LABS: Hematocrit 42.2 % (37.0-47.0); Hemoglobin 14.3 g/dl (12.0-16.0); Mean Corpuscular HGB Conc 33.9 g/dl (31.0-35.0); Mean Corpuscular Hemoglobin 32.7 pg (27.0-33.0); Mean Corpuscular Volume 96.6 fL (80.0-98.0); Mean Platelet Volume 8.9 fL (9.4-12.3); Platelet Count 225 X10*3/uL (160-400); Red Blood Count 4.37 X10*6/uL (4.20-5.50); Red Cell Distribution Width 13.5 % (11.0-16.0); White Blood Count 6.3 X10*3/uL (4.8-10.8)
[2024-11-05 17:07] LABS: Prothrombin Time 11.8 SEC (10.9-12.4)
[2024-11-05 17:09] LABS: D Dimer High Sensitivity 158 NG/ML
[2024-11-05 17:10] LABS: Partial Thromboplastin Time 26.6 SEC (26.0-36.8)
--- NOTE | 2024-11-05 17:11 | P.HPHOSP_ITS ---
History of Present Illness Date of Service: 11/05/24 Chief Complaint: Chest pain shortness of breath and diffuse body aches. 59-year-old female obese with hypertension, hyperlipidemia, diabetes, peripheral vascular disease. He she presented to the hospital today with 9/10 chest pain since 23:00 last night right sided twisting chest pain pain radiating to both arms, she has reported associated shortness of breath vomiting episode and headache. She use inhalers which seems to make her symptoms worse. ED work up: ECG nonspecific T wave abnormalities, troponin I level audrey from 211 to 302 and started on Lovenox, ASA and Lipitor and metoprolol. Further testing has revealed influenza. She reports having pneumonia and covid at the begining of the month. Review of Systems 2 Review of Systems: Gen: + fever Resp: n+sob, no cough CV: + chest, no GARCIA, no leg edema GI: No n/v, no abd pain Neuro: No confusion Yes all other systems are reviewed and are negative [facility] Medical History Asthma Pre-op exam Depression Arthritis Cervical radiculitis Renal calculi HTN (hypertension) Diabetes Glaucoma GERD (gastroesophageal reflux disease) Hypothyroidism Hypercholesteremia Carpal tunnel syndrome Sleep apnea Peripheral arterial disease Surgical History History of esophagogastroduodenoscopy (EGD) Hx of colonoscopy Hx of tubal ligation Hx of repair of rotator cuff Hx of carpal tunnel repair Hx of lithotripsy History of appendectomy History of foot surgery Social History Household Members: Significant Other Housing: House Are you a primary health care / medical job titles to a significant other at home: No Do you presently have visiting nurse or other home services: No Alcohol intake: current Alcohol intake frequency: holidays/special occasions only Comment: counts correct Patient Tobacco Use Status: Former Tobacco user Tobacco use type: Cigarette Years Smoked: 40 Smoked in Last 30 Days: No e-Cigarette/Vaping Use: Former Use Patient Interested in Nicotine Replacement: No Patient Given Instructions on How to Stop Smoking: No Second Hand Smoke Exposure: No Use of substances other than those prescribed or required for medical reasons: Yes Substance Use Type: Marijuana Substance Use Frequency: Occasionally Currently Displaying Signs/Symptoms of Drug Intoxication Withdrawal: No Any prior treatment program specific to substance use: No Have you been hit, kicked, punched, or otherwise hurt by someone within the past year? If so, by whom?: No Do you feel safe in your current relationship?: Yes Is there a partner from a previous relationship who is making you feel unsafe now?: No Are you made to feel afraid or neglected: No Spiritual Healthcare Practices: voodoo Advance Directives: No Advance Directives Information Provided: Yes Do you have a plan to hurt others: No Plan Recently lost weight without trying: No Eating poorly because of decreased appetite: No Nutrition Risks: No Nutritional Risk Patient : No : No Poor oral hygiene: No service: No Current occupation: [employer] Allergies Allergy/AdvReac Type Severity Reaction Status Date / Time clarithromycin [From Biaxin] Allergy Intermediate Rash Verified 11/05/24 13:41 Home Medications ?Medication ?Instructions ?Recorded ?Confirmed ?Last Taken ?Type cilostazol 100 mg tablet 100 mg PO BID 10/12/23 11/05/24 07/10/24 05:00 History fluoxetine 20 mg capsule 20 mg PO DAILY 10/12/23 11/05/24 11/05/23 History metformin 500 mg tablet 1,000 mg PO BID 10/12/23 11/05/24 11/05/23 History omeprazole 40 mg capsule,delayed 40 mg PO QAM 10/12/23 11/05/24 11/06/23 History release simvastatin 40 mg tablet 40 mg PO DAILY 10/12/23 11/05/24 11/05/23 History albuterol sulfate 90 mcg/actuation 2 puff inhalation Q4-6H PRN 11/01/23 11/05/24 11/06/23 History aerosol inhaler (Ventolin HFA) Shortness Of Breath Or Wheezing aspirin 81 mg tablet,delayed 81 mg PO BEDTIME 11/01/23 11/05/24 07/10/24 05:00 History release fluticasone propionate 230 2 puff inhalation BID PRN 11/01/23 11/05/24 11/05/23 History mcg-salmeterol 21 mcg/actuation Shortness Of Breath Or Wheezing HFA inhaler (Advair HFA) lamotrigine 25 mg tablet 50 mg PO DAILY 11/01/23 11/05/24 07/10/24 05:00 History amlodipine 2.5 mg tablet 2.5 mg PO DAILY 11/02/23 11/05/24 11/06/23 History biotin 1,000 mcg chewable tablet 1,000 mcg PO DAILY 11/02/23 11/05/24 11/05/23 History albuterol sulfate 2.5 mg/3 mL 2.5 mg inhalation Q6H PRN wheezing 11/05/24 11/05/24 Unknown History (0.083 %) solution for nebulization cetirizine 10 mg tablet 10 mg PO DAILY PRN Allergy Symptoms 11/05/24 11/05/24 Unknown History cholecalciferol (vitamin D3) 25 25 mcg PO DAILY 11/05/24 11/05/24 Unknown History mcg (1,000 unit) tablet fluticasone propionate 50 2 spray intranasal DAILY PRN 11/05/24 11/05/24 Unknown History mcg/actuation nasal Allergy Symptoms spray,suspension hydroxyzine HCl 25 mg tablet 25 mg PO TID PRN Anxiety 11/05/24 11/05/24 Unknown History levothyroxine 25 mcg tablet 25 mcg PO DAILY 11/05/24 11/05/24 Unknown History tcdwns-uvcplyew-ygwrhcl 2 cap PO TIDWM 11/05/24 11/05/24 Unknown History 36,000-114,000-180,000 unit capsule,delay rel (Creon) multivitamin 1 tab PO DAILY 11/05/24 11/05/24 Unknown History tiotropium bromide 2.5 2 puff inhalation DAILY PRN 11/05/24 11/05/24 Unknown History mcg/actuation mist for inhalation Shortness Of Breath Or Wheezing (Spiriva Respimat) Physical Exam 2 Vital Signs and Narrative: Vital Signs: Last Vital Signs Temp 100 F 11/05/24 16:04 Pulse 98 11/05/24 16:04 Resp 25 H 11/05/24 16:04 BP 151/84 H 11/05/24 16:04 Pulse Ox 96 11/05/24 16:04 O2 Del Method Room Air 11/05/24 16:04 BMI result Body Mass Index 41.6 Const: Other: Constitutional: Alert, in no distress, overweight. Mental Status: Oriented to person, place and time. Eyes: Pupils are equal, round and reactive to light. Ear, Nose and Throat: Oropharynx clear, mucous membranes moist. Ears and nose without eformities. T Respiratory: Clear to auscultation. No wheezing, rales or rhonchi. Cardiovascular: S1 S2 regular. No murmurs, rubs or gallops. Gastrointestinal: Abdomen soft, non-tender, non-distended. Normal bowel sounds.? Neurologic: Cranial nerves II-XII grossly intact. No focal neurological deficits. Moves all extremities spontaneously.? Skin: No rashes or lesions.? Musculoskeletal: No cyanosis or clubbing. Psychiatric: Normal mood and affect? Results Labs 11/06/24 04:37 11/06/24 04:37 Labs: Laboratory Results - last 24 hr 11/05/24 11/05/24 13:49 16:53 MCV 95.5 96.6 MCH 33.3 H 32.7 MCHC 34.8 33.9 RDW 13.4 13.5 Plt Count 238 225 MPV 8.9 L 8.9 L Immature Gran % (Auto) 0.3 Neut % (Auto) 76.9 H Lymph % (Auto) 13.0 L Dickson % (Auto) 8.2 Eos % (Auto) 1.2 Baso % (Auto) 0.4 Lymph # (Auto) 0.9 L Dickson # (Auto) 0.6 Eos # (Auto) 0.1 Baso # (Auto) 0.0 Abs Immat Gran (auto) 0.02 Absolute Neuts (auto) 5.2 Absolute Nucleated RBC 0.000 0.000 Nucleated RBC % (auto) 0.0 0.0 PT 11.7 11.8 INR 1.0 1.0 APTT 26.6 D-Dimer High Sensitivty 158 Anion Gap 14 Estim Creat Clear Calc 96.3 Estimated GFR > 60 Random Glucose 159 H Calcium 9.8 Total Bilirubin 0.6 AST 54 H ALT 40 H Alkaline Phosphatase 62 Total Protein 8.0 Albumin 4.4 Influenza Type A (PCR) POSITIVE A Influenza Type B (PCR) NEGATIVE RSV RNA Qual (PCR) NEGATIVE SARS-CoV-2 RNA (RT-PCR) NEGATIVE Imaging Radiologist's Impressions: Impressions Chest X-Ray 11/05/24 13:41 IMPRESSION: Pulmonary edema versus small airway acute inflammatory process. Electronically signed by: Amilcar Valencia MD 11/05/2024 02:21 PM EST RP Assessment and Plan (1) Diabetes: Status: Acute (2) HTN (hypertension): Status: Acute (3) Influenza A: Status: Acute (4) Chest pain: Status: Acute Plan 59-year-old female with a history of diabetes, hypertension, peripheral vascular disease, and obesity presenting with chest pain, found to have influenza A and NSTEMI. NSTEMI: Continue aspirin, metoprolol, and Lipitor. Cardiology consultation in the morning. Continue Lovenox for 48-72 hours. Further testing pending cardiology assessment. Influenza A: Symptomatic treatment. Initiate Tamiflu to mitigate symptoms. Diabetes (nez-dcpaizg-ojxoggaqa): Sliding scale insulin. Hold metformin for now. Hypertension: Resume home medications once medication reconciliation is performed. Morbid Obesity: Weight loss counseling and lifestyle modifications advised. Unspecified asthmma, continue inhalers Mood disorders, resume home meds DVT Prophylaxis: Continue Lovenox. Additional Considerations: Full code. Diet: Diabetic diet. Plan: Admission for at least two midnights for management of acute NSTEMI, with potential further testing and expert evaluation as determined by Cardiology. Quality Stroke Does the patient have a stroke diagnosis?: No VTE Prior VTE?: No VTE Risk Level:: Medical - moderate - high VTE Device Contraindication: Patient Refused VTE Drug Contraindication: N/A - Med Ordered
[2024-11-05 18:01] VITALS: BP 126/61; PULSE 98; RESP 23; TEMP 37.4; O2SAT 95
--- NOTE | 2024-11-05 18:05 | PC.NURSE ---
Patient states that she does not eat meat. Diet order modified to accommodate dietary requests. Diabetic/Cardiac diet, no meat. Order updated.
[2024-11-05 18:38] LABS: Glucose, Whole Blood 179 mg/dL (60-115)
--- NOTE | 2024-11-05 19:31 | PHA.MEDREC ---
Addendum entered by Rj Lara, [facility] 11/05/24 19:42: med rec reviewed Original Note: Pharmacy Consult ? Medication Reconciliation Pharmacy has completed the medication reconciliation. Spoke with patient to confirm medications. All of her inhalers she uses as needed. She still takes omeprazole daily (LF 06/2024), simvastatin daily (LF 04/2024), and creon 2c tidwm (LF 08/2024 x30 DS). She finished all antibiotics. She last took her medications yesterday. She was on losartan but reports she lost the bottle and has not had for a few weeks, left off of med list (LF 02/2024).
--- NOTE | 2024-11-05 20:09 | PC.NURSE ---
Patient reports feeling anxious about remaining in ED overnight until admission bed becomes available. States that the ED is too loud, stimulating, etc. Reports that she hasn't slept since 11pm last night and needs to be in a quieter enclosed space/room. Unfortunately this type of room is unavailable at this time. However, patient is agreeable to stay for monitoring, just requesting something to help her anxiety and sleep. I reached out to regarding this request. to order PO Ativan.
[2024-11-05] MEDS: LORazepam 1 MG TABLET PO (20:26)
[2024-11-05] MEDS: cilostazoL 100 MG TABLET PO (23:04)
[2024-11-05] MEDS: Oseltamivir Phosphate 75 MG CAPSULE PO (23:04)
[2024-11-06] VITALS (9 sets, daily range): BP systolic 105–155; BP diastolic 62–88; PULSE 70–91; RESP 13–18; TEMP 36.8–37.5; O2SAT 93–97
--- NOTE | 2024-11-06 | ECG_ITS ---
Test Reason : repeat Blood Pressure : */* mmHG Vent. Rate : 87 BPM Atrial Rate : 87 BPM P-R Int : 134 ms QRS Dur : 80 ms QT Int : 378 ms P-R-T Axes : 47 -13 76 degrees QTcB Int : 454 ms Sinus rhythm with occasional Premature ventricular complexes Nonspecific T wave abnormality Abnormal ECG When compared with ECG of 05-Nov-2024 13:09, Premature ventricular complexes are now Present Referred By: Shahzad Vazquez Electronically Signed By: Miguel Ángel Goldstein
[2024-11-06] MEDS: Acetaminophen 325 MG TABLET 650 MG PO ×2 (02:58→17:49)
[2024-11-06 05:23] LABS: MANUAL DIFF FLAG NO
[2024-11-06 05:27] LABS: Basophils Percent Auto 0.7 % (0-2); Eosinophils Absolute Auto 0.1 X10*3/uL (0.0-0.4); Eosinophils Percent Auto 1.3 % (0-4); Hematocrit 41.2 % (37.0-47.0); Hemoglobin 14.1 g/dl (12.0-16.0); Imm Gran Abs Auto 0.02 X10*3/uL (0.00-0.03); Imm Gran Pct Auto 0.4 % (0.0-0.4); Mean Corpuscular HGB Conc 34.2 g/dl (31.0-35.0); Mean Corpuscular Hemoglobin 32.8 pg (27.0-33.0); Mean Corpuscular Volume 95.8 fL (80.0-98.0); Mean Platelet Volume 9.4 fL (9.4-12.3); Monocytes Absolute Auto 0.6 X10*3/uL (0.1-1.2); Monocytes Percent Auto 11.3 % (2-11); Neutrophils Absolute Auto 3.7 x10*3/uL (2.0-8.3); Neutrophils Percent Auto 68.3 % (45-73); Platelet Count 225 X10*3/uL (160-400); Red Cell Distribution Width 13.6 % (11.0-16.0); White Blood Count 5.4 X10*3/uL (4.8-10.8)
[2024-11-06 05:42] LABS: Anion Gap 15 (12-20); Blood Urea Nitrogen 9 mg/dL (9-16); Calcium 9.5 mg/dL (8.4-10.2); Carbon Dioxide 20 mmol/L (22-29); Chloride 107 mmol/L (96-108); Cholesterol 156 mg/dL (<200); Creatinine Clr Calc Pharmacy 95.1; Estimated Glomerular Filt Rate > 60; Glucose Random 169 mg/dL (60-115); HDL Cholesterol 37 mg/dL (>40); LDL Cholesterol Calculated 72 mg/dL (<100); Potassium 3.9 mmol/L (3.3-5.1); Sodium 138 mmol/L (135-145); Triglycerides 237 mg/dL (<150)
[2024-11-06] MEDS: Levothyroxine Sodium 25 MCG TABLET PO (05:44)
[2024-11-06] MEDS: Pantoprazole Sodium 20 MG TABLET.DR 40 MG PO (05:45)
[2024-11-06] MEDS: Enoxaparin Sodium 120 MG/0.8 ML SYRINGE 110 MG SUBCUT ×2 (06:33→19:04)
[2024-11-06 07:34] LABS: Glucose, Whole Blood 140 mg/dL (60-115)
--- NOTE | 2024-11-06 09:12 | MHC.CM.PN ---
CM met with Patient at bedside, in the ED. 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 Patient uses both a cane & a walker to assist with mobility. Home/self care is the Patient's goal and CM has initiated and will follow for dc planning. PCP is Dr. Jadon Vargas and Friend/My or Daughter will transport to home at dc.
[2024-11-06 09:29] LABS: Troponin-I High Sensitivity 104.7 ng/L (<3.5-17.0)
[2024-11-06] MEDS: Aspirin 81 MG TAB.CHEW PO (09:56)
[2024-11-06] MEDS: Cholecalciferol (Vitamin D3) 25 MCG TABLET PO (09:56)
[2024-11-06] MEDS: FLUoxetine HCl 20 MG CAPSULE PO (09:57)
[2024-11-06] MEDS: Oseltamivir Phosphate 75 MG CAPSULE PO ×2 (09:57→21:52)
[2024-11-06] MEDS: Metoprolol Tartrate 25 MG TABLET PO ×2 (09:57→21:52)
[2024-11-06] MEDS: amLODIPine Besylate 2.5 MG TABLET PO (09:57)
[2024-11-06] MEDS: lamoTRIgine 25 MG TABLET 50 MG PO (09:57)
[2024-11-06] MEDS: Atorvastatin Calcium 40 MG TABLET PO (09:57)
[2024-11-06] MEDS: Multivitamin TABLET 1 TAB PO (09:57)
--- NOTE | 2024-11-06 13:10 | PC.NURSE ---
Went to answer patient's call garza, patient agitated about remaining in the emergency department, has not been given a meal and when am going upstairs I've been down here 25 hours . Patient given her lunch tray, flatly refused it, demanding a salad. Kitchen called, will bring patient a salad. Primary RN Ruthann made aware.
[2024-11-06 13:24] LABS: Glucose, Whole Blood 151 mg/dL (60-115)
--- NOTE | 2024-11-06 13:47 | P.PNIM_ITS ---
Subjective Subjective Date of Service: 11/06/24 Interval History: f/u on nstemi ifluenza feels better, no chest pain, or sob Physical Exam 2 Vital Signs: Vital Signs: Last Vital Signs Temp 99.5 F 11/06/24 09:55 Pulse 89 11/06/24 09:55 Resp 17 11/06/24 09:55 BP 131/73 11/06/24 09:55 Pulse Ox 96 11/06/24 09:55 O2 Del Method Room Air 11/06/24 09:55 BMI result Body Mass Index 41.6 Const: Other: Constitutional: Alert, in no distress, overweight. Mental Status: Oriented to person, place and time. Eyes: Pupils are equal, round and reactive to light. Ear, Nose and Throat: Oropharynx clear, mucous membranes moist. Ears and nose without eformities. T Respiratory: Clear to auscultation. No wheezing, rales or rhonchi. Cardiovascular: S1 S2 regular. No murmurs, rubs or gallops. Gastrointestinal: Abdomen soft, non-tender, non-distended. Normal bowel sounds.? Neurologic: Cranial nerves II-XII grossly intact. No focal neurological deficits. Moves all extremities spontaneously.? Skin: No rashes or lesions.? Musculoskeletal: No cyanosis or clubbing. Psychiatric: Normal mood and affect? Objective Data Active Medications Acetaminophen (Acetaminophen 325 Mg Tablet) 650 mg PO Q6H PRN PRN Reason: Pain, Mild 1-3,fever,headache Last Admin: 11/06/24 02:58 Dose: 650 mg Documented By: DAMARIS Al Hydroxide/Mg Hydroxide (Magnesium Hydrox/Alum Hydrox 30 Ml Oral.Susp) 30 ml PO Q4H PRN PRN Reason: Heartburn Albuterol Sulfate (Albuterol Sulfate (0.083%) 2.5 Mg/3 Ml Vial.Neb) 2.5 mg INHALE Q6H PRN PRN Reason: wheezing Albuterol Sulfate (Albuterol Sulfate 90 Mcg 8 Gm Inhaler) 2 puff INHALE Q4H PRN PRN Reason: Shortness Of Breath Or Wheezing Amlodipine Besylate (Amlodipine Besylate 2.5 Mg Tablet) 2.5 mg PO DAILY [facility]; Protocol Last Admin: 11/06/24 09:57 Dose: 2.5 mg Documented By: KAYLEIGH Aspirin (Aspirin 81 Mg Tab.Chew) 81 mg PO DAILY [facility] Last Admin: 11/06/24 09:56 Dose: 81 mg Documented By: KAYLEIGH Atorvastatin Calcium (Atorvastatin Calcium 40 Mg Tablet) 40 mg PO DAILY [facility] Last Admin: 11/06/24 09:57 Dose: 40 mg Documented By: KAYLEIGH Cilostazol (Cilostazol 100 Mg Tablet) 100 mg PO BID [facility] Last Admin: 11/06/24 12:39 Dose: Not Given Documented By: KAYLEIGH Non-Admin Reason: Med Not Available Dextrose (Dextrose 50 % 25 Gm/50 Ml Syringe) 25 gm IVPUSH Q15M PRN; Protocol PRN Reason: per Hypoglycemia Standing Ord. Enoxaparin Sodium (Enoxaparin Sodium 120 Mg/0.8 Ml Syringe) 110 mg SUBCUT Q12H [facility] Last Admin: 11/06/24 06:33 Dose: 110 mg Documented By: DAMARIS Fluoxetine HCl (Fluoxetine Hcl 20 Mg Capsule) 20 mg PO DAILY [facility] Last Admin: 11/06/24 09:57 Dose: 20 mg Documented By: KAYLEIGH Fluticasone Propionate (Fluticasone Propionate Nasal 16 Gm [place]) 2 spray NOSTRIL-B DAILY PRN PRN Reason: Allergy Symptoms Fluticasone/Vilanterol (Fluticasone/Vilanterol 200/25 Blst.W.Dev) 1 puff INHALE RDAILY [facility] Last Admin: 11/06/24 07:36 Dose: Not Given Documented By: EKTA Non-Admin Reason: pharmacy called for med Glucose (Glucose Gel 15 Gm Gel..Gram.) 15 gm PO Q15M PRN; Protocol PRN Reason: per Hypoglycemia Standing Ord. Hydroxyzine HCl (Hydroxyzine Hcl 25 Mg Tablet) 25 mg PO TID PRN PRN Reason: Anxiety Insulin Human Lispro (Insulin Lispro 100 Unit/Ml 3 Ml Vial) 0 unit SUBCUT QIDACHS [facility]; Protocol Last Admin: 11/06/24 07:34 Dose: Not Given Documented By: KAYLEIGH Non-Admin Reason: POC = 140 Lamotrigine (Lamotrigine 25 Mg Tablet) 50 mg PO DAILY [facility] Last Admin: 11/06/24 09:57 Dose: 50 mg Documented By: KAYLEIGH Levothyroxine Sodium (Levothyroxine Sodium 25 Mcg Tablet) 25 mcg PO DAILY@0600 [facility] Last Admin: 11/06/24 05:44 Dose: 25 mcg Documented By: DAMARIS Loratadine (Loratadine 10 Mg Tablet) 10 mg PO DAILY PRN PRN Reason: Allergy Symptoms Magnesium Hydroxide (Milk Of Magnesia 30 Ml Oral.Susp) 30 ml PO DAILY PRN PRN Reason: Constipation Melatonin (Melatonin 3 Mg Tablet) 6 mg PO BEDTIME PRN PRN Reason: Insomnia Metoprolol Tartrate (Metoprolol Tartrate 25 Mg Tablet) 25 mg PO BID [facility]; Protocol Last Admin: 11/06/24 09:57 Dose: 25 mg Documented By: KAYLEIGH Multivitamins/Vitamin C (Multivitamin Tablet) 1 tab PO DAILY [facility] Last Admin: 11/06/24 09:57 Dose: 1 tab Documented By: KAYLEIGH Nitroglycerin (Nitroglycerin 0.4 Mg Tab.Subl) 0.4 mg SUBLINGUAL Q5MX3 PRN PRN Reason: Chest Pain Non-Formulary Medication (Yoqzkt-Xelbyszz-Xayosgg [Creon]) 2 cap PO TIDWM [facility] Ondansetron HCl (Ondansetron Hcl 4 Mg/2 Ml Vial) 4 mg IVPUSH Q8H PRN PRN Reason: Nausea and Vomiting Oseltamivir Phosphate (Oseltamivir Phosphate 75 Mg Capsule) 75 mg PO BID [facility] Stop: 11/10/24 09:01 Last Admin: 11/06/24 09:57 Dose: 75 mg Documented By: KAYLEIGH Pantoprazole Sodium (Pantoprazole Sodium 20 Mg Tablet.Dr) 40 mg PO DAILY@0630 [facility] Last Admin: 11/06/24 05:45 Dose: 40 mg Documented By: DAMARIS Tiotropium [place] (Tiotropium [place] 2.5 Mcg 1 Puff/2.5 Mcg Mist.Inhal) 2 puff INHALE DAILY PRN PRN Reason: Shortness Of Breath Or Wheezing Vitamin D (Cholecalciferol (Vitamin D3) 25 Mcg Tablet) 25 mcg PO DAILY [facility] Last Admin: 11/06/24 09:56 Dose: 25 mcg Documented By: KAYLEIGH Labs 11/06/24 04:37 11/06/24 04:37 Labs: Laboratory Results - last 24 hr 11/05/24 11/05/24 11/05/24 13:49 16:53 18:34 MCV 95.5 96.6 MCH 33.3 H 32.7 MCHC 34.8 33.9 RDW 13.4 13.5 Plt Count 238 225 MPV 8.9 L 8.9 L Immature Gran % (Auto) 0.3 Neut % (Auto) 76.9 H Lymph % (Auto) 13.0 L Ida % (Auto) 8.2 Eos % (Auto) 1.2 Baso % (Auto) 0.4 Lymph # (Auto) 0.9 L Ida # (Auto) 0.6 Eos # (Auto) 0.1 Baso # (Auto) 0.0 Abs Immat Gran (auto) 0.02 Absolute Neuts (auto) 5.2 Absolute Nucleated RBC 0.000 0.000 Nucleated RBC % (auto) 0.0 0.0 PT 11.7 11.8 INR 1.0 1.0 APTT 26.6 D-Dimer High Sensitivty 158 Anion Gap 14 Estim Creat Clear Calc 96.3 Estimated GFR > 60 POC Glucose 179 H Random Glucose 159 H Calcium 9.8 Total Bilirubin 0.6 AST 54 H ALT 40 H Alkaline Phosphatase 62 Total Protein 8.0 Albumin 4.4 Triglycerides Cholesterol LDL Cholesterol, Calc HDL Cholesterol Influenza Type A (PCR) POSITIVE A Influenza Type B (PCR) NEGATIVE RSV RNA Qual (PCR) NEGATIVE SARS-CoV-2 RNA (RT-PCR) NEGATIVE 11/06/24 11/06/24 11/06/24 04:37 07:30 13:20 MCV 95.8 MCH 32.8 MCHC 34.2 RDW 13.6 Plt Count 225 MPV 9.4 Immature Gran % (Auto) 0.4 Neut % (Auto) 68.3 Lymph % (Auto) 18.0 L Ida % (Auto) 11.3 H Eos % (Auto) 1.3 Baso % (Auto) 0.7 Lymph # (Auto) 1.0 L Ida # (Auto) 0.6 Eos # (Auto) 0.1 Baso # (Auto) 0.0 Abs Immat Gran (auto) 0.02 Absolute Neuts (auto) 3.7 Absolute Nucleated RBC 0.000 Nucleated RBC % (auto) 0.0 PT INR APTT D-Dimer High Sensitivty Anion Gap 15 Estim Creat Clear Calc 95.1 Estimated GFR > 60 POC Glucose 140 H 151 H Random Glucose 169 H Calcium 9.5 Total Bilirubin AST ALT Alkaline Phosphatase Total Protein Albumin Triglycerides 237 H Cholesterol 156 LDL Cholesterol, Calc 72 HDL Cholesterol 37 L Influenza Type A (PCR) Influenza Type B (PCR) RSV RNA Qual (PCR) SARS-CoV-2 RNA (RT-PCR) Assessment and Plan (1) Influenza A: Status: Acute (2) NSTEMI (non-ST elevated myocardial infarction): Status: Acute Plan 59-year-old female with a history of diabetes, hypertension, peripheral vascular disease, and obesity presenting with chest pain, found to have influenza A and NSTEMI. NSTEMI: Continue aspirin, metoprolol, and Lipitor. Cardiology consultation in the morning. Continue Lovenox for 48-72 hours. Further testing pending cardiology assessment continue ASA, metoprolol , lipitor. ECG today no acute ischemic changes Influenza A: Symptomatic treatment. Initiate Tamiflu to mitigate symptoms. Diabetes ([id number]): Sliding scale insulin. Hold metformin for now. Hypertension continue amlodipine, metoprolol Morbid Obesity: Weight loss counseling and lifestyle modifications advised. Unspecified asthmma, continue inhalers Mood disorders, resume home meds DVT Prophylaxis: Continue Lovenox. Additional Considerations: Full code. Diet: Diabetic diet. Plan: Admission for at least two midnights for management of acute NSTEMI, with potential further testing and expert evaluation as determined by Cardiology. Quality Stroke Does the patient have a stroke diagnosis?: No VTE Prior VTE?: No VTE Risk Level:: Medical - moderate - high VTE Device Contraindication: Patient Refused VTE Drug Contraindication: N/A - Med Ordered
--- NOTE | 2024-11-06 14:50 | PC.NURSE ---
11:30 Lispro not administered re: POC 151 b/c pt. refused lunch. MD George aware
[2024-11-06 17:01] LABS: INTERNATIONAL NORM RATIO 1.1 (0.9-1.1); Prothrombin Time 12.5 SEC (10.9-12.4)
[2024-11-06 18:48] LABS: Glucose, Whole Blood 180 mg/dL (60-115)
[2024-11-06] MEDS: Insulin Lispro 100 UNIT/ML 3 ML VIAL SUBCUT ×2 (19:04→22:58)
[2024-11-06] MEDS: hydrOXYzine HCL 25 MG TABLET PO (21:52)
[2024-11-06] MEDS: cilostazoL 100 MG TABLET PO (21:55)
[2024-11-06 21:59] LABS: Glucose, Whole Blood 164 mg/dL (60-115)
--- NOTE | 2024-11-07 | ECG_ITS ---
Test Reason : NSTEMI Blood Pressure : */* mmHG Vent. Rate : 69 BPM Atrial Rate : 69 BPM P-R Int : 136 ms QRS Dur : 82 ms QT Int : 416 ms P-R-T Axes : 44 -14 72 degrees QTcB Int : 445 ms Sinus rhythm with occasional Premature ventricular complexes Otherwise normal ECG When compared with ECG of 06-Nov-2024 09:45, No significant change was found Referred By: Miguel Ángel Goldstein Electronically Signed By: Miguel Ángel Goldstein
[2024-11-07 02:09] VITALS: BP 111/57; PULSE 68; RESP 16; TEMP 36.8; O2SAT 93
[2024-11-07] MEDS: Enoxaparin Sodium 120 MG/0.8 ML SYRINGE 110 MG SUBCUT ×2 (05:56→16:55)
[2024-11-07] MEDS: Levothyroxine Sodium 25 MCG TABLET PO (05:57)
[2024-11-07] MEDS: Pantoprazole Sodium 20 MG TABLET.DR 40 MG PO (05:57)
[2024-11-07 06:30] VITALS: BP 123/64; PULSE 66; RESP 16; TEMP 36.6; O2SAT 95
--- NOTE | 2024-11-07 07:00 | CA_ITS ---
Transthoracic Echocardiogram Patient (Last, First, Middle): Mis Garcia M Gender: Female Date of : 1965 Age: 59 Procedure Date: 11/07/2024 Procedure Type: Transthoracic Echocardiogram [place] [facility] [place] Height: 165.1 cm Weight: 112.49 kg BSA: 2.17 m2 Heart Rate: bpm BP: 130 / 81 mmHg Inspector Plumbing: TO Referring MD: Miguel Ángel Goldstein MD Symptoms: NSTEMI Study Quality: Technically Difficult/Contrast Conclusions: - Normal left ventricular size and systolic function. There is mildly increased left ventricular wall thickness. The visually estimated ejection fraction is between 60-65%. There is no evidence of regional wall motion abnormalities. Diastolic function is normal for age. - Normal right ventricular cavity size and systolic function. - The left atrium is mildly dilated. Findings Procedure Information Contrast agent, definity, is being given per protocol without apparent complications. Left Ventricle Normal left ventricular size and systolic function. There is mildly increased left ventricular wall thickness. The visually estimated ejection fraction is between 60-65%. There is no evidence of regional wall motion abnormalities. Diastolic function is normal for age. Right Ventricle Normal right ventricular cavity size and systolic function. Atria The left atrium is mildly dilated. The right atrium is normal in size. Aortic Valve Normal aortic valve structure and function. There is no aortic valve stenosis. There is no aortic valve regurgitation. Mitral Valve Likely normal mitral valve structure and function. There is no mitral valve regurgitation. There is no mitral valve stenosis. Pulmonic Valve The pulmonic valve is likely normal. Tricuspid Valve Normal tricuspid valve structure. Tricuspid regurgitation envelope is inadequate for calculation of right ventricular systolic pressure. Normal right atrial pressure. Great Vessels All visible segments of the aorta are normal in size. The visualized portions of the pulmonary artery and branches are normal. Venous The inferior vena cava is normal in size and collapses greater than 50% with inspiration. Pericardium/Pleural There is no evidence of pericardial effusion. Prior Study Comparison No prior study available for comparison. Measurements 2D Linear Measurements IVSd: 1.28 0.6-0.9/0.6-1.0 cm LVIDd: 4.18 3.9-5.3/4.2-5.9 cm LVIDd Index: 1.93 2.4-3.2/2.2-3.1 cm/m2 LVIDs: 2.93 2.0-3.6 cm LVPWd: 0.98 0.7-1.1 cm LA Diam: 3.60 2.7-3.8/3.0-4.0 cm LAIDs Index: 1.66 1.5-2.3 cm/m2 LV Mass: 202.34 67-162/88-224 g LV Mass Index: 93.24 43-95/49-115 g/m2 LVOT Diam: 2.20 3.0+(-)1.3 cm 2D Systolic Function EF 4C: 64.90 >55% Mitral Valve MV Pk E: 0.47 MV PK A: 0.68 MV Decel Time: 275.00 E/A: 0.70 E'Lateral: 7.40 E'Medial: 5.87 E/E' Med: 8.00 E/E' Lat: 6.40 PHT: 81.00 MVA PHT: 2.72 Decel Sanders: 1.71 Aortic Valve AoV Pk Micah: 1.65 AoV Mn Micah: 0.95 AoV VTI: 0.26 AoV Pk Grad: 11.00 Aov Mn Grad: 4.00 MARKEL Cont.VTI: 3.14 LVOT LVOT Pk Micah: 1.16 LVOT Mn Micah: 0.81 LVOT VTI: 0.22 LVOT Pk Grad: 5.00 LVOT Mn Grad: 3.00 LVOT Diam: 2.20 LVOT Area: 3.80 Diastolic Function MV Pk E: 0.47 MV Pk A: 0.68 E/A: 0.70 E'Medial: 5.87 E/E' Med: 8.00 E' Laterial: 7.40 E/E' Lat: 6.40 Right Ventricle TAPSE (mm): 16.80 TVS' Micah: 10.60 Great Vessels Aorta Sinus of Valsalva: 2.61 2.0-3.5 cm Ao Asc: 3.20 2.1-3.4 cm Updated in Other Vendor System with Status of Final Miguel Ángel Goldstein MD electronically signed on 11/07/2024 7:24:41 PM with status of Final
[2024-11-07 07:06] LABS: Glucose, Whole Blood 169 mg/dL (60-115)
[2024-11-07] MEDS: Insulin Lispro 100 UNIT/ML 3 ML VIAL SUBCUT ×3 (07:10→16:54)
[2024-11-07] MEDS: Tiotropium Bromide 2.5 mcg 1 PUFF/2.5 MCG MIST.INHAL 2 PUFF INHALE (07:56)
[2024-11-07] MEDS: Fluticasone/Vilanterol 200/25 BLST.W.DEV 1 PUFF INHALE (07:56)
[2024-11-07 08:01] VITALS: PULSE 78; RESP 19
[2024-11-07 09:30] VITALS: BMI 41.3
[2024-11-07 09:31] VITALS: BP 124/86; PULSE 77; RESP 20; TEMP 36.2; O2SAT 95
[2024-11-07] MEDS: Multivitamin TABLET 1 TAB PO (09:31)
[2024-11-07] MEDS: Metoprolol Tartrate 25 MG TABLET PO (09:31)
[2024-11-07] MEDS: lamoTRIgine 25 MG TABLET 50 MG PO (09:31)
[2024-11-07] MEDS: Cholecalciferol (Vitamin D3) 25 MCG TABLET PO (09:31)
[2024-11-07] MEDS: FLUoxetine HCl 20 MG CAPSULE PO (09:31)
[2024-11-07] MEDS: Oseltamivir Phosphate 75 MG CAPSULE PO (09:31)
[2024-11-07] MEDS: amLODIPine Besylate 2.5 MG TABLET PO (09:31)
[2024-11-07] MEDS: Aspirin 81 MG TAB.CHEW PO (09:31)
[2024-11-07] MEDS: Atorvastatin Calcium 40 MG TABLET PO (09:32)
[2024-11-07] MEDS: cilostazoL 100 MG TABLET PO (10:40)
[2024-11-07 10:54] LABS: Glucose, Whole Blood 153 mg/dL (60-115)
[2024-11-07 11:09] VITALS: BP 130/81; PULSE 70; RESP 18; TEMP 36.1; O2SAT 94
--- NOTE | 2024-11-07 11:48 | P.CONCA_ITS ---
History of Present Illness History of Present Illness Date of Service: 11/07/24 Requesting physician: Shahzad Vazquez Chief complaint: NSTEMI Narrative: [age] year female with background history of hypertension, diabetes and hyperlipidemia presenting with chest discomfort and bilateral arm weakness in the setting of influenza A. She said she woke up with a severe headache and had chest tightness and arm discomfort. She was also sweating. With these symptoms she presented to [facility] and was found to have influenza A. She was also noticed to have elevated troponins. EKGs did not show any significant changes and had nonspecific ST T-wave changes. She was started on Lovenox and was treated as NSTEMI. She is currently pain- free and has no further symptoms. [facility] Past Medical History Medical History Asthma Pre-op exam Depression Arthritis Cervical radiculitis Renal calculi HTN (hypertension) Diabetes Glaucoma GERD (gastroesophageal reflux disease) Hypothyroidism Hypercholesteremia Carpal tunnel syndrome Sleep apnea Peripheral arterial disease Surgical History Surgical History History of esophagogastroduodenoscopy (EGD) Hx of colonoscopy Hx of tubal ligation Hx of repair of rotator cuff Hx of carpal tunnel repair Hx of lithotripsy History of appendectomy History of foot surgery Social History Social History Household Members: Significant Other Housing: House Are you a primary child care teacher to a significant other at home: No Do you presently have visiting nurse or other home services: No Alcohol intake: current Alcohol intake frequency: holidays/special occasions only Comment: counts correct Patient Tobacco Use Status: Former Tobacco user Tobacco use type: Cigarette Years Smoked: 40 e-Cigarette/Vaping Use: Former Use Second Hand Smoke Exposure: No Substance Use Type: Marijuana service: No Current occupation: [employer] Meds Allergies Allergy/AdvReac Type Severity Reaction Status Date / Time clarithromycin [From Biaxin] Allergy Intermediate Rash Verified 11/05/24 13:41 Active Medications: Current Medications Acetaminophen (Acetaminophen 325 Mg Tablet) 650 mg PO Q6H PRN PRN Reason: Pain, Mild 1-3,fever,headache Last Admin: 11/06/24 17:49 Dose: 650 mg Al Hydroxide/Mg Hydroxide (Magnesium Hydrox/Alum Hydrox 30 Ml Oral.Susp) 30 ml PO Q4H PRN PRN Reason: Heartburn Albuterol Sulfate (Albuterol Sulfate (0.083%) 2.5 Mg/3 Ml Vial.Neb) 2.5 mg INHALE Q6H PRN PRN Reason: wheezing Albuterol Sulfate (Albuterol Sulfate 90 Mcg 8 Gm Inhaler) 2 puff INHALE Q4H PRN PRN Reason: Shortness Of Breath Or Wheezing Amlodipine Besylate (Amlodipine Besylate 2.5 Mg Tablet) 2.5 mg PO DAILY [facility]; Protocol Last Admin: 11/07/24 09:31 Dose: 2.5 mg Aspirin (Aspirin 81 Mg Tab.Chew) 81 mg PO DAILY [facility] Last Admin: 11/07/24 09:31 Dose: 81 mg Atorvastatin Calcium (Atorvastatin Calcium 40 Mg Tablet) 40 mg PO DAILY [facility] Last Admin: 11/07/24 09:32 Dose: 40 mg Cilostazol (Cilostazol 100 Mg Tablet) 100 mg PO BID [facility] Last Admin: 11/07/24 10:40 Dose: 100 mg Dextrose (Dextrose 50 % 25 Gm/50 Ml Syringe) 25 gm IVPUSH Q15M PRN; Protocol PRN Reason: per Hypoglycemia Standing Ord. Enoxaparin Sodium (Enoxaparin Sodium 120 Mg/0.8 Ml Syringe) 110 mg SUBCUT Q12H [facility] Last Admin: 11/07/24 05:56 Dose: 110 mg Fluoxetine HCl (Fluoxetine Hcl 20 Mg Capsule) 20 mg PO DAILY [facility] Last Admin: 11/07/24 09:31 Dose: 20 mg Fluticasone Propionate (Fluticasone Propionate Nasal 16 Gm [place]) 2 spray NOSTRIL-B DAILY PRN PRN Reason: Allergy Symptoms Fluticasone/Vilanterol (Fluticasone/Vilanterol 200/25 Blst.W.Dev) 1 puff INHALE RDAILY [facility] Last Admin: 11/07/24 07:56 Dose: 1 puff Glucose (Glucose Gel 15 Gm Gel..Gram.) 15 gm PO Q15M PRN; Protocol PRN Reason: per Hypoglycemia Standing Ord. Hydroxyzine HCl (Hydroxyzine Hcl 25 Mg Tablet) 25 mg PO TID PRN PRN Reason: Anxiety Last Admin: 11/06/24 21:52 Dose: 25 mg Insulin Human Lispro (Insulin Lispro 100 Unit/Ml 3 Ml Vial) 0 unit SUBCUT QIDACHS [facility]; Protocol Last Admin: 11/07/24 11:31 Dose: 2 unit Lamotrigine (Lamotrigine 25 Mg Tablet) 50 mg PO DAILY [facility] Last Admin: 11/07/24 09:31 Dose: 50 mg Levothyroxine Sodium (Levothyroxine Sodium 25 Mcg Tablet) 25 mcg PO DAILY@0600 [facility] Last Admin: 11/07/24 05:57 Dose: 25 mcg Loratadine (Loratadine 10 Mg Tablet) 10 mg PO DAILY PRN PRN Reason: Allergy Symptoms Magnesium Hydroxide (Milk Of Magnesia 30 Ml Oral.Susp) 30 ml PO DAILY PRN PRN Reason: Constipation Melatonin (Melatonin 3 Mg Tablet) 6 mg PO BEDTIME PRN PRN Reason: Insomnia Metoprolol Tartrate (Metoprolol Tartrate 25 Mg Tablet) 25 mg PO BID [facility]; Protocol Last Admin: 11/07/24 09:31 Dose: 25 mg Multivitamins/Vitamin C (Multivitamin Tablet) 1 tab PO DAILY [facility] Last Admin: 11/07/24 09:31 Dose: 1 tab Nitroglycerin (Nitroglycerin 0.4 Mg Tab.Subl) 0.4 mg SUBLINGUAL Q5MX3 PRN PRN Reason: Chest Pain Non-Formulary Medication (Lfqprl-Axfvcnlu-Bmuhotc [Creon]) 2 cap PO TIDWM [facility] Ondansetron HCl (Ondansetron Hcl 4 Mg/2 Ml Vial) 4 mg IVPUSH Q8H PRN PRN Reason: Nausea and Vomiting Oseltamivir Phosphate (Oseltamivir Phosphate 75 Mg Capsule) 75 mg PO BID [facility] Stop: 11/10/24 09:01 Last Admin: 11/07/24 09:31 Dose: 75 mg Pantoprazole Sodium (Pantoprazole Sodium 20 Mg Tablet.Dr) 40 mg PO DAILY@0630 [facility] Last Admin: 11/07/24 05:57 Dose: 40 mg Tiotropium [place] (Tiotropium [place] 2.5 Mcg 1 Puff/2.5 Mcg Mist.Inhal) 2 puff INHALE DAILY PRN PRN Reason: Shortness Of Breath Or Wheezing Last Admin: 11/07/24 07:56 Dose: 2 puff Vitamin D (Cholecalciferol (Vitamin D3) 25 Mcg Tablet) 25 mcg PO DAILY [facility] Last Admin: 11/07/24 09:31 Dose: 25 mcg Home Medications ?Medication ?Instructions ?Recorded ?Confirmed ?Last Taken ?Type cilostazol 100 mg tablet 100 mg PO BID 10/12/23 11/05/24 07/10/24 05:00 History fluoxetine 20 mg capsule 20 mg PO DAILY 10/12/23 11/05/24 11/05/23 History metformin 500 mg tablet 1,000 mg PO BID 10/12/23 11/05/24 11/05/23 History omeprazole 40 mg capsule,delayed 40 mg PO QAM 10/12/23 11/05/24 11/06/23 History release simvastatin 40 mg tablet 40 mg PO DAILY 10/12/23 11/05/24 11/05/23 History albuterol sulfate 90 mcg/actuation 2 puff inhalation Q4-6H PRN 11/01/23 11/05/24 11/06/23 History aerosol inhaler (Ventolin HFA) Shortness Of Breath Or Wheezing aspirin 81 mg tablet,delayed 81 mg PO BEDTIME 11/01/23 11/05/24 07/10/24 05:00 History release fluticasone propionate 230 2 puff inhalation BID PRN 11/01/23 11/05/24 11/05/23 History mcg-salmeterol 21 mcg/actuation Shortness Of Breath Or Wheezing HFA inhaler (Advair HFA) lamotrigine 25 mg tablet 50 mg PO DAILY 11/01/23 11/05/24 07/10/24 05:00 History amlodipine 2.5 mg tablet 2.5 mg PO DAILY 11/02/23 11/05/24 11/06/23 History biotin 1,000 mcg chewable tablet 1,000 mcg PO DAILY 11/02/23 11/05/24 11/05/23 History albuterol sulfate 2.5 mg/3 mL 2.5 mg inhalation Q6H PRN wheezing 11/05/24 11/05/24 Unknown History (0.083 %) solution for nebulization cetirizine 10 mg tablet 10 mg PO DAILY PRN Allergy Symptoms 11/05/24 11/05/24 Unknown History cholecalciferol (vitamin D3) 25 25 mcg PO DAILY 11/05/24 11/05/24 Unknown History mcg (1,000 unit) tablet fluticasone propionate 50 2 spray intranasal DAILY PRN 11/05/24 11/05/24 Unknown History mcg/actuation nasal Allergy Symptoms spray,suspension hydroxyzine HCl 25 mg tablet 25 mg PO TID PRN Anxiety 11/05/24 11/05/24 Unknown History levothyroxine 25 mcg tablet 25 mcg PO DAILY 11/05/24 11/05/24 Unknown History wompmz-vqjxhyqe-skipzlt 2 cap PO TIDWM 11/05/24 11/05/24 Unknown History 36,000-114,000-180,000 unit capsule,delay rel (Creon) multivitamin 1 tab PO DAILY 11/05/24 11/05/24 Unknown History tiotropium bromide 2.5 2 puff inhalation DAILY PRN 11/05/24 11/05/24 Unknown History mcg/actuation mist for inhalation Shortness Of Breath Or Wheezing (Spiriva Respimat) Physical Exam 2 Vital Signs: Vital Signs: Last Vital Signs Temp 97.0 F 11/07/24 11:09 Pulse 70 11/07/24 11:09 Resp 18 11/07/24 11:09 BP 130/81 11/07/24 11:09 Pulse Ox 94 11/07/24 11:09 O2 Del Method Room Air 11/07/24 11:09 BMI result Body Mass Index 41.3 GENERAL APPEARANCE: in no acute distress, pleasant. NECK: no carotid bruit, no jugular venous distention. SKIN: no suspicious lesions, warm and dry. HEART: no murmurs, regular rate and rhythm. LUNGS: clear to auscultation bilaterally. ABDOMEN: soft, nontender. EXTREMITIES: no edema. PERIPHERAL PULSES: equal. NEUROLOGIC: No gross deficits, AAO X 3 Objective Labs and Meds 11/06/24 04:37 11/06/24 04:37 Lab results: Laboratory Results - last 24 hr 11/06/24 11/06/24 11/06/24 13:20 16:51 18:44 PT 12.5 H INR 1.1 POC Glucose 151 H 180 H 11/06/24 11/07/24 11/07/24 21:51 07:03 10:49 PT INR POC Glucose 164 H 169 H 153 H Assessment and Plan (1) NSTEMI (non-ST elevated myocardial infarction): Status: Acute Plan Pleasant 59 year female presenting with influenza a, chest discomfort and NSTEMI. Type 2 [place] is possible with influenza a but she clearly had symptoms with chest tightness as well as bilateral arm discomfort. She has risk factors for coronary artery disease. After discussion we have decided to transfer to [facility] for potential cardiac catheterization tomorrow. We will treat her with Lovenox and hold the Lovenox dose tomorrow morning. Continue baby aspirin and high-intensity statin therapy. Blood pressure is well controlled. Thank you for allowing me to participate in the care of your patient. Please feel free to contact me if you have any questions. Procedures Date of Service Date of Service: 11/07/24
--- NOTE | 2024-11-07 11:58 | PM.DS ---
DS: Providers Provider Date of Service: 11/07/24 Date of admission: 11/05/24 17:33 Date of discharge: 11/07/24 Primary care physician: Jadon Vargas MD Consults: 11/06/24 12:55 Consult to Cardiology Routine Consulting Provider: [facility] Reason for consultation: nstemi DS: Diagnosis Discharge Diagnosis (1) NSTEMI (non-ST elevated myocardial infarction): Status: Acute DS: Summary Hospital Course Hospital Course: admission hpi Chief Complaint: Chest pain shortness of breath and diffuse body aches. 59-year-old female obese with hypertension, hyperlipidemia, diabetes, peripheral vascular disease. He she presented to the hospital today with 9/10 chest pain since 23:00 last night right sided twisting chest pain pain radiating to both arms, she has reported associated shortness of breath vomiting episode and headache. She use inhalers which seems to make her symptoms worse. ED work up: ECG nonspecific T wave abnormalities, troponin I level audrey from 211 to 302 and started on Lovenox, ASA and Lipitor and metoprolol. Further testing has revealed influenza. She reports having pneumonia and covid at the begining of the month. hospital course: Alexander was admitted for further management of acute NSTEMI and treated with therapeutic lovenox, ASA, metoprolol and Sivastatin 40 changed to Lipitor 40. Tropoonin I has trended down from 211 to 302 and then 104. She still has some intermittent pain and cardiology advised further stratification with cardiac cath and is being transferred to [facility] for this. She is otherwise hemodynamically stable. Insluenza.. with nohypoxia, being treated with tamiflu 75 mg twice daily, so far 4 doses, plan for 10 dosed total. O2 sat is 94% on room and lungs clears Diabetes (mzb-ovxltzz-qtdaocrqj): Sliding scale insulin. Hold metformin for in anticipation of cardiac cath Hypertension continue amlodipine, metoprolol Morbid Obesity: Weight loss counseling and lifestyle modifications advised. Unspecified asthmma, continue inhalers, no exacerbation Mood disorders, resume home meds (Fluoxetine, lamictal) Hypothryoidism--Synthroid GERD --Protononix dispo: To [facility] for cardiac cath Time Attestation Discharge Coordination Time (in mins): 35 Quality: Safe Use of Opioids Does Pt have an Active Cancer Diagnosis on the Problem List?: No Quality: Stroke Does the patient have a stroke diagnosis?: No Physical Exam Vital Signs: Vital Signs: Last Vital Signs Temp 97.0 F 11/07/24 11:09 Pulse 70 11/07/24 11:09 Resp 18 11/07/24 11:09 BP 130/81 11/07/24 11:09 Pulse Ox 94 11/07/24 11:09 O2 Del Method Room Air 11/07/24 11:09 BMI result Body Mass Index 41.3 DS: Data Data Completed and Pending Completed studies during hospitalization [Text1]: Procedures Extirpation of Matter from Right External Carotid Artery, Open Approach (11/06/23) Supplement Right Internal Carotid Artery with Synthetic Substitute, Open Approach (11/06/23) Labs on day of discharge: Laboratory Results - last 24 hr 11/06/24 11/06/24 11/06/24 13:20 16:51 18:44 PT 12.5 H INR 1.1 POC Glucose 151 H 180 H 11/06/24 11/07/24 11/07/24 21:51 07:03 10:49 PT INR POC Glucose 164 H 169 H 153 H Discharge Plan Discharge Anticipated Discharge Date/Time: 11/07/24 11:54 Patient Disposition: Xfer Acute Care Hospital Discharge Diagnosis: NSTEMI, Influenza Referrals: Jadon Vargas MD [Primary Care Provider] - 1 Week Discharge Medications: New atorvastatin 40 mg Tablet 40 mg PO DAILY Qty: 30 0RF Continued aspirin 81 mg Tablet,Delayed Release (Dr/Ec) 81 mg PO BEDTIME lamotrigine 25 mg tablet 50 mg PO DAILY albuterol sulfate [Ventolin HFA] 90 mcg/actuation Hfa Aerosol Inhaler 2 puff INHALATION Q4-6H PRN (Reason: Shortness Of Breath Or Wheezing) fluticasone propion-salmeterol [Advair HFA] 230-21 mcg/actuation Hfa Aerosol Inhaler 2 puff INHALATION BID PRN (Reason: Shortness Of Breath Or Wheezing) biotin 1,000 mcg Tablet,Chewable 1,000 mcg PO DAILY amlodipine 2.5 mg tablet 2.5 mg PO DAILY multivitamin Tablet 1 tab PO DAILY albuterol sulfate 2.5 mg /3 mL (0.083 %) solution for nebulization 2.5 mg inhalation Q6H PRN (Reason: wheezing) cetirizine 10 mg tablet 10 mg PO DAILY PRN (Reason: Allergy Symptoms) levothyroxine 25 mcg tablet 25 mcg PO DAILY hydroxyzine HCl 25 mg tablet 25 mg PO TID PRN (Reason: Anxiety) fluticasone propionate 50 mcg/actuation spray,suspension 2 spray intranasal DAILY PRN (Reason: Allergy Symptoms) cholecalciferol (vitamin D3) 25 mcg (1,000 unit) tablet 25 mcg PO DAILY Spiriva Respimat 2.5 mcg/actuation mist 2 puff INHALATION DAILY PRN (Reason: Shortness Of Breath Or Wheezing) Creon 36,000-114,000- 180,000 unit capsule,delayed release(DR/EC) 2 cap PO TIDWM cilostazol 100 mg tablet 100 mg PO BID omeprazole 40 mg capsule,delayed release(DR/EC) 40 mg PO QAM fluoxetine 20 mg capsule 20 mg PO DAILY Held metformin 500 mg tablet 1,000 mg PO BID Hold Instructions: Resume on 10/14/24. Discontinued simvastatin 40 mg tablet 40 mg PO DAILY Diet: Diabetic diet Activity on Discharge: As tolerated Stand Alone Forms: Patient Portal Discharge page Print Language: Belgian Care Plan Goals: Transfer to [facility] for cardiac catheterization for further evaluation of the NSTEMI Health Concerns: And STEMI, influenza, Plan of Treatment: Transfer to [facility] for cardiac catheterization tomorrow, continue Lovenox, metoprolol and aspirin as well as Lipitor. Assessment: See above
--- NOTE | 2024-11-07 13:34 | MHC.CM.PN ---
Pt to be tranferred to [facility] for treatment there.
[2024-11-07 15:33] VITALS: BP 121/68; PULSE 70; RESP 14; TEMP 36.4; O2SAT 93
[2024-11-07 16:50] LABS: Glucose, Whole Blood 151 mg/dL (60-115)
[2024-11-07] MEDS: Milk of Magnesia 30 ML ORAL.SUSP PO (16:56)
== END 2024-11-07 17:23 | disposition short-term general hospital (02) | DRG 113 ==
LOC: HO.ED 16:21 → HO.EDOVER 18:29 → HO.IMC 11-07 07:56
PROVIDERS: Registered Nurse Emergency; Admitting Provider Internal Medicine; Emergency Provider Emergency Medicine; PCP Student in an Organized Health Care Education/Training Program; Visit Provider Internal Medicine
DX: J10.1 Influenza due to other identified influenza virus with other respiratory manifestations (principal); I21.4 Non-ST elevation (NSTEMI) myocardial infarction; E11.51 Type 2 diabetes mellitus with diabetic peripheral angiopathy without gangrene; E78.5 Hyperlipidemia, unspecified; E66.01 Morbid (severe) obesity due to excess calories; I10 Essential (primary) hypertension; Z68.41 Body mass index [BMI] 40.0-44.9, adult; Z71.3 Dietary counseling and surveillance; Z20.822 Contact with and (suspected) exposure to COVID-19; Z79.82 Long term (current) use of aspirin; Z87.891 Personal history of nicotine dependence; Z79.84 Long term (current) use of oral hypoglycemic drugs; Z79.890 Hormone replacement therapy; Z79.899 Other long term (current) drug therapy
CPT/HCPCS: 0241U; 36415; 71046; 80048; 80053; 80061; 82947; 84484; 85025; 85027; 85379; 85610; 85730; 93005; 93306; 94640; 99285; J1650; Q9957

== ENCOUNTER → 2024-11-05 12:35 | Outpatient (BNV) | payer OTHER, SELFPAY | PROVIDERS: PCP Student in an Organized Health Care Education/Training Program; Visit Provider Internal Medicine | DX: I49.3 Ventricular premature depolarization (principal); R94.31 Abnormal electrocardiogram [ECG] [EKG] | CPT/HCPCS: 93010 ==

== ENCOUNTER → 2024-11-05 13:41 | Outpatient (BNV) | payer OTHER, SELFPAY | PROVIDERS: PCP Student in an Organized Health Care Education/Training Program; Visit Provider Radiology Diagnostic Radiology | DX: R07.9 Chest pain, unspecified (principal) | CPT/HCPCS: 71046 ==

== ENCOUNTER 2024-11-05 17:33 | Outpatient (BNV) | payer OTHER, SELFPAY | END 2024-11-07 11:39 | PROVIDERS: Admitting Provider Internal Medicine; Emergency Provider Emergency Medicine; PCP Student in an Organized Health Care Education/Training Program; Visit Provider Internal Medicine Cardiovascular Disease | DX: I21.4 Non-ST elevation (NSTEMI) myocardial infarction (principal); I51.7 Cardiomegaly; I49.3 Ventricular premature depolarization | CPT/HCPCS: 93010; 93306 ==

== ENCOUNTER 2024-11-05 17:33 | Outpatient (BNV) | payer OTHER, SELFPAY | END 2024-11-06 09:45 | PROVIDERS: Admitting Provider Internal Medicine; Emergency Provider Emergency Medicine; PCP Student in an Organized Health Care Education/Training Program; Visit Provider Internal Medicine Cardiovascular Disease | DX: I21.4 Non-ST elevation (NSTEMI) myocardial infarction (principal) | CPT/HCPCS: 93010 ==

== ENCOUNTER → 2024-11-05 17:33 | Outpatient (BNV) | payer OTHER, SELFPAY | PROVIDERS: Admitting Provider Internal Medicine; Emergency Provider Emergency Medicine; PCP Student in an Organized Health Care Education/Training Program; Visit Provider Internal Medicine Cardiovascular Disease | DX: I21.4 Non-ST elevation (NSTEMI) myocardial infarction (principal) | CPT/HCPCS: 99223 ==

== ENCOUNTER → 2024-11-05 17:33 | Outpatient (BNV) | payer OTHER, SELFPAY | PROVIDERS: Admitting Provider Internal Medicine; Emergency Provider Emergency Medicine; PCP Student in an Organized Health Care Education/Training Program; Visit Provider Internal Medicine | DX: E11.9 Type 2 diabetes mellitus without complications (principal); I10 Essential (primary) hypertension; J10.1 Influenza due to other identified influenza virus with other respiratory manifestations; R07.9 Chest pain, unspecified; I21.4 Non-ST elevation (NSTEMI) myocardial infarction | CPT/HCPCS: 99223; 99232 ==

== ENCOUNTER → 2024-11-08 23:59 | Outpatient (BNV) | payer OTHER, SELFPAY | PROVIDERS: PCP Internal Medicine; Visit Provider Internal Medicine Cardiovascular Disease | DX: I21.4 Non-ST elevation (NSTEMI) myocardial infarction (principal) | CPT/HCPCS: 92928; 93458; 99152 ==

== ENCOUNTER → 2024-11-21 23:59 | Outpatient (BNV) | payer OTHER, SELFPAY | PROVIDERS: PCP Internal Medicine; Visit Provider Internal Medicine Cardiovascular Disease | DX: I21.4 Non-ST elevation (NSTEMI) myocardial infarction (principal) | CPT/HCPCS: 92928; 99152 ==

== ENCOUNTER 2024-12-09 13:37 | Outpatient (AMB) | payer OTHER, SELFPAY ==
[2024-12-09 13:43] VITALS: BP 130/80; PULSE 74; BMI 41.1
--- NOTE | 2024-12-09 13:43 | A.OFFVIS_ITS ---
Vital Signs 12/09/24 13:43 Height 5 ft 5 in Weight 246 lb 14.684 oz BMI 41.1 BP 130/80 Blood Pressure Location Lt brachial Position Sitting Pulse 74 Pulse Source Monitor Intake Visit Reasons: f/up-S/P cath11/08- 11/21 Intake Note: s/p-cath [employer] Required: No Accompanied by: Self / Same As Patient Allergies clarithromycin [From Biaxin] Allergy (Intermediate, Verified 11/05/24 13:41) Rash Medication List - Last Reconciled 12/09/24 by Miguel Ángel Goldstein MD albuterol sulfate 90 mcg/actuation (Ventolin HFA) 2 puffs inhalation Q4-6H PRN albuterol sulfate 2.5 mg inhalation Q6H PRN amlodipine 2.5 mg PO DAILY aspirin 81 mg PO BEDTIME atorvastatin 40 mg PO DAILY biotin 1,000 mcg PO DAILY cetirizine 10 mg PO DAILY PRN cholecalciferol (vitamin D3) 25 mcg PO DAILY cilostazol 100 mg PO BID fluoxetine 20 mg PO DAILY fluticasone propion-salmeterol 230-21 mcg/actuation (Advair HFA) 2 puffs inhalation BID PRN fluticasone propionate 50 mcg/actuation 2 sprays intranasal DAILY PRN hydroxyzine HCl 25 mg PO TID PRN insulin lispro (Admelog U-100 Insulin lispro) See Protocol units subcut QIDACHS lamotrigine 50 mg PO DAILY levothyroxine 25 mcg PO DAILY sehqis-cogfbhoe-mrumjdg 36,000-114,000- 180,000 unit (Creon) 2 caps PO TIDWM metformin 1,000 mg PO BID metoprolol tartrate 25 mg See Protocol PO BID multivitamin 1 tab PO DAILY omeprazole 40 mg PO QAM oseltamivir (Tamiflu) 75 mg PO BID ticagrelor (Brilinta) 90 mg PO BID tiotropium bromide 2.5 mcg/actuation (Spiriva Respimat) 2 puffs inhalation DAILY PRN HPI Comments Details: Very pleasant 59-year-old female who is here for follow-up. She was seen in October 2024 when she presented with NSTEMI in the setting of influenza a. She was taken for cardiac catheterization because she had significant chest and bilateral shoulder discomfort. Cardiac catheterization showed severe LAD and circumflex stenosis. Circumflex was treated because it appeared to be the culprit. She had staged PCI to LAD diagonal bifurcation in November 2024. She is saying she has been doing well since then. She has a lot of energy and is able to do more without any chest discomfort. She is still has some shortness of breath and will be starting cardiac rehabilitation soon. She is taking cilostazol for long time and is currently on aspirin cilostazol and ticagrelor. She has been experiencing some bruising on her arms. Blood pressure well controlled. EKGs reviewed. [facility] Medical History (Updated 11/15/24 @ 00:03 by Sandra Toro) Asthma Pre-op exam Depression Arthritis Cervical radiculitis Renal calculi HTN (hypertension) Diabetes Glaucoma GERD (gastroesophageal reflux disease) Hypothyroidism Hypercholesteremia Carpal tunnel syndrome Sleep apnea Peripheral arterial disease Surgical History (Updated 12/09/24 @ 14:12 by Miguel Ángel Goldstein MD) S/P cardiac cath History of esophagogastroduodenoscopy (EGD) Hx of colonoscopy Hx of tubal ligation Hx of repair of rotator cuff Hx of carpal tunnel repair Hx of lithotripsy History of appendectomy History of foot surgery Social History Household Members: Significant Other Housing: House Are you a primary personal carer to a significant other at home: No Do you presently have visiting nurse or other home services: No Alcohol intake: current Alcohol intake frequency: holidays/special occasions only Comment: counts correct Patient Tobacco Use Status: Former Tobacco user Tobacco use type: Cigarette Years Smoked: 40 e-Cigarette/Vaping Use: Former Use Second Hand Smoke Exposure: No Substance Use Type: Marijuana service: No Current occupation: [employer] - Right Handed Review of Systems Const Denies chills, Denies fatigue, Denies fever(s), Denies frequent falls, Denies weakness, Denies weight gain and Denies weight loss ENT Denies dizziness Card Denies chest pain, Denies leg edema, Denies lightheadedness, Denies palpitations, Denies dyspnea and Denies dyspnea on exertion Resp Denies cough, Denies dyspnea and Denies dyspnea on exertion GI Denies hematochezia Musc Denies abnormal gait, Denies muscle weakness, Denies numbness, Denies radiating pain into limb and Denies tingling Neuro Denies abnormal gait, Denies dizziness, Denies frequent falls, Denies numbness, Denies tingling and Denies weakness Endo Denies fatigue and Denies palpitations Physical Exam Vital Signs: Last Vital Signs Pulse 74 12/09/24 13:43 BP 130/80 12/09/24 13:43 BMI result Body Mass Index 41.1 GENERAL APPEARANCE: in no acute distress, pleasant. NECK: no carotid bruit, no jugular venous distention. SKIN: no suspicious lesions, warm and dry. HEART: no murmurs, regular rate and rhythm. LUNGS: clear to auscultation bilaterally. ABDOMEN: soft, nontender. EXTREMITIES: no edema. PERIPHERAL PULSES: equal. NEUROLOGIC: No gross deficits, AAO X 3 Office Procedures EKG Details: Sinus rhythm 74 beats per minute, normal axis, low voltage, QTC 439 milliseconds. [id number], Complete Assessment & Plan Assessment & Plan (1) NSTEMI (non-ST elevated myocardial infarction): Code(s): I21.4 - Non-ST elevation (NSTEMI) myocardial infarction Category: Medical (2) Status post angioplasty with stent: Code(s): Z95.820 - Peripheral vascular angioplasty status with implants and grafts Category: Surgical Plan Very pleasant 59 year female with background history of peripheral vascular disease, carotid stenosis, hypothyroidism and recent NSTEMI when she presented with chest discomfort and bilateral shoulder discomfort in the setting of i nfluenza a and cardiac catheterization showing severe circumflex and LAD stenosis. Circumflex was treated in October and she had a stage PCI to LAD in November of 2024. She has been doing well. Tolerating medications and has no symptoms. She will be starting cardiac rehabilitation. She is on cilostazol along with aspirin and Brilinta. I think this increases her bleeding risk and I have advised her to stop the cilostazol for now. She was also not getting significant improvement in her symptoms and continued to have some claudication symptoms with activity despite taking the medicine. We w ill continue aspirin and Brilinta for now and once we reached 1 year we can rediscuss should be resumed cilostazol in place of Brilinta. Thank you for allowing me to participate in the care of your patient. Please feel free to contact me if you have any questions. Coding Level of Care Code Est Pt Level 4 (78199) Complex EM visit Add On G2211 Diagnoses NSTEMI (non-ST elevated myocardial infarction) I21.4 Status post angioplasty with stent Z95.820 CPT Codes EKG - CPT: 28181-[id number], Complete ([id number])
--- OUTSIDE RECORDS SUMMARY | 2024-12-09 15:23 | XMS_ITS | Encounter Summary ---
Author Organization [facility] Address [address] [place] [address] Care Team Providers Care Side Framer Name Role Phone Naila Vargas MD Primary Care Provider [phone] Yimi Shafer MD Unavailable Unavailable Nessa Crews MD Unavailable [phone] Luke Valadez PA-C Unavailable [phone] Encounter Details Date Type Department Care Team Description 05/25/2023 SCAN [facility] [address] [facility] [address] [place] [phone] Eladio Kirby MD [address] [facility] [address] [place] [address] Social History Tobacco Use Types Packs/Day Years Used Date Smoking Tobacco: Former Cigarettes 1 34 0 09/11/1983 - 12/07/2017 Smokeless Tobacco: Never Alcohol Use Standard Drinks/Week Comments No 0 (1 standard drink = 0.6 oz pur e alcohol) Sex Assigned at Date Recorded Not on file Job Start Date Occupation Industry Not on file Not on file Not on file COVID-19 Exposure Response Date Recorded In the last 10 days, have yo u been in contact with someone who was confirmed or suspected to have Coronavirus/COVID-19? No / Unsure 05/17/2023 9:50 AM EDT documented as of this encounter Plan of Treatment Not on file documented as of this encounter Visit Diagnoses Not on filedocumented in this encounter Care Teams Side Framer Relationship Specialty Start Date End Date Naila Vargas MD [address] [place] [address] PCP - General Internal Medicine 04/18/22 Yimi Shafer MD [address] [place] [address] Vascular Surgery 10/13/23 Nessa Crews MD [address] [place] [address] Specialist Cardiology 10/16/23 Luke Valadez PA-C [address] [place] [phone] Specialist Thoracic Surgery 02/21/24 documented as of this encounter
--- OUTSIDE RECORDS SUMMARY | 2024-12-09 15:23 | XMS_ITS | Encounter Summary ---
Author Organization [facility] Address [address] [place] [address] Care Team Providers Care Defensive Driving Instructor Name Role Phone Naila Vargas MD Primary Care Provider [phone] Yimi Shafer MD Unavailable Unavailable Nessa Crews MD Unavailable [phone] Luke Valadez PA-C Unavailable [phone] Encounter Details Date Type Department Care Team Description 11/30/2023 Metalizer Report Medical Records [address] [place] [address] Yimi Shafer MD Social History Tobacco Use Types Packs/Day Years [...] on file documented as of this encounter Plan of Treatment Not on file documented as of this encounter Visit Diagnoses Not on filedocumented in this encounter Care Teams Defensive Driving Instructor Relationship Specialty Start Date End Date Naila Vargas MD [address] [place] [address] PCP - General Internal Medicine 04/18/22 Yimi Shafer MD [address] [place] [address] Vascular Surgery 10/13/23 Nessa Crews MD [address] [place] [address] Specialist Cardiology 10/16/23 Luke Valadez PA-C [address] [place] [phone] Specialist Thoracic Surgery 02/21/24 documented as of this encounter
--- OUTSIDE RECORDS SUMMARY | 2024-12-09 15:23 | XMS_ITS | Encounter Summary ---
Author Organization [facility] Address [address] [place] [address] Care Team Providers Care Court Specialist Name Role Phone Naila Vargas MD Primary Care Provider [phone] Yimi Shafer MD Unavailable Unavailable Nessa Crews MD Unavailable [phone] Luke Valadez PA-C Unavailable [phone] Encounter Details Date Type Department Care Team Description 06/06/2023 SCAN [facility] [address] [facility] [address] [place] [phone] Eladio Kirby MD [address] [facility] [address] [place] [address] Social History Tobacco Use Types Packs/Day Years [...] suspected to have Coronavirus/COVID-19? No / Unsure 06/07/2023 2:00 PM EDT documented as of this encounter Plan of Treatment Not on file documented as of this encounter Visit Diagnoses Not on filedocumented in this encounter Care Teams Court Specialist Relationship Specialty Start Date End Date Naila Vargas MD [address] [place] [address] PCP - General Internal Medicine 04/18/22 Yimi Shafer MD [address] [place] [address] Vascular Surgery 10/13/23 Nessa Crews MD [address] [place] [address] Specialist Cardiology 10/16/23 Luke Valadez PA-C [address] [place] [phone] Specialist Thoracic Surgery 02/21/24 documented as of this encounter
--- OUTSIDE RECORDS SUMMARY | 2024-12-09 15:23 | XMS_ITS | Encounter Summary ---
Author Organization [facility] Address [address] [place] [address] Care Team Providers Care Crisis Worker Name Role Phone Zeynep Barajas MD Primary Care Provider Unavail able Manuel Mtz MD Primary Care Provider Naila Levy MD Primary Care Provider [phone] Yimi Shafer MD Unavailable Unavailable Nessa Crews MD Unavailable [phone] Luke Valadez PA-C Unavailable [phone] Reason for Visit * Reason Onset Date Comments TEST RESULTS 09/28/2018 result notes Encounter Details Date Type Department Care Team Description 09/28/[address] [id number] Sakina Lazaro PA-C TEST RESULTS (result notes) Social History Tobacco Use Types Packs/Day Years Used Date Smoking Tobacco: Former Cigarettes 0.3 34 0 09/11/1983 - 12/07/2017 Smokeless Tobacco: Never Comments:2-3 cigarettes 4 da ys/ week, trying to quit Alcohol Use Standard Drinks/Week Comments No 0 (1 standard drink = 0.6 oz pur e alcohol) 1-2 drinks per yr Sex Assigned at Date Recorded Not on file Job Start Date Occupation Industry Not on file Not on file Not on file documented as of this encounter Miscellaneous Notes * Telephone Encounter - Liz Boyer M.A. - 09/28/2018 4:41 PM EST Spoke with patient and is aware of results. Please contact patient and inform her that her x-ray does show evidence of tendinitis in the shoulder. I would recommend she begin physical therapy for this and a referral was placed but I can also placed a referral for her to meet with our orthopedics department to discuss a cortisone injection will be necessary as well. She should be contacted to book these appointments within a couple businessdays. Telephone Information: Work Phone Not on file. documented in this encounter Plan of Treatment Not on file documented as of this encounter Visit Diagnoses Not on filedocumented in this encounter Care Teams Crisis Worker Relationship Specialty Start Date End Date Zeynep Barajas MD PCP - General Internal Medicine 11/28/17 08/09/21 Manuel Mtz MD PCP - General Internal Medicine 08/10/21 04/17/22 Naila Vargas MD [address] [place] [address] PCP - General Internal Medicine 04/18/22 Yimi Shafer MD [address] [place] [address] Vascular Surgery 10/13/23 Nessa Crews MD [address] [place] [address] Specialist Cardiology 10/16/23 Luke Valadez PA-C [address] [place] [phone] Specialist Thoracic Surgery 02/21/24 documented as of this encounter
--- OUTSIDE RECORDS SUMMARY | 2024-12-09 15:23 | XMS_ITS | Encounter Summary ---
Author Organization [facility] Address [address] [place] [address] Care Team Providers Care Pr Manager Name Role Phone Naila Vargas MD Primary Care Provider [phone] Yimi Shafer MD Unavailable Unavailable Nessa Crews MD Unavailable [phone] Luke Valadez PA-C Unavailable [phone] Reason for Visit * Reason Comments E-prescribe Rx Request Encounter Details Date Type Department Care Team Description 05/20/2023 Refill [facility] [address] [place] [address] [place] [phone] Shaneka Melchor APRN E-prescribe Rx Request Social History Tobacco Use Types Packs/Day Years [...] on filedocumented in this encounter Care Teams Pr Manager Relationship Specialty Start Date End Date Naila Vargas MD [address] [place] [address] PCP - General Internal Medicine 04/18/22 Yimi Shafer MD [address] [place] [address]647 Vascular Surgery 10/13/23 Nessa Crews MD [address] [place] [address] Specialist Cardiology 10/16/23 Luke Valadez PA-C [address] [place] [phone] Specialist Thoracic Surgery 02/21/24 documented as of this encounter
--- OUTSIDE RECORDS SUMMARY | 2024-12-09 15:23 | XMS_ITS | Encounter Summary ---
Author Organization [facility] Address [address] [place] [address] Care Team Providers Care Housekeeping Director Name Role Phone Ashley Hernández DO Primary Care Pro vider Unavailable Zeynep Barajas MD Primary Care Provider Unavail able Manuel tMz MD Primary Care Provider Naila Levy MD Primary Care Provider Yimi Shafer MD Unavailable Unavailable Nessa Crews MD Unavailable [phone] Luke Valadez PA-C Unavailable Encounter Details Date Type Department Care Team Description 06/30/2016 Release of Information Medical Records [address] [place] [id number] Abstract, Provider Social History Tobacco Use Types Packs/Day Years Used Date Smoking Tobacco: Every Day Cigarettes Smokeless Tobacco: Never Comments:2-3 cigarettes 4 da ys/ week Alcohol Use Standard Drinks/Week Comments Yes 0 (1 standard drink = 0.6 oz pur e alcohol) 1-2 drinks per yr Sex Assigned at Date Recorded Not on file Job Start Date Occupation Industry Not on file Not on file Not on file documented as of this encounter Plan of Treatment Not on file documented as of this encounter Visit Diagnoses Not on filedocumented in this encounter Care Teams Housekeeping Director Relationship Specialty Start Date End Date Ashley Hernández DO PCP - General Internal Medicine 01/10/14 11/27/17 Zeynep Barajas MD PCP - General Internal Medicine 11/28/17 08/09/21 Manuel Mtz MD PCP - General Internal Medicine 08/10/21 04/17/22 Naila Vargas MD [address] [place] [address] PCP - General Internal Medicine 04/18/22 Yimi Shafer MD [address] [place] [address] Vascular Surgery 10/13/23 Nessa Crews MD [address] [place] [phone] Specialist Cardiology 10/16/23 Luke Valadez PA-C [address] [place] [phone] Specialist Thoracic Surgery 02/21/24 documented as of this encounter
--- OUTSIDE RECORDS SUMMARY | 2024-12-09 15:23 | XMS_ITS | Encounter Summary ---
Author Organization [facility] Address [address] [place] [address] Care Team Providers Care Bench Assembler Name Role Phone Ashley Hernández DO Primary Care Pro vider Unavailable Zeynep Barajas MD Primary Care Provider Unavail able Manuel Mtz MD Primary Care Provider Naila Levy MD Primary Care Provider [phone] Yimi Shafer MD Unavailable Unavailable Nessa Crews MD Unavailable [phone] Luke Valadez PA-C Unavailable [phone] Reason for Visit * Reason Onset Date Comments APPOINTMENT 04/20/2017 Encounter Details Date Type Department Care Team Description 04/20/2017 Telephone Gastroenterology - [address] [address] Mark Olmstead MD APPOINTMENT Social History Tobacco Use Types Packs/Day Years Used Date Smoking Tobacco: Every Day Cigarettes 0.3 Smokeless Tobacco: Never Comments:2-3 cigarettes 4 da [...] encounter Miscellaneous Notes * Telephone Encounter - Madeleine Solis - 04/20/2017 10:46 AM EDT Left patient a message in regards to consult for 05/29/17 at 9:50, was unable to book it. Need to know if she is available after that date. She was looking to book after documented in this encounter Plan of Treatment Not on file documented as of this encounter Visit Diagnoses Not on filedocumented in this encounter Care Teams Bench Assembler Relationship Specialty Start Date End Date Ashley Hernández DO PCP - General Internal Medicine 01/10/14 11/27/17 Zeynep Barajas MD PCP - General Internal Medicine 11/28/17 08/09/21 Manuel Mtz MD PCP - General Internal Medicine 08/10/21 04/17/22 Naila Vargas MD [address] [place] [address] PCP - General Internal Medicine 04/18/22 Yimi Shafer MD [address] [place] [address] Vascular Surgery 10/13/23 Nessa Crews MD [address] [place] [address] Specialist Cardiology 10/16/23 Luke Valadez PA-C [address] [place] [phone] Specialist Thoracic Surgery 02/21/24 documented as of this encounter
--- OUTSIDE RECORDS SUMMARY | 2024-12-09 15:23 | XMS_ITS | Encounter Summary ---
Author Organization [facility] Address [address] [place] [address] Care Team Providers Care Mainframe Systems Administrator Name Role Phone Naial Vargas MD Primary Care Provider [phone] Yimi Shafer MD Unavailable Unavailable Nessa Crews MD Unavailable [phone] Luke Valadez PA-C Unavailable [phone] Encounter Details Date Type Department Care Team Description 01/05/2024 Telephone Adult Medicine [address] [address] Live Gupta PA-C [address] [place] [address] Social History Tobacco Use Types Packs/Day Years [...] encounter Miscellaneous Notes * Telephone Encounter - Elsa Gonzalez M.A. - 01/05/2024 12:07 PM EDT I read Live's message to pt. She understands. * Telephone Encounter - Live Gupta PA-C - 01/05/2024 11:07 AM EDT Please inform the patient that her knee x-ray looks good. There is no evidence of any broken bones.Her symptoms should gradually improve with rest, ice, elevation. documented in this encounter Plan of Treatment Not on file documented as of this encounter Visit Diagnoses Not on filedocumented in this encounter Care Teams Mainframe Systems Administrator Relationship Specialty Start Date End Date Naila Vargas MD [address] [place] [address] PCP - General Internal Medicine 04/18/22 Yimi Shafer MD [address] [place] [address] Vascular Surgery 10/13/23 Nessa Crews MD [address] [place] [address] Specialist Cardiology 10/16/23 Luke Valadez PA-C [address] [place] [phone] Specialist Thoracic Surgery 02/21/24 documented as of this encounter
--- OUTSIDE RECORDS SUMMARY | 2024-12-09 15:23 | XMS_ITS | Encounter Summary ---
Author Organization [facility] Address [address] [place] [address] Care Team Providers Care Kosher Dietary Service Manager Name Role Phone Naila Vargas MD Primary Care Provider [phone] Yimi Shafer MD Unavailable Unavailable Nessa Crews MD Unavailable [phone] Luke Valadez PA-C Unavailable [phone] Reason for Referral * EXTERNAL (Routine) - Authorized/Booked Specialty Diagnoses / Procedures Referred By Contac t Referred To Contact Physiatry Procedures REFERRAL TO PHYSIATRY Naila Vargas MD [address] [place] [address] Beto Guillermo DO [address] [place] [address] Referral ID Status Reason Start Date Expiration Date V isits Requested Visits Authorized [id number] Authorized/B ooked 12/13/2023 12/12/2024 1 1 Encounter Details Date Type Department Care Team Description 12/13/2023 Orders Only Adult Medicine [address] [phone] Naila Vargas MD [address] [place] [address] Social History Tobacco Use Types Packs/Day Years [...] on filedocumented in this encounter Care Teams Kosher Dietary Service Manager Relationship Specialty Start Date End Date Naila Vargas MD [address] [place] [address] PCP - General Internal Medicine 04/18/22 Yimi Shafer MD [address] [place] [address] Vascular Surgery 10/13/23 Nessa Crews MD [address] [place] [address] Specialist Cardiology 10/16/23 Luke Valadez PA-C [address] [place] [phone] Specialist Thoracic Surgery 02/21/24 documented as of this encounter
--- OUTSIDE RECORDS SUMMARY | 2024-12-09 15:24 | XMS_ITS | Encounter Summary ---
Author Organization [facility] Address [address] [place] [address] Care Team Providers Care Marketing Assistant Manager Name Role Phone Zeynep Barajas MD Primary Care Provider Unavail able Manuel Mtz MD Primary Care Provider Naila Levy MD Primary Care Provider [phone] Yimi Shafer MD Unavailable Unavailable Nessa Crews MD Unavailable [phone] Luke Valadez PA-C Unavailable [phone] Encounter Details Date Type Department Care Team Description 04/16/2021 Orders Only Medical Records [address] [place] [address] Letty Quiroga MD [address] [place] [address] [address] [place] [address] Social History Tobacco Use Types Packs/Day Years [...] Exposure Response Date Recorded In the last month, have you been in contact with someone who was confirmed or suspected to have Coronavirus / COVID-19? No / Unsure 04/13/2021 3:19 PM EDT documented as of this encounter Plan of Treatment Not on file documented as of this encounter Procedures Procedure Name Priority Date/Time Associated Diagnosis Comments OUTSIDE VASCULAR STUDY Routine 04/14/2021 documented in this encounter Results * OUTSIDE VASCULAR STUDY (04/14/2021) Letty Quiroga MD CARDIOLOGY documented in this encounter Visit Diagnoses Not on filedocumented in this encounter Care Teams Marketing Assistant Manager Relationship Specialty Start Date End Date Zeynep Barajas MD PCP - General Internal Medicine 11/28/17 08/09/21 Manuel Mtz MD PCP - General Internal Medicine 08/10/21 04/17/22 Naila Vargas MD [address] [place] [address] PCP - General Internal Medicine 04/18/22 Yimi Shafer MD [address] [place] [address] Vascular Surgery 10/13/23 Nessa Crews MD [address] [place] [address] Specialist Cardiology 10/16/23 Luke Valadez PA-C [address] [place] [phone] Specialist Thoracic Surgery 02/21/24 documented as of this encounter
--- OUTSIDE RECORDS SUMMARY | 2024-12-09 15:24 | XMS_ITS | Encounter Summary ---
Author Organization [facility] Address [address] [place] [address] Care Team Providers Care Electronic Engineering Draftsperson Name Role Phone Manuel Mtz MD Primary Care Provider Naila Levy MD Primary Care Provider [phone] Yimi Shafer MD Unavailable Unavailable Nessa Crews MD Unavailable [phone] Luke Valadez PA-C Unavailable [phone] Reason for Visit * Reason Onset Date Comments DME Request 08/25/2021 Encounter Details Date Type Department Care Team Description 08/25/2021 Telephone Pulmonology - [facility] [address] [facility] [address] [place] [address] Maricel Hawkins APRN [address] [facility] [address] [place] [address] DME Request Social History Tobacco Use Types Packs/Day [...] or suspected to have Coronavirus / COVID-19? Unable to assess 08/17/2021 8:08 AM EST documented as of this encounter Miscellaneous Notes * Telephone Encounter - Sakina Padilla - 08/25/2021 4:22 PM EST 08/25/21 Fax received from [facility] for Maricel hameed, placed in her mail tray 08/25/21. documented in this encounter Plan of Treatment Not on file documented as of this encounter Visit Diagnoses Not on filedocumented in this encounter Care Teams Electronic Engineering Draftsperson Relationship Specialty Start Date End Date Manuel Mtz MD PCP - General Internal Medicine 08/10/21 04/17/22 Naila Vargas MD [address] [place] [address] PCP - General Internal Medicine 04/18/22 Yimi Shafer MD [address] [place] [address] Vascular Surgery 10/13/23 Nessa Crews MD [address] [place] [address] Specialist Cardiology 10/16/23 Luke Valadez PA-C [address] [phone] Specialist Thoracic Surgery 02/21/24 documented as of this encounter
--- OUTSIDE RECORDS SUMMARY | 2024-12-09 15:24 | XMS_ITS | Encounter Summary ---
Author Organization [facility] Address [address] [place] [address] Care Team Providers Care Supervisor Liquid Yeast Name Role Phone Zeynep Barajas MD Primary Care Provider Unavail able Manuel Mtz MD Primary Care Provider Naial Levy MD Primary Care Provider [phone] Yimi Shafer MD Unavailable Unavailable Nessa Crews MD Unavailable [phone] Luke Valadez PA-C Unavailable [phone] Reason for Visit * Reason Onset Date Comments Hospital Procedure 07/12/2021 Encounter Details Date Type Department Care Team Description 07/12/2021 Telephone Vascular Surgery - [place] [address] [facility] [address] [place] [address] Letty Quiroga MD [address] [facility] [address] [place] [address] Hospital Procedure Social History Tobacco Use Types Packs/Day Years [...] have Coronavirus / COVID-19? No / Unsure 07/08/2021 8:15 AM EDT documented as of this encounter Miscellaneous Notes * Telephone Encounter - Joycelyn Preciado - 07/12/2021 4:05 PM EDT Lm on to schedule angiogram and possible plasty or bypass * Telephone Encounter - Letha White - 07/12/2021 9:09 AM EDT Patient called inquiring on procedure discussed on 04/22 You will need an angiogram for evaluation of your leg circulation , patient would like to know status... please advise documented in this encounter Plan of Treatment Not on file documented as of this encounter Visit Diagnoses Not on filedocumented in this encounter Care Teams Supervisor Liquid Yeast Relationship Specialty Start Date End Date Zeynep Barajas MD PCP - General Internal Medicine 11/28/17 08/09/21 Manuel Mtz MD PCP - General Internal Medicine 08/10/21 04/17/22 Naila Vargas MD [address] [place] [address] PCP - General Internal Medicine 04/18/22 Yimi Shafer MD [address] [place] [address] Vascular Surgery 10/13/23 Nessa Crews MD [address] [place] [address] Specialist Cardiology 10/16/23 Lkue Valadez PA-C [address] [phone] Specialist Thoracic Surgery 02/21/24 documented as of this encounter
--- OUTSIDE RECORDS SUMMARY | 2024-12-09 15:24 | XMS_ITS | Encounter Summary ---
Author Organization [facility] Address [address] [place] [address] Care Team Providers Care Stucco Laborer Name Role Phone Naila Vargas MD Primary Care Provider [phone] Yimi Shafer MD Unavailable Unavailable Nessa Crews MD Unavailable [phone] Luke Valadez PA-C Unavailable [phone] Reason for Visit * Reason Onset Date Comments other 10/27/2023 ? Nuclear test n eeded for cardiac clearance Encounter Details Date Type Department Care Team Description 10/27/2023 Telephone Cardio [facility] Diag Testing [address] [place] [address] Nessa Crews MD [address] [place] [address] other (? Nuclear test needed for cardiac clearance) Social History Tobacco Use Types Packs/Day Years [...] encounter Miscellaneous Notes * Telephone Encounter - Sandra Whitley - 11/06/2023 11:15 AM EST Patient had test done at [facility] last week. I spoke with Sandra at surgeon's office, patient already had surgery done today. Task completed. * Telephone Encounter - Madeleine Ontiveros - 10/31/2023 10:18 AM EST Prior auth is on file and is active 10/31/23 - 04/28/24 Authorization Number: [id number] Referring Physician: Nessa Crews MD Requested Facility: [facility] CPT Code: 87823 Diagnosis Code: Z01.810 * Telephone Encounter - Sandra Angi - 10/27/2023 1:52 PM EST Sandra/Vannessa Shafer (surgeon) Surgery 11/06/23 Right Carotid Endartaectomy / Patient has nuclear test booked for same day, as surgery 11/06/23. - Office would like to know, is test required pre-op? Patient had cath procedure done . - If so, can we move up appt? - Elig & Ref: Can we start prior auth request, to possibly move up Nuclear test? - Can note from 10/25/23 be addended, they need clarification if ok to proceed? documented in this encounter Plan of Treatment Not on file documented as of this encounter Visit Diagnoses Not on filedocumented in this encounter Care Teams Stucco Laborer Relationship Specialty Start Date End Date Naila Vargas MD [address] [place] [address] PCP - General Internal Medicine 04/18/22 Yimi Shafer MD [address] [place] [address] Vascular Surgery 10/13/23 Nessa Crews MD [address] [place] [address] Specialist Cardiology 10/16/23 Luke Valadez PA-C [address] [place] [phone] Specialist Thoracic Surgery 02/21/24 documented as of this encounter
--- OUTSIDE RECORDS SUMMARY | 2024-12-09 15:24 | XMS_ITS | Encounter Summary ---
Author Organization [facility] Address [address] [place] [address] Care Team Providers Care Consumer Sales Representative Name Role Phone Naila Vargas MD Primary Care Provider [phone] Yimi Shafer MD Unavailable Unavailable Nessa Crews MD Unavailable [phone] Luke Valadez PA-C Unavailable [phone] Encounter Details Date Type Department Care Team Description 11/07/2023 Hospital Medical Records [address] [place] [address] Augie Fong MD Social History Tobacco Use Types Packs/Day [...] on filedocumented in this encounter Care Teams Consumer Sales Representative Relationship Specialty Start Date End Date Naila Vargas MD [address] [place] [address] PCP - General Internal Medicine 04/18/22 Yimi Shafer MD [address] [place] [address] Vascular Surgery 10/13/23 Nessa Crews MD [address] [place] [address] [phone] Specialist Cardiology 10/16/23 Luke Valadez PA-C [address] [place] [phone] Specialist Thoracic Surgery 02/21/24 documented as of this encounter
--- OUTSIDE RECORDS SUMMARY | 2024-12-09 15:24 | XMS_ITS | Encounter Summary ---
Author Organization [facility] Address [address] [place] [address] Care Team Providers Care Wire Charger Name Role Phone Naila Vargas MD Primary Care Provider [phone] Yimi Shafer MD Unavailable Unavailable Nessa Crews MD Unavailable [phone] Luke Valadez PA-C Unavailable Encounter Details Date Type Department Care Team Description 10/12/2022 Transfer Records Medical Records [address] [place] [address] [phone] Social History Tobacco Use Types Packs/Day Years [...] Recorded In the last 10 days, have solange u been in contact with someone who was confirmed or suspected to have Coronavirus/COVID-19? No / Unsure 10/14/2022 10:46 AM EST documented as of this encounter Plan of Treatment Not on file documented as of this encounter Visit Diagnoses Not on filedocumented in this encounter Care Teams Wire Charger Relationship Specialty Start Date End Date Naila Vargas MD [address] [place], [place] [phone] PCP - General Internal Medicine 04/18/22 Yimi Shafer MD [address] [place] [address] Vascular Surgery 10/13/23 Nessa Crews MD [address] [place] [address] Specialist Cardiology 10/16/23 Luke Valadez PA-C [address] [place] [phone] Specialist Thoracic Surgery 02/21/24 documented as of this encounter
--- OUTSIDE RECORDS SUMMARY | 2024-12-09 15:24 | XMS_ITS | Clinical Summary ---
Author Organization 175 [facility] Address 175 [place] [address] Phone Care Team Providers Care X Ray Equipment Mechanic Name Role Phone Naila Vargas MD Primary Care Provider [phone] Allergies Active Allergy Reactions Criticality Noted Date Comments Clarithromycin 01/15/2014 Other 02/21/2019 Environmental seasonal allergies; Seasonal Allergies Pollen Extracts 02/21/2019 Medications acetaminophen (TYLENOL) 500 mg tablet Take 1 Tablet by mouth every 6 hours as needed. Active amLODIPine (NORVASC) 2.5 mg tablet Take 1 Tablet by mouth daily. Active Vitamin C tablet Take 1 Tablet by mouth daily. Active aspirin 81 mg EC tablet Take 81 mg by mouth daily. Active biotin 10 mg tablet Take by mouth. Activ e blood-glucose meter kit Use to check blood sugar once daily Active blood-glucose meter kit Use to check blood sugar daily as needed Active cetirizine (ZyrTEC) 10 mg capsule Take 10 mg by mouth daily. Active ciclopirox (LOPROX) 0.77 % cream Apply to affected cuticle after washing hands Active cyanocobalamin (VITAMIN B-12) 1,000 mcg tablet Take 1 Tablet by mouth daily. Active diclofenac (VOLTAREN) 1 % topical gel Apply 2 g topically 2 times daily as needed for Other (Elbow pain). Active FINASTERIDE ORAL Take by mouth daily. Active fluticasone propionate (FLONASE) 50 mcg/actuation nasal spray 2 Sprays by Each Nare route daily. Active blood sugar diagnostic (FreeStyle Lite Strips) test strip Use to check blood sugar once daily Active lamoTRIgine (LaMICtal) 25 mg tablet daily. Active neomycin-polymy shivam-dexamethame thasone (POLYDEX) 3.5 mg/g-10,000 unit/g-0.1 % ointment neomycin 3.5 mg/g-polymyxin B 10,000 unit/g-dexameth 0.1 % eye oint Active omeprazole (PriLOSEC) [address] capsule TAKE 1 CAPSULE BY MOUTH DAILY. TAKE IN A.M. ON EMPTY STOMACH, WAIT 30 MINUTES AND THEN EAT Active ONETOUCH DELICA LANCETS [facility] Use to test blood sugar daily Active lipase-protease -amylase (Creon) 36,000-114,000- 180,000 unit capsule,delayed release(DR/EC) Take 2 Capsules by mouth 3 times daily (with meals). Active QUEtiapine (SEROquel) 50 mg tablet daily. Active valacyclovir HCl (VALACYCLOVIR ORAL) Take 1,000 mg by mouth 2 times daily. Active metFORMIN (GLUCOPHAGE) 500 mg tablet TAKE 2 TABLETS BY MOUTH TWICE A DAY WITH MEALS 360 tablet 1 Active FLUoxetine (PROzac) 20 mg capsule TAKE 1 CAPSULE BY MOUTH EVERY DAY 90 capsule 1 Active lancets (OneTouch Delica Plus Lancet) 33 gauge USE ONCE DAILY TO CHECK FASTING BLOOD SUGAR 100 each 1 Active hydrOXYzine HCL (ATARAX) 25 mg tablet Active lipase-protease -amylase (Creon) 36,000-114,000- 180,000 unit capsule,delayed release(DR/EC) Take 2 capsules by mouth 3 (three) times a day. 540 capsule 4 Active albuterol 2.5 mg /3 mL (0.083 %) nebulizer solutionIndicat ions:Moderate persistent asthma with exacerbation Take 3 mL (2.5 mg total) by nebulization every 6 (six) hours if needed for wheezing. 100 mL 2 025 2025 Active albuterol 2.5 mg /3 mL (0.083 %) nebulizer solutionIndicat ions:Moderate persistent asthma with exacerbation Take 3 mL (2.5 mg total) by nebulization every 6 (six) hours if needed for wheezing. 75 mL 025 2025 Active Additional Information Patient not taking.Reported on 11/28/2024 tiotropium (Spiriva Respimat) 2.5 mcg/actuation inhalation sprayIndication s:Moderate persistent asthma with exacerbation Inhale 2 puffs by mouth 1 (one) time each day. 1 each 12 025 2025 Active fluticasone propion-salmete roL (ADVAIR HFA) 230-21 mcg/actuation inhalerIndicati ons:Moderate persistent asthma with exacerbation Inhale 2 puffs by mouth 2 (two) times a day. Rinse mouth with water after use to reduce aftertaste and incidence of candidiasis. Do not swallow. 3 each 2 Active albuterol HFA (PROAIR HFA ; PROVENTIL HFA ; VENTOLIN HFA) 90 mcg/actuation inhalerIndicati ons:Moderate persistent asthma with exacerbation Inhale 2 puffs by mouth every 4 (four) hours if needed for wheezing or shortness of breath (cough and chest tightness). 54 g 3 Active cilostazoL (PLETAL) 100 mg tablet TAKE 1 TABLET BY MOUTH TWICE A DAY 180 tablet Active levothyroxine (SYNTHROID, LEVOTHROID) 25 mcg tablet TAKE 1 TABLET BY MOUTH EVERY DAY 90 tablet 1 Active atorvastatin (LIPITOR) 40 mg tablet Take 1 tablet (40 mg total) by mouth at bedtime. Active ticagrelor (Brilinta) 90 mg tablet Take 1 tablet (90 mg total) by mouth 2 (two) times a day. Active metoprolol tartrate (LOPRESSOR) 25 mg tablet Take 1 tablet (25 mg total) by mouth 2 (two) times a day. Active cholecalciferol (VITAMIN D-3) 25 mcg (1,000 unit) tablet Take 1 tablet (1,000 Units total) by mouth 1 (one) time each day. Active losartan (COZAAR) 25 mg tablet Take 1 tablet (25 mg total) by mouth 1 (one) time each day. 90 each 025 2024 Active gabapentin (NEURONTIN) 300 mg capsule Take 1 Capsule by mouth at bedtime. 024 2024 Discontinued losartan (COZAAR) 25 mg tablet Take 1 Tablet by mouth daily. 023 2024 Discontinued(R eorder) simvastatin (ZOCOR) 40 mg tablet TAKE 1 TABLET BY MOUTH AT BEDTIME. 024 2024 Discontinued DIETARY SUPPLEMENT ORAL Take by mouth. 10,000 Units once a week 2024 Discontinued doxycycline (ADOXA) 100 mg tablet Take 1 tablet (100 mg total) by mouth 2 (two) times a day. for 5 days 025 2024 Discontinued Active Problems Problem Noted Date Diagnosed Date History of coronary artery stent placement 11/28 Coronary artery disease invo lving [place] coronary artery of [place] heart without angina pectoris 11/28/2024 Anxiety and depression 11/28/2024 Achilles tendon disorder 07/18/2024 Overview (07/18/2024): Right s/p PT, f/u with geospatial extractor analysis Arthritis 07/18/2024 Overview (07/18/2024): Hips, knees. Follows with [facility] Dyslipidemia 07/18/2024 Pancreatic insufficiency 07/18/2024 Vitamin D deficiency 07/18/2024 Precordial pain 03/01/2024 Carotid artery stenosis 10/31/2023 Overview (07/18/2024): Right ICA 80% on CTA @ [facility] 10/11/2023 Nocturnal hypoxia 03/09/2023 Overview (07/18/2024): 01/30/2023 overnight oximetry on CPAP showed pulmonary 1. Lowest oxygen saturation 87%. 2. Time spent<88 or below is 2 minutes. 3. Time spent on CPAP with adequate oxygen. GERD (gastroesophageal reflux disease) Glaucoma suspect of both eyes 05/06/2022 Overview (07/18/2024): Low risk Type 2 diabetes mellitus with cataract DM (diabetes mellitus), type 2 with neurological [...] Encounters Date Type Department Care Team Description 11/28/2024 12:30 PM EDT Office Visit Adult [address] [phone] Cristiane Green MD Morbid obesity with BMI of 40.0-44.9, adult ([facility]) (Primary Dx); Abnormal CBC; Abnormal blood electrolyte level; Coronary artery disease involving [place] coronary artery of [place] heart without angina pectoris; History of coronary artery stent placement; Essential hypertension; Hyperlipidemia, unspecified hyperlipidemia type; Gastroesophageal reflux disease, unspecified whether esophagitis present; Type 2 diabetes mellitus with other circulatory complication, without long-term current use of insulin ([facility]); Anxiety and depression 11/12/2024 Telephone Adult Medicine [address] [phone] Natalia Cronin MA [facility] f/u 09/30/2024 Telephone Pul[facility]gy - [place] [address] [phone] Irish Lorenzo MA DME 09/30/2024 Telephone [facility]gy [facility] [place] [address] [phone] Irish Lorenzo MA DME 09/27/2024 Telephone [facility]gy [facility] [place] [address] [phone] Maricel Hawkins NP 09/20/2024 9:30 AM EST Office Visit Pul[facility]olgy - [place] [address] [phone] Maricel Hawkins NP Moderate persistent asthma with exacerbation (Primary Dx); Obstructive sleep apnea; Nocturnal hypoxia; Morbid obesity with BMI of 40.0-44.9, adult ([facility]) from Last 3 Months Immunizations Name Administration [...] HISTORICAL TUBAL LIGATION OTHER SURGICAL HISTORY PROCEDURE: MS EXCISION PILONIDAL CYST/SINUS COMPLICATED; COMMENT: x 2 COLONOSCOPY 09/25 PROCEDURE: HISTORICAL COLONOSCOPY LITHOTRIPSY PROCEDURE: HISTORICAL LITHOTRIPSY; COMMENT: x 2 CARPAL TUNNEL RELEASE PROCEDURE: MS NEUROPLASTY &/TRANSPOS MEDIAN NRV CARPAL TUNNE; COMMENT: L side ESOPHAGOGASTRODUODENOSCOPY PROCEDURE: MS EGD TRANSORAL BIOPSY SINGLE/MULTIPLE; COMMENT: Performed on November 24, 2020-performed with colonoscopy, negative celiac COLONOSCOPY PROCEDURE: HISTORICAL COLONOSCOPY; COMMENT: Performed on November 24, 2020 with endoscopy, no evidence of microscopic colitis Medical History Medical History Date Comments Dyslipidemia DX:Dyslipidemia Achilles tendon disorder right DX:Achi lles tendon disorder; COMMENT: s/p PT, f/u with geospatial extractor analysis Vitamin D deficiency DX:Vitamin D deficiency Prediabetes [...] (CMS/HCC) 12/18/2017 DX:PAD (peripheral artery di sease) ([facility]); COMMENT: CT angio with bilateral SFA occlusions, pending repair 12/2017, follows with vascular Atypical chest pain 02/12/2018 DX:Atypical chest pain; COMMENT: Negative nuclear stress 02/2018 Carpal tunnel syndrome, bilateral 05/16/2018 DX:Carpal tunnel syndrome, bilateral; COMMENT: Severe s/p EMG 05/2018 referred to general surgery Former tobacco use DX:Former tob acco use; COMMENT: Since age 13, quit 02/2018 Atherosclerosis of [place] ar yamila of both lower extremities with intermittent claudication 03/21/2018 DX:Atherosclerosis of [place] artery of both lower extremities with intermittent claudication (HCC) Obesity (BMI 35.0-39.9 witho ut comorbidity) 02/21/2019 DX:Obesity (BMI 35.0-39.9 wi thout comorbidity) Gassiness DX:Gassiness Change in bowel function DX:[place] in bowel function; COMMENT: More oily and floating in the toilet Pancreatic insufficiency DX:Panc reatic insufficiency DM (diabetes mellitus), type 2 with peripheral vascular complications (CMS/HCC) 02/15/2021 DX:DM (diabetes mellitus), t ype 2 with peripheral vascular complications (HCC) DM (diabetes mellitus), type 2 with neurological complications (CMS/HCC) 11/01/2021 DX:DM (diabetes m ellitus), type 2 with neurological complications (HCC) Type 2 diabetes mellitus with cataract DX:Type 2 diabetes mellitus with cataract (HCC) Gassiness DX:Gassiness Esophageal reflux DX:Esophageal reflux Stye external DX:Stye external Family History Medical History Relation Name Comments Other: cancer,other Maternal Grandfather worked at [employer]; in his mid 50s Cataracts Maternal Grandmother [...] Sign Reading Time Taken Comments Blood Pressure 150/92 11/28/2024 12:23 PM EDT Pulse 65 11/28/2024 12:23 PM EDT Temperature 36.6 ??C (97.8 ??F) 11/28/2024 12:23 PM E DT Respiratory Rate 12 11/28/2024 12:23 PM EDT Oxygen Saturation 97% 09/20/2024 9:22 AM EST Inhaled Oxygen Concentration - - Weight 113 kg (250 lb) 11/28/2024 12:23 PM EDT Height 162.6 cm (5' 4 ) 11/28/2024 12:23 PM EDT Body Mass Index 42.91 11/28/2024 12:23 PM EDT Plan of Treatment Upcoming Encounters Date Type Department Care Team (Late st Contact Info) Description 12/12/2024 9:00 AM EDT Office Visit Adult Medicine [address] [phone] Naila Vargas MD [address] [place] [phone] 12/23/2024 9:30 AM EDT Office Visit [facility]gy - [place] 175 [facility] [address] [place] [phone] Maricel Hawkins NP 175 [facility] [address] [place] [address] 06/04/2025 8:30 AM EDT Office Visit Adult Medicine [facility] [address] [place] [address] Naila Vargas MD [address] [place] [address] Health Maintenance Due Date Last Done Comments DTaP,Tdap,and Td Vaccines (1 - Tdap) 1985 [...] 2 - PCV) 10/06/2022 10/06/2021 COVID-19 Vaccine () 05/12/2024 06/13/2022, 08/15/2021, 12/26/2020, Additional history exists Lung Cancer Screening (Low Dose CT) 02/20/2025 02/21/2024, 02/21/2024 Depression Screening 04/08/2025 04/08/2024 Diabetes: Blood Sugar Control Test (HGBA1C) 06/05/2025 12/03/2024, 04/24/2024, 04/24/2024, Additional history exists Cervical Cancer Screening: HPV 08/05/2025 08/05/2020 Diabetes: Annual Foot Exam 09/11/2025 P ostponed from 02/15/1976 (Patient Refused) Diabetes: Annual Retina Eye Exam 09/11/2025 Postponed from 02/15/1976 (Patient Refused) Diabetes: Annual Urine Albumin-Creatinine Ratio (uACR) 12/03/2025 12/03/2024, 04/24/2024 Diabetes: Annual GFR (Glomerular Filtration Rate) 12/03/2025 12/03/2024, 08/21/2024, 05/07/2024, Additional history exists Hypertension/CHF/CAD Annual BMP Blood Test 12/03/2025 12/03/2024, 08/21/2024, 05/07/2024, Additional history exists Breast Cancer Screening 08/26/2026 08/26/20, 05/20/2023, 05/14/2022, Additional history exists Cholesterol Screening (Lipid Panel) 12/03/2029 12/03/2024, 03/01/2024, 03/01/2024 Colorectal Cancer Screening: Colonoscopy 11/24/2030 [...] Procedure Name Priority Date/Time Associated Diagnosis Comments CBC WITH AUTO DIFFERENTIAL Routine 12/03/2024 11:15 AM EDT Abnormal CBC LIPID PANEL WITH REFLEX TO DIRECT LDL Routine 12/03/2024 11:15 AM EDT Type 2 diabetes mellitus with other circulatory complication, without long-term current use of insulin (CMS/HCC) HEMOGLOBIN A1C Routine 12/03/2024 11:15 AM EDT Type 2 diabetes mellitus with other circulatory complication, without long-term current use of insulin (CMS/HCC) MAGNESIUM Routine 12/03/2024 11:15 AM EDT Abnormal blood electrolyte level COMPREHENSIVE METABOLIC PANEL Routine 12/03/2024 11:15 AM EDT Abnormal blood electrolyte level CBC AND DIFFERENTIAL Routine 12/03/2024 11:15 AM EDT Abnormal CBC MICROALBUMIN CREATININE URINE RATIO Routine 12/03/2024 11:15 AM EDT Type 2 diabetes mellitus with other circulatory complication, without long-term current use of insulin (CMS/HCC) MS SLEEP STUDY ATTENDED Routine 10/28/2024 11:31 AM EST MG MAMMO DIGITAL SCREENING W FARAZ BILAT Routine 08/26/2024 9:27 AM EST Screening breast examination DEPRESSION SCREENING Routine 04/08/2024 CT LUNG SCREENING LOW DOSE Routine 02/21/2024 11:38 AM EDT Encounter for screening for malignant neoplasm of respiratory organs COLONOSCOPY Routine 11/24/2020 HPV Routine 08/05/2020 HEPATITIS C SCREENING Routine 05/20/2014 from Last 3 Months or Most Recently Relevant to Health Maintenance Results * (ABNORMAL) Lipid panel with reflex to direct LDL (12/03/2024 11:15 AM EDT) [facility] Cholesterol 167 0 - 200 mg/dL LAB CHEMISTRY METHOD 12/03/2024 3:41 PM EDT [facility] Triglycerides 250(H) 0 - 150 mg/dL LAB CHEMISTRY METHOD 12/03/2024 3:41 PM EDT [facility] HDL 49 >=40 mg/dL LAB CHEMISTRY METHOD 12/03/2024 3:41 PM EDT [facility] LDL Calculated 68 0 - 100 mg/dL LAB CHEMISTRY METHOD 12/03/2024 3:41 PM EDT [facility] VLDL Cholesterol Ruiz 50 mg/dL LAB CHEMISTRY METHOD 12/03/2024 3:41 PM EDT [facility] Non HDL Chol. (LDL+VLDL) 118 <145 mg/dL LAB CHEMISTRY METHOD 12/03/2024 3:41 PM EDT [facility] Chol/HDL Ratio 3.4 0.0 - 4.4 LAB CHEMISTRY METHOD 12/03/2024 3:41 PM EDT [facility] Blood Venous blood specimen / Unknown Venipuncture / Unknown 12/03/2024 11:15 AM EDT 12/03/2024 11:15 AM EDT us Cristiane Green MD LAB BLOOD ORDERABLES Final Result [facility] [address] [place] [address], * (ABNORMAL) CBC auto differential (12/03/2024 11:15 AM EDT) WBC 6.2 4.8 - 10.8 K/mcL LAB HEMETOLOGY METHOD 12/03/2024 12:22 PM EDT [facility] RBC 4.20 3.80 - 4.80 M/mcL LAB HEMETOLOGY METHOD 12/03/2024 12:22 PM EDT [facility] Hemoglobin 13.9 11.5 - 16.0 g/dL LAB HEMETOLOGY METHOD 12/03/2024 12:22 PM EDT [facility] Hematocrit 41.1 35.0 - 47.0 % LAB HEMETOLOGY METHOD 12/03/2024 12:22 PM EDT [facility] MCV 98.6(H) 79.0 - 98.0 FL LAB HEMETOLOGY [facility] MCH 33.3(H) 27.0 - 32.0 pcg LAB HEMETOLOGY METHOD 12/03/2024 12:22 PM [facility] MCHC 33.8 32.0 - 37.0 g/dL LAB HEMETOLOGY METHOD 12/03/2024 12:22 PM [facility] RDW 13.8 11.0 - 15.0 % LAB HEMETOLOGY METHOD 12/03/2024 12:22 PM [facility] Platelets 300 130 - 400 K/mcL LAB HEMETOLOGY METHOD 12/03/2024 12:22 PM [facility] MPV 9.1 7.0 - 11.0 FL LAB HEMETOLOGY METHOD 12/03/2024 12:22 PM [facility] NRBC 0.0 <1.0 % LAB HEMETOLOGY METHOD 12/03/2024 12:22 PM [facility] NRBC Absolute 0.00 <0.10 K/mcL LAB HEMETOLOGY METHOD 12/03/2024 12:22 PM [facility] Neutrophils Relative 53.1 % LAB HEMETOLOGY METHOD 12/03/2024 12:22 PM [facility] Lymphocytes Relative 34.6 % LAB HEMETOLOGY METHOD 12/03/2024 12:22 PM [facility] Monocytes Relative 8.1 % LAB HEMETOLOGY METHOD 12/03/2024 12:22 PM [facility] Eosinophils Relative 2.9 % LAB HEMETOLOGY METHOD 12/03/2024 12:22 PM [facility] Basophils Relative 1.0 % LAB HEMETOLOGY METHOD 12/03/2024 12:22 PM EDT [facility] Immature Granulocytes Relative 0.3 % LAB HEMETOLOGY METHOD 12/03/2024 12:22 PM EDT [facility] Neutrophils Absolute 3.29 1.50 - 7.00 K/mcL LAB HEMETOLOGY METHOD 12/03/2024 12:22 PM EDT [facility] Lymphocytes Absolute 2.14 1.00 - 5.00 K/mcL LAB HEMETOLOGY METHOD 12/03/2024 12:22 PM EDT [facility] Monocytes Absolute 0.50 0.20 - 1.00 K/mcL LAB HEMETOLOGY METHOD 12/03/2024 12:22 PM EDT [facility] Eosinophils Absolute 0.18 0.00 - 0.50 K/mcL LAB HEMETOLOGY METHOD 12/03/2024 12:22 PM EDT [facility] Basophils Absolute 0.06 0.00 - 0.20 K/mcL LAB HEMETOLOGY METHOD 12/03/2024 12:22 PM EDT [facility] Immature Granulocytes Absolute 0.02 0.00 - 0.03 K/mcL LAB HEMETOLOGY METHOD 12/03/2024 12:22 PM [facility] Blood Venous blood specimen / Unknown Venipuncture / Unknown 12/03/2024 11:15 AM EDT 12/03/2024 11:15 AM EDT us Cristiane Green MD LAB BLOOD ORDERABLES Final Result [facility] [address] [place] [address], * Microalbumin creatinine urine ratio (12/03/2024 11:15 AM EDT) Creatinine, Urine 104.0 mg/dL LAB CHEMISTRY METHOD 12/03/2024 2:06 PM EDT [facility] Microalb, Ur 14.1 0.0 - 29.0 mg/L LAB CHEMISTRY METHOD 12/03/2024 2:06 PM EDT [facility] Microalb/Creat Ratio 14 <30 mg/g creat LAB CHEMISTRY METHOD 12/03/2024 2:06 PM EDT [facility] Urine Urine specimen obtained by clean catch procedure / Unknown Non-blood Collection / Unknown 12/03/2024 11:15 AM EDT 12/03/2024 11:15 AM EDT Cristiane Green MD LAB URINE ORDERABLES Final Result Performing Organization Address City/[facility]/ZIP Co de Phone Number [facility] [address] [place] [address], [place] [phone] * Magnesium (12/03/2024 11:15 AM EDT) [facility] Magnesium 2.1 1.9 - 2.6 mg/dL LAB CHEMISTRY METHOD 12/03/2024 3:33 PM EDT [facility] Blood Venous blood specimen / Unknown Venipuncture / Unknown 12/03/2024 11:15 AM EDT 12/03/2024 11:15 AM EDT Cristiane Green MD LAB BLOOD ORDERABLES Final Result [facility] [address] [place] [address], [place] [phone] * (ABNORMAL) Hemoglobin A1c (12/03/2024 11:15 AM EDT) Hemoglobin A1C 7.1(H) <6.5 % LAB CHEMISTRY METHOD 12/03/2024 9:10 PM EDT [facility] Mean Bld Glu Estim. 157 mg/dL LAB CHEMISTRY METHOD 12/03/2024 9:10 PM [facility] Blood Venous blood specimen / Unknown Venipuncture / Unknown 12/03/2024 11:15 AM EDT 12/03/2024 11:15 AM EDT Cristiane Green MD LAB BLOOD ORDERABLES Final Result [facility] [address] [place] [address], [place] [phone] * Comprehensive metabolic panel (12/03/2024 11:15 AM EDT) Sodium 138 133 - 145 mmol/L LAB CHEMISTRY METHOD 12/03/2024 3:47 PM [facility] Potassium 3.9 3.5 - 5.5 mmol/L LAB CHEMISTRY METHOD 12/03/2024 3:47 PM [facility] Chloride 108 96 - 110 mmol/L LAB CHEMISTRY METHOD 12/03/2024 3:47 PM [facility] CO2 23 21 - 32 mmol/L LAB CHEMISTRY METHOD 12/03/2024 3:47 PM [facility] Anion Gap 7 3 - 11 LAB CHEMISTRY METHOD 12/03/2024 3:47 PM [facility] Glucose 97 70 - 100 mg/dL LAB CHEMISTRY METHOD 12/03/2024 3:47 PM [facility] BUN 7 5 - 25 mg/dL LAB CHEMISTRY METHOD 12/03/2024 3:47 PM [facility] Creatinine 0.79 0.50 - 1.10 mg/dL LAB CHEMISTRY METHOD 12/03/2024 3:47 PM [facility] eGFR 87 >=60 mL/min/1. 73m2 LAB CHEMISTRY METHOD 12/03/2024 3:47 PM [facility] Comment:Calculation based on the??Chronic Kidney Disease Epidemiology Collaboration (CKD-EPI) equation refit??without adjustment for race. BUN/Creatinine Ratio 8.9 LAB CHEMISTRY METHOD 12/03/2024 3:47 PM EDT [facility] Calcium 9.5 8.5 - 10.5 mg/dL LAB CHEMISTRY METHOD 12/03/2024 3:47 PM T [facility] AST (SGOT) 42 10 - 42 unit/L LAB CHEMISTRY METHOD 12/03/2024 3:47 PM T [facility] ALT (SGPT) 44 10 - 60 unit/L LAB CHEMISTRY METHOD 12/03/2024 3:47 PM T [facility] Alkaline Phosphatase 64 42 - 121 unit/L LAB CHEMISTRY METHOD 12/03/2024 3:47 PM [facility] Total Protein 7.4 6.0 - 8.0 g/dL LAB CHEMISTRY METHOD 12/03/2024 3:47 PM [facility] Albumin 3.9 3.2 - 5.0 g/dL LAB CHEMISTRY METHOD 12/03/2024 3:47 PM [facility] Total Bilirubin 0.4 0.0 - 1.4 mg/dL LAB CHEMISTRY METHOD 12/03/2024 3:47 PM [facility] Blood Venous blood specimen / Unknown Venipuncture / Unknown 12/03/2024 11:15 AM EDT 12/03/2024 11:15 AM EDT Cristiane Green MD LAB BLOOD ORDERABLES Final Result [facility] [address] [place] [address], * General sleep study (10/28/2024 11:31 AM EST) Historical Provider SLEEP CENTER ORDERABLES F inal [...] was utilized in evaluation of this examination ([email or web address]; iCAD). FINDINGS: The breast tissue distribution pattern [...] Signed Date: 08/26/2024 09:45 ET Workstation ID: [id number] Transcribed By: Self Edit Transcribed Date: 08/26/2024 [...] Signed Date: 08/26/2024 09:45 ET Workstation ID: [id number] Transcribed By: Self Edit Transcribed Date: 08/26/2024 [...] Signed Date: 08/26/2024 09:45 ET Workstation ID: [id number] Transcribed By: Self Edit Transcribed Date: 08/26/2024 09:41 ET Naila Vargas MD [facility] Edited Result - Final * Depression Screening (04/08/2024) Depression Screening Abstracted Historical Provider HEALTH MAINTENANCE Final Result * CT LUNG SCREENING LOW DOSE (02/21/2024 11:38 AM EDT) Anatomical Region Laterality Modality Computed Tomogra phy 02/21/2024 9:18 AM EDT Narrative 02/21/2024 11:[address] [facility] Diagnostic Imaging Department [address] [place] [id number] Patient: ??HOMERO ALEGRIA ?/Age/Sex: 1965 - 59 - F Unit#: ??[id number] ? Location/Status: ??SPDICATLS/REG CLI ? Mnemonic/Ordering Site: ??CTLUNGLD/SPCT Ordering Physician: ??DOUG VILLARREAL MD CT Lung Screening Low Dose - 02/21/24 - 3 Report Status:Signed PROCEDURE: CT chest lung cancer [...] Procedure Note Elham Kirk MD - 06/26/2024 [facility] Diagnostic Imaging Department [address] [place] [address] Patient: HOMERO ALEGRIA /Age/Sex: 1965 - 59 - F Unit#: [id number] Location/Status: SPDICATLS/REG CLI Mnemonic/Ordering Site: [facility] Ordering Physician: DOUG VILLARREAL MD [...] CT PROCEDURES Final Result * Colonoscopy (11/24/2020) [facility] Colonoscopy No interpretation , Abstracted Anatomical Region Laterality Modality Other [facility] MAINTENANCE Final Result * Cervical Cancer Screening: HPV (08/05/2020) [facility] Cervical Cancer Screening: HPV Negative, Abstracted [facility] MAINTENANCE Final Result * Hepatitis C Screening (05/20/2014) [facility] Hepatitis C Screening Abstracted [facility] [facility] H[facility] HEALTH MAINTENANCE Final Result from Last 3 Months or Most Recently Relevant to Health Maintenance Insurance [facility] Advance Directives Documents on File Type Date Recorded Patient Power Press Supervisor Expl anation Health Care Decision (hx) 12/30/2017 [...] (hx) 12/30/2017 AD CHAVEZ DIRECTIVE Care Teams X Ray Equipment Mechanic Relationship Specialty Start Date End Date Naila Vargas MD [address] [place] [address] PCP - General Internal Medicine 04/18/22
--- OUTSIDE RECORDS SUMMARY | 2024-12-09 15:24 | XMS_ITS | Encounter Summary ---
Author Organization [facility] Address [address] [place] [address] Care Team Providers Care Staff Counselor Name Role Phone Zeynep Barajas MD Primary Care Provider Unavail able Manuel Mtz MD Primary Care Provider Naila Levy MD Primary Care Provider [phone] Yimi Shafer MD Unavailable Unavailable Nessa Crews MD Unavailable [phone] Luke Valadez PA-C Unavailable Reason for Visit * Reason Onset Date Comments medication problems 10/05/2018 Encounter Details Date Type Department Care Team Description 10/05/2018 Telephone Physiatry - [address] [id number] Beto Guillermo DO medication problems Social History Tobacco Use Types Packs/Day Years [...] encounter Miscellaneous Notes * Telephone Encounter - Hermelinda Dye - 10/05/2018 10:[address] Guillermo, see note of 10/02 denial. Please advise. * Telephone Encounter - Georgina Waggoner - 10/05/2018 10:03 AM EST Pt is calling to in re: duloxetine (CYMBALTA) 30 MG capsule, the pt states she has made 3 visits [facility] pharmacy and they were telling her it wasn't ready ,on the 3rd trip the pharmacistsadvise the pt, she needs to try 3 other medications before taking this medication. Pt states shes in a lot of pain due to her arthiritis and will like to get this approved. Pt is requesting a call back with an approval of the script. Pt was last seen by Dr. Guillermo on 10/02/18. Please review and advise documented in this encounter Plan of Treatment Not on file documented as of this encounter Visit Diagnoses Not on filedocumented in this encounter Care Teams Staff Counselor Relationship Specialty Start Date End Date Zeynep Barajas MD PCP - General Internal Medicine 11/28/17 08/09/21 Manuel Mtz MD PCP - General Internal Medicine 08/10/21 04/17/22 Naila Vargas MD [address] [place] [address] PCP - General Internal Medicine 04/18/22 Yimi Shafer MD [address] [place] [address] Vascular Surgery 10/13/23 Nessa Crews MD [address] [place] [address] Specialist Cardiology 10/16/23 Luke Valadez PA-C [address] [place] [phone] Specialist Thoracic Surgery 02/21/24 documented as of this encounter
--- OUTSIDE RECORDS SUMMARY | 2024-12-09 15:24 | XMS_ITS | Encounter Summary ---
Author Organization [facility] Address [address] [place] [address] Care Team Providers Care Orthodontic Laboratory Technician Name Role Phone Zeynep Barajas MD Primary Care Provider Unavail able Manuel Mtz MD Primary Care Provider Naila Levy MD Primary Care Provider [phone] Yimi Shafer MD Unavailable Unavailable Nessa Crews MD Unavailable [phone] Luke Valadez PA-C Unavailable [phone] Encounter Details Date Type Department Care Team Description 02/09/2018 Certified Emergency Vehicle Technician Report Medical Records [address] [place] [address] Social History Tobacco Use Types Packs/Day Years Used Date Smoking Tobacco: Former Cigarettes 0.3 Q uit: 12/07/2017 Smokeless Tobacco: Never Comments:2-3 cigarettes 4 [...] on filedocumented in this encounter Care Teams Orthodontic Laboratory Technician Relationship Specialty Start Date End Date Zeynep Barajas MD PCP - General Internal Medicine 11/28/17 08/09/21 Manuel Mtz MD PCP - General Internal Medicine 08/10/21 04/17/22 Naila Vargas MD [address] [place] [address] PCP - General Internal Medicine 04/18/22 Yimi Shafer MD [address] [place] [address] Vascular Surgery 10/13/23 Nessa Crews MD [address] [place] [address] Specialist Cardiology 10/16/23 Luke Valadez PA-C [address] [place] [phone] Specialist Thoracic Surgery 02/21/24 documented as of this encounter
--- OUTSIDE RECORDS SUMMARY | 2024-12-09 15:24 | XMS_ITS | Encounter Summary ---
Author Organization [facility] Address [address] [place] [address] Care Team Providers Care Packing Machine Tender Name Role Phone Zeynep Barajas MD Primary Care Provider Unavail able Manuel Mtz MD Primary Care Provider Naila Levy MD Primary Care Provider [phone] Yimi Shafre MD Unavailable Unavailable Nessa Crews MD Unavailable [phone] Luke Valadez PA-C Unavailable [phone] Reason for Visit * Reason Onset Date Comments er follow up 06/09/2020 Encounter Details Date Type Department Care Team Description 06/09/2020 Telephone Adult [address] [phone] Zeynep Barajas MD er follow up Social History Tobacco Use Types Packs/Day Years [...] have Coronavirus / COVID-19? No / Unsure 06/10/2020 10:38 AM EDT documented as of this encounter Miscellaneous Notes * Telephone Encounter - Lissettepiter Roman - 06/09/2020 11:16 AM EDT ER follow-up appointment booked YES 06-09-20 If ER or UC follow up, can be booked with [facility] or . If hospital admission follow up MUST be booked with a physician Appointment time: 10:45AM Provider [facility] patient was treated at: [facility] Date of visit: 06-05-20 Was this only an ER/UC visit or was the patient admitted to the hospital? ER visit onlyER visit only If patient was admitted what was the date of discharge? Reason/diagnosis for visit or stay: KIDNEY STONES Was visit or stay related to an injury? NO If yes, what was the date of injury (DOI)? N/A If yes, was the injury due to N/A Tests performed: Lab: YES X-ray: YES EKG: YES Other tests. If yes, what?; N/A documented in this encounter Plan of Treatment Not on file documented as of this encounter Visit Diagnoses Not on filedocumented in this encounter Care Teams Packing Machine Tender Relationship Specialty Start Date End Date Zeynep Barajas MD PCP - General Internal Medicine 11/28/17 08/09/21 Manuel Mtz MD PCP - General Internal Medicine 08/10/21 04/17/22 Naila Vargas MD [address] [place] [address] PCP - General Internal Medicine 04/18/22 Yimi Shafer MD [address] [place] [address] Vascular Surgery 10/13/23 Nessa Crews MD [address] [place] [address] Specialist Cardiology 10/16/23 Luke Valadez PA-C [address] [place] [phone] Specialist Thoracic Surgery 02/21/24 documented as of this encounter
--- OUTSIDE RECORDS SUMMARY | 2024-12-09 15:24 | XMS_ITS | Encounter Summary ---
Author Organization [facility] Address [address] [place] [address] Care Team Providers Care Leather Sprayer Name Role Phone Naila Vargas MD Primary Care Provider [phone] Yimi Shafer MD Unavailable Unavailable Nessa Crews MD Unavailable [phone] Luke Valadez PA-C Unavailable [phone] Encounter Details Date Type Department Care Team Description 02/01/2023 Telephone [facility] [address] [phone] Eladio Kirby MD [address] [address] Social History Tobacco Use Types Packs/Day Years [...] suspected to have Coronavirus/COVID-19? No / Unsure 02/01/2023 1:24 PM EDT documented as of this encounter Miscellaneous Notes * Telephone Encounter - Ashly Sheng-Dianne Narvaez - 02/02/2023 10:59 AM EDT Ok. Paperwork on provider's desk for signature. * Telephone Encounter - Rae Goyal - 02/01/2023 3:39 PM EDT VIVIEN Meyer, called to check on status of FMLA paperwork for pt documented in this encounter Plan of Treatment Not on file documented as of this encounter Visit Diagnoses Not on filedocumented in this encounter Care Teams Leather Sprayer Relationship Specialty Start Date End Date Naila Vargas MD [address] [place] [address] PCP - General Internal Medicine 04/18/22 Yimi Shafer MD [address] [place] [address] Vascular Surgery 10/13/23 Nessa Crews MD [address] [place] [address] Specialist Cardiology 10/16/23 Luke Valadez PA-C [address] [place] [phone] Specialist Thoracic Surgery 02/21/24 documented as of this encounter
--- OUTSIDE RECORDS SUMMARY | 2024-12-09 15:24 | XMS_ITS | Encounter Summary ---
Author Organization [facility] Address [address] [place] [address] Care Team Providers Care Senior Capital Markets Specialist Name Role Phone Zeynep Barajas MD Primary Care Provider Unavail able Manuel Mtz MD Primary Care Provider Naila Levy MD Primary Care Provider [phone] Yimi Shafer MD Unavailable Unavailable Nessa Crews MD Unavailable [phone] Luke Valadez PA-C Unavailable [phone] Encounter Details Date Type Department Care Team Description 12/21/2017 Events Specialist Report Medical Records [address] [place] [address] Abstract, Provider Social History Tobacco Use Types [...] on filedocumented in this encounter Care Teams Senior Capital Markets Specialist Relationship Specialty Start Date End Date Zeynep Barajas MD PCP - General Internal Medicine 11/28/17 08/09/21 Manuel Mtz MD PCP - General Internal Medicine 08/10/21 04/17/22 Naila Vargas MD [address] [place] [address] PCP - General Internal Medicine 04/18/22 Yimi Shafer MD [address] [place] [address] Vascular Surgery 10/13/23 Nessa Crews MD [address] [place] [address] Specialist Cardiology 10/16/23 Luke Valadez PA-C [address] [place] [phone] Specialist Thoracic Surgery 02/21/24 documented as of this encounter
--- OUTSIDE RECORDS SUMMARY | 2024-12-09 15:24 | XMS_ITS | Encounter Summary ---
Author Organization [facility] Address [address] [place] [address] Care Team Providers Care Hogshead Hand Name Role Phone Zeynep Barajas MD Primary Care Provider Unavail able Manuel Mtz MD Primary Care Provider Naila Levy MD Primary Care Provider [phone] Yimi Shafer MD Unavailable Unavailable Nessa Crews MD Unavailable [phone] Luke Valadez PA-C Unavailable [phone] Encounter Details Date Type Department Care Team Description 01/25/2020 Professor Of Architecture Report Medical Records [address] [place] [address] Jessica Luna MD Social History Tobacco Use Types Packs/Day [...] on filedocumented in this encounter Care Teams Hogshead Hand Relationship Specialty Start Date End Date Zeynep Barajas MD PCP - General Internal Medicine 11/28/17 08/09/21 Manuel Mtz MD PCP - General Internal Medicine 08/10/21 04/17/22 Naila Vargas MD [address] [place] [address] PCP - General Internal Medicine 04/18/22 Yimi Shafer MD [address] [place] [address] Vascular Surgery 10/13/23 Nessa Crews MD [address] [place] [address] Specialist Cardiology 10/16/23 Luke Valadez PA-C [address] [place] [phone] Specialist Thoracic Surgery 02/21/24 documented as of this encounter
--- OUTSIDE RECORDS SUMMARY | 2024-12-09 15:24 | XMS_ITS | Encounter Summary ---
Author Organization [facility] Address [address] [place] [address] Care Team Providers Care Aerial Photographer Name Role Phone Naila Vargas MD Primary Care Provider [phone] iYmi Shafer MD Unavailable Unavailable Nesas Crews MD Unavailable [phone] Luke Valadez PA-C Unavailable [phone] Reason for Visit * Reason Comments E-prescribe Rx Request Encounter Details Date Type Department Care Team Description 03/06/2024 Refill Adult Medicine [address] [address] Naila Vargas MD [address] [place] [address] E-prescribe Rx Request Social History Tobacco Use [...] encounter Miscellaneous Notes * Telephone Encounter - Melissa Martel M.A. - 03/06/2024 10:36 AM EDT Last office visit 01/02/24 Next office visit 04/08/24 with PCP Lab Results Component Value Date TSH 3.73 03/01/2024 * Telephone Encounter - Allan Hung - 03/06/2024 10:30 AM EDT Patient would like script to be: E-PRESCRIBED/FAXED TO PHARMACY WHEN WAS THE PATIENT'S LAST APPOINTMENT IN ADULT MEDICINE? 01/02/24 WHEN WAS THE LAST TIME THE PATIENT SAW THEIR PCP? 12/08/23 Does patient have an upcoming appointment? Yes 04/08/24 (THE MEDICATION REQUESTED IS ON THE MED LIST ABOVE) All of the medications requested were on the CURRENT MEDS list Did you check the Pharmacy information above?: YES Patient wants: 30 -day supply Is this a mail order prescription request ? NO If the refill is from a FAXED refill request what is the RX # listed on the fax? N/A Patients current insurance carrier is: Payor: [employer] / Plan: [facility] / Product Type: MEDICAID RISK documented in this encounter Plan of Treatment Not on file documented as of this encounter Visit Diagnoses Not on filedocumented in this encounter Care Teams Aerial Photographer Relationship Specialty Start Date End Date Naila Vargas MD [address] [place] [address] PCP - General Internal Medicine 04/18/22 Yimi Shafer MD [address] [place] [address] Vascular Surgery 10/13/23 Nessa Crews MD [address] [place] [address] Specialist Cardiology 10/16/23 Luke Valadez PA-C [address] [place] [phone] Specialist Thoracic Surgery 02/21/24 documented as of this encounter
--- OUTSIDE RECORDS SUMMARY | 2024-12-09 15:24 | XMS_ITS | Encounter Summary ---
Author Organization [facility] Address [address] [place] [address] Care Team Providers Care Academic Specialist Name Role Phone Naila Vargas MD Primary Care Provider [phone] Yimi Shafer MD Unavailable Unavailable Nessa Crews MD Unavailable [phone] Luke Valadez PA-C Unavailable [phone] Encounter Details Date Type Department Care Team Description 12/23/2022 Orders Only [facility] Lung Screening Program [place] [address] [phone] Caitlyn Chandra MD [address] [phone] History of tobacco use, presenting hazards to health (Primary Dx); Encounter for screening for lung cancer Social History Tobacco Use Types Packs/Day Years [...] suspected to have Coronavirus/COVID-19? No / Unsure 12/19/2022 11:02 AM EDT documented as of this encounter Plan of Treatment Not on file documented as of this encounter Visit Diagnoses Diagnosis History of tobacco use, presenting hazards to health- Primary Personal history of tobacco use, presenting hazards to health Encounter for screening for lung cancer documented in this encounter Care Teams Academic Specialist Relationship Specialty Start Date End Date Naila Vargas MD [address] [place] [address] PCP - General Internal Medicine 04/18/22 Yimi Shafer MD [address] [place] [address] Vascular Surgery 10/13/23 Nessa Crews MD [address] [place] [address] Specialist Cardiology 10/16/23 Luke Valadez PA-C [address] [place] [phone] Specialist Thoracic Surgery 02/21/24 documented as of this encounter
--- OUTSIDE RECORDS SUMMARY | 2024-12-09 15:24 | XMS_ITS | Encounter Summary ---
Author Organization [facility] Address [address] [place] [address] Care Team Providers Care Sharebroker Name Role Phone Zeynep Barajas MD Primary Care Provider Unavail able Manuel Mtz MD Primary Care Provider Naila Levy MD Primary Care Provider [phone] Yimi Shafer MD Unavailable Unavailable Nessa Crews MD Unavailable [phone] Luke Valadez PA-C Unavailable [phone] Reason for Visit * Reason Onset Date Comments Prior Authorization 07/28/2020 Encounter Details Date Type Department Care Team Description 07/28/2020 Telephone Internal Medicine - [place] [facility], [address] [place] [address] Maricel Hawkins APRN [address] [phone] Prior Authorization Social History Tobacco Use Types Packs/Day Years [...] have Coronavirus / COVID-19? No / Unsure 07/28/2020 9:29 AM EST documented as of this encounter Miscellaneous Notes * Telephone Encounter - Leeann Cruz M.A. - 07/28/2020 1:10 PM EST Arnuity ellipta is the preferred [place] [phone] Prior Auth pool Leeann Cruz M.A. Regional Prior Authorizations Ext [phone] Fax: [phone] [place] [phone] Prior Auth [place] * Telephone Encounter - Elsie Andre - 07/28/2020 1:00 PM EST Prior Authorization for Medication-do not complete and send this encounter unless you have the fax from the pharmacy. Is this a Cover My Meds request: [place] of Medication Pulmicort flexhaler Dose of Medication 90 MCG What is the RX # from the faxed refill? [id number] How does patient take this med? Inhale one puff into the lungs every 12 hours What Pharmacy did the fax come from: [facility] fax #: [phone] [employer] Party Information from fax: What Prescription Plan does the patient have? BIN/PCN if applicable: Cardholder ID:[id number] Person Code: Relationship Code: Help desk phone: [phone] documented in this encounter Plan of Treatment Not on file documented as of this encounter Visit Diagnoses Not on filedocumented in this encounter Care Teams Sharebroker Relationship Specialty Start Date End Date Zeynep Barajas MD PCP - General Internal Medicine 11/28/17 08/09/21 Manuel Mtz MD PCP - General Internal Medicine 08/10/21 04/17/22 Naila Vargas MD [address] [place] [address] PCP - General Internal Medicine 04/18/22 Yimi Shafer MD [address] [place], [place] [phone] Vascular Surgery 10/13/23 Nessa Crews MD [address] [place] [address] Specialist Cardiology 10/16/23 Luke Valadez PA-C [address] [place] [phone] Specialist Thoracic Surgery 02/21/24 documented as of this encounter
--- OUTSIDE RECORDS SUMMARY | 2024-12-09 15:24 | XMS_ITS | Encounter Summary ---
Author Organization [facility] Address [address] [place] [address] Care Team Providers Care Integration Lead Name Role Phone Zeynep Barajas MD Primary Care Provider Unavail able Manuel Mtz MD Primary Care Provider Naila Levy MD Primary Care Provider [phone] Yimi Shafer MD Unavailable Unavailable Nessa Crews MD Unavailable [phone] Luke Valadez PA-C Unavailable [phone] Encounter Details Date Type Department Care Team Description 01/27/2021 Refill Adult [address] [address] Zeynep Barajas MD Social History Tobacco Use Types Packs/Day [...] have Coronavirus / COVID-19? No / Unsure 01/29/2021 8:36 AM EDT documented as of this encounter Plan of Treatment Not on file documented as of this encounter Visit Diagnoses Not on filedocumented in this encounter Care Teams Integration Lead Relationship Specialty Start Date End Date Zeynep Barajas MD PCP - General Internal Medicine 11/28/17 08/09/21 Manuel Mtz MD PCP - General Internal Medicine 08/10/21 04/17/22 Naila Vargas MD [address] [place] [address] PCP - General Internal Medicine 04/18/22 Yimi Shafer MD [address] [place] [address] Vascular Surgery 10/13/23 Nessa Crews MD [address] [place] [address] Specialist Cardiology 10/16/23 Luke Valadez PA-C [address] [place] [phone] Specialist Thoracic Surgery 02/21/24 documented as of this encounter
--- OUTSIDE RECORDS SUMMARY | 2024-12-09 15:24 | XMS_ITS | Encounter Summary ---
Author Organization [facility] Address [address] [place] [address] Care Team Providers Care Linseed Oil Order Filler Name Role Phone Naila Vargas MD Primary Care Provider [phone] Yimi Shafer MD Unavailable Unavailable Nessa Crews MD Unavailable [phone] Luke Valadez PA-C Unavailable [phone] Encounter Details Date Type Department Care Team Description 2023 Hospital Medical Records [address] [place] [address] Eladio Kirby MD [address] [place] [address] Social History Tobacco Use Types Packs/Day Years [...] suspected to have Coronavirus/COVID-19? No / Unsure 02/07/2023 9:29 AM EDT documented as of this encounter Plan of Treatment Not on file documented as of this encounter Visit Diagnoses Not on filedocumented in this encounter Care Teams Linseed Oil Order Filler Relationship Specialty Start Date End Date Naila Vargas MD [address] [place] [address] PCP - General Internal Medicine 04/18/22 Yimi Shafer MD [address] [place] [address] Vascular Surgery 10/13/23 Nessa Crews MD [address] [place] [address] Specialist Cardiology 10/16/23 Luke Valadez PA-C [address] [place] [phone] Specialist Thoracic Surgery 02/21/24 documented as of this encounter
--- OUTSIDE RECORDS SUMMARY | 2024-12-09 15:24 | XMS_ITS | Encounter Summary ---
Author Organization [facility] Address [address] [place] [address] Care Team Providers Care Finger Waver Name Role Phone Zeynep Barajas MD Primary Care Provider Unavail able Manuel Mtz MD Primary Care Provider Naila Levy MD Primary Care Provider [phone] Yimi Shafer MD Unavailable Unavailable Nessa Crews MD Unavailable [phone] Luke Valadez PA-C Unavailable [phone] Reason for Visit * Reason Onset Date Comments Testing 01/27/2021 Encounter Details Date Type Department Care Team Description 01/27/2021 Telephone Pulmonology - [place] [address] [facility] [address] [place] [address] Maricel Hawkisn APRN 175 [facility] [address] [place] [address] Testing Social History Tobacco Use Types Packs/Day Years [...] on filedocumented in this encounter Care Teams Finger Waver Relationship Specialty Start Date End Date Zeynep Barajas MD PCP - General Internal Medicine 11/28/17 08/09/21 Manuel Mtz MD PCP - General Internal Medicine 08/10/21 04/17/22 Naila Vargas MD [address] [place] [address] PCP - General Internal Medicine 04/18/22 Yimi Shafer MD [address] [place] [address] Vascular Surgery 10/13/23 Nessa Crews MD [address] [place] [address] Specialist Cardiology 10/16/23 Luke Valadez PA-C [address] [place] [phone] Specialist Thoracic Surgery 02/21/24 documented as of this encounter
--- OUTSIDE RECORDS SUMMARY | 2024-12-09 15:24 | XMS_ITS | Encounter Summary ---
Author Organization [facility] Address [address] [place] [address] Care Team Providers Care Mash Filter Cloth Changer Name Role Phone Zeynep Barajas MD Primary Care Provider Unavail able Manuel Mtz MD Primary Care Provider Naila Levy MD Primary Care Provider [phone] Yimi Shafer MD Unavailable Unavailable Nessa Crews MD Unavailable [phone] Luke Valadez PA-C Unavailable [phone] Encounter Details Date Type Department Care Team Description 10/12/2018 Clinical Support Tech Report Medical Records [address] [place] [address] Cornel Yang Social History Tobacco Use Types Packs/Day Years [...] on filedocumented in this encounter Care Teams Mash Filter Cloth Changer Relationship Specialty Start Date End Date Zeynep Barajas MD PCP - General Internal Medicine 11/28/17 08/09/21 Manuel Mtz MD PCP - General Internal Medicine 08/10/21 04/17/22 Naila Vargas MD [address] [place] [address] PCP - General Internal Medicine 04/18/22 Yimi Shafer MD [address] [place] [address] Vascular Surgery 10/13/23 Nessa Crews MD [address] [place] [address] Specialist Cardiology 10/16/23 Luke Valadez PA-C [address] [place] [phone] Specialist Thoracic Surgery 02/21/24 documented as of this encounter
--- OUTSIDE RECORDS SUMMARY | 2024-12-09 15:24 | XMS_ITS | Encounter Summary ---
Author Organization [facility] Address [address] [place] [address] Care Team Providers Care Costume Specialist Name Role Phone Zeynep Barajas MD Primary Care Provider Unavail able Manuel Mtz MD Primary Care Provider Naila Levy MD Primary Care Provider [phone] Yimi Shafer MD Unavailable Unavailable Nessa Crews MD Unavailable [phone] Luke Valadez PA-C Unavailable [phone] Reason for Visit * Reason Onset Date Comments Error 12/13/2017 Encounter Details Date Type Department Care Team Description 12/13/[address] [address] Zeynep Barajas MD Error Social History Tobacco Use Types Packs/Day Years [...] encounter Miscellaneous Notes * Telephone Encounter - Michaela Hoover - 01/10/2018 9:25 AM EDT Opened in error documented in this encounter Plan of Treatment Not on file documented as of this encounter Visit Diagnoses Not on filedocumented in this encounter Care Teams Costume Specialist Relationship Specialty Start Date End Date Zeynep Barajas MD PCP - General Internal Medicine 11/28/17 08/09/21 Manuel Mtz MD PCP - General Internal Medicine 08/10/21 04/17/22 Naila Vargas MD [address] [place] [phone] PCP - General Internal Medicine 04/18/22 Yimi Shafer MD [address] [place] [address] Vascular Surgery 10/13/23 Nessa Crews MD [address] [place] [address] Specialist Cardiology 10/16/23 Luke Valadez PA-C [address] [place] [phone] Specialist Thoracic Surgery 02/21/24 documented as of this encounter
--- OUTSIDE RECORDS SUMMARY | 2024-12-09 15:24 | XMS_ITS | Encounter Summary ---
Author Organization [facility] Address [address] [place] [address] Care Team Providers Care Cutter Grinder Name Role Phone Naila Vargas MD Primary Care Provider [phone] Yimi Shafer MD Unavailable Unavailable Nessa Crews MD Unavailable [phone] Luke Valadez PA-C Unavailable [phone] Encounter Details Date Type Department Care Team Description 02/22/2024 Orders Only [facility] Thoracic Surgery [place] [address] [facility] [address] [place] [phone] Caitlyn Chandra MD [address] [facility] [address] [place] [address] [phone] History of tobacco use, presenting hazards to health Social History Tobacco Use Types Packs/Day Years [...] Procedure Name Priority Date/Time Associated Diagnosis Comments CT LOW DOSE LUNG SCREEN ANNUAL Routine 02/21/2024 History of tobacco use, presenting hazards to health documented in this encounter Results * CT LOW DOSE LUNG SCREEN ANNUAL (02/21/2024) 02/21/[address] SCANS documented in this encounter Visit Diagnoses Diagnosis History of tobacco use, presenting hazards to health Personal history of tobacco use, presenting hazards to health documented in this encounter Care Teams Cutter Grinder Relationship Specialty Start Date End Date Naila Vargas MD [address] [place] [address] PCP - General Internal Medicine 04/18/22 Yimi Shafer MD [address] [place] [address] Vascular Surgery 10/13/23 Nessa Crews MD [address] [place] [address] Specialist Cardiology 10/16/23 Luke Valadez PA-C [address] [place] [phone] Specialist Thoracic Surgery 02/21/24 documented as of this encounter
--- OUTSIDE RECORDS SUMMARY | 2024-12-09 15:24 | XMS_ITS | Encounter Summary ---
Author Organization [facility] Address [address] [place] [address] Care Team Providers Care Product Marketing Intern Name Role Phone Naila Vargas MD Primary Care Provider [phone] Yimi Shafer MD Unavailable Unavailable Nessa Crews MD Unavailable [phone] Luke Valadez PA-C Unavailable [phone] Reason for Visit * Reason Comments E-prescribe Rx Request Encounter Details Date Type Department Care Team Description 02/29/2024 Refill Adult Medicine [address] [address] Johanna Cloud PA-C [address] [place] [address] E-prescribe Rx Request Social History Tobacco Use [...] encounter Miscellaneous Notes * Telephone Encounter - Michael Benz PA-C - 02/29/2024 4:33 PM EDT Following w/ Dr. Shafer (Vascular in [facility]) should be obtaining there. * Telephone Encounter - Maribell Hopper M.A. - 02/29/2024 3:03 PM EDT Lab Results Component Value Date NA 142 02/01/2023 K 4.0 02/01/2023 CO2 27 02/01/2023 CL 109 02/01/2023 BUN 7 02/01/2023 CREAT 0.82 02/01/2023 GLU 163 02/01/2023 CA 8.9 02/01/2023 GFR 84 02/01/2023 MICHELLE 01/02/24 - Live- problem visit Last Med review - 12/08/23 - PCP NOV 04/08/24 - PCP Labs pending -Please review for PCP, thank you. * Telephone Encounter - Allan Hung - 02/29/2024 12:05 PM EDT Duplicate documented in this encounter Plan of Treatment Not on file documented as of this encounter Visit Diagnoses Not on filedocumented in this encounter Care Teams Product Marketing Intern Relationship Specialty Start Date End Date Naila Vargas MD [address] [place] [address] PCP - General Internal Medicine 04/18/22 Yimi Shafer MD [address] [place] [address] Vascular Surgery 10/13/23 Nessa Crews MD [address] [place] [address] Specialist Cardiology 10/16/23 Luke Valadez PA-C [address] [place] [phone] Specialist Thoracic Surgery 02/21/24 documented as of this encounter
--- OUTSIDE RECORDS SUMMARY | 2024-12-09 15:24 | XMS_ITS | Encounter Summary ---
Author Organization [facility] Address [address] [place] [address] Care Team Providers Care Foot Roentgenologist Name Role Phone Zeynep Barajas MD Primary Care Provider Unavail able Manuel Mtz MD Primary Care Provider Naila Levy MD Primary Care Provider [phone] Yimi Shafer MD Unavailable Unavailable Nessa Crews MD Unavailable [phone] Luke Valadez PA-C Unavailable [phone] Reason for Visit * Reason Onset Date Comments Appointment-Internal Referral 02/04/2021 Encounter Details Date Type Department Care Team Description 02/04/2021 Telephone Adult Medicine [address] [phone] Sakina Lazaro PA-C Appointment-Internal Referral Social History Tobacco Use Types Packs/Day Years [...] encounter Miscellaneous Notes * Telephone Encounter - Marlyn Lazaro PA-C - 02/09/2021 10:59 AM EDT FYI * Telephone Encounter - Cynthia Braswell - 02/04/2021 10:16 AM EDT Referral to Nutrition: FYI to referring. Calls made and letter sent for patient to call and schedule appt. Unable to book at this time. documented in this encounter Plan of Treatment Not on file documented as of this encounter Visit Diagnoses Not on filedocumented in this encounter Care Teams Foot Roentgenologist Relationship Specialty Start Date End Date Zeynep Barajas MD PCP - General Internal Medicine 11/28/17 08/09/21 Manuel Mtz MD PCP - General Internal Medicine 08/10/21 04/17/22 Naila Vargas MD [address] [place] [address] PCP - General Internal Medicine 04/18/22 Yimi Shafer MD [address] [place] [address] Vascular Surgery 10/13/23 Nessa Crews MD [address] [place] [address] Specialist Cardiology 10/16/23 Luke Valadez PA-C [address] [place] [phone] Specialist Thoracic Surgery 02/21/24 documented as of this encounter
--- OUTSIDE RECORDS SUMMARY | 2024-12-09 15:24 | XMS_ITS | Encounter Summary ---
Author Organization [facility] Address [address] [place] [address] Care Team Providers Care Pack Operator Name Role Phone Naila Vargas MD Primary Care Provider [phone] Yimi Shafer MD Unavailable Unavailable Nessa Crews MD Unavailable [phone] Luke Valadez PA-C Unavailable [phone] Encounter Details Date Type Department Care Team Description 09/29/2022 Swing Manager Report Medical Records [address] [place] [address] Jessica Luna MD Social History Tobacco Use [...] on filedocumented in this encounter Care Teams Pack Operator Relationship Specialty Start Date End Date Naila Vargas MD [address] [place] [address] PCP - General Internal Medicine 04/18/22 Yimi Shafer MD [address] [place] [address] Vascular Surgery 10/13/23 Nessa Crews MD [address] [place] [address] [phone] Specialist Cardiology 10/16/23 Luke Valadez PA-C [address] [place] [phone] Specialist Thoracic Surgery 02/21/24 documented as of this encounter
--- OUTSIDE RECORDS SUMMARY | 2024-12-09 15:24 | XMS_ITS | Encounter Summary ---
Author Organization [facility] Address [address] [place] [address] Care Team Providers Care Bookmobile Clerk Name Role Phone Manuel Mtz MD Primary Care Provider Naila Levy MD Primary Care Provider [phone] Yimi Shafer MD Unavailable Unavailable Nessa Crews MD Unavailable [phone] Luke Valadez PA-C Unavailable [phone] Reason for Visit * Reason Onset Date Comments DME Request 08/12/2021 [facility] Encounter Details Date Type Department Care Team Description 08/12/2021 Telephone Pulmonology - [place] [address] [facility] [address] [place] [address] Maricel Hawkins APRN [address] [facility] [address] [place] [phone] DME Request ([facility]) Social History Tobacco Use Types Packs/Day Years [...] encounter Miscellaneous Notes * Telephone Encounter - Marcia Pinedo - 08/18/2021 1:38 PM EST Done faxed order to [facility] for supplies * Telephone Encounter - Anisa Lawrence - 08/12/2021 2:31 PM EST Confirmation verbal order fax received. documented in this encounter Plan of Treatment Not on file documented as of this encounter Visit Diagnoses Not on filedocumented in this encounter Care Teams Bookmobile Clerk Relationship Specialty Start Date End Date Manuel Mtz MD PCP - General Internal Medicine 08/10/21 04/17/22 Naila Vargas MD [address] [place] [address] PCP - General Internal Medicine 04/18/22 Yimi Shafer MD [address] [place] [address] Vascular Surgery 10/13/23 Nessa Crews MD [address] [place] [address] Specialist Cardiology 10/16/23 Luke Valadez PA-C [address] [place] [phone] Specialist Thoracic Surgery 02/21/24 documented as of this encounter
--- OUTSIDE RECORDS SUMMARY | 2024-12-09 15:24 | XMS_ITS | Encounter Summary ---
Author Organization [facility] Address [address] [place] [address] Care Team Providers Care Freight Loader Name Role Phone Zeynep Barajas MD Primary Care Provider Unavail able Manuel Mtz MD Primary Care Provider Naila Levy MD Primary Care Provider [phone] Yimi Shafer MD Unavailable Unavailable Nessa Crews MD Unavailable [phone] Luke Valadez PA-C Unavailable [phone] Reason for Visit * Reason Onset Date Comments TEST RESULTS 10/16/2019 Encounter Details Date Type Department Care Team Description 10/16/[address] [address] Zeynep Barajas MD TEST RESULTS Social History Tobacco Use Types Packs/Day Years [...] encounter Miscellaneous Notes * Telephone Encounter - Kecia Smith M.A. - 10/16/2019 1:57 PM EST Left message for pt to call back * Telephone Encounter - Luke Ornelas - 10/16/2019 1:13 PM EST Patient returning call, please contact at [phone], please contact before 3:30pm as patient hasto go to work * Telephone Encounter - Clemencia Vasquez M.A. - 10/16/2019 11:15 AM EST Message left for patient to return my call. ??Please see msg below Sakina Lazaro PA-C ??P [facility] ??Patient's urine sample so far looks clear without infection. ??Her vitamin D level has normalizedand she is okay to switch to a once a day [id number]-[id number] supplement. * Telephone Encounter - Clemencia Vasquez M.A. - 10/16/2019 11:15 AM EST ----- Message from Sakina Lazaro PA-C sent at 10/15/2019 4:40 PM EST ----- Patient's urine sample so far looks clear without infection. Her vitamin D level has normalized andshe is okay to switch to a once a day [id number]-acvchgn supplement. Telephone Information: documented in this encounter Plan of Treatment Not on file documented as of this encounter Visit Diagnoses Not on filedocumented in this encounter Care Teams Freight Loader Relationship Specialty Start Date End Date Zeynep Barajas MD PCP - General Internal Medicine 11/28/17 08/09/21 Manuel Mtz MD PCP - General Internal Medicine 08/10/21 04/17/22 Naila Vargas MD [address] [place] [address] PCP - General Internal Medicine 04/18/22 Yimi Shafer MD [address] [place] [address] [place] [address] Vascular Surgery 10/13/23 Nessa Crews MD [address] [place] [address] Specialist Cardiology 10/16/23 Luke Valadez PA-C [address] [place] [phone] Specialist Thoracic Surgery 02/21/24 documented as of this encounter
--- OUTSIDE RECORDS SUMMARY | 2024-12-09 15:24 | XMS_ITS | Encounter Summary ---
Author Organization [facility] Address [address] [place] [address] Care Team Providers Care First Assist Name Role Phone Naila Vargas MD Primary Care Provider [phone] Yimi Shafer MD Unavailable Unavailable Nessa Crews MD Unavailable [phone] Luke Valadez PA-C Unavailable [phone] Reason for Visit * Reason Comments E-prescribe Rx Request Encounter Details Date Type Department Care Team Description 09/20/2023 Refill [facility] [address] [place] [phone] Shaneka Melchor APRN E-prescribe Rx Request [...] on filedocumented in this encounter Care Teams First Assist Relationship Specialty Start Date End Date Naila Vargas MD [address] [place] [address] PCP - General Internal Medicine 04/18/22 Yimi Shafer MD [address] [place] [address] Vascular Surgery 10/13/23 Nessa Crews MD [address] [place] [address] Specialist Cardiology 10/16/23 Luke Valadez PA-C [address] [place] [phone] Specialist Thoracic Surgery 02/21/24 documented as of this encounter
--- OUTSIDE RECORDS SUMMARY | 2024-12-09 15:24 | XMS_ITS | Encounter Summary ---
Author Organization [facility] Address [address] [place] [address] Care Team Providers Care Electric Welder Name Role Phone Naila Vargas MD Primary Care Provider [phone] Yimi Shafer MD Unavailable Unavailable Nessa Crews MD Unavailable [phone] Luke Valadez PA-C Unavailable [phone] Encounter Details Date Type Department Care Team Description 06/09/2023 Telephone Adult Medicine [address] [phone] Naila Vargas MD [address] [place] [address] [phone] Social History Tobacco Use Types Packs/Day Years [...] encounter Miscellaneous Notes * Telephone Encounter - Naila Vargas MD - 06/09/2023 3:20 PM EDT Prescription sent * Telephone Encounter - Sherice Alejandre M.A. - 06/09/2023 3:07 PM EDT Spoke with patient, she is agreeable to start taking levothyroxine. Confirmed pharmacy is [facility],. * Telephone Encounter - Sherice Alejandre M.A. - 06/09/2023 3:07 PM EDT ----- Message from Naila Vargas MD sent at 06/09/2023 3:03 PM EDT ----- I do not see levothyroxien on her list, I would recommed starting 25 since she is also expereicninghair loss, if she is agreeablw can send script to pharmacy documented in this encounter Plan of Treatment Not on file documented as of this encounter Visit Diagnoses Not on filedocumented in this encounter Care Teams Electric Welder Relationship Specialty Start Date End Date Naila Vargas MD [address] [place] [address] PCP - General Internal Medicine 04/18/22 Yimi Shafer MD [address] [place] [address] Vascular Surgery 10/13/23 Nessa Crews MD [address] [place] [address] Specialist Cardiology 10/16/23 Luke Valadez PA-C [address] [place] [phone] Specialist Thoracic Surgery 02/21/24 documented as of this encounter
--- OUTSIDE RECORDS SUMMARY | 2024-12-09 15:24 | XMS_ITS | Encounter Summary ---
Author Organization [facility] Address [address] [place] [address] Care Team Providers Care Power Shovel Operator Helper Name Role Phone Zeynep Barajas MD Primary Care Provider Unavail able Manuel Mtz MD Primary Care Provider Naila Levy MD Primary Care Provider [phone] Yimi Shafer MD Unavailable Unavailable Nessa Crews MD Unavailable Luke Valadez PA-C Unavailable [phone] Encounter Details Date Type Department Care Team Description 10/19/2018 Release of Information Medical Records [address] [place] [phone] Abstract, Provider Social History Tobacco Use Types [...] on filedocumented in this encounter Care Teams Power Shovel Operator Helper Relationship Specialty Start Date End Date Zeynep Barajas MD PCP - General Internal Medicine 11/28/17 08/09/21 Manuel Mtz MD PCP - General Internal Medicine 08/10/21 04/17/22 Naila Vargas MD [address] [place] [address] PCP - General Internal Medicine 04/18/22 Yimi Shafer MD [address] [place] [address] Vascular Surgery 10/13/23 Nessa Crews MD [address] [place] [address] Specialist Cardiology 10/16/23 Luke Valadez PA-C [address] [place] [phone] Specialist Thoracic Surgery 02/21/24 documented as of this encounter
--- OUTSIDE RECORDS SUMMARY | 2024-12-09 15:24 | XMS_ITS | Encounter Summary ---
Author Organization [facility] Address [address] [place] [address] Care Team Providers Care Registered Nurse Renal Name Role Phone Naila Vargas MD Primary Care Provider [phone] Yimi Shafer MD Unavailable Unavailable Nessa Crews MD Unavailable [phone] Luke Valadez PA-C Unavailable [phone] Encounter Details Date Type Department Care Team Description 10/12/2023 Public Information Specialist Report Medical Records [address] [place] [address] Yimi Shafer MD Social History Tobacco Use [...] on filedocumented in this encounter Care Teams Registered Nurse Renal Relationship Specialty Start Date End Date Naila Vargas MD [address] [place] [address] PCP - General Internal Medicine 04/18/22 Yimi Shafer MD [address] [place] [address] Vascular Surgery 10/13/23 Nessa Crews MD [address] [place] [address] [phone] Specialist Cardiology 10/16/23 Luke Valadez PA-C [address] [place] [phone] Specialist Thoracic Surgery 02/21/24 documented as of this encounter
--- OUTSIDE RECORDS SUMMARY | 2024-12-09 15:24 | XMS_ITS | Encounter Summary ---
Author Organization [facility] Address [address] [place] [address] Care Team Providers Care Director Of Search Engine Marketing Name Role Phone Naila Vargas MD Primary Care Provider [phone] Yimi Shafer MD Unavailable Unavailable Nessa Crews MD Unavailable [phone] Luke Valadez PA-C Unavailable [phone] Encounter Details Date Type Department Care Team Description 05/07/2024 Radar Air Traffic Controller Report Medical Records [address] [place] [address] Yimi Shafer MD Social History Tobacco Use [...] on filedocumented in this encounter Care Teams Director Of Search Engine Marketing Relationship Specialty Start Date End Date Naila Vargas MD [address] [place] [address] PCP - General Internal Medicine 04/18/22 Yimi Shafer MD [address] [place] [address] Vascular Surgery 10/13/23 Nessa Crews MD [address] [place] [address] [phone] Specialist Cardiology 10/16/23 Luke Valadez PA-C [address] [place] [phone] Specialist Thoracic Surgery 02/21/24 documented as of this encounter
--- OUTSIDE RECORDS SUMMARY | 2024-12-09 15:24 | XMS_ITS | Encounter Summary ---
Author Organization [facility] Address [address] [place] [address] Care Team Providers Care Tumbling Barrel Painter Name Role Phone Naila Vargas MD Primary Care Provider [phone] Yimi Shafer MD Unavailable Unavailable Nessa Crews MD Unavailable [phone] Luke Valadez PA-C Unavailable [phone] Encounter Details Date Type Department Care Team Description 10/16/2023 SCAN Medical Records [address] [place] [address] [facility] Social History Tobacco Use Types Packs/Day Years [...] on filedocumented in this encounter Care Teams Tumbling Barrel Painter Relationship Specialty Start Date End Date Naila Vargas MD [address] [place] [address] PCP - General Internal Medicine 04/18/22 Yimi Shafer MD [address] [place] [address] Vascular Surgery 10/13/23 Nessa Crews MD [address] [place] [address] [phone] Specialist Cardiology 10/16/23 Luke Valadez PA-C [address] [place] [phone] Specialist Thoracic Surgery 02/21/24 documented as of this encounter
--- OUTSIDE RECORDS SUMMARY | 2024-12-09 15:24 | XMS_ITS | Clinical Summary ---
Author Organization [facility] Address [address] [place] [address] Care Team Providers Care Museum Service Scheduler Name Role Phone Naila Vargas MD Primary Care Provider [phone] Yimi Shafer MD Unavailable Unavailable Nessa Crews MD Unavailable Luke Valadez PA-C Unavailable [phone] Allergies Active Allergy Reactions Severity Noted Date Comments Clarithromycin 01/15/2014 Other (No Interaction Warnings) 07/01/2019 Environmental seasonal allergies Pollen 02/21/2019 Seasonal Allergies 02/21/2019 Medications Medication Sig Dispensed Refills Start Date End Date Status aspirin 81 MG EC tablet Take 81 mg by mouth daily. 0 Active OneTouch Delica Lancets Fine Misc Use to test blood sugar daily 100 Each 0 09/30/2021 Active ciclopirox (LOPROX) 0.77 % cream Apply to affected cuticle after washing hands 15 g 11 07/25/2022 Active losartan (COZAAR) 25 MG tablet Take 1 Tablet by mouth daily. 0 09/29/2022 Active quetiapine (SEROQUEL) 50 MG tablet daily. 0 12/14/2022 Active lamotrigine (LAMICTAL) 25 MG tablet daily. 0 12/14/2022 Active cyanocobalamin ([employer] VITAMIN B12) 1000 MCG tablet Take 1 Tablet by mouth daily. 90 Tablet 1 01/06/2023 Active Biotin 10 MG Tab Take by mouth. 0 Acti ve Ascorbic Acid (vitamin C) 100 MG tablet Take 1 Tablet by mouth daily. 0 Active VITAMIN D OR Take by mouth. 10,000 Units once a week 0 Active ALBUTEROL SULFATE (Ventolin HFA) 108 (90 Base) MCG/ACT Aero SolnIndications:Mil d persistent asthma without complication Inhale 2 Puffs into the lungs every 6 hours as needed for Cough, Wheezing or Shortness of Breath. 18 g 6 12/22/2023 Active Cetirizine HCl (ZyrTEC Allergy) 10 MG CapIndications:Mild persistent asthma without complication,PND (post-nasal drip) Take 10 mg by mouth daily. 90 Capsule 3 12/22/2023 Active fluticasone (Flonase Allergy Relief) 50 MCG/ACT nasal sprayIndications:Mi ld persistent asthma without complication,PND (post-nasal drip) 2 Sprays by Each Nare route daily. 50.7 g 3 12/22/2023 Active fluticasone-salmete rol (Advair HFA) 230-21 MCG/ACT inhalerIndications: Mild persistent asthma without complication Inhale 2 Puffs into the lungs 2 times daily. This medication has inhaler steroid: Rinse mouth with water and expectorate after each dose to prevent oral/esophageal candidiasis or fungal infection. 36 g 1 12/22/2023 Active fluoxetine (PROZAC) 20 MG capsule TAKE 1 CAPSULE BY MOUTH EVERY DAY 90 Capsule 1 12/29/2023 Active acetaminophen (TYLENOL) 500 MG tablet Take 1 Tablet by mouth every 6 hours as needed. 0 Active Pancrelipase, Ubo-Erqp-Iopx, (Creon) 04003-989867 units CAPSULE ENTERIC COATED PARTICLES Take 2 Capsules by mouth 3 times daily (with meals). 200 Capsule 0 01/10/2024 Active simvastatin (ZOCOR) 40 MG tablet TAKE 1 TABLET BY MOUTH AT BEDTIME. 90 Tablet 1 01/26/2024 Active tiotropium (Spiriva HandiHaler) 18 MCG inhalation capsule Spiriva with HandiHaler 18 mcg and inhalation capsules 0 Active Neomycin-Polymyxin- Dexameth 0.1 % Ointment neomycin 3.5 mg/g-polymyxin B 10,000 unit/g-dexameth 0.1 % eye oint 0 Active FINASTERIDE OR Take by mouth daily. 0 Active levothyroxine (SYNTHROID, LEVOTHROID) 25 MCG tablet TAKE 1 TABLET BY MOUTH EVERY DAY 90 Tablet 1 03/06/2024 Active VALACYCLOVIR HCL OR Take 1,000 mg by mouth 2 times daily. 0 Active gabapentin (NEURONTIN) 300 MG capsule Take 1 Capsule by mouth at bedtime. 30 Capsule 0 04/08/2024 Active Lancets (OneTouch Delica Plus [id number]) Misc 1 Each by Does not apply route daily. 90 Each 0 04/11/2024 Active Blood Glucose Monitoring Suppl (ONE TOUCH ULTRA 2) w/Device Kit Use to check blood sugar daily as needed 1 Kit 0 04/11/2024 Active metformin (GLUCOPHAGE) 500 MG tablet Take 2 Tablets by mouth 2 times daily (with meals). 360 Tablet 0 04/25/2024 Active omeprazole (PRILOSEC) 40 MG capsule TAKE 1 CAPSULE BY MOUTH DAILY. TAKE IN A.M. ON EMPTY STOMACH, WAIT 30 MINUTES AND THEN EAT 90 Capsule 1 06/11/2024 Active cilostazol (PLETAL) 100 MG tablet TAKE 1 TABLET BY MOUTH TWICE A DAY 180 Tablet 0 06/17/2024 Active amlodipine (NORVASC) 2.5 MG tablet Take 1 Tablet by mouth daily. 90 Tablet 1 07/09/2024 Active Diclofenac Sodium 1 % Gel Apply 2 g topically 2 times daily as needed for Other (Elbow pain). 30 g 1 07/09/2024 Active Blood Glucose Monitoring Suppl (FreeStyle [place] Lite) w/Device Kit Use to check blood sugar once daily 1 Kit 0 07/09/2024 Active Glucose Blood (FREESTYLE LITE) Strip Use to check blood sugar once daily 100 Strip 0 07/09/2024 Active Active Problems Problem Noted Date Precordial pain 03/01/2024 Carotid artery stenosis 10/31/2023 Overview: Right ICA 80% on CTA @ [facility] 10/11/2023 Encounter for preprocedural cardiovascul ar examination 10/27/2023 Nocturnal hypoxia 03/09/2023 Overview: 01/30/2023 overnight oximetry on CPAP showed pulmonary 1. Lowest oxygen saturation 87%. 2. Time spent<88 or below is 2 minutes. 3. Time spent on CPAP with adequate oxygen. GERD (gastroesophageal reflux disease) 0 02/01/2023 Glaucoma suspect of both eyes 05/06/2022 Overview: Low risk Type 2 diabetes mellitus with cataract 0 04/16/2022 DM (diabetes mellitus), type 2 with neur ological complications 11/01/2021 Overview: Dx 09/2021, significant improvement with dietary management Vitamin B12 deficiency 02/15/2021 DM (diabetes mellitus), type 2 with david pheral vascular complications 02/15/2021 Essential hypertension 01/29/2021 Morbid obesity with BMI of 40.0-44.9, ad ult 01/29/2021 Cervical radiculitis 10/28/2020 Obstructive sleep apnea moderate AHI 20 04/07/2020 Overview: [facility] Home Sleep Apnea Test: Date 04/01/2020; BMI 39; RDI 31, AHI 27; average oxygen saturation 95% (lowest 83% without saturations <88% for 5% or more of study) - Obstructive Sleep Apnea - moderate; without sleep related hypoventilation by 2019 home sleep apnea test. Stress incontinence of urine 02/07/2020 SOB (shortness of breath) 01/07/2020 Overview: PFT pending, normal chest x-ray and nuclear stress test, normal CT chest 02/2020 History of nephrolithiasis 01/07/2020 Overview: S/p lithotripsy 11/2019 Moderate episode of recurrent major depr essive disorder 10/08/2019 Carpal tunnel syndrome, bilateral 2017 Overview: Severe s/p EMG 05/2018 referred to general surgery Atypical chest pain 02/12/2018 Overview: Negative nuclear stress 02/2018 Peripheral vascular disease 12/18/2017 Overview: CT angio with bilateral SFA occlusions, s/p left SFA repair 12/2017, follows with vascular Tarsal tunnel syndrome, bilateral 2017 Overview: Follows with podiatry Plantar fasciitis, bilateral 12/11/2017 Overview: Follows with orthopedic and podiatry Anatomical narrow angle, s/p LPI 018 Nuclear sclerosis of both eyes 8 Family history of breast cancer 10/09/19 16 Overview: Patient is BRCA negative Former tobacco use Overview: Since age 13, quit 02/2018 Dyslipidemia Arthritis Overview: Hips, knees. Follows with [facility] Vitamin D deficiency Achilles tendon disorder Overview: Right s/p PT, f/u with [facility] Pancreatic insufficiency Resolved Problems Problem Noted Date Resolved Date Type 2 diabetes mellitus 02/15/2021 022 Calcific tendinitis of left shoulder 10/28/2020 11/01/2021 Subacromial bursitis of left shoulder joint 10/1211/01/2021 Tendinitis of left rotator cuff 10/28/2020 11/01/2021 Lab test negative for COVID-19 virus 07/19/2020 10/29/2020 Obesity (BMI 35.0-39.9 without comorbidity) 02/0911/01/2021 Atherosclerosis of [place] of both lower extremities with intermittent claudication 03/21/2018 11/01/2021 PAD (peripheral artery disease) 12/11/2017 12/18/2017 Overview: Follows with Vascular Obesity (BMI 30-39.9) 12/11/2017 07/03/2019 Prediabetes 11/14/2017 02/15/2021 Retinal scar of right eye 10/11/20162016 Ocular hypertension 10/11/2016 01/10/2017 Nephrolithiasis 01/07/2015 12/11/2017 Achilles tendon disorder 018 Gassiness 10/29/2020 Change in bowel function 022 Overview: More oily and floating in the toilet Immunizations Name Administration Dates Next Due COVID-19 (Moderna) 08/15/2021 COVID-19 (Pfizer) 08/15/2021,12/03/2020 Influenza (> 6 Months) 07/09/2024,2017,08/22/2017,06/27,07/01/2014 Influenza Flu (PT Reported) 06/21/2021, 9 Influenza Vaccine-preservati ve Free-quadrivalent 4 Years 08/09/2023,07/25/2022,05/28/2020 Pneumoccoccal(Adult) Polysac anna PPSV23 10/06/2021 Family History * Patient is adopted Medical History Relation Name Comments cancer,other Maternal Grandfather worked at [employer]; in his mid 50s Cataract Maternal Grandmother Emphysema Maternal Grandmother ~ age 82 CA Breast Mother's side 1 2 m cousin 30s Cancer of the Breast Mother's side 1 2 m cousin 30s au nt-bilateral Cancer of the Breast Mother's side 2 aunt -with nodes Cancer of the Breast Mother's side 3 1st cousin-bilateral Cancer of the Breast Mother's side 4 1st cousin-bilateral CA Ovarian Mother's side 5 aunt; possib ly cervical; in her 40s CA Breast Other m neice 40s maternal niece x2 40's Other Paternal Grandfather unknown to Mis CA Breast Sister 1 50s CA Breast Sister 2 60ish mesothelioma Uncle in his 50s Relation Name [...] file Not on file Not on file Last Filed Vital Signs Vital Sign Reading Time Taken Comments Blood Pressure 132/84 07/09/2024 8:58 AM EDT Pulse 76 07/09/2024 8:58 AM EDT Temperature 36.4 ??C (97.6 ??F) 07/09/2024 8:58 AM ED T Respiratory Rate 14 07/09/2024 8:58 AM EDT Oxygen Saturation 98% 04/03/2024 8:14 AM EDT Inhaled Oxygen Concentration - - Weight 110.2 kg (243 lb) 07/09/2024 8:58 AM EDT Height 162.6 cm (5' 4 ) 07/09/2024 8:58 AM EDT Body Mass Index 41.71 07/09/2024 8:58 AM EDT Plan of Treatment Health Maintenance Due Date Last Done Comments DTAP/TDAP/TD (1 - Tdap) 1984 SHINGLES VACCINE (1 of 2) 02/15/2016 DIABETES: ANNUAL EYE EXAM 07/15/20222020 (External Completion), 11/20/2017, 10/13/2016, Additional history exists DIABETES: ANNUAL FOOT EXAM 09/30/2022 09/30/2021 CERVICAL CANCER SCREENING 08/05/20232019, 11/09/2016, 08/05/2014, Additional history exists Covid-19 Vaccine (2022-10 4 season) 2024 08/15/2021, 08/15/2021, 12/03/2020 MAMMOGRAM 05/20/2024 05/20/2023, 0911/2021, 05/13/2021, Additional history exists DIABETES: BLOOD SUGAR CONTRO L TEST (HGBA1C) 07/25/2024 04/24/2024, 08/29/2023, 07/25/2022, Additional history exists BMI CHECK/ADVISE 09/11/2024 04/08/2024, , 12/22/2023, Additional history exists DEPRESSION SCREENING/FOLLOWUP 09/11/2024, 12/29/2023, 08/09/2023, Additional history exists SOCIAL NEEDS SCREENING 09/11/2024 , 02/01/2023, 11/14/2018 (Completed), Additional history exists BASELINE HEALTH EXAM 40-64 10/06/202410/06, 12/03/2021, 09/30/2021, Additional history exists Lung Cancer Screening (Low D ose CT) 02/20/2025 02/21/2024, 02/12/2021, 02/13/2020 DIABETES/HEART DISEASE: PRECIOUS AL CHOLESTEROL (LDL) 03/01/2025 03/01/2024, 07/25/2022, 12/03/2021, Additional history exists DIABETES: ANNUAL URINE PROTE IN TEST (MICROALBUMIN) 04/24/2025 04/24/2024, 11/01/2021, 11/01/2021 COLON CANCER SCREENING 11/24/2030 11/24/2020, 2014 PNEUMOCOCCAL VACCINE FOR HIG H RISK PATIENTS (#2) 2031 10/06/2021 HEPATITIS C SCREENING Completed 05/20/2014 INFLUENZA Completed 07/09/2024, 07/13, 07/25/2022, Additional history exists Care Teams Museum Service Scheduler Relationship Specialty Start Date End Date Naila Vargas MD [address] [place] [address] [phone] PCP - General Internal Medicine 04/18/22 Yimi Shafer MD [address] [place] [phone] Vascular Surgery 10/13/23 Nessa Crews MD [address] [place] [address] Specialist Cardiology 10/16/23 Luke Valadez PA-C [address] [place] [phone] Specialist Thoracic Surgery 02/21/24
--- OUTSIDE RECORDS SUMMARY | 2024-12-09 15:24 | XMS_ITS | Encounter Summary ---
Author Organization [facility] Address [address] [place] [address] Care Team Providers Care Laboratory Inspector Name Role Phone Naila Vargas MD Primary Care Provider [phone] Yimi Shafer MD Unavailable Unavailable Nessa Crews MD Unavailable [phone] Luke Valadez PA-C Unavailable [phone] Encounter Details Date Type Department Care Team Description 10/04/2022 Hall Monitor Report Medical Records [address] [place] [id number] Abstract, Provider Social History Tobacco Use Types [...] suspected to have Coronavirus/COVID-19? No / Unsure 10/06/2022 8:53 AM EST documented as of this encounter Plan of Treatment Not on file documented as of this encounter Visit Diagnoses Not on filedocumented in this encounter Care Teams Laboratory Inspector Relationship Specialty Start Date End Date Naila Vargas MD [address] [place] [phone] PCP - General Internal Medicine 04/18/22 Yimi Shafer MD [address] [place] [address] [phone] Vascular Surgery 2/2/24 Nessa Crews MD [address] [place] [address] Specialist Cardiology 10/16/23 Luke Valadez PA-C [address] [place] [phone] Specialist Thoracic Surgery 02/21/24 documented as of this encounter
--- OUTSIDE RECORDS SUMMARY | 2024-12-09 15:24 | XMS_ITS | Encounter Summary ---
Author Organization [facility] Address [address] [place] [address] Care Team Providers Care Software Tools Developer Name Role Phone Zeynep Barajas MD Primary Care Provider Unavail able Manuel Mtz MD Primary Care Provider Naila Levy MD Primary Care Provider [phone] Yimi Shafer MD Unavailable Unavailable Nessa Crews MD Unavailable [phone] Luke Valadez PA-C Unavailable [phone] Reason for Visit * Reason Comments E-prescribe Rx Request Encounter Details Date Type Department Care Team Description 08/08/2021 Refill Adult Medicine [address] [address] Zeynep Barajas MD E-prescribe Rx Request Social History Tobacco Use [...] Telephone Encounter - Elsa Gonzalez M.A. - 08/09/2021 4:44 PM EST Faxed to pharmacy * Telephone Encounter - Melissa Martel M.A. - 08/09/2021 4:18 PM EST Last office visit 08/03/21 Next office visit 08/11/21 Lab Results Component Value Date 25OHD 40 02/13/2020 25HYDROXYVIT 16 11/19/2016 * Telephone Encounter - Shey Santoro - 08/09/2021 3:32 PM EST Patient would like script to be: E-PRESCRIBED/FAXED TO PHARMACY WHEN WAS THE PATIENT'S LAST APPOINTMENT IN ADULT MEDICINE? 08/03/2021 WHEN WAS THE LAST TIME THE PATIENT SAW THEIR PCP? 05/12/2021 Does patient have an upcoming appointment? Yes 08/11/2021 (THE MEDICATION REQUESTED IS ON THE MED LIST ABOVE) All of the medications requested were on the CURRENT MEDS list Did you check the Pharmacy information above?: YES Patient wants: 90 -day supply Is this a mail order prescription request ? NO If the refill is from a FAXED refill request what is the RX # listed on the fax? N/A Patients current insurance carrier is: [facility] / Plan: -[facility] TYPE 2 / Product Type: HMO Jar-mdm-Gpthhod documented in this encounter Plan of Treatment Not on file documented as of this encounter Visit Diagnoses Not on filedocumented in this encounter Care Teams Software Tools Developer Relationship Specialty Start Date End Date Zeynep Barajas MD PCP - General Internal Medicine 11/28/17 08/09/21 Manuel Mtz MD PCP - General Internal Medicine 08/10/21 04/17/22 Naila Vargas MD [address] [place] [phone] PCP - General Internal Medicine 04/18/22 Yimi Shafer MD [address] [place] [phone] Vascular Surgery 10/13/23 Nessa Crews MD [address] [place] [phone] Specialist Cardiology 10/16/23 Luke Valadez PA-C [address] [place] [phone] Specialist Thoracic Surgery 02/21/24 documented as of this encounter
--- OUTSIDE RECORDS SUMMARY | 2024-12-09 15:24 | XMS_ITS | Encounter Summary ---
Author Organization [facility] Address [address] [place] [address] Care Team Providers Care Vehicle Operator Name Role Phone Naila Vargas MD Primary Care Provider [phone] Yimi Shafer MD Unavailable Unavailable Nessa Crews MD Unavailable Luke Valadez PA-C Unavailable [phone] Reason for Visit * Reason Onset Date Comments Testing 04/08/2024 Encounter Details Date Type Department Care Team Description 04/08/2024 Telephone Adult Medicine [address] [phone] Naila Vargas MD [address] [place] [address] [phone] Testing Social History Tobacco Use Types Packs/Day [...] * Telephone Encounter - Sandra Whitley - 04/09/2024 10:36 AM EDT Please review message below. There is a telephone encounter about a cardiac cath, ordered in February by Dr Crews. Can you check status? * Telephone Encounter - Dahiana Dye - 04/08/2024 12:31 PM EDT Patient seen today with pcp, she is awaiting additional testing from recent visit from Dr Crews, please review and contact patient documented in this encounter Plan of Treatment Not on file documented as of this encounter Visit Diagnoses Not on filedocumented in this encounter Care Teams Vehicle Operator Relationship Specialty Start Date End Date Naila Vargas MD [address] [place] [phone] PCP - General Internal Medicine 04/18/22 Yimi Shafer MD [address] [place] [phone] Vascular Surgery 10/13/23 Nessa Crews MD [address] [place] [phone] Specialist Cardiology 10/16/23 Luke Valadez PA-C [address] [phone] Specialist Thoracic Surgery 02/21/24 documented as of this encounter
--- OUTSIDE RECORDS SUMMARY | 2024-12-09 15:25 | XMS_ITS | Encounter Summary ---
Author Organization [facility] Address [address] [facility] 7 [place] [address] Care Team Providers Care Belt And Link Assembly Supervisor Name Role Phone Unavailable Primary Care Provider Unavailabl e Encounter Details Date Type Department Care Team (Latest Contact Info) Description 02/18/2021 Abstract [facility] CONVERSIONS Dental, Provider, DDS Social History [...] 03/05/2025 10:00 AM EDT Office Visit [facility] ADULT DENTAL [address] [place] [address] [place], [place] [address] [place] [address] documented as of this encounter Visit Diagnoses Not on filedocumented in this encounter
--- OUTSIDE RECORDS SUMMARY | 2024-12-09 15:25 | XMS_ITS | Encounter Summary ---
Author Organization [facility] Address [address] [place] [address] Care Team Providers Care Tc Operator Name Role Phone Naila Vargas MD Primary Care Provider [phone] Yimi Shafer MD Unavailable Unavailable Nessa Crews MD Unavailable [phone] Luke Valadez PA-C Unavailable [phone] Reason for Visit * Reason Onset Date Comments APPOINTMENT 08/16/2022 Encounter Details Date Type Department Care Team Description 08/16/2022 Telephone Pulmonology - [place] [address] [facility] [address] [place] [address] Maricel Hawkins APRN [address] [facility] [address] [place] [phone] APPOINTMENT Social History Tobacco Use Types Packs/Day [...] suspected to have Coronavirus/COVID-19? No / Unsure 07/25/2022 7:57 AM EST documented as of this encounter Miscellaneous Notes * Telephone Encounter - Anisa Lawrence - 08/16/2022 12:15 PM EST Called patient to schedule 1 year follow up due now with Maricel. Fax order received from [facility] for supplies of CPAP. documented in this encounter Plan of Treatment Not on file documented as of this encounter Visit Diagnoses Not on filedocumented in this encounter Care Teams Tc Operator Relationship Specialty Start Date End Date Naila Vargas MD [address] [place] [phone] PCP - General Internal Medicine 04/18/22 Yimi Shafer MD [address] [place] [phone] Vascular Surgery 10/13/23 Nessa Crews MD [address] [place] [phone] Specialist Cardiology 10/16/23 Luke Valadez PA-C [address] [place] [phone] Specialist Thoracic Surgery 02/21/24 documented as of this encounter
--- OUTSIDE RECORDS SUMMARY | 2024-12-09 15:25 | XMS_ITS | Encounter Summary ---
Author Organization [facility] Address [address] [place] [address] Care Team Providers Care Computer Repair Engineer Name Role Phone Manuel Mtz MD Primary Care Provider Naila Levy MD Primary Care Provider Yimi Shafer MD Unavailable Unavailable Nessa Crews MD Unavailable [phone] Luke Valadez PA-C Unavailable [phone] Reason for Visit * Reason Onset Date Comments Appointment-Internal Referral 10/14/2021 Encounter Details Date Type Department Care Team Description 10/14/[address] [phone] Angie Mao NP Appointment-Internal Referral Social History Tobacco Use Types [...] have Coronavirus / COVID-19? No / Unsure 10/06/2021 3:43 PM EST documented as of this encounter Miscellaneous Notes * Telephone Encounter - Cynthia Braswell - 10/14/2021 8:57 AM EST Referral to Pharmacy Clinic: FYI to referring. Calls made and letter sent. Unable to book at this time. documented in this encounter Plan of Treatment Not on file documented as of this encounter Visit Diagnoses Not on filedocumented in this encounter Care Teams Computer Repair Engineer Relationship Specialty Start Date End Date Manuel Mtz MD PCP - General Internal Medicine 08/10/21 04/17/22 Naila Vargas MD [address] [place] [phone] PCP - General Internal Medicine 04/18/22 Yimi Shafer MD [address] [place] [phone] Vascular Surgery 10/13/23 Nessa Crews MD [address] [place] [phone] Specialist Cardiology 10/16/23 Luke Valadez PA-C [address] [place] [phone] Specialist Thoracic Surgery 02/21/24 documented as of this encounter
--- OUTSIDE RECORDS SUMMARY | 2024-12-09 15:25 | XMS_ITS | Clinical Summary ---
Author Organization [employer] Address [address] [facility] [address] [place] [address] Care Team Providers Care Spring Intern Name Role Phone Unavailable Primary Care Provider [...] 23 Active cholecalciferol (Vitamin D-3) 1.25 MG (26176 UT) capsule Take 50,000 Units by mouth [...] Dental calculus 02/10/2023 Localized gingival recession 02/10/2023 Social History Tobacco Use Types Packs/Day Years [...] 10:00 AM EDT Office Visit [facility] ADULT DENTAL [address] [place] [address] Let[place], [place] [address] [place] [address] Health Maintenance Due Date Last Done Comments [...] - PCV) 10/06/2022 10/06/2021 COVID-19 Vaccine ( - 2023- season) 2024 06/13/2022, 08/15/2021, 12/26/2020, Additional history exists Dental Oral Exam 03/05/2025 09/03/2024, 08/2024, 04/22/2022, Additional history exists Dental Prophylaxis 03/05/2025 09/03/2024, 0 10/23/2023, 02/10/2023, Additional history exists Tobacco Screening 09/03/2025 09/03/2024 Dental X-Ray: Bitewings 09/04/2025 09/03/20 24, 10/23/2023, 04/22/2022, Additional history exists Mammogram 08/26/2026 [...] Procedure Name Priority Date/Time Associated Diagnosis Comments Full PROPHYLAXIS - ADULT Routine 024 8:00 AM EST Periodontal disease Dental calculus BITEWINGS - 4 RADIOGRAPHIC IMAGES Routine 09/03/2024 8:00 AM EST Periodontal disease Localized gingival recession Dental calculus Excessive attrition of teeth, limited to enamel PERIODIC ORAL EVALUATION - ESTABLISHED PATIENT Routine 09/03/2024 8:00 AM EST INTRAORAL - COMPLETE SERIES OF RADIOGRAPHIC IMAGES Routine 10/23/2023 10:00 AM EST Dental calculus Periodontal disease Localized gingival recession from Last 3 Months or Most Recently Relevant to Health Maintenance Insurance [place] AD[place]
--- OUTSIDE RECORDS SUMMARY | 2024-12-09 15:25 | XMS_ITS | Encounter Summary ---
Author Organization [facility] Address [address] [place] [address] Care Team Providers Care Structural Metal Worker Name Role Phone Manuel Mtz MD Primary Care Provider Naila Levy MD Primary Care Provider [phone] Yimi Shafer MD Unavailable Unavailable Nessa Crews MD Unavailable [phone] Luke Valadez PA-C Unavailable [phone] Encounter Details Date Type Department Care Team Description 04/06/2022 Telephone Gastroenterology - [place] [address] [id number] Pipo Fatima PA-C [address] [address] Social History Tobacco Use Types Packs/Day Years [...] encounter Miscellaneous Notes * Telephone Encounter - Roopa Urbina - 04/06/2022 10:27 AM EDT Left a vm for the patient to call our office back. * Telephone Encounter - Pipo Fatima PA-C - 04/06/2022 10:02 AM EDT Patient is looking for refill of her omeprazole and has been sent to her [facility] pharmacy. documented in this encounter Plan of Treatment Not on file documented as of this encounter Visit Diagnoses Not on filedocumented in this encounter Care Teams Structural Metal Worker Relationship Specialty Start Date End Date Manuel Mtz MD PCP - General Internal Medicine 08/10/21 04/17/22 Naila Vargas MD [address] [place] [address] PCP - General Internal Medicine 04/18/22 Yimi Shafer MD [address] [place] [address]686 Vascular Surgery 10/13/23 Nessa Crews MD [address] [place] [address] Specialist Cardiology 10/16/23 Luke Valadez PA-C [address] [place] [phone] Specialist Thoracic Surgery 02/21/24 documented as of this encounter
--- OUTSIDE RECORDS SUMMARY | 2024-12-09 15:25 | XMS_ITS | Encounter Summary ---
Author Organization [facility] Address [address] [place] [address] Care Team Providers Care Vibration Engineer Name Role Phone Zeynep Barajas MD Primary Care Provider Unavail able Manuel Mtz MD Primary Care Provider Naila Levy MD Primary Care Provider [phone] Yimi Shafer MD Unavailable Unavailable Nessa Crews MD Unavailable [phone] Luke Valadez PA-C Unavailable [phone] Reason for Visit * Reason Onset Date Comments TEST RESULTS 10/19/2018 result notes Encounter Details Date Type Department Care Team Description 10/19/[address] [id number] Sakina Lazaro PA-C TEST RESULTS (result notes) [...] Telephone Encounter - Liz Boyer M.A. - 10/19/2018 9:37 AM EST Patient is aware spoke with patient 10/18/18 Patient's final results of her stool testing looked clear without any evidence of any infection. Paola is still having episodes of loose stools I can place a referral to gastroenterology. documented in this encounter Plan of Treatment Not on file documented as of this encounter Visit Diagnoses Not on filedocumented in this encounter Care Teams Vibration Engineer Relationship Specialty Start Date End Date Zeynep Barajas MD PCP - General Internal Medicine 11/28/17 08/09/21 Manuel Mtz MD PCP - General Internal Medicine 08/10/21 04/17/22 Naila Vargas MD [address] [place] [address] PCP - General Internal Medicine 04/18/22 Yimi Shafer MD [address] [place] [address] Vascular Surgery 10/13/23 Nessa Crews MD [address] [place] [address] Specialist Cardiology 10/16/23 Luke Valadez PA-C [address] [phone] Specialist Thoracic Surgery 02/21/24 documented as of this encounter
--- OUTSIDE RECORDS SUMMARY | 2024-12-09 15:25 | XMS_ITS | Encounter Summary ---
Author Organization [facility] Address [address] [place] [address] Care Team Providers Care Machine Bander And Cellophaner Helper Name Role Phone Manuel Mtz MD Primary Care Provider Naila Levy MD Primary Care Provider [phone] Yimi Shafer MD Unavailable Unavailable Nessa Crews MD Unavailable [phone] Luke Valadez PA-C Unavailable [phone] Encounter Details Date Type Department Care Team Description 04/06/2022 Telephone Gastroenterology - [place] [address] [phone] Pipo Fatima PA-C [address] [address] Social History Tobacco Use Types Packs/Day Years [...] on filedocumented in this encounter Care Teams Machine Bander And Cellophaner Helper Relationship Specialty Start Date End Date Manuel Mtz MD PCP - General Internal Medicine 08/10/21 04/17/22 Naila Vargas MD [address] [place] [address] [phone] PCP - General Internal Medicine 04/18/22 Yimi Shafer MD [address] [place] [address] Vascular Surgery 10/13/23 Nessa Crews MD [address] [place] [address] Specialist Cardiology 10/16/23 Luke Valadez PA-C [address] [place] [phone] Specialist Thoracic Surgery 02/21/24 documented as of this encounter
--- OUTSIDE RECORDS SUMMARY | 2024-12-09 15:25 | XMS_ITS | Encounter Summary ---
Author Organization [facility] Address [address] [place] [address] Care Team Providers Care Ordnance Engineer Name Role Phone Naila Dave MD Primary Care Provider Yimi Shafer MD Unavailable Unavailable Nessa Crews MD Unavailable [phone] Luke Valadez PA-C Unavailable [phone] Reason for Visit * Reason Onset Date Comments Advice 08/17/2022 Encounter Details Date Type Department Care Team Description 08/17/2022 Telephone Adult Medicine [address] [phone] Naila Dave MD [address] [place] [address] [phone] Advice Social History Tobacco Use Types Packs/Day Years [...] encounter Miscellaneous Notes * Telephone Encounter - Yue Nichole R.N. 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 I tried offering pt a cancellation for 08/19 at 2PM with , or 08/29 at 8:30AM with .(Now unsure if appts are still available). Pt declined appts and requested an appt with Emily Lewis within this week/next week. I advised to pt that unfortunately we are unable to cross book and we would need pt to stick with care team for appts. Pt angrily and wanted msg sent to nursing staff. * Telephone Encounter - Marily Cruz - 08/17/2022 12:55 PM EST Hospital follow up appointment needed Hospital patient was treated at: [facility] Was this only an ER visit or was the patient admitted to the hospital? ER visit only Date of visit if ER visit only: 08/07/22 If patient was admitted what was the date of discharge? N/A Reason/diagnosis for visit or stay: celilitius When was the patient told to follow up? Was visit or stay related to an injury? NO If yes, what was the date of injury (DOI)? N/A If yes, was the injury due to N/A documented in this encounter Plan of Treatment Not on file documented as of this encounter Visit Diagnoses Not on filedocumented in this encounter Care Teams Ordnance Engineer Relationship Specialty Start Date End Date Naila Dave MD [address] [place] [address] PCP - General Internal Medicine 04/18/22 Yimi Shafer MD [address] [place] [address] Vascular Surgery 10/13/23 Nessa Crews MD [address] [place] [address] Specialist Cardiology 10/16/23 Luke Valadez PA-C [address] [place] [phone] Specialist Thoracic Surgery 02/21/24 documented as of this encounter
--- OUTSIDE RECORDS SUMMARY | 2024-12-09 15:25 | XMS_ITS | Encounter Summary ---
Author Organization [facility] Address [address] [place] [address] Care Team Providers Care Metal And Plastic Heater Name Role Phone Zeynep Barajas MD Primary Care Provider Unavail able Manuel Mtz MD Primary Care Provider Naila Levy MD Primary Care Provider [phone] Yimi Shafer MD Unavailable Unavailable Nessa Crews MD Unavailable [phone] Luke Valadez PA-C Unavailable [phone] Reason for Visit * Reason Onset Date Comments TEST RESULTS 12/17/2018 result notes Encounter Details Date Type Department Care Team Description 12/17/[address] [phone] Sakina Lazaro PA-C TEST RESULTS (result notes) [...] Telephone Encounter - Liz Boyer M.A. - 12/17/2018 10:14 AM EDT Spoke with patient she is aware of her results, patient is going to hold off on the referral due toher health insurance will be unactive in a few days, she will call for the referral once her insurance is active again. Please inform the patient that her x-ray shows no evidence of inflammatory changes or calcifications indicating bursitis or tendinitis. We have the option of having her follow-up with physical therapy or I can place a referral to orthopedics. Please let me know and I will place the appropriate referral. documented in this encounter Plan of Treatment Not on file documented as of this encounter Visit Diagnoses Not on filedocumented in this encounter Care Teams Metal And Plastic Heater Relationship Specialty Start Date End Date Zeynep Barajas MD PCP - General Internal Medicine 11/28/17 08/09/21 Manuel Mtz MD PCP - General Internal Medicine 08/10/21 04/17/22 Naila Vargas MD [address] [place] [address] PCP - General Internal Medicine 04/18/22 Yimi Shafer MD [address] [place] [address] Vascular Surgery 10/13/23 Nessa Crews MD [address] [place] [address] Specialist Cardiology 10/16/23 Luke Valadez PA-C [address] [place] [phone] Specialist Thoracic Surgery 02/21/24 documented as of this encounter
--- OUTSIDE RECORDS SUMMARY | 2024-12-09 15:25 | XMS_ITS | Encounter Summary ---
Author Organization [facility] Address [address] [place] [address] Care Team Providers Care Geothermal Operations Manager Name Role Phone Zeynep Barajas MD Primary Care Provider Unavail able Manuel Mtz MD Primary Care Provider Naila Levy MD Primary Care Provider [phone] Yimi Shafer MD Unavailable Unavailable Nessa Crews MD Unavailable [phone] Luke Valadez PA-C Unavailable [phone] Encounter Details Date Type Department Care Team Description 05/17/2018 Associate Genetics Professor Report Medical Records [address] [place] [address] Social History Tobacco Use Types Packs/Day Years Used Date Smoking Tobacco: Former Cigarettes 0.3 Q uit: 12/07/2017 Smokeless Tobacco: Former Comments:2-3 cigarettes 4 da ys/ week, trying [...] on filedocumented in this encounter Care Teams Geothermal Operations Manager Relationship Specialty Start Date End Date Zeynep Barajas MD PCP - General Internal Medicine 11/28/17 08/09/21 Manuel Mtz MD PCP - General Internal Medicine 08/10/21 04/17/22 Naila Vargas MD [address] [place] [address] PCP - General Internal Medicine 04/18/22 Yimi Shafer MD [address] [place] [address] Vascular Surgery 10/13/23 Nessa Crews MD [address] [place] [address] Specialist Cardiology 10/16/23 Luke Valadez PA-C [address] [place] [phone] Specialist Thoracic Surgery 02/21/24 documented as of this encounter
--- OUTSIDE RECORDS SUMMARY | 2024-12-09 15:25 | XMS_ITS | Encounter Summary ---
Author Organization [facility] Address [address] [place] [address] Care Team Providers Care Windshield Repair Technician Name Role Phone Zeynep Barajas MD Primary Care Provider Unavail able Manuel Mtz MD Primary Care Provider Naila Levy MD Primary Care Provider [phone] Yimi Shafer MD Unavailable Unavailable Nessa Crews MD Unavailable [phone] Luke Valadez PA-C Unavailable [phone] Encounter Details Date Type Department Care Team Description 10/28/2020 Orders Only MRI - [address] [phone] Donta Celaya PA-C Nonintractable headache, unspecified chronicity pattern, unspecified headache type Social History Tobacco Use Types Packs/Day Years [...] have Coronavirus / COVID-19? No / Unsure 10/28/2020 10:56 AM EST documented as of this encounter Plan of Treatment Not on file documented as of this encounter Procedures Procedure Name Priority Date/Time Associated Diagnosis Comments MRI OF BRAIN NO CONTRAST Routine 10/28/2020 Nonintractable headache, unspecified chronicity pattern, unspecified headache type documented in this encounter Results * MRI OF BRAIN NO CONTRAST (10/28/2020) Donta Celaya PA-C MRI [facility] [address] [place] [address] documented in this encounter Visit Diagnoses Diagnosis Nonintractable headache, unspecified chronicity pattern, unspecified headache type documented in this encounter Care Teams Windshield Repair Technician Relationship Specialty Start Date End Date Zeynep Barajas MD PCP - General Internal Medicine 11/28/17 08/09/21 Manuel Mtz MD PCP - General Internal Medicine 08/10/21 04/17/22 Naila Vargas MD [address] [place] [address] PCP - General Internal Medicine 04/18/22 Yimi Shafer MD [address] [place] [address] Vascular Surgery 10/13/23 Nessa Crews MD [address] [place] [address] Specialist Cardiology 10/16/23 Luke Valadez PA-C [address] [phone] Specialist Thoracic Surgery 02/21/24 documented as of this encounter
--- OUTSIDE RECORDS SUMMARY | 2024-12-09 15:25 | XMS_ITS | Encounter Summary ---
Author Organization [facility] Address [address] [place] [address] Care Team Providers Care Shop Estimator Name Role Phone Ashley Hernández DO Primary Care Pro vider Unavailable Zeynep Barajas MD Primary Care Provider Unavail able Manuel Mtz MD Primary Care Provider Naila Levy MD Primary Care Provider [phone] Yimi Shafer MD Unavailable Unavailable Nessa Crews MD Unavailable [phone] Luke Valadez PA-C Unavailable [phone] Reason for Referral * EXTERNAL (Routine) - Authorized/Booked Specialty Diagnoses / Procedures Referred By Case ha Referred To Contact Physical Therapy Procedures REFERRAL TO PHYSICAL THERAPY Ashley Hernández DO [address] [place] [address] Rehab., [facility] Referral ID Status Reason Start Date Expiration Date V isits Requested Visits Authorized SEE NOTE Authorized/B ooked 08/09/2017 09/08/2017 1 1 Reason for Visit * Reason Onset Date Comments Core Shaper Feedback 08/09/2017 physical therapy [place] Encounter Details Date Type Department Care Team Description 08/09/2017 Telephone Adult Medicine [address] [phone] Ashley Hernández DO Core Shaper Feedback (physical therapy-ivan) Social History Tobacco Use Types Packs/Day Years [...] encounter Miscellaneous Notes * Telephone Encounter - Clemencia Leo - 08/09/2017 8:19 AM EST Please review this patients new referral request. The referral has been pended. Please complete thefollowing: If approved> sign order If denied>please give instructions and route to your practice nursing pool. Practice nurse should inform referrals and the patient if denied. Patient's referral , patient now has decided to be treated at [place], upcoming appointment on 08/14/17 Thank you documented in this encounter Plan of Treatment Not on file documented as of this encounter Visit Diagnoses Not on filedocumented in this encounter Care Teams Shop Estimator Relationship Specialty Start Date End Date Ashley Hernández DO PCP - General Internal Medicine 01/10/14 11/27/17 Zeynep Barajas MD PCP - General Internal Medicine 11/28/17 08/09/21 Manuel Mtz MD PCP - General Internal Medicine 08/10/21 04/17/22 Naila Vargas MD [address] [place] [address] PCP - General Internal Medicine 04/18/22 Yimi Shafer MD [address] [place] [address] Vascular Surgery 10/13/23 Nessa Crews MD [address] [place] [address] Specialist Cardiology 10/16/23 Luke Valadez PA-C [address] [place] [phone] Specialist Thoracic Surgery 02/21/24 documented as of this encounter
--- OUTSIDE RECORDS SUMMARY | 2024-12-09 15:25 | XMS_ITS | Encounter Summary ---
Author Organization [facility] Address [address] [place] [address] Care Team Providers Care Head Silverman Name Role Phone Zeynep Barajas MD Primary Care Provider Unavail able Manuel Mtz MD Primary Care Provider Naila Levy MD Primary Care Provider [phone] Yimi Shafer MD Unavailable Unavailable Nessa Crews MD Unavailable [phone] Luke Valadez PA-C Unavailable [phone] Encounter Details Date Type Department Care Team Description 12/07/2017 Corner Former Report Medical Records [address] [place] [address] Abstract, Provider Social History Tobacco Use Types [...] on filedocumented in this encounter Care Teams Head Silverman Relationship Specialty Start Date End Date Zeynep Barajas MD PCP - General Internal Medicine 11/28/17 08/09/21 Manuel Mtz MD PCP - General Internal Medicine 08/10/21 04/17/22 Naila Vargas MD [address] [place] [address] PCP - General Internal Medicine 04/18/22 Yimi Shafer MD [address] [place] [address] Vascular Surgery 10/13/23 Nessa Crews MD [address] [place] [address] [phone] Specialist Cardiology 10/16/23 Luke Valadez PA-C [address] [place] [phone] Specialist Thoracic Surgery 02/21/24 documented as of this encounter
--- OUTSIDE RECORDS SUMMARY | 2024-12-09 15:25 | XMS_ITS | Encounter Summary ---
Author Organization [facility] Address [address] [place] [address] Care Team Providers Care Dry Room Operator Name Role Phone Zeynep Barajas MD Primary Care Provider Unavail able Manuel Mtz MD Primary Care Provider Naila Levy MD Primary Care Provider [phone] Yimi Shafer MD Unavailable Unavailable Nessa Crews MD Unavailable [phone] Luke Valadez PA-C Unavailable [phone] Reason for Visit * Reason Onset Date Comments Provider Call Back 02/04/2020 Encounter Details Date Type Department Care Team Description 02/04/2020 Telephone Adult Medicine [address] [address] Zeynep Barajas MD Provider Call Back Social History Tobacco Use Types Packs/Day Years [...] encounter Miscellaneous Notes * Telephone Encounter - Arlene Sepulvedapamela - 02/04/2020 12:32 PM EDT Caller requesting call back from provider: Is the caller the patient? YES If caller is not the patient, what is the callers name? N/A Callers relationship to patient? N/A If person calling is not the patient themselves, is there a verbal release in FYI or permanent comments for this person: NO Reason for call back: Patient has appt on 02/06 but wanted to get a msg to to get a plan in motion regarding her frustration with having PFT tests cancelled multiple times and having issueswith breathing and having to use her pump multiple times a day along with allergy meds. She did quit smoking 2yrs ago and thinks she may have COPD or something going on. Will discuss further at telehealth appt. Caller offered to speak with the nurse for assistance: YES Response: Patient offered to speak with nurse for assistance and patient agreed. Message forwarded to nurse. documented in this encounter Plan of Treatment Not on file documented as of this encounter Visit Diagnoses Not on filedocumented in this encounter Care Teams Dry Room Operator Relationship Specialty Start Date End Date Zeynep Barajas MD PCP - General Internal Medicine 11/28/17 08/09/21 Manuel Mtz MD PCP - General Internal Medicine 08/10/21 04/17/22 Naila Vargas MD [address] [place] [address] PCP - General Internal Medicine 04/18/22 Yimi Shafer MD [address] [place] [address] Vascular Surgery 10/13/23 Nessa Crews MD [address] [place] [address] Specialist Cardiology 10/16/23 Luke Valadez PA-C [address] [phone] Specialist Thoracic Surgery 02/21/24 documented as of this encounter
--- OUTSIDE RECORDS SUMMARY | 2024-12-09 15:25 | XMS_ITS | Encounter Summary ---
Author Organization [facility] Address [address] [place] [address] Care Team Providers Care Podiatrist Assistant Name Role Phone Zeynep Barajas MD Primary Care Provider Unavail able Manuel Mtz MD Primary Care Provider Naila Levy MD Primary Care Provider [phone] Yimi Shafer MD Unavailable Unavailable Nessa Crews MD Unavailable [phone] Luke Valadez PA-C Unavailable [phone] Encounter Details Date Type Department Care Team Description 10/23/2018 Pattern Molder Report Medical Records [address] [place] [address] Cornel Yang Social History Tobacco Use Types [...] on filedocumented in this encounter Care Teams Podiatrist Assistant Relationship Specialty Start Date End Date Zeynep Barajas MD PCP - General Internal Medicine 11/28/17 08/09/21 Manuel Mtz MD PCP - General Internal Medicine 08/10/21 04/17/22 Naila Vargas MD [address] [place] [address] PCP - General Internal Medicine 04/18/22 Yimi Shafer MD [address] [place] [address] Vascular Surgery 10/13/23 Nessa Crews MD [address] [place] [address] Specialist Cardiology 10/16/23 Luke Valadez PA-C [address] [place] [phone] Specialist Thoracic Surgery 02/21/24 documented as of this encounter
--- OUTSIDE RECORDS SUMMARY | 2024-12-09 15:25 | XMS_ITS | Encounter Summary ---
Author Organization [facility] Address [address] [facility] [address] [place] [address] Care Team Providers Care Software Engineer Mobile Name Role Phone Unavailable Primary Care Provider Unavailabl e Encounter Details Date Type Department Care Team (Latest Contact Info) Description 11/09/2018 Abstract [facility] CONVERSIONS Dental, Provider, DDS Social [...] 03/05/2025 10:00 AM EDT Office Visit [facility] ADULT DENTAL [address] [place] [address] Leticia Socorro [address] [place] [address] documented as of this encounter Visit Diagnoses Not on filedocumented in this encounter
--- OUTSIDE RECORDS SUMMARY | 2024-12-09 15:25 | XMS_ITS | Encounter Summary ---
Author Organization [facility] Address [address] [place] [address] Care Team Providers Care Facility Worker Name Role Phone Zeynep Barajas MD Primary Care Provider Unavail able Manuel Mtz MD Primary Care Provider Naila Levy MD Primary Care Provider [phone] Yimi Shafer MD Unavailable Unavailable Nessa Crews MD Unavailable [phone] Luke Valadez PA-C Unavailable Encounter Details Date Type Department Care Team Description 07/06/2019 Abstract Medical Records [address] [place] [address] Abstract, Provider Social History Tobacco Use Types [...] on filedocumented in this encounter Care Teams Facility Worker Relationship Specialty Start Date End Date Zeynep Barajas MD PCP - General Internal Medicine 11/28/17 08/09/21 Manuel Mtz MD PCP - General Internal Medicine 08/10/21 04/17/22 Naila Vargas MD [address] [place] [address] PCP - General Internal Medicine 04/18/22 Yimi Shafer MD [address] [place] [address] Vascular Surgery 10/13/23 Nessa Crews MD [address] [place] [address] Specialist Cardiology 10/16/23 Luke Valadez PA-C [address] [place] [phone] Specialist Thoracic Surgery 02/21/24 documented as of this encounter
--- OUTSIDE RECORDS SUMMARY | 2024-12-09 15:25 | XMS_ITS | Encounter Summary ---
Author Organization [facility] Address [address] [place] [address] Care Team Providers Care Income Tax Manager Name Role Phone Zeynep Barajas MD Primary Care Provider Unavail able Manuel Mtz MD Primary Care Provider Naila Levy MD Primary Care Provider [phone] Yimi Shafer MD Unavailable Unavailable Nessa Crews MD Unavailable [phone] Luke Valadez PA-C Unavailable [phone] Reason for Visit * Reason Comments E-prescribe Rx Request Encounter Details Date Type Department Care Team Description 11/06/2020 Refill Adult Medicine [address] [address] Zeynep Barajas MD E-prescribe Rx Request Social [...] have Coronavirus / COVID-19? No / Unsure 11/06/2020 8:55 AM EST documented as of this encounter Miscellaneous Notes * Telephone Encounter - Matilda Dumas M.A. - 11/06/2020 3:32 PM EST Pt has new pharmacy please sign * Telephone Encounter - Michaelarosaura Puentesno - 11/06/2020 3:03 PM EST Patient would like script to be: E-PRESCRIBED/FAXED TO PHARMACY WHEN WAS THE PATIENT'S LAST APPOINTMENT IN ADULT MEDICINE? 10/20/20 WHEN WAS THE LAST TIME THE PATIENT SAW THEIR PCP? 02/07/20 Does patient have an upcoming appointment? Yes 11/17/20 (THE MEDICATION REQUESTED IS ON THE MED [...] N/A Patients current insurance carrier is: Payor: [employer] [facility] CC-YUSRA TREJO TYPE 2 / Product Type: HMO [id number] documented in this encounter Plan of Treatment Not on file documented as of this encounter Visit Diagnoses Not on filedocumented in this encounter Care Teams Income Tax Manager Relationship Specialty Start Date End Date Zeynep Barajas MD PCP - General Internal Medicine 11/28/17 08/09/21 Manuel Mtz MD PCP - General Internal Medicine 08/10/21 04/17/22 Naila Vargas MD [address] [place] [address] PCP - General Internal Medicine 04/18/22 Yimi Shafer MD [address] [place] [address] Vascular Surgery 10/13/23 Nessa Crews MD [address] [place] [address] Specialist Cardiology 10/16/23 Luke Valadez PA-C [address] [place] [phone] Specialist Thoracic Surgery 02/21/24 documented as of this encounter
--- OUTSIDE RECORDS SUMMARY | 2024-12-09 15:25 | XMS_ITS | Encounter Summary ---
Author Organization [facility] Address [address] [place] [address] Care Team Providers Care Bung Dropper Name Role Phone Zeynep Barajas MD Primary Care Provider Unavail able Manuel Mtz MD Primary Care Provider Naila Levy MD Primary Care Provider [phone] Yimi Shafer MD Unavailable Unavailable Nessa Crews MD Unavailable [phone] Luke Valadez PA-C Unavailable Encounter Details Date Type Department Care Team Description 11/26/2020 Orders Only Medical Records [address] [place] [address] Prasanna Morales MD [address] [place] [address] [address] [place] [address] Social History Tobacco Use Types Packs/Day Years [...] Name Priority Date/Time Associated Diagnosis Comments OUTSIDE PATHOLOGY Routine 11/24/2020 documented in this encounter Results * OUTSIDE PATHOLOGY (11/24/2020) Prasanna Morales MD OUTSIDE LAB documented in this encounter Visit Diagnoses Not on filedocumented in this encounter Care Teams Bung Dropper Relationship Specialty Start Date End Date Zeynep Barajas MD PCP - General Internal Medicine 11/28/17 08/09/21 Manuel Mtz MD PCP - General Internal Medicine 08/10/21 04/17/22 Naila Vargas MD [address] [place] [address] PCP - General Internal Medicine 04/18/22 Yimi Shafer MD [address] [place] [address] Vascular Surgery 10/13/23 Nessa Crews MD [address] [place] [address] [phone] Specialist Cardiology 10/16/23 Luke Valadez PA-C [address] [place] [phone] Specialist Thoracic Surgery 02/21/24 documented as of this encounter
--- OUTSIDE RECORDS SUMMARY | 2024-12-09 15:25 | XMS_ITS | Encounter Summary ---
Author Organization [facility] Address [address] [place] [address] Care Team Providers Care Hoop Flaring Machine Operator Helper Name Role Phone Zeynep Barajas MD Primary Care Provider Unavail able Manuel Mtz MD Primary Care Provider Naila Levy MD Primary Care Provider [phone] Yimi Shafer MD Unavailable Unavailable Nessa Crews MD Unavailable Luke Valadez PA-C Unavailable [phone] Reason for Visit * Reason Comments E-prescribe Rx Request Encounter Details Date Type Department Care Team Description 12/06/2017 Refill Adult Medicine [address] [id number] Emy Livingston PA-C E-prescribe Rx Request Social History Tobacco Use [...] Telephone Encounter - Melissa Martel M.A. - 12/06/2017 11:36 AM EDT Lab Results Component Value Date CHOL 224 11/19/2016 LDL 142 11/19/2016 HDL 38 11/19/2016 TRIG 224 11/19/2016 SGOT 30 03/22/2017 SGPT 36 03/22/2017 * Telephone Encounter - Ivette Saavedra - 12/06/2017 10:37 AM EDT Patient would like script to be: E-PRESCRIBED/FAXED TO PHARMACY WHEN WAS THE PATIENT'S LAST APPOINTMENT IN ADULT MEDICINE? 03-22-17 WHEN WAS THE LAST TIME THE PATIENT SAW THEIR PCP? Same as above Does patient have an upcoming appointment? Yes 12-11-17 (THE MEDICATION REQUESTED IS ON THE MED LIST ABOVE) One or some of the medications requested were on the HISTORICAL MED list Did you check the Pharmacy information above?: YES Patient wants: 30 -day supply Is this a mail order prescription request ? NO Patients current insurance carrier is: Payor: [facility] / Plan: [facility] / Product Type: HMO [id number] documented in this encounter Plan of Treatment Not on file documented as of this encounter Visit Diagnoses Not on filedocumented in this encounter Care Teams Hoop Flaring Machine Operator Helper Relationship Specialty Start Date End Date Zeynep Barajas MD PCP - General Internal Medicine 11/28/17 08/09/21 Manuel Mtz MD PCP - General Internal Medicine 08/10/21 04/17/22 Naila Vargas MD [address] [place] [address] PCP - General Internal Medicine 04/18/22 Yimi Shafer MD [address] [place] [address] Vascular Surgery 10/13/23 Nessa Crews MD [address] [place] [address] Specialist Cardiology 10/16/23 Luke Valadez PA-C [address] [place] [phone] Specialist Thoracic Surgery 02/21/24 documented as of this encounter
--- OUTSIDE RECORDS SUMMARY | 2024-12-09 15:25 | XMS_ITS | Encounter Summary ---
Author Organization [facility] Address [address] [place] [address] Care Team Providers Care Yarn Conditioner Name Role Phone Zeynep Barajas MD Primary Care Provider Unavail able Manuel Mtz MD Primary Care Provider Naila Levy MD Primary Care Provider [phone] Yimi Shafer MD Unavailable Unavailable Nessa Crews MD Unavailable [phone] Luke Valadez PA-C Unavailable [phone] Encounter Details Date Type Department Care Team Description 2020 Telephone Adult [address] [phone] Zeynep Barajas MD Social History Tobacco Use [...] as of this encounter Visit Diagnoses Diagnosis SOB (shortness of breath) Shortness of breath documented in this encounter Care Teams Yarn Conditioner Relationship Specialty Start Date End Date Zeynep Barajas MD PCP - General Internal Medicine 11/28/17 08/09/21 Manuel Mtz MD PCP - General Internal Medicine 08/10/21 04/17/22 Naila Vargas MD [address] [place] [address] PCP - General Internal Medicine 04/18/22 Yimi Shafer MD [address] [place] [address] Vascular Surgery 10/13/23 Nessa Crews MD [address] [place] [address] Specialist Cardiology 10/16/23 Luke Valadez PA-C [address] [place] [phone] Specialist Thoracic Surgery 02/21/24 documented as of this encounter
--- OUTSIDE RECORDS SUMMARY | 2024-12-09 15:25 | XMS_ITS | Encounter Summary ---
Author Organization [facility] Address [address] [place] [address] Care Team Providers Care Airline Station Agent Name Role Phone Manuel Mtz MD Primary Care Provider Naila Levy MD Primary Care Provider [phone] Yimi Shafer MD Unavailable Unavailable Nessa Crews MD Unavailable [phone] Luke Valadez PA-C Unavailable [phone] Encounter Details Date Type Department Care Team Description 03/17/2022 Production Analyst Report Medical Records [address] [place] [address] Jessica Luna MD Social History Tobacco Use [...] on filedocumented in this encounter Care Teams Airline Station Agent Relationship Specialty Start Date End Date Manuel Mtz MD PCP - General Internal Medicine 08/10/21 04/17/22 Naila Vargas MD [address] [place] [address] PCP - General Internal Medicine 04/18/22 Yimi Shafer MD [address] [place] [address] Vascular Surgery 10/13/23 Nessa Crews MD [address] [place] [address] Specialist Cardiology 10/16/23 Luke Valadez PA-C [address] [phone] Specialist Thoracic Surgery 02/21/24 documented as of this encounter
--- OUTSIDE RECORDS SUMMARY | 2024-12-09 15:25 | XMS_ITS | Encounter Summary ---
Author Organization [facility] Address [address] [place] [address] Care Team Providers Care Liner Helper Name Role Phone Zeynep Barajas MD Primary Care Provider Unavail able Manuel Mtz MD Primary Care Provider Naila Levy MD Primary Care Provider [phone] Yimi Shafer MD Unavailable Unavailable Nessa Crews MD Unavailable [phone] Luke Valadez PA-C Unavailable [phone] Encounter Details Date Type Department Care Team Description 07/17/2019 Software Engineer Backend Report Medical Records [address] [place] [address] Jessica Luna MD Social History Tobacco Use [...] on filedocumented in this encounter Care Teams Liner Helper Relationship Specialty Start Date End Date Zeynep Barajas MD PCP - General Internal Medicine 11/28/17 08/09/21 Manuel Mtz MD PCP - General Internal Medicine 08/10/21 04/17/22 Naila Vargas MD [address] [place] [address] PCP - General Internal Medicine 04/18/22 Yimi Shafer MD [address] [place] [address] Vascular Surgery 10/13/23 Nessa Crews MD [address] [place] [address] Specialist Cardiology 10/16/23 Luke Valadez PA-C [address] [place] [phone] Specialist Thoracic Surgery 02/21/24 documented as of this encounter
--- OUTSIDE RECORDS SUMMARY | 2024-12-09 15:25 | XMS_ITS | Encounter Summary ---
Author Organization [facility] Address [address] [place] [address] Care Team Providers Care Product Development Consultant Name Role Phone Zeynep Barajas MD Primary Care Provider Unavail able Manuel Mtz MD Primary Care Provider Naila Levy MD Primary Care Provider [phone] Yimi Shafer MD Unavailable Unavailable Nessa Crews MD Unavailable [phone] Luke Valadez PA-C Unavailable [phone] Reason for Visit * Reason Onset Date Comments er follow up 10/19/2020 Encounter Details Date Type Department Care Team Description 10/19/2020 Telephone Adult Medicine [address] [phone] Zeynep Barajas MD er follow up Social [...] have Coronavirus / COVID-19? No / Unsure 10/20/2020 10:21 AM EST documented as of this encounter Miscellaneous Notes * Telephone Encounter - Ann Alvarenga - 10/19/2020 1:13 PM EST ER follow-up appointment booked YES 10/20/20 If ER or UC follow up, can be booked with [facility] or . If hospital admission follow up MUST be booked with a physician Appointment time: 10:30AM [facility] patient was treated at: [facility] Date of visit: 09/24/20 Was this only an ER/UC visit or was the patient admitted to the hospital? ER visit onlyER visit only If patient was admitted what was the date of discharge? N/A Reason/diagnosis for visit or stay: shoulder and neck pain Was visit or stay related to an [...] filedocumented in this encounter Care Teams Product Development Consultant Relationship Specialty Start Date End Date Zeynep Barajas MD PCP - General Internal Medicine 11/28/17 08/09/21 Manuel Mtz MD PCP - General Internal Medicine 08/10/21 04/17/22 Naila Vargas MD [address] [place] [address] PCP - General Internal Medicine 04/18/22 Yimi Shafer MD [address] [place] [address] Vascular Surgery 10/13/23 Nessa Crews MD [address] [place] [address] Specialist Cardiology 10/16/23 Luke Valadez PA-C [address] [place] [phone] Specialist Thoracic Surgery 02/21/24 documented as of this encounter
--- OUTSIDE RECORDS SUMMARY | 2024-12-09 15:25 | XMS_ITS | Encounter Summary ---
Author Organization [facility] Address [address] [facility] 7t [place] [address] Care Team Providers Care Data Processing Systems Project Planner Name Role Phone Unavailable Primary Care Provider Unavailabl e Encounter Details Date Type Department Care Team (Latest Contact Info) Description 11/14/2019 Abstract [facility] CONVERSIONS Dental, Provider, DDS Social History [...] 03/05/2025 10:00 AM EDT Office Visit [facility] ADULT DENTAL [address] [place] [address] Leticia Socorro [address] [place] [address] documented as of this encounter Visit Diagnoses Not on filedocumented in this encounter
--- OUTSIDE RECORDS SUMMARY | 2024-12-09 15:25 | XMS_ITS | Encounter Summary ---
Author Organization [facility] Address [address] [place] [address] Care Team Providers Care Kettle Worker Name Role Phone Zeynep Barajas MD Primary Care Provider Unavail able Manuel Mtz MD Primary Care Provider Naila Levy MD Primary Care Provider [phone] Yimi Shafer MD Unavailable Unavailable Nessa Crews MD Unavailable Luke Valadez PA-C Unavailable [phone] Encounter Details Date Type Department Care Team Description 09/17/2020 Savings Teller Report Medical Records [address] [place] [address] Jessica Luna MD Social History Tobacco Use [...] on filedocumented in this encounter Care Teams Kettle Worker Relationship Specialty Start Date End Date Zeynep Barajas MD PCP - General Internal Medicine 11/28/17 08/09/21 Manuel Mtz MD PCP - General Internal Medicine 08/10/21 04/17/22 Naila Vargas MD [address] [place] [address] PCP - General Internal Medicine 04/18/22 Yimi Shafer MD [address] [place] [address] Vascular Surgery 10/13/23 Nessa Crews MD [address] [place] [address] Specialist Cardiology 10/16/23 Luke Valadez PA-C [address] [place] [phone] Specialist Thoracic Surgery 02/21/24 documented as of this encounter
--- OUTSIDE RECORDS SUMMARY | 2024-12-09 15:25 | XMS_ITS | Encounter Summary ---
Author Organization [facility] Address [address] [facility] 7 [place] [address] Care Team Providers Care Estate Attorney Name Role Phone Unavailable Primary Care Provider Unavailabl e Encounter Details Date Type Department Care Team (Latest Contact Info) Description 04/22/2022 Abstract [facility] CONVERSIONS Dental, Provider, DDS Social History [...] Description 03/05/2025 10:00 AM EDT Office Visit [facility] ADULT DENTAL [address] [place] [address] Leticia, Socorro [address] [place] [address] documented as of this encounter Visit Diagnoses Not on filedocumented in this encounter
--- OUTSIDE RECORDS SUMMARY | 2024-12-09 15:25 | XMS_ITS | Encounter Summary ---
Author Organization [facility] Address [address] [place] [address] Care Team Providers Care Chef Instructor Name Role Phone Cucagloria Ashley Chacko DO Primary Care Pro vider Unavailable Zeynep Barajas MD Primary Care Provider Unavail able Manuel Mtz MD Primary Care Provider Naila Levy MD Primary Care Provider [phone] Yimi Shafer MD Unavailable Unavailable Nessa Crews MD Unavailable [phone] Luke Valadez PA-C Unavailable [phone] Reason for Referral * Specialist (Routine) - Authorized/Booked Specialty Diagnoses / Procedures Referred By Case ha Referred To Contact ORTHOPEDICS / Orthopedic Procedures REFERRAL TO ORTHOPEDICS Sakina Lazaro PA-C [address] [place] [address] Dannie Black MD Referral ID Status Reason Start Date Expiration Date V isits Requested Visits Authorized SEE NOTE Authorized/B ooked 05/08/2015 08/08/2015 1 1 Reason for Visit * Reason Onset Date Comments Metal Polisher Feedback 05/07/2015 [facility] Encounter Details Date Type Department Care Team Description 05/07/2015 Telephone Adult Medicine [address] [phone] Sakina Lazaro PA-C Metal Polisher Feedback ([facility]) Social History Tobacco Use Types Packs/Day Years [...] Miscellaneous Notes * Telephone Encounter - Sakina Lazaro PA-C - 05/08/2015 8:19 AM EDT New order signed. * Telephone Encounter - Rae Darby - 05/07/2015 12:50 PM EDT Sakina Lazaro, You recently requested a referral for this patinet to see [facility] for orthopedics for Right partial Achilles tendon tear. Unfortunately the patient can not be seen at this office due to her insurance. Arlyn pended you a new order. Patient could see [facility] or [facility] (Dr. Kendrick) external office. Thank you, Rae Referrals Coordinator documented in this encounter Plan of Treatment Not on file documented as of this encounter Visit Diagnoses Not on filedocumented in this encounter Care Teams Chef Instructor Relationship Specialty Start Date End Date Ashley Hernández DO PCP - General Internal Medicine 01/10/14 11/27/17 Zeynep Barajas MD PCP - General Internal Medicine 11/28/17 08/09/21 Manuel Mtz MD PCP - General Internal Medicine 08/10/21 04/17/22 Naila Vargas MD [address] [place] [address] PCP - General Internal Medicine 04/18/22 Yimi Shafer MD [address] [place] [address] Vascular Surgery 10/13/23 Nessa Crews MD [address] [place] [address] Specialist Cardiology 10/16/23 Luke Valadez PA-C [address] [place] [phone] Specialist Thoracic Surgery 02/21/24 documented as of this encounter
--- OUTSIDE RECORDS SUMMARY | 2024-12-09 15:25 | XMS_ITS | Encounter Summary ---
Author Organization [facility] Address [address] [place] [address] Care Team Providers Care Director Of Program Management Name Role Phone Zeynep Barajas MD Primary Care Provider Unavail able Manuel Mtz MD Primary Care Provider Naila Levy MD Primary Care Provider [phone] Yimi Shafer MD Unavailable Unavailable Nessa Crews MD Unavailable [phone] Luke Valadez PA-C Unavailable [phone] Reason for Visit * Reason Onset Date Comments radiology 10/26/2020 Encounter Details Date Type Department Care Team Description 10/26/2020 Telephone MRI - [address] [address] Donta Celaya PA-C radiology Social History Tobacco Use Types Packs/Day Years [...] encounter Miscellaneous Notes * Telephone Encounter - Donta Celaya PA-C - 10/28/2020 11:09 AM EST MRI complete please schedule Neurology appointment Thanks * Telephone Encounter - Donta Celaya PA-C - 10/26/2020 8:43 AM EST Ordered and signed. Thank you! * Telephone Encounter - Evelyn Caruso - 10/26/2020 8:39 AM EST Good morning, Patient was seen in mri and was not able to complete test due to her BMI. She will need to have test done at [facility] on open mri machine. Can you please place external order? Thank you, Susi MRI documented in this encounter Plan of Treatment Not on file documented as of this encounter Results * MRI OF BRAIN NO CONTRAST (10/28/2020) Donta Celaya PA-C MRI Performing Organization Address City/State/[facility] Co de Phone Number [address] documented in this encounter Visit Diagnoses Diagnosis Nonintractable headache, unspecified chronicity pattern, unspecified headache type- Primary documented in this encounter Care Teams Director Of Program Management Relationship Specialty Start Date End Date Zeynep Barajas MD PCP - General Internal Medicine 11/28/17 08/09/21 Manuel Mtz MD PCP - General Internal Medicine 08/10/21 04/17/22 Naila Vargas MD [address] [place] [address] PCP - General Internal Medicine 04/18/22 Yimi Shafer MD [address] [place] [address] Vascular Surgery 10/13/23 Nessa Crews MD [address] [place] [address] Specialist Cardiology 10/16/23 Luke Valadez PA-C [address] [phone] Specialist Thoracic Surgery 02/21/24 documented as of this encounter
--- OUTSIDE RECORDS SUMMARY | 2024-12-09 15:25 | XMS_ITS | Encounter Summary ---
Author Organization [facility] Address [address] [place] [address] Care Team Providers Care Cloth Cutting Inspector Name Role Phone Ashley Hernández DO Primary Care Pro vider Unavailable Zeynep Barajas MD Primary Care Provider Unavail able Manuel Mtz MD Primary Care Provider Naila Levy MD Primary Care Provider [phone] Yimi Shafer MD Unavailable Unavailable Nessa Crews MD Unavailable [phone] Luke Valadez PA-C Unavailable [phone] Encounter Details Date Type Department Care Team Description 07/11/2017 Orders Only Podiatry - [facility] [address] [place] [address] Jake Marie, DPM Social History Tobacco Use Types Packs/Day Years [...] on filedocumented in this encounter Care Teams Cloth Cutting Inspector Relationship Specialty Start Date End Date Ashley Hernández DO PCP - General Internal Medicine 01/10/14 11/27/17 Zeynep Barajas MD PCP - General Internal Medicine 11/28/17 08/09/21 Manuel Mtz MD PCP - General Internal Medicine 08/10/21 04/17/22 Naila Vargas MD [address] [place] [address] PCP - General Internal Medicine 04/18/22 Yimi Shafer MD [address] [place] [address] Vascular Surgery 10/13/23 Nessa Crews MD [address] [place] [address] Specialist Cardiology 10/16/23 Luke Valadez PA-C [address] [place] [phone] Specialist Thoracic Surgery 02/21/24 documented as of this encounter
--- OUTSIDE RECORDS SUMMARY | 2024-12-09 15:25 | XMS_ITS | Encounter Summary ---
Author Organization [facility] Address [address] [place] [address] Care Team Providers Care Special Events Coordinator Name Role Phone Zeynep Barajas MD Primary Care Provider Unavail able Manuel Mtz MD Primary Care Provider Naila Levy MD Primary Care Provider [phone] Yimi Shafer MD Unavailable Unavailable Nessa Crews MD Unavailable [phone] Luke Valadez PA-C Unavailable Encounter Details Date Type Department Care Team Description 10/19/2018 SCAN Medical Records [address] [place] [address] Rajat Nelson MD Social History Tobacco Use Types Packs/Day [...] Associated Diagnosis Comments OUTSIDE VASCULAR STUDY Routine 10/19/2018 OUTSIDE VASCULAR STUDY Routine 10/19/2018 documented in this encounter Results * OUTSIDE VASCULAR STUDY (10/19/2018) Provider Default CARDIOLOGY * OUTSIDE VASCULAR STUDY (10/19/2018) Provider Default CARDIOLOGY documented in this encounter Visit Diagnoses Not on filedocumented in this encounter Care Teams Special Events Coordinator Relationship Specialty Start Date End Date Zeynep Barajas MD PCP - General Internal Medicine 11/28/17 08/09/21 Manuel Mtz MD PCP - General Internal Medicine 08/10/21 04/17/22 Naila Vargas MD [address] [place] [address] PCP - General Internal Medicine 04/18/22 Yimi Shafer MD [address] [place] [address] Vascular Surgery 10/13/23 Nessa Crews MD [address] [place] [phone] Specialist Cardiology 10/16/23 Luke Valadez PA-C [address] [place] [phone] Specialist Thoracic Surgery 02/21/24 documented as of this encounter
--- OUTSIDE RECORDS SUMMARY | 2024-12-09 15:25 | XMS_ITS | Encounter Summary ---
Author Organization [facility] Address [address] [place] [address] Care Team Providers Care Probe Operator Name Role Phone Zeynep Barajas MD Primary Care Provider Unavail able Manuel Mtz MD Primary Care Provider Naila Levy MD Primary Care Provider [phone] Yimi Shafer MD Unavailable Unavailable Nessa Crews MD Unavailable [phone] Luke Valadez PA-C Unavailable Reason for Visit * Reason Onset Date Comments TEST RESULTS 02/02/2018 result notes Encounter Details Date Type Department Care Team Description 02/02/[address] [id number] Zeynep Barajas MD TEST RESULTS (result notes) Social History Tobacco [...] encounter Miscellaneous Notes * Telephone Encounter - Ivette Saavedra - 02/02/2018 3:27 PM EDT Patient states to not call her back today as she is going into work right now until Midnight, patient would like a call back on Monday instead, thanks. * Telephone Encounter - Ivette Saavedra - 02/02/2018 3:26 PM EDT Patient calling back, please call her at [phone] * Telephone Encounter - Liz Boyer M.A. - 02/02/2018 3:12 PM EDT Left message for patient to return call to ext [phone]. Please inform the patient that her x-ray of her neck shows some arthritis changes but otherwise looks okay. Her alignment is normal and she should keep follow-up with physiatry as discussed. documented in this encounter Plan of Treatment Not on file documented as of this encounter Visit Diagnoses Not on filedocumented in this encounter Care Teams Probe Operator Relationship Specialty Start Date End Date Zeynep Barajas MD PCP - General Internal Medicine 11/28/17 08/09/21 Manuel Mtz MD PCP - General Internal Medicine 08/10/21 04/17/22 Naila Vargas MD [address] [place] [id number] PCP - General Internal Medicine 04/18/22 Yimi Shafer MD [address] [place] [address] [phone] Vascular Surgery 10/13/23 Nessa Crews MD [address] [place] [address] [phone] Specialist Cardiology 10/16/23 Luke Valadez PA-C [address] [place] [phone] Specialist Thoracic Surgery 02/21/24 documented as of this encounter
--- OUTSIDE RECORDS SUMMARY | 2024-12-09 15:25 | XMS_ITS | Encounter Summary ---
Author Organization [facility] Address [address] [place] [address] Care Team Providers Care Maple Products Supervisor Name Role Phone Ashley Hernández DO Primary Care Pro vider Unavailable Zeynep Barajas MD Primary Care Provider Unavail able Manuel Mtz MD Primary Care Provider Naila Levy MD Primary Care Provider [phone] Yimi Shaefr MD Unavailable Unavailable Nessa Crews MD Unavailable [phone] Luke Valadez PA-C Unavailable [phone] Encounter Details Date Type Department Care Team Description 07/09/2015 Transfer Records Medical Records [address] [place] [id number] Abstract, Provider Social History Tobacco Use Types [...] on filedocumented in this encounter Care Teams Maple Products Supervisor Relationship Specialty Start Date End Date Ashley Hernández DO PCP - General Internal Medicine 01/10/14 11/27/17 Zeynep Barajas MD PCP - General Internal Medicine 11/28/17 08/09/21 Manuel Mtz MD PCP - General Internal Medicine 08/10/21 04/17/22 Naila Vargas MD [address] [place] [id number] PCP - General Internal Medicine 04/18/22 Yimi Shafer MD [address] [place] [address] 14557 Vascular Surgery 10/13/23 Nessa Crews MD [address] [place] [phone] Specialist Cardiology 10/16/23 Luke Valadez PA-C [address] [place] [phone] Specialist Thoracic Surgery 02/21/24 documented as of this encounter
--- OUTSIDE RECORDS SUMMARY | 2024-12-09 15:25 | XMS_ITS | Encounter Summary ---
Author Organization [facility] Address [address] [place] [address] Care Team Providers Care Driver Name Role Phone Zeynep Barajas MD Primary Care Provider Unavail able Manuel Mtz MD Primary Care Provider Naila Levy MD Primary Care Provider [phone] Yimi Shafer MD Unavailable Unavailable Nessa Crews MD Unavailable [phone] Luke Valadez PA-C Unavailable [phone] Reason for Visit * Reason Onset Date Comments Prior Authorization 2021 Encounter Details Date Type Department Care Team Description 2021 Telephone Adult [address] [id number] Zeynep Barajas MD Prior Authorization Social History Tobacco Use Types [...] have Coronavirus / COVID-19? No / Unsure 02/15/2021 9:02 AM EDT documented as of this encounter Miscellaneous Notes * Telephone Encounter - Leeann Cruz M.A. - 04/07/2021 11:07 AM EDT Lyrica was denied Covered for fibromyalgia, diabetic neuropathy, post herpetic neuralgia, partial seizure disorder [place] p [phone] Prior Auth pool Leeann Cruz M.A. Regional Prior Authorizations Ext [phone] Fax: [phone] reply back to p [phone] Prior Auth pool * Telephone Encounter - Rae Bailey M.A. - 02/15/2021 8:45 AM EDT Prior authorization completed today on cover my meds for the lyrica Dx codes M79.605 M79.604 New start Trials Gabapentin Amitriptyline Duloxetine * Telephone Encounter - Court Stanford - 2021 10:50 AM EDT Prior Authorization for Medication-do not complete and send this encounter unless you have the fax from the pharmacy. Is this a Cover My Meds request: Yes -- [place] Code [id number] Name of Medication pregabalin (LYRICA) Dose of Medication 25 MG capsule What is the RX # from the faxed refill? How does patient take this med? Take 1 capsule by mouth 2 times daily for 360 days What Pharmacy did the fax come from: [facility] Pharmacy fax #: [phone] [employer] Information from fax: What Prescription Plan does the patient have? BIN/PCN if applicable: Cardholder ID: Person Code: Relationship Code: Help desk phone: documented in this encounter Plan of Treatment Not on file documented as of this encounter Visit Diagnoses Not on filedocumented in this encounter Care Teams Driver Relationship Specialty Start Date End Date Zeynep Barajas MD PCP - General Internal Medicine 11/28/17 08/09/21 Manuel Mtz MD PCP - General Internal Medicine 08/10/21 04/17/22 Naila Vargas MD [address] [place] [id number] PCP - General Internal Medicine 04/18/22 Yimi Shafer MD [address] [place] [address] [phone] Vascular Surgery 10/13/23 Nessa Crews MD [address] [place] [address] [phone] Specialist Cardiology 10/16/23 Luke Valadez PA-C [address] [place] [phone] Specialist Thoracic Surgery 02/21/24 documented as of this encounter
--- OUTSIDE RECORDS SUMMARY | 2024-12-09 15:25 | XMS_ITS | Encounter Summary ---
Author Organization [facility] Address [address] [place] [address] Care Team Providers Care Block Hacker Name Role Phone Zeynep Barajas MD Primary Care Provider Unavail able Manuel Mtz MD Primary Care Provider Naila Levy MD Primary Care Provider [phone] Yimi Shafer MD Unavailable Unavailable Nessa Crews MD Unavailable Luke Valadez PA-C Unavailable [phone] Encounter Details Date Type Department Care Team Description 12/16/2020 Natural Remedy Consultant Report Medical Records [address] [place] [phone] Jessica Luna MD Social History Tobacco Use [...] have Coronavirus / COVID-19? No / Unsure 12/07/2020 9:05 AM EDT documented as of this encounter Plan of Treatment Not on file documented as of this encounter Visit Diagnoses Not on filedocumented in this encounter Care Teams Block Hacker Relationship Specialty Start Date End Date Zeynep Barajas MD PCP - General Internal Medicine 11/28/17 08/09/21 Manuel Mtz MD PCP - General Internal Medicine 08/10/21 04/17/22 Naila Vargas MD [address] [place] [phone] PCP - General Internal Medicine 04/18/22 Yimi Shafer MD [address] [place] [address] 42868 Vascular Surgery 10/13/23 Nessa Crews MD [address] [place] [address] 164[address] Specialist Cardiology 10/16/23 Luke Valadez PA-C [address] [place] [phone] Specialist Thoracic Surgery 02/21/24 documented as of this encounter
== END 2024-12-09 14:11 | disposition home or self-care (01) ==
LOC: HO.HCS 13:38
PROVIDERS: PCP Internal Medicine; Visit Provider Internal Medicine Cardiovascular Disease
DX: I21.4 Non-ST elevation (NSTEMI) myocardial infarction (principal); Z95.820 Peripheral vascular angioplasty status with implants and grafts
CPT/HCPCS: 93010; 99214; G2211

== ENCOUNTER → 2024-12-09 13:37 | Outpatient (BNVA) | payer OTHER, SELFPAY | PROVIDERS: PCP Internal Medicine; Visit Provider Internal Medicine Cardiovascular Disease | DX: I21.4 Non-ST elevation (NSTEMI) myocardial infarction (principal); Z95.820 Peripheral vascular angioplasty status with implants and grafts | CPT/HCPCS: 93005; 99212 ==

== ENCOUNTER 2025-02-21 10:01 | Emergency (ER) | payer OTHER, SELFPAY ==
--- NOTE | ~2025-02-21 | XR_ITS ---
EXAMINATION: XR CHEST CLINICAL INFORMATION: sob COMPARISON: November 05, 2024. TECHNIQUE: 2 views of the chest were obtained. FINDINGS: Pulmonary reticular pattern. No gross consolidation, pleural effusion or pneumothorax. Cardiomediastinal silhouette size is normal. Multilevel thoracic spondylosis. Degenerative changes in the acromioclavicular joints. XR/XR chest 2V IMPRESSION: Probable chronic interstitial lung disease. Electronically signed by: Amilcar Valencia MD 02/21/2025 11:14 AM EDT
[2025-02-21 10:49] VITALS: BP 148/78; PULSE 83; RESP 20; TEMP 37.2; O2SAT 98; BMI 41.2
--- NOTE | 2025-02-21 10:50 | ED_ITS ---
"HPI - General Adult General Chief complaint: General Medical Stated complaint: Vomiting, body aches, SOB Time Seen by Provider: 02/21/25 12:16 Source: patient Mode of arrival: ambulatory Limitations: no limitations History of Present Illness ED Provider: HPI narrative: 60-year-old woman presenting with headaches, cough, body aches and reports of night sweats for the past 10 days, last month came back from a cruise, ex- smoker, in October of this year had a ID, subjective fevers at home. No rashes, no abdominal pain, intermittent nausea no vomiting no diarrhea no dysuria. Related Data Home Medications ?Medication ?Instructions ?Recorded ?Confirmed fluoxetine 20 mg capsule 20 mg PO DAILY 10/12/23 12/09/24 metformin 500 mg tablet 1,000 mg PO BID 10/12/23 12/09/24 omeprazole 40 mg capsule,delayed 40 mg PO QAM 10/12/23 12/09/24 release albuterol sulfate 90 mcg/actuation 2 puff inhalation Q4-6H PRN 11/01/23 12/09/24 aerosol inhaler (Ventolin HFA) Shortness Of Breath Or Wheezing aspirin 81 mg tablet,delayed 81 mg PO BEDTIME 11/01/23 12/09/24 release fluticasone propionate 230 2 puff inhalation BID PRN 11/01/23 12/09/24 mcg-salmeterol 21 mcg/actuation Shortness Of Breath Or Wheezing HFA inhaler (Advair HFA) lamotrigine 25 mg tablet 50 mg PO DAILY 11/01/23 12/09/24 amlodipine 2.5 mg tablet 2.5 mg PO DAILY 11/02/23 12/09/24 biotin 1,000 mcg chewable tablet 1,000 mcg PO DAILY 11/02/23 12/09/24 albuterol sulfate 2.5 mg/3 mL 2.5 mg inhalation Q6H PRN wheezing 11/05/24 12/09/24 (0.083 %) solution for nebulization cetirizine 10 mg tablet 10 mg PO DAILY PRN Allergy Symptoms 11/05/24 12/09/24 cholecalciferol (vitamin D3) 25 25 mcg PO DAILY 11/05/24 12/09/24 mcg (1,000 unit) tablet fluticasone propionate 50 2 spray intranasal DAILY PRN 11/05/24 12/09/24 mcg/actuation nasal Allergy Symptoms spray,suspension hydroxyzine HCl 25 mg tablet 25 mg PO TID PRN Anxiety 11/05/24 12/09/24 levothyroxine 25 mcg tablet 25 mcg PO DAILY 11/05/24 12/09/24 ggxbue-clprwyjr-pawlfna 2 cap PO TIDWM 11/05/24 12/09/24 36,000-114,000-180,000 unit capsule,delay rel (Creon) multivitamin 1 tab PO DAILY 11/05/24 12/09/24 tiotropium bromide 2.5 2 puff inhalation DAILY PRN 11/05/24 12/09/24 mcg/actuation mist for inhalation Shortness Of Breath Or Wheezing (Spiriva Respimat) Previous Rx's ?Medication ?Instructions ?Recorded insulin lispro 100 unit/mL See Protocol subcut QIDACHS #10 mL 11/07/24 subcutaneous solution (Admelog U-100 Insulin lispro) oseltamivir 75 mg capsule (Tamiflu) 75 mg PO BID #6 caps 11/07/24 ticagrelor 90 mg tablet 90 mg PO BID 90 days #180 tabs 01/28/25 ticagrelor 90 mg tablet (Brilinta) 90 mg PO BID #180 tabs 01/28/25 atorvastatin 40 mg tablet 40 mg PO DAILY #90 tabs 02/12/25 metoprolol tartrate 25 mg tablet 25 mg PO BID #180 tabs 02/12/25 Allergies Allergy/AdvReac Type Severity Reaction Status Date / Time clarithromycin [From Biaxin] Allergy Intermediate Rash Verified 02/21/25 10:51 Review of Systems 2 Constitutional: Constitutional: Reports as per HPI [facility] Past Medical History Medical History (Updated 02/21/25 @ 13:11 by Anthony Foley DO) Asthma Pre-op exam Depression Arthritis Cervical radiculitis Renal calculi HTN (hypertension) Diabetes Glaucoma GERD (gastroesophageal reflux disease) Hypothyroidism Hypercholesteremia Carpal tunnel syndrome Sleep apnea Peripheral arterial disease Surgical History (Updated 12/09/24 @ 14:12 by Miguel Ángel Goldstein MD) S/P cardiac cath History of esophagogastroduodenoscopy (EGD) Hx of colonoscopy Hx of tubal ligation Hx of repair of rotator cuff Hx of carpal tunnel repair Hx of lithotripsy History of appendectomy History of foot surgery Social History Social History Household Members: Significant Other Housing: House Are you a primary resident care manager to a significant other at home: No Do you presently have visiting nurse or other home services: No Alcohol intake: current Alcohol intake frequency: holidays/special occasions only Comment: counts correct Patient Tobacco Use Status: Former Tobacco user Tobacco use type: Cigarette Years Smoked: 40 e-Cigarette/Vaping Use: Former Use Second Hand Smoke Exposure: No Substance Use Type: Marijuana Advance Directives: No Advance Directives Information Provided: Yes Do you have a plan to hurt others: No Plan Patient : No service: No Current occupation: [id number] | [employer] - Right Handed Physical Exam ED Vital Signs: Vital Signs - 24 hr 02/21/25 10:49 02/21/25 13:47 Temperature 98.9 F 99.7 F Pulse Rate 83 72 Respiratory Rate 20 12 Blood Pressure 148/78 H 128/74 Pulse Oximetry 98 92 Oxygen Delivery Method Room Air Room Air BMI result Body Mass Index 41.2 Const Other: * Gen: ?Overall well-appearing patient * HEENT: PERRLA, EOMI, MMM, * Neck: Supple, no LAD * CV: RRR, no obvious murmurs appreciated * Resp: ?No wheezing rales rhonchi no stridor moving air well * Abd: ?Bowel sounds are present, no tenderness no rebound no rigidity * MSK: FROM, strength 5/5 all extremities * Skin: Warm, dry, intact, * Neuro: ?Alert and oriented x3, moving upper and lower extremities symmetrically, no obvious facial asymmetry noted Course Course Course Narrative: 02/21/25 1050 MILI Benitez This is a Rapid Medical Examination (RME) performed by Em Burden PA-C in triage. Full HPI, ROS, assessment and treatment plan per primary provider in the Main ED. Hx: 60 yo F hx NSTEMI w/ stents, carotid stenosis, hypothyroidism, PAD, HTN, HLD here for eval of flu like sx since returning from cruise on 02/17/25. negative covid test at home. Plan: viral swabs /cxr Medications Administered Discontinued Medications Generic Name Dose Route Start Last Admin Trade Name Freq PRN Reason Stop Dose Admin Dexamethasone 10 mg 02/21/25 12:31 02/21/25 12:40 Dexamethasone 2 Mg Tablet PO 02/21/25 12:32 10 mg ONCE ONE Administration Diazepam 2 mg 02/21/25 12:31 02/21/25 12:40 Diazepam 2 Mg Tablet PO 02/21/25 12:32 2 mg ONCE ONE Administration Ondansetron HCl 4 mg 02/21/25 12:31 02/21/25 12:40 Ondansetron Odt 4 Mg Tab.Rapdis TRANSLINGU 02/21/25 12:32 4 mg ONCE ONE Administration Medical Decision Making Medical Decision Making [facility] Narrative: Nonfebrile, no tachycardia, lungs are clear, abdominal exam is benign, we will obtain additional blood work for evaluation for dehydration, chest x-ray did not reveal any evidence for pneumonia, no ENT infections on exam, symptomatic control with discharge anticipated but we will dependent her workup Differential Diagnosis Differential Diagnoses: The differential diagnosis associated with the presentation includes dehydration, pneumonia, UTI, ACS, viral syndrome Admission/Observation Consideration of admission/observation: Escalation of care including admission/observation considered Lab Data [facility] Lab Attestation statement: I reviewed the patient's lab results. 02/21/25 12:52 02/21/25 12:52 Labs: Lab Results 02/21/25 02/21/25 02/21/25 Range/Units 11:18 12:52 13:55 WBC 5.8 (4.8-10.8) X10*3/uL RBC 4.37 (4.20-5.50) X10*6/uL Hgb 14.4 (12.0-16.0) g/dl Hct 41.6 (37.0-47.0) % MCV 95.2 (80.0-98.0) fL MCH 33.0 (27.0-33.0) pg MCHC 34.6 (31.0-35.0) g/dl RDW 13.5 (11.0-16.0) % Plt Count 205 (160-400) X10*3/uL MPV 8.8 L (9.4-12.3) fL Immature Gran % (Auto) 0.5 H (0.0-0.4) % Neut % (Auto) 69.2 (45-73) % Lymph % (Auto) 16.3 L (20-40) % [place] % (Auto) 9.9 (2-11) % Eos % (Auto) 3.6 (0-4) % Baso % (Auto) 0.5 (0-2) % Lymph # (Auto) 0.9 L (1.2-4.9) X10*3/uL [place] # (Auto) 0.6 (0.1-1.2) X10*3/uL Eos # (Auto) 0.2 (0.0-0.4) X10*3/uL Baso # (Auto) 0.0 (0.0-0.2) X10*3/uL Abs Immat Gran (auto) 0.03 (0.00-0.03) X10*3/uL Absolute Neuts (auto) 4.0 (2.0-8.3) x10*3/uL Absolute Nucleated RBC 0.000 (0.0-0.012) X10*3/uL Nucleated RBC % (auto) 0.0 (0.0-0.2) /100WBC Sodium 135 (135-145) mmol/L Potassium 4.2 (3.3-5.1) mmol/L Chloride 102 (96-108) mmol/L Carbon Dioxide 22 (22-29) mmol/L Anion Gap 15 (12-20) BUN 8 L (9-16) mg/dL Creatinine 0.89 (0.5-1.4) mg/dL Estim Creat Clear Calc 82.0 Estimated GFR > 60 Random Glucose 207 H (60-115) mg/dL Calcium 9.3 (8.4-10.2) mg/dL Total Bilirubin 0.9 (0.0-1.0) mg/dL AST 40 H (5-31) U/L ALT 26 (0-31) U/L Alkaline Phosphatase 70 (39-117) U/L Total Protein 7.2 (6.5-8.0) g/dL Albumin 4.4 (3.5-5.0) g/dL Lipase 11 (8-78) U/L Urine Color Yellow Urine Appearance Clear Urine pH 7.0 (5.0-9.0) Ur Specific Martin 1.015 (1.005-1.025) Urine Protein Negative (Neg-Trace) mg/dL Urine Glucose (UA) Negative (Negative) mg/dL Urine Ketones Negative (Negative) mg/dL Urine Blood Small (1+) H (Negative) Urine Nitrite Negative (Negative) Ur Leukocyte Esterase Trace H (Negative) Urine RBC 6-10 H (0-2) /HPF Urine WBC 0-5 (0-5) /HPF Ur Squamous Epith Cells 3-5 (0-2) /HPF Urine Bacteria None Seen (None Seen) Hyaline Casts 0-2 (0-2) /LPF Influenza Type A (PCR) NEGATIVE (Negative) Influenza Type B (PCR) NEGATIVE (Negative) RSV RNA Qual (PCR) NEGATIVE (Negative) SARS-CoV-2 RNA (RT-PCR) NEGATIVE (Negative) Independent Interpretation I performed an independent interpretation of an: EKG (70 beats per minute otherwise normal ECG without dysrhythmia, AV soren blocks or ST-T changes to suspect underlying ACS, my independent interpretation) and Plain X-Ray (My independent chest xray interpretation: Lungs: Lungs are clear bilaterally without evidence of focal consolidation, pleural effusion, or pneumothorax. Cardiac silhouette is unremarkable, no obvious mediastinal widening, no obvious bony abnormalities such as fractures. Impression: Normal chest X-r) Discharge Plan Discharge Clinical Impression: Subjective fever, Headache, Night sweat Patient Disposition: Home, Self-Care Additional Instructions: Your chest x-ray, EKG, viral swab has been reassuring, also on examination I do not see any evidence for ongoing infection Your vital signs did not reveal any abnormalities specifically no fevers as well You may have a viral infection we do not test for all the viruses, follow up with the PCP any other issues concerns come back to the ER, for his symptoms do not think I would recommend is you can take whatever symptoms you can controlled by [id number]-kfl-wcqrioz medications there was nothing specific I did give you a dose of steroids here I am hoping that it is going to improve some of your body discomfort. Prescriptions: No Action Brilinta 90 mg tablet 90 mg PO BID Qty: 180 3RF ticagrelor 90 mg tablet 90 mg PO BID 90 Days Qty: 180 3RF Rx Instructions: Generic please metoprolol tartrate 25 mg tablet 25 mg PO BID Qty: 180 3RF Protocol: Hold for SBP/HR < HOLD for SBP < : 90 HOLD for HR < : 60 atorvastatin 40 mg tablet 40 mg PO DAILY Qty: 90 3RF aspirin 81 mg Tablet,Delayed Release (Dr/Ec) 81 mg PO BEDTIME lamotrigine 25 mg tablet 50 mg PO DAILY albuterol sulfate [Ventolin HFA] 90 mcg/actuation Hfa Aerosol Inhaler 2 puff INHALATION Q4-6H PRN (Reason: Shortness Of Breath Or Wheezing) fluticasone propion-salmeterol [Advair HFA] 230-21 mcg/actuation Hfa Aerosol Inhaler 2 puff INHALATION BID PRN (Reason: Shortness Of Breath Or Wheezing) biotin 1,000 mcg Tablet,Chewable 1,000 mcg PO DAILY amlodipine 2.5 mg tablet 2.5 mg PO DAILY multivitamin Tablet 1 tab PO DAILY albuterol sulfate 2.5 mg /3 mL (0.083 %) solution for nebulization 2.5 mg inhalation Q6H PRN (Reason: wheezing) cetirizine 10 mg tablet 10 mg PO DAILY PRN (Reason: Allergy Symptoms) levothyroxine 25 mcg tablet 25 mcg PO DAILY hydroxyzine HCl 25 mg tablet 25 mg PO TID PRN (Reason: Anxiety) fluticasone propionate 50 mcg/actuation spray,suspension 2 spray intranasal DAILY PRN (Reason: Allergy Symptoms) cholecalciferol (vitamin D3) 25 mcg (1,000 unit) tablet 25 mcg PO DAILY Spiriva Respimat 2.5 mcg/actuation mist 2 puff INHALATION DAILY PRN (Reason: Shortness Of Breath Or Wheezing) Creon 36,000-114,000- 180,000 unit capsule,delayed release(DR/EC) 2 cap PO TIDWM oseltamivir [Tamiflu] 75 mg Capsule 75 mg PO BID Qty: 6 0RF insulin lispro [Admelog U-100 Insulin lispro] 100 unit/mL Solution See Protocol subcut QIDACHS Qty: 10 0RF Protocol: Insulin Correction Scale Less than or equal to 110 ---- Give (units): 0 111 to 150 Give (units): 0 151 to 200 Give (units): 2 201 to 250 Give (units): 4 251 to 300 Give (units): 6 301 to 350 Give (units): 8 Greater than 350 Give (units): 10 Call MD if Blood Glucose > : 350 omeprazole 40 mg capsule,delayed release(DR/EC) 40 mg PO QA metformin 500 mg tablet 1,000 mg PO BID fluoxetine 20 mg capsule 20 mg PO DAILY Print Language: Wolof"
[2025-02-21 12:19] LABS: Influenza A PCR NEGATIVE (Negative); Influenza B PCR NEGATIVE (Negative); Resp Syncy Virus RNA Qual PCR NEGATIVE (Negative); SARS COV2 PCR INHOUSE NEGATIVE (Negative)
--- NOTE | 2025-02-21 12:31 | ECG_ITS ---
Test Reason : weakness Blood Pressure : */* mmHG Vent. Rate : 70 BPM Atrial Rate : 70 BPM P-R Int : 140 ms QRS Dur : 84 ms QT Int : 404 ms P-R-T Axes : 51 -6 44 degrees QTcB Int : 436 ms Normal sinus rhythm Normal ECG When compared with ECG of 07-Nov-2024 11:39, Premature ventricular complexes are no longer Present Nonspecific T wave abnormality no longer evident in Lateral leads Referred By: Anthony Foley Electronically Signed By: PRINCESS MCARTHUR MD
[2025-02-21] MEDS: dexAMETHasone 2 MG TABLET 10 MG PO (12:40)
[2025-02-21] MEDS: diazePAM 2 MG TABLET PO (12:40)
[2025-02-21] MEDS: Ondansetron ODT 4 MG TAB.RAPDIS TRANSLINGU (12:40)
[2025-02-21 12:57] LABS: MANUAL DIFF FLAG NO
[2025-02-21 12:59] LABS: Basophils Percent Auto 0.5 % (0-2); Eosinophils Absolute Auto 0.2 X10*3/uL (0.0-0.4); Eosinophils Percent Auto 3.6 % (0-4); Hematocrit 41.6 % (37.0-47.0); Hemoglobin 14.4 g/dl (12.0-16.0); Imm Gran Abs Auto 0.03 X10*3/uL (0.00-0.03); Imm Gran Pct Auto 0.5 % (0.0-0.4); Lymphocytes Absolute Auto 0.9 X10*3/uL (1.2-4.9); Lymphocytes Percent Auto 16.3 % (20-40); Mean Corpuscular HGB Conc 34.6 g/dl (31.0-35.0); Mean Corpuscular Volume 95.2 fL (80.0-98.0); Mean Platelet Volume 8.8 fL (9.4-12.3); Monocytes Absolute Auto 0.6 X10*3/uL (0.1-1.2); Monocytes Percent Auto 9.9 % (2-11); Neutrophils Percent Auto 69.2 % (45-73); Platelet Count 205 X10*3/uL (160-400); Red Blood Count 4.37 X10*6/uL (4.20-5.50); Red Cell Distribution Width 13.5 % (11.0-16.0); White Blood Count 5.8 X10*3/uL (4.8-10.8)
--- OUTSIDE RECORDS SUMMARY | 2025-02-21 13:00 | XMS_ITS | Encounter Summary ---
Author Organization [facility] Address [address] [place] [address] Care Team Providers Care Dining Room Coordinator Name Role Phone Ashley Hernández DO Primary Care Pro vider Unavailable Zeynep Barajas MD Primary Care Provider Unavail able Manuel Mtz MD Primary Care Provider Naila Levy MD Primary Care Provider [phone] Yimi Shafer MD Unavailable Unavailable Nessa Crews MD Unavailable [phone] Luke Valadez PA-C Unavailable [phone] Reason for Visit * Reason Onset Date Comments APPOINTMENT 04/20/2017 Encounter Details Date Type Department Care Team Description 04/20/2017 Telephone Gastroenterology - [address] [address] Mark Olmstead MD APPOINTMENT Social History Tobacco [...] on filedocumented in this encounter Care Teams Dining Room Coordinator Relationship Specialty Start Date End Date Ashley Hernández DO PCP - General Internal Medicine 01/10/14 11/27/17 Zeynep Barajas MD PCP - General Internal Medicine 11/28/17 08/09/21 Manuel Mtz MD PCP - General Internal Medicine 08/10/21 04/17/22 Naila Vargas MD [address] [place] [id number] PCP - General Internal Medicine 04/18/22 Yimi Shafer MD [address] [place] [address] Vascular Surgery 10/13/23 Nessa Crews MD [address] [place] [address] Specialist Cardiology 10/16/23 Luke Valadez PA-C [address] [place] [phone] Specialist Thoracic Surgery 02/21/24 documented as of this encounter
[2025-02-21 13:13] LABS: Alanine Aminotransferase 26 U/L (0-31); Albumin Level 4.4 g/dL (3.5-5.0); Alkaline Phosphatase 70 U/L (39-117); Anion Gap 15 (12-20); Aspartate Amino Transferase 40 U/L (5-31); Bilirubin Total 0.9 mg/dL (0.0-1.0); Blood Urea Nitrogen 8 mg/dL (9-16); Calcium 9.3 mg/dL (8.4-10.2); Carbon Dioxide 22 mmol/L (22-29); Chloride 102 mmol/L (96-108); Estimated Glomerular Filt Rate > 60; Glucose Random 207 mg/dL (60-115); Lipase 11 U/L (8-78); Potassium 4.2 mmol/L (3.3-5.1); Sodium 135 mmol/L (135-145); Total Protein 7.2 g/dL (6.5-8.0)
[2025-02-21 13:47] VITALS: BP 128/74; PULSE 72; RESP 12; TEMP 37.6; O2SAT 92
[2025-02-21 14:05] LABS: Appearance Urine Clear; Color Urine Yellow; Glucose Urine UA Negative (Negative); Leukocyte Esterase Urine Trace (Negative); Nitrite Urine Negative (Negative); Specific Gravity - Urine 1.015 (1.005-1.025); UMIC TRIGGER UACC YES; Urine Blood Small (1+) (Negative); Urine Ketones Negative (Negative); Urine Protein Negative (Neg-Trace)
[2025-02-21 14:08] LABS: Bacteria Urine None Seen (None Seen); Hyaline Casts Urine 0-2 /LPF (0-2); WBC Urine 0-5 /HPF (0-5)
[2025-02-21 14:13] LABS: Thyroid Stimulating Hormone 2.97 uIU/mL (0.32-4.0)
[2025-02-21 14:46] VITALS: BP 128/74; PULSE 72; RESP 12; TEMP 37.6; O2SAT 92
== END 2025-02-21 14:52 | disposition home or self-care (01) ==
PROVIDERS: Physician Assistant Medical; Emergency Provider Emergency Medicine; PCP Internal Medicine
DX: R50.9 Fever, unspecified (principal); R51.9 Headache, unspecified; R61 Generalized hyperhidrosis; R06.02 Shortness of breath; R05.9 Cough, unspecified; I25.2 Old myocardial infarction; I10 Essential (primary) hypertension; E11.9 Type 2 diabetes mellitus without complications; E03.9 Hypothyroidism, unspecified; Z79.899 Other long term (current) drug therapy
CPT/HCPCS: 0241U; 36415; 71046; 80053; 81001; 81003; 83690; 84443; 85025; 93005; 99283; 99284; J8540

== ENCOUNTER → 2025-02-21 10:50 | Outpatient (BNV) | payer OTHER, SELFPAY | PROVIDERS: PCP Internal Medicine; Visit Provider Radiology Diagnostic Radiology | DX: R06.02 Shortness of breath (principal) | CPT/HCPCS: 71046 ==

== ENCOUNTER → 2025-02-21 12:31 | Outpatient (BNV) | payer OTHER, SELFPAY | PROVIDERS: Emergency Provider Emergency Medicine; PCP Internal Medicine; Visit Provider Internal Medicine Cardiovascular Disease | DX: R53.1 Weakness (principal) | CPT/HCPCS: 93010 ==

== ENCOUNTER 2025-06-30 12:37 | Outpatient (REF) | payer OTHER, SELFPAY ==
--- NOTE | ~2025-06-30 | US_ITS ---
EXAMINATION: BILATERAL CAROTID ULTRASOUND WITH DOPPLER HISTORY: I65.23 - Occlusion and stenosis of bilateral carotid arteries COMPARISON: Comparison is made with the prior examination dated 03/26/2024. TECHNIQUE: Real time and Color and Spectral doppler ultrasonography of the carotid and vertebral arteries was performed in multiple planes. FINDINGS: There is a small amount of plaque noted on the left. VERTEBRAL FLOW DIRECTION: Antegrade bilaterally. PEAK SYSTOLIC VELOCITIES (in cm/sec): RIGHT: CCA: Prox: 90.1 Dist: 80.6 ICA: Prox: 55.3 Mid: 94.4 Dist: 82.0 ICA/CCA Ratio: 1.04 ECA: 181 Peak ICA end diastolic velocity (EDV): 35.4 LEFT: CCA: Prox: 97.0 Dist: 80.6 ICA: Prox: 89.5 Mid: 87.0 Dist: 77.7 ICA/CCA Ratio: 0.92 ECA: 65.2 Peak ICA end diastolic velocity (EDV): 36.0 US/US carotid duplex BI IMPRESSION: Findings consistent with 0-49% stenosis of the left internal carotid artery. No significant stenosis on the right. Electronically signed by: Barber Batista MD 06/30/2025 02:39 PM EDT
== END 2025-06-30 12:38 | disposition home or self-care (01) ==
LOC: HO.US 12:37
PROVIDERS: PCP Internal Medicine; Visit Provider Surgery Vascular Surgery
DX: I65.23 Occlusion and stenosis of bilateral carotid arteries (principal)
CPT/HCPCS: 93880

== ENCOUNTER → 2025-06-30 12:39 | Outpatient (BNV) | payer OTHER, SELFPAY | PROVIDERS: PCP Internal Medicine; Visit Provider Radiology Diagnostic Radiology | DX: I65.23 Occlusion and stenosis of bilateral carotid arteries (principal) | CPT/HCPCS: 93880 ==

== ENCOUNTER 2025-07-17 10:03 | Outpatient (AMB) | payer OTHER, SELFPAY ==
--- NOTE | 2025-07-17 10:08 | MHC.OFFVIS ---
Intake Visit Reasons: 1y follow up Carotid US 06/30/25 Intake Note: Patient presents for carotid ultrasound follow up. No complaints. Accompanied by: Self / Same As Patient Allergies clarithromycin (From Biaxin) Allergy (Intermediate, Verified 07/17/25 10:09) Rash HPI HPI 1y follow up Carotid US 06/30/25: Details: The patient is a 60-year-old female presenting with a one-year follow-up for carotid artery disease. The patient underwent a procedure on the right carotid artery in October 2023, and subsequent ultrasounds have shown clean results for both the right and left sides, indicating no further intervention is necessary at this time. In November 2024, the patient experienced a myocardial infarction, initially mistaking the symptoms for anxiety. She was later diagnosed with a heart attack and had coronary artery stents placed. The patient reports not feeling as well as before the stent placement but acknowledges some improvement. The patient is advised to engage in physical activity, such as walking, to monitor any chest discomfort and report back to her director of income tax, Dr. Goldstein. She has acquired a walker with a seat to assist with mobility, although it does not fit in her car, limiting its use to her home environment. [facility] Medical History Asthma Pre-op exam Depression Arthritis Cervical radiculitis Renal calculi HTN (hypertension) Diabetes Glaucoma GERD (gastroesophageal reflux disease) Hypothyroidism Hypercholesteremia Carpal tunnel syndrome Sleep apnea Peripheral arterial disease Surgical History S/P cardiac cath History of esophagogastroduodenoscopy (EGD) Hx of colonoscopy Hx of tubal ligation Hx of repair of rotator cuff Hx of carpal tunnel repair Hx of lithotripsy History of appendectomy History of foot surgery Social History Household Members: Significant Other Housing: House Are you a primary manager progressive care to a significant other at home: No Do you presently have visiting nurse or other home services: No Alcohol intake: current Alcohol intake frequency: holidays/special occasions only Comment: counts correct Patient Tobacco Use Status: Former Tobacco user Tobacco use type: Cigarette Years Smoked: 40 e-Cigarette/Vaping Use: Former Use Second Hand Smoke Exposure: No Substance Use Type: Marijuana service: No Current occupation: [employer] - Right Handed Review of Systems Const All systems reviewed & are unremarkable except as noted in HPI and below Reports no additional complaints ENT Reports Normal hearing present Card Denies chest pain, Denies chest pain at rest, Denies chest pain with activity and Denies pedal edema Resp Denies cough GI Denies abdominal pain Musc Denies abnormal gait, Denies muscle cramps and Denies radiating pain into limb Skin/Breast Denies skin ulcer and Denies wounds Neuro Reports Normal hearing present and Denies abnormal gait Psych Reports no additional complaints Physical Exam Const General: cooperative, healthy appearing and comfortable Orientation/consciousness: oriented to person, oriented to place and oriented to time HEENT Head: Yes normal to inspection Neck Neck: Yes normal visual inspection Carotids: no bruits Chest Chest palpation & inspection: normal inspection of the chest Resp Effort & Inspection: normal respiratory effort and able to speak in complete sentences Auscultation: clear to auscultation bilaterally, no crackles, no rales, no rhonchi and no wheezes Cardio Other: Bilateral DP signals Rate: regular rate Rhythm: regular rhythm Heart sounds: S1 normal heart sound present and S2 normal heart sound present Bruits: no carotid bruits GI Inspection: Yes normal to inspection Skin Wounds: no wounds Hair: normal Neuro General: oriented to person, oriented to place and oriented to time Cranial nerves: Yes CN's II-XII intact bilaterally and Yes Normal hearing present Cognition (Neuro): normal cognition Motor exam (neuro): 5/5 motor strength present throughout Extrem Other: venous exam: No significant superficial varicosities or spider telangiectasias, minimal edema General: No clubbing, No cyanosis and No edema Psych Appearance: grossly normal Mental Status: mental status grossly normal Speech and movement: Normal speech and movement present Results Reviewed Results Reviewed: Carotid ultrasound dated 06/30/2025 demonstrates bilateral 0-49% stenosis Assessment & Plan Assessment & Plan (1) Bilateral carotid artery stenosis: Comment: 11/06/2023 - right carotid endarterectomy Code(s): I65.23 - Occlusion and stenosis of bilateral carotid arteries Category: Medical Plan: In short patient has asymptomatic carotid disease. We have reviewed signs and symptoms of a stroke. We also discussed risk factor modification inclusive a healthy diet low in cholesterol. The patient will follow up with us with surveillance ultrasound of the carotids 1 year. Should there be any changes or signs or symptoms of a stroke we will be happy to see them back sooner. Thank you for allowing us to participate in this patient's care. If there are any questions or concerns please do not hesitate to contact us. (2) Peripheral arterial disease: Comment: Left lower extremity stenting performed by Dr. Levy ~ 2019 Code(s): I73.9 - Peripheral vascular disease, unspecified Category: Medical Plan: Appears her lower extremities are stable at the current time. We did discuss routine risk factor modification including weight loss. We will surveilled her arterial disease in 1 year as well. Orders: Orders US arterial duplex LE BI 1 Year I73.9 - Peripheral vascular disease, unspecified US carotid duplex BI 1 Year I65.23 - Occlusion and stenosis of bilateral carotid arteries Coding Level of Care Code Est Pt Level 4 (02685) Diagnoses Bilateral carotid artery stenosis I65.23 Peripheral arterial disease I73.9
--- OUTSIDE RECORDS SUMMARY | 2025-07-17 11:45 | XMS_ITS | Encounter Summary ---
Author Organization [facility] Address [address] [place] [address] Care Team Providers Care Tray Packer Name Role Phone Unavailable Primary Care Provider Unavailabl e Encounter Details Date Type Department Care Team (Latest Contact Info) Description 02/18/2021 Abstract [facility] Dental, Provider, DDS Social History [...] Care Team (Late st Contact Info) Description 09/18/2025 8:45 AM EST Office Visit [facility] [address] [place] [address] Favian Kellyaris [address] [place] [address] documented as of this encounter Visit Diagnoses Not on filedocumented in this encounter
--- OUTSIDE RECORDS SUMMARY | 2025-07-17 11:45 | XMS_ITS | Clinical Summary ---
Author Organization [facility] Address [address] [place] [id number] Phone Care Team Providers [employer] Installer Name Role Phone Naila Vargas MD Primary Care Provider [phone] Allergies Active Allergy Reactions Criticality Noted Date Comments Clarithromycin 01/15/2014 Other 07/01/2019 Environmental seasonal allergies Medications aspirin 81 MG EC tablet Take 81 mg by mouth. Active cetirizine (ZYRTEC) 10 mg capsule Take 1 capsule by mouth daily as needed. 01/11/20 17 Active omeprazole (PRILOSEC) 40 MG capsule Take 40 mg by mouth as needed. Active clotrimazole (LOTRIMIN) 1 % cream Apply topically. Apply to cuticle each time hands are washed Active FLUoxetine (PROZAC) 20 MG capsule Take 20 mg by mouth daily. 08/26/20 19 Active albuterol 90 mcg/actuation inhaler Inhale 2 puffs into the lungs. PRN 01/28/20 21 Active ciclopirox (CICLODAN) 0.77 % cream ciclopirox 0.77 % topical cream APPLY TO AFFECTED CUTICLE AFTER WASHING HANDS 07/09/20 20 Active fluticasone propionate (FLONASE) 50 mcg/actuation nasal spray 2 sprays by Nasal route daily. PRN 12/02/19 21 Active ondansetron (ZOFRAN-ODT) 4 MG disintegrating tablet PRN Active azelastine (ASTEPRO) 205.5 mcg (0.15 %) [place] azelastine 205.5 mcg (0.15 %) nasal spray USE 1 TO 2 SPRAYS INTRANASALLY TWICE A DAY Active cilostazol (PLETAL) 100 MG tablet Take 100 mg by mouth 2 (two) times a day. 02/17/20 Active fluticasone propion-salmeteroL (ADVAIR HFA) 115-21 mcg/actuation inhaler Inhale 2 puffs into the lungs. 02/11/20 22 Active metFORMIN (GLUCOPHAGE) 500 MG tabletIndications: Type 2 diabetes mellitus without complication, without long-term current use of insulin Take 1 tablet (500 mg total) by mouth 2 (two) times a day with meals. 180 tablet 3 03/24/20 22 Active Additional Information Patient taking differently: 1,000 mgOral 2 times daily with meals, Reported on 06/07/2024 simvastatin (ZOCOR) 40 MG tabletIndications: Hyperlipidemia, unspecified hyperlipidemia type Take 1 tablet (40 mg total) by mouth nightly at bedtime. 90 tablet 3 03/24/20 22 Active lancets (FREESTYLE) 28 gauge MiscIndications:Ty pe 2 diabetes mellitus without complication, without long-term current use of insulin Use to check BG 1 time/day 100 each 3 03/24/20 22 Active FREESTYLE TEST Strp stripsIndications: Type 2 diabetes mellitus without complication, without long-term current use of insulin Use to check BG 1 time/day 100 strip 3 03/24/20 Active FREESTYLE LITE METER meter kitIndications:Typ e 2 diabetes mellitus without complication, without long-term current use of insulin Use as instructed to check BG once daily 1 each 03/24/20 22 Active cyanocobalamin, vitamin B-12, 1000 MCG tabletIndications: Vitamin B 12 deficiency Take 1 tablet (1,000 mcg total) by mouth daily. 90 tablet 1 12/16/19 23 Active losartan (COZAAR) 25 MG tabletIndications: Type 2 diabetes mellitus without complication, without long-term current use of insulin TAKE 1 TABLET (25 MG TOTAL) BY MOUTH DAILY. 90 tablet 3 05/22/20 23 Active ergocalciferol (DRISDOL) 50,000 unit capsuleIndications :Vitamin D insufficiency Take 1 capsule (50,000 Units total) by mouth once a week. 12 capsule 1 05/08/20 24 Active Active Problems Problem Noted Date Diagnosed Date Class 3 severe obesity due t o excess calories with serious comorbidity and body mass index (BMI) of 40.0 to 44.9 in adult 06/07/2024 Assessment & Plan (06/24/2024 11:21 AM EDT): Continue diligent portion control especially in view of gaining 1 pound from 247 in September 2022 up to 248 today. Limit concentrated sugars, saturated fats and calories in the diet. Keep well-hydrated. If unable to achieve expected goal consider formal dietary/nutritional support. On SSRI therapy 06/07/2024 Assessment & Plan (06/24/2024 11:21 AM EDT): Monitor for mood swings, increased muscle rigidity and temperature intolerance. Medial epicondylitis of right elbow 06/07/2024 Assessment & Plan (06/24/2024 11:18 AM EDT): Avoid prolonged, repetitive pulling, pushing, heavy lifting particularly on an outstretched arm without break and wearing medial elbow pad. Apply warm pack prior to gentle, regular ROM and muscle strengthening exercises-examples of appropriate exercises with pictures and detailed instructions printed for home use today. She may benefit from topical cream/gel versus medicated patches applied to the involved area. Formal PT offered-declined today. If symptoms do not improve or progress despite above measures may need to consider local steroid injection. Vitamin B12 deficiency 09/29/2022 Assessment & Plan (10/02/2022 10:02 PM EST): Serum vitamin B12 requested to make sure that she does not require additional supplementation to keep it in sufficient range. Type 2 diabetes mellitus wit hout complication, without long-term current use of insulin 03/24/2022 Assessment & Plan (06/24/2024 11:20 AM EDT): Continue close follow-up with her diabetic team to keep optimal glucose control as educated. Assessment & Plan (10/04/2022 10:10 AM EST): Continues with excellent improvement in control with A1c of 6.9%. Commended Mis for continued efforts that have led to glucose reduction Foot exam done today and mild sensation loss in the heels, diabetic shoes and inserts will be ordered Overall, glycemic control is remaining stable. We reviewed the importance of annual diabetic exams and I encouraged Mis to have an eye exam done soon given vision changes Encouraged continuing to make slow, gradual changes because those will be the easiest changes to sustain Encouraged continued efforts at balanced, mindful eating Encouraged continued efforts at increasing physical activity as tolerated Mis will follow up in 3 months. Advised to contact office with any questions or concerns in the interim. Assessment & Plan (03/24/2022 1:34 PM EDT): Excellent improvement in control as seen by improvement of A1c of close to 10% down to A1c today of 7%. Commended Mis for significant efforts that have led to glucose reduction, as well as weight reduction We did discuss continuing to work on weaning down soda intake as the least amount of soda throughout the day will lead to the most glucose reduction, but encouraged continuing to make slow, gradual changes because those will be the easiest changes to sustain Discussed benefits of a CGM trial to obtain more glucose data, Mis will think about this between appointments, but does not want to do the trial today Meter supplies sent to the pharmacy Encouraged continued efforts at balanced, mindful eating Encouraged continued efforts at increasing physical activity as tolerated Mis will follow up in 3 months. Advised to contact office with any questions or concerns in the interim. Hyperlipidemia 03/24/2022 Assessment & Plan (10/04/2022 10:12 AM EST): No recent lipid panel to review Goal LDL < 70 On moderate intensity statin therapy Assessment & Plan (03/24/2022 1:35 PM EDT): No recent lipid panel to review, requesting copy from PCP Mis reports having cholesterol labs done this past spring and has been on simvastatin for maybe 8 years , tolerating well Refill sent Goal LDL < 70 On moderate intensity statin therapy Hypertension 03/24/2022 Assessment & Plan (10/04/2022 10:11 AM EST): BP in excellent range today Goal < 130/80 Continues on ARB Assessment & Plan (03/24/2022 1:38 PM EDT): BP essentially in range today Goal < 130/80 Reports being on blood pressure med and needing a refill - thinks takes an ARB, does not recall dose or if it is a combination med - will call with med and dose so refill can be sent Trigger finger of right thumb 03/17/2022 Assessment & Plan (10/02/2022 10:07 PM EST): Use warm pack and gentle, regular massage, along the flexor tendon sheath after baby oil or moisturizer application. Apply topical Arnica, Voltaren versus Fix using [place] technique nightly or twice daily and seek surgical consult for surgical release Assessment & Plan (03/17/2022 2:58 PM EDT): Procedure: After an informed oral consent, under sterile conditions using Ethyl chloride spray for local anesthesia I have injected 20 mg DepoMedrol and 0.5 cc 1% Lidocaine into Right thumb flexor tendon sheath uneventfully. Details of post-procedure care were explained to the patient in the office and given in writing. Provider: Jessica Luna MD Patient: Mis Garcia : 1965 Date: 03/17/2022 Trigger ring finger of left hand 03/17/2022 Assessment & Plan (03/17/2022 2:58 PM EDT): Procedure: After an informed oral consent, under sterile conditions using Ethyl chloride spray for local anesthesia I have injected 20 mg DepoMedrol and 0.5 cc 1% Lidocaine into Left 4th flexor tendon sheath uneventfully. Details of post-procedure care were explained to the patient in the office and given in writing. Provider: Jessica Luna MD Patient: Mis Garcia : 1965 Date: 03/17/2022 Trigger finger of left thumb 12/16/2020 Assessment & Plan (12/16/2020 9:15 AM EDT): Procedure: After an informed oral consent, under sterile conditions using Ethyl chloride spray for local anesthesia I have injected 20 mg DepoMedrol and 0.5 cc 1% Lidocaine into Left thumb flexor tendon sheath uneventfully. Details of post-procedure care were explained to the patient in the office and given in writing. Neck pain 10/08/2020 Assessment & Plan (10/11/2020 5:25 PM EST): On patient's request I agreed to inject her left sided suboccipital enthesis with lidocaine to see if it helps her. Procedure: After an informed oral consent, under sterile conditions using Ethyl chloride spray for local anesthesia I have injected 3 cc 1% Lidocaine into Left suboccipital enthesis uneventfully. Details of post-procedure care were explained to the patient in the office and given in writing. If no improvement and significant radiographic abnormalities documented may need to consider [facility] consult and/ or formal PT. Vitamin D insufficiency 10/08/2020 Assessment & Plan (06/07/2024 11:44 AM EDT): Continue weekly vitamin D 50,000 units as prescribed to bring serum level into optimal range: 40-45 ng/ml. Assessment & Plan (09/29/2022 8:39 AM EST): Continue weekly vitamin D 50,000 units as prescribed to bring serum level into optimal range: 40-45 ng/ml. Assessment & Plan (03/17/2022 2:59 PM EDT): Continue weekly vitamin D 50,000 units as prescribed to bring serum level into optimal range: 40-45 ng/ml. Assessment & Plan (12/23/2020 7:48 AM EDT): Continue weekly vitamin D 50,000 units as prescribed to bring serum level into optimal range: 40-45 ng/ml. Right carpal tunnel syndrome 09/17/2020 Assessment & Plan (10/02/2022 10:08 PM EST): Continue splinting, icing, joint protection, energy conservation techniques and consider either surgical release or if no plans for surgery for at least 3 months or longer may consider local steroid injection. Assessment & Plan (10/08/2020 10:13 AM EST): Continue splinting, icing, joint protection, energy conservation techniques and consider either surgical release or if no plans for surgery for at least 3 months or longer may consider local steroid injection. Assessment & Plan (09/19/2020 5:22 PM EST): Continue splinting, icing, joint protection, energy conservation techniques and consider either surgical release or if no plans for surgery for at least 3 months or longer may consider local steroid injection. Bursitis of left shoulder 09/17/2020 Assessment & Plan (09/17/2020 8:36 AM EST): Procedure: After an informed oral consent, under sterile conditions using Ethyl chloride spray for local anesthesia I have injected 40 mg DepoMedrol and 2 cc 1% Lidocaine into Left subacromial bursa uneventfully. Details of post-procedure care were explained to the patient in the office and given in writing. Plantar fasciitis, bilateral 11/01/2019 Assessment & Plan (11/05/2019 7:45 AM EST): Continue gentle stretching, deep tissue massage, orthotics and consider bracing for the nighttime. Importance of reducing body weight and well fitting, supportive shoes stressed to patient again. Bilateral carpal tunnel syndrome 07/01/2019 Assessment & Plan (01/25/2020 9:28 AM EDT): Procedure: After an informed oral consent, under sterile conditions using Ethyl chloride spray for local anesthesia I have injected 30 mg DepoMedrol and 2 cc 1% Lidocaine into Right carpal tunnel uneventfully. Details of post-procedure care were explained to the patient in the office and given in writing. Mis is interested in exploring surgical option in case steroid injection does not provide sufficient benefit in view of moderate to severe CTS on EMG/NCS. Assessment & Plan (11/05/2019 7:46 AM EST): Continue splinting, joint protection and energy conservation techniques. Topical cream versus patch as needed. If not better or worse consider local steroid injection or surgical release. Assessment & Plan (07/17/2019 10:36 AM EST): Procedure: After an informed oral consent, under sterile conditions using Ethyl chloride spray for local anesthesia and [ ] cc 1% Lidocaine as topical anesthetic I have injected 40 mg DepoMedrol and 2 cc 1% Lidocaine into Left carpal tunnel uneventfully. Details of post-procedure care were explained to the patient in the office and given in writing. Assessment & Plan (07/01/2019 10:09 PM EDT): Continue splinting. Joint protection, energy conservation. Avoid prolonged, repetitive use of hands. Call if ready for local steroid injection. She is not ready for surgical release yet. She admits to fear of needles ( needles petrify ri ). PAD (peripheral artery disease) 07/01/2019 Assessment & Plan (06/24/2024 11:20 AM EDT): Continue cilostazol as prescribed. Regular walking. Work on reducing body weight as close as possible to ideal range for her height. Assessment & Plan (07/17/2019 10:37 AM EST): Continue cilostazol as prescribed. Regular walking. Work on reducing body weight as close as possible to ideal range for her height. Assessment & Plan (07/01/2019 9:54 PM EDT): Continue cilostazol as prescribed. Regular walking. Work on reducing body weight as close as possible to ideal range for her height. Primary osteoarthritis involving multiple joints 07/01/2019 Assessment & Plan (06/07/2024 11:16 AM EDT): Joint protection, energy conservation. Avoid falls, injuries, overuse. Warm pool therapy 2-3 times per week x 16 weeks. Work diligently on dietary modifications to decrease body weight as close as possible to ideal range for her height. Topical Arnica, Biofreeze, Voltaren versus Blue emu, Capsaicin, Thera-Gesic versus medicated patches such as Salonpas or icy hot patch 2-3 times daily and if necessary at bedtime x 3 weeks to most painful region. Try carefully sandwich technique over R 1st IP joint and see hand surgeon to consider surgical approach since she is failing medical therapy including local steroid injection. Assessment & Plan (10/02/2022 10:04 PM EST): Joint protection, energy conservation. Avoid falls, injuries, overuse. Warm pool therapy 2-3 times per week x 16 weeks. Work diligently on dietary modifications to decrease body weight as close as possible to ideal range for her height. Topical Arnica, Biofreeze, Voltaren versus Blue emu, Capsaicin, Thera-Gesic versus medicated patches such as Salonpas or icy hot patch 2-3 times daily and if necessary at bedtime x 3 weeks to most painful region. Try carefully sandwich technique over R 1st IP joint and see hand surgeon to consider surgical approach since she is failing medical therapy including local steroid injection. Assessment & Plan (03/17/2022 2:57 PM EDT): Joint protection, energy conservation. Avoid falls, injuries, overuse. Warm pool therapy 2-3 times per week x 16 weeks. Work diligently on dietary modifications to decrease body weight as close as possible to ideal range for her height. Topical Arnica, Biofreeze, Voltaren versus Blue emu, Capsaicin, Thera-Gesic versus medicated patches such as Salonpas or icy hot patch 2-3 times daily and if necessary at bedtime x 3 weeks to most painful region. Carefully continue diclofenac and Cytotec twice daily as prescribed.. Consider local steroid injection if not better or worse. Assessment & Plan (12/16/2020 9:15 AM EDT): Joint protection, energy conservation. Avoid falls, injuries, overuse. Warm pool therapy 2-3 times per week x 16 weeks. Work diligently on dietary modifications to decrease body weight as close as possible to ideal range for her height. Topical Arnica, Biofreeze, Voltaren versus Blue emu, Capsaicin, Thera-Gesic versus medicated patches such as Salonpas or icy hot patch 2-3 times daily and if necessary at bedtime x 3 weeks to most painful region. Carefully continue diclofenac and Cytotec twice daily as prescribed.. Consider local steroid injection if not better or worse. Assessment & Plan (10/08/2020 10:14 AM EST): Joint protection, energy conservation. Avoid falls, injuries, overuse. Warm pool therapy 2-3 times per week x 16 weeks. Work diligently on dietary modifications to decrease body weight as close as possible to ideal range for her height. Topical Arnica, Biofreeze, Voltaren versus Blue emu, Capsaicin, Thera-Gesic versus medicated patches such as Salonpas or icy hot patch 2-3 times daily and if necessary at bedtime x 3 weeks to most painful region. Carefully continue diclofenac and Cytotec twice daily as prescribed.. Consider local steroid injection if not better or worse. Assessment & Plan (09/19/2020 5:21 PM EST): Joint protection, energy conservation. Avoid falls, injuries, overuse. Warm pool therapy 2-3 times per week x 16 weeks. Work diligently on dietary modifications to decrease body weight as close as possible to ideal range for her height. Topical Arnica, Biofreeze, Voltaren versus Blue emu, Capsaicin, Thera-Gesic versus medicated patches such as Salonpas or icy hot patch 2-3 times daily and if necessary at bedtime x 3 weeks to most painful region. Carefully continue diclofenac and Cytotec twice daily as prescribed.. Consider local steroid injection if not better or worse. Assessment & Plan (01/25/2020 9:14 AM EDT): Joint protection, energy conservation. Avoid falls, injuries, overuse. Warm pool therapy 2-3 times per week x 16 weeks. Work diligently on dietary modifications to decrease body weight as close as possible to ideal range for her height. Topical Arnica versus Blue emu, Capsaicin, Thera-Gesic versus medicated patches such as Salonpas or icy hot patch 2-3 times daily and if necessary at bedtime x 3 weeks to most painful region. Carefully continue diclofenac and Cytotec twice daily as prescribed.. Consider local steroid injection if not better or worse. Assessment & Plan (11/05/2019 7:44 AM EST): Joint protection, energy conservation. Avoid falls, injuries, overuse. Warm pool therapy 2-3 times per week x 16 weeks. Work diligently on dietary modifications to decrease body weight as close as possible to ideal range for her height. Topical Arnica versus Blue emu, Capsaicin, Thera-Gesic versus medicated patches such as Salonpas or icy hot patch 2-3 times daily and if necessary at bedtime x 3 weeks to most painful region. Carefully try Arthrotec twice daily with food-pamphlet on side effects provided and explained that in case insurance does not cover the brand name we may try to prescribe separately both components to be taken together: Diclofenac and Cytotec. Patient interested in trying it. Consider local steroid injection if not better or worse. Assessment & Plan (07/28/2019 10:56 AM EST): Joint protection, energy conservation. Avoid falls, injuries, overuse. Warm pool therapy 2-3 times per week x 16 weeks. Work diligently on dietary modifications to decrease body weight as close as possible to ideal range for her height. Topical Arnica versus Blue emu, Capsaicin, Thera-Gesic versus medicated patches such as Salonpas or icy hot patch 2-3 times daily and if necessary at bedtime x 3 weeks to most painful region. Consider local steroid injection if not better or worse. Assessment & Plan (07/01/2019 10:06 PM EDT): Joint protection, energy conservation. Avoid falls, injuries, overuse. Warm pool therapy 2-3 times per week x 16 weeks. Work diligently on dietary modifications to decrease body weight as close as possible to ideal range for her height. Topical Arnica versus Blue emu, Capsaicin, Thera-Gesic versus medicated patches such as Salonpas or icy hot patch 2-3 times daily and if necessary at bedtime x 3 weeks to most painful region. Consider local steroid injection if not better or worse. On statin therapy 07/01/2019 Assessment & Plan (06/24/2024 11:22 AM EDT): Monitor for muscle tenderness, swelling and weakness Assessment & Plan (03/17/2022 3:00 PM EDT): Monitor for muscle tenderness, swelling and weakness Assessment & Plan (10/08/2020 10:14 AM EST): Monitor for muscle tenderness, swelling and weakness Assessment & Plan (09/19/2020 5:23 PM EST): Monitor for muscle tenderness, swelling and weakness Assessment & Plan (11/01/2019 10:06 AM EST): Monitor for muscle tenderness, swelling and weakness Assessment & Plan (07/17/2019 10:37 AM EST): Monitor for muscle tenderness, swelling and weakness Assessment & Plan (07/01/2019 10:00 PM EDT): Monitor for muscle tenderness, swelling and weakness Gastroesophageal reflux disease without esophagi tis 07/01/2019 Assessment & Plan (06/07/2024 11:45 AM EDT): Avoid late, large, spicy meals. Keep headboard elevated at 45 angle for nighttime. Assessment & Plan (09/29/2022 8:39 AM EST): Avoid late, large, spicy meals. Keep headboard elevated at 45 angle for nighttime. Assessment & Plan (03/17/2022 2:59 PM EDT): Avoid late, large, spicy meals. Keep headboard elevated at 45 angle for nighttime. Assessment & Plan (12/16/2020 9:15 AM EDT): Avoid late, large, spicy meals. Keep headboard elevated at 45 angle for nighttime. Assessment & Plan (10/08/2020 10:13 AM EST): Avoid late, large, spicy meals. Keep headboard elevated at 45 angle for nighttime. Assessment & Plan (09/19/2020 5:23 PM EST): Avoid late, large, spicy meals. Keep headboard elevated at 45 angle for nighttime. Assessment & Plan (11/01/2019 10:06 AM EST): Avoid late, large, spicy meals. Keep headboard elevated at 45 angle for nighttime. Assessment & Plan (07/17/2019 10:37 AM EST): Avoid late, large, spicy meals. Keep headboard elevated at 45 angle for nighttime. Assessment & Plan (07/01/2019 9:59 PM EDT): Avoid late, large, spicy meals. Keep headboard elevated at 45 angle for nighttime. Aspirin long-term use 07/01/2019 Assessment & Plan (06/07/2024 11:44 AM EDT): Avoid falls, injuries and cuts. Monitor for excessive bruising and bleeding. Assessment & Plan (09/29/2022 8:38 AM EST): Avoid falls, injuries and cuts. Monitor for excessive bruising and bleeding. Assessment & Plan (04/02/2022 11:40 AM EDT): Additional time allowed for securing clots after each injections due to chronic anticoagulation with baby aspirin and Pletal. Avoid falls, injuries and cuts. Monitor for excessive bruising and bleeding. Assessment & Plan (12/16/2020 9:17 AM EDT): Avoid falls, injuries and cuts. Monitor for excessive bruising and bleeding. Assessment & Plan (09/19/2020 5:23 PM EST): Avoid falls, injuries and cuts. Monitor for excessive bruising and bleeding. Assessment & Plan (01/23/2020 11:58 AM EDT): Avoid falls, injuries and cuts. Monitor for excessive bruising and bleeding. Assessment & Plan (11/01/2019 10:05 AM EST): Avoid falls, injuries and cuts. Monitor for excessive bruising and bleeding. Assessment & Plan (07/28/2019 10:57 AM EST): Avoid falls, injuries and cuts. Monitor for excessive bruising and bleeding. Assessment & Plan (07/01/2019 10:00 PM EDT): Avoid falls, injuries and cuts. Monitor for excessive bruising and bleeding. Plantar fasciitis of right foot 07/01/2019 Assessment & Plan (07/01/2019 9:58 PM EDT): Gentle stretching, proper shoes, topicals, weight control If not better or worse consider local steroid injection. Trochanteric bursitis of right hip 07/01/2019 Assessment & Plan (07/01/2019 10:00 PM EDT): Gentle, regular ROM, retching and muscle strengthening after warm pack or warm shower. Topical cream versus patch 2-3 times daily x 3 weeks. Consider local steroid injection if not better or worse. Left carpal tunnel syndrome Acquired trigger finger of left middle finger Resolved Problems Problem Noted Date Diagnosed Date Resolved Date NSAID long-term use 01/23/2020 06/07/20 Assessment & Plan (10/02/2022 10:08 PM EST): Take the lowest dose, with least frequency, for shortest time. Remember to take it always with food. Favor topical over oral preparations. Assessment & Plan (04/02/2022 11:42 AM EDT): I have warned Mis that taking oral nonsteroidal anti-inflammatory while on baby aspirin and Pletal markedly increases risk of bleeding including within GI tract and should be avoided. Take the lowest dose, with least frequency, for shortest time. Remember to take it always with food. Favor topical over oral preparations. Assessment & Plan (12/16/2020 9:15 AM EDT): Take the lowest dose, with least frequency, for shortest time. Remember to take it always with food. Favor topical over oral preparations. Assessment & Plan (10/11/2020 5:22 PM EST): Take the lowest dose, with least frequency, for shortest time. Remember to take it always with food. Favor topical over oral preparations. Assessment & Plan (09/19/2020 5:24 PM EST): She is educated to hold diclofenac and misoprostol while taking dexamethasone. Take the lowest dose, with least frequency, for shortest time. Remember to take it always with food. Favor topical over oral preparations. Assessment & Plan (01/23/2020 11:59 AM EDT): Take the lowest dose, with least frequency, for shortest time. Remember to take it always with food. Favor topical over oral preparations. Class 3 severe obesity due t o excess calories without serious comorbidity with body mass index (BMI) of 40.0 to 44.9 in adult 07/01/2019 Assessment & Plan (12/16/2020 9:16 AM EDT): Portion control. Limit concentrated sugars, saturated fats and calories in the diet. Keep well-hydrated. If unable to achieve expected goal consider formal dietary/nutritional support. Assessment & Plan (10/08/2020 10:13 AM EST): Portion control. Limit concentrated sugars, saturated fats and calories in the diet. Keep well-hydrated. If unable to achieve expected goal consider formal dietary/nutritional support. Assessment & Plan (09/19/2020 5:21 PM EST): Portion control. Limit concentrated sugars, saturated fats and calories in the diet. Keep well-hydrated. If unable to achieve expected goal consider formal dietary/nutritional support. Assessment & Plan (11/05/2019 7:48 AM EST): Portion control. Limit concentrated sugars, saturated fats and calories in the diet. Keep well-hydrated. If unable to achieve expected goal consider formal dietary/nutritional support. Assessment & Plan (07/17/2019 10:36 AM EST): Portion control. Limit concentrated sugars, saturated fats and calories in the diet. Keep well-hydrated. If unable to achieve expected goal consider formal dietary/nutritional support. Assessment & Plan (07/01/2019 9:54 PM EDT): Portion control. Limit concentrated sugars, saturated fats and calories in the diet. Keep well-hydrated. If unable to achieve expected goal consider formal dietary/nutritional support. Immunizations Immunization Administration Dates Next Due COVID-19 (Pre-07/03) Pfizer Vaccine, mRNA, PF INFLUENZA, SPLIT VIRUS, TRIVALENT PF 08/22/2017 INFLUENZA, SPLIT VIRUS, TRIVALENT W/ PRESERVATIV E IM 06/27/2016,07/01/2014 Influenza Quadrivalent MDCK Preservative Free IM 05/28/2020 Influenza Quadrivalent Preservative Free IM 06/12 Influenza, Unspecified Formulation 07/07/2019 Social History Tobacco Use Types Packs/Day Years Used Date Smoking Tobacco: Former Cigarettes Q uit: 12/30/2016 Smokeless Tobacco: Never Alcohol Use Standard Drinks/Week Comments Never 0 (1 standard drink = 0.6 oz pur e alcohol) Education Answer Date Recorded Are you interested in more education? Not on braeden e 01/06/2023 Are you concerned about learning? Not on file 01/06/2023 No 01/06/2023 No 01/06/2023 Digital Access Answer Date Recorded No 02/01/2023 No 02/01/2023 Reliable internet access at home? Not on file 02/01/2023 Device with a working camera? Not on file Comments No Sex and Gender Information Value Date Recorded Sex Assigned at Not on file Legal Sex Female 9:40 PM EDT Gender Identity Not on file Sexual Orientation Not on file Last Filed Vital Signs Vital Sign Reading Time Taken Comments Blood Pressure 124/74 06/07/2024 11:07 AM EDT Pulse 64 06/07/2024 11:07 AM EDT Temperature 36.2 C (97.2 F) 04/05/2023 11:52 AM EDT Respiratory Rate 13 04/05/2023 12:1 0 PM EDT Oxygen Saturation 96% 06/07/2024 11: 07 AM EDT Inhaled Oxygen Concentration - - Weight 112.9 kg (248 lb 12.8 oz) 06/07/2024 11:07 AM EDT with shoes and pocket full of change Height 162.6 cm (5' 4 ) 06/07/2024 11:0 7 AM EDT Body Mass Index 42.71 06/07/2024 11:07 AM EDT Plan of Treatment Health Maintenance Due Date Last Done Comments Adult Td,Tdap Booster 1966 DEPRESSION SCREENING 1978 SMOKING Hx and SMOKELESS TOBACCO SCREENING 1979 HEPATITIS C SCREENING 02/15/1984 HIV ONE-TIME SCREENING (18-65 YEARS) 02/15/1984 PAP SMEAR 1987 COLOGUARD 2011 COLONOSCOPY 2011 COLORECTAL CANCER SCREENING 2011 FIT TEST 2011 FOBT 2011 SIGMOIDOSCOPY 2011 VIRTUAL COLONOSCOPY 2011 RSV VACCINE (1 - Risk 50-74 years 1-dose series) 02/15/2016 ZOSTER VACCINES (1 of 2) 02/15/2016 DIABETIC EYE EXAM 03/24/2022 11/20/2017, 10/11/2016 PNEUMOCOCCAL VACCINES (50+ years) (2 of 2 - PCV) 10/06/2022 10/06/2021 MAMMOGRAM 05/13/2023 05/13/2021, 05/06/2020 HEMOGLOBIN A1C 10/25/2024 04/24/2024, 09/12, 07/25/2022, Additional history exists BLOOD PRESSURE 12/05/2024 06/07/2024 INFLUENZA VACCINE (#1) 2025 , 07/25/2022, 06/13/2021, Additional history exists CREATININE LEVEL 05/07/2025 05/07/2024, , 03/17/2022, Additional history exists POTASSIUM LEVEL 05/07/2025 05/07/2024, 09/11, 03/17/2022, Additional history exists COVID-19 VACCINE ( season) 2025 06/13/2022, 08/15/2021, 08/15/2021, Additional history exists HEPATITIS A VACCINES Aged Out No long er eligible based on patient's age to complete this topic HIB VACCINES Aged Out No longer eligi ble based on patient's age to complete this topic MENINGOCOCCAL VACCINES (ACWY) Aged Out No longer eligible based on patient's age to complete this topic MENINGOCOCCAL VACCINES (B) Aged Out N o longer eligible based on patient's age to complete this topic Medical Devices Implanted Type Area Scrap Dealer Device Identifier Shelf Expiration Date Model / Serial / Lot Screw Screw Left: Foot Procedures Procedure Name Priority Date/Time Associated Diagnosis Comments COMPREHENSIVE METABOLIC PANEL (CMP) Routine 05/07/2024 10:23 AM EDT Primary osteoarthritis involving multiple joints POCT HEMOGLOBIN A1C Routine 10/04/2022 9 :10 AM EST Type 2 diabetes mellitus without complication, without long-term current use of insulin from Last 3 Months or Most Recently Relevant to Health Maintenance Results * (ABNORMAL) Comprehensive metabolic panel (05/07/2024 10:23 AM EDT) SODIUM 140 133 - 146 mmol/L [facility] POTASSIUM 4.2 3.3 - 5.1 mmol/L [facility] CHLORIDE 105 96 - 108 mmol/L [facility] CO2 23 21 - 35 mmol/L [facility] BUN 10 6 - 19 mg/dL [facility] CREATININE 0.70 0.5 - 1.5 mg/dL [facility] GLUCOSE 113(H) 70 - 99 mg/dL [facility] ALBUMIN 4.1 3.9 - 4.8 g/dL [facility] TOTAL PROTEIN 6.9 6.5 - 8.0 g/dL [facility] CALCIUM 9.2 8.4 - 10.3 mg/dL [facility] ALKALINE PHOSPHATASE 65 39 - 117 U/L [facility] TOTAL BILIRUBIN <0.2 0.0 - 1.2 mg/dL [facility] AST 25 0 - 37 U/L [facility] ALT 25 0 - 40 U/L [facility] GLOBULIN 2.8 1 - 4.8 g/dL [facility] EGFR 100 >59 mL/min/1.7 3m2 [facility] Comment:Estimated glomerular filtration rate calculated using the CKD-EPI refit equation. ANION GAP 16 10 - 20 mmol/L [facility] Blood 05/07/2024 10:2 3 AM EDT 05/07/2024 10:27 AM EDT us Jessica Luna MD LAB BLOOD BKR ORDERABLES Final Result [facility] [address] [place] [address] * (ABNORMAL) POCT Hemoglobin A1c (10/04/2022 9:10 AM EST) Hemoglobin A1c 6.9(A) 4.2 - 5.8 % [facility] 10/04/2022 9:10 AM EST us Dahiana Desai EDUCATIONAL RECRUITER LAB POCT ENTER/EDIT ORDERABLE S Final Result [facility] [address] [place] [address], [facility] from Last 3 Months or Most Recently Relevant to Health Maintenance Insurance [employer] Advance Directives For more information, please contact: [phone] (9AM - 5PM [place], Monday-Monday) * Full Code (Presumed) (Latest Code Status on File) Date Activated Date Inactivated Comments 04/01/2020 7:27 AM Care Teams Boat Canvas Maker Installer Relationship Specialty Start Date End Date Naila Vargas MD [address] [place] [address] PCP - General Internal Medicine 03/21/23 Additional Source Comments The information contained in this document represents components of the legal health record. It is not the complete legal health record.[facility]
--- OUTSIDE RECORDS SUMMARY | 2025-07-17 11:45 | XMS_ITS | Encounter Summary ---
Author Organization [employer] [facility] Address [address] [place] [address] Care Team Providers Care Private Wealth Advisor Name Role Phone Unavailable Primary Care Provider Unavailabl e Encounter Details Date Type Department Care Team (Latest Contact Info) Description 11/09/2018 Abstract [facility] CONVERSIONS Dental, Provider, DDS Social History [...] Description 09/18/2025 8:45 AM EST Office Visit [facility] ADULT DENTAL [address] [place] [address] Leticia Socorro [address] [place] [address] documented as of this encounter Visit Diagnoses Not on filedocumented in this encounter
--- OUTSIDE RECORDS SUMMARY | 2025-07-17 11:45 | XMS_ITS | Encounter Summary ---
Author Organization [facility] [place] [address] Care Team Providers Care Embedder Name Role Phone Naila Vargas MD Primary Care Provider [phone] Reason for Visit * Reason Onset Date Comments Results 07/15/2025 Encounter Details Date Type Department Care Team (Late st Contact Info) Description 07/15/2025 Results Follow-Up Adult Medicine [address] [phone] Naila Vargas MD [address] [place] [address] Social History Tobacco Use Types Packs/Day Years [...] as of this encounter Progress Notes * Dahiana Wong MA - 07/15/2025 8:42 AM EST Lm for return call Ext [phone] * Dahiana Wong MA - 07/15/2025 8:42 AM EST ----- Message from Cipriano Vargas MD sent at 07/15/2025 8:05 AM EST ----- Please call patient to let her know that her hemoglobin A1c is 7, I would recommend to start Jardiance as she is on max dose of metformin, if patient is okay with that please let me know and I will send a prescription to the pharmacy. She will repeat hemoglobin A1c in 3 months ----- Message ----- From: Lab, Background User Sent: 07/02/2025 12:41 PM EST To: Naila Vargas MD documented in this encounter Plan of Treatment Upcoming Encounters Date Type Department Care Team (Late st Contact Info) Description 07/24/2025 9:45 AM EST Office Visit Pulmonology - [address] [place] [address] Maricel Hawkins, ALFREDA [address] [place] [address] 10/28/2025 10:15 AM EST Office Visit Adult Medicine [address] [phone] Naila Vargas MD [address] [place] [address] documented as of this encounter Visit Diagnoses Not on filedocumented in this encounter Care Teams Embedder Relationship Specialty Start Date End Date Naila Vargas MD [address] [place] [address] PCP - General Internal Medicine 04/18/22 documented as of this encounter
--- OUTSIDE RECORDS SUMMARY | 2025-07-17 11:45 | XMS_ITS | Encounter Summary ---
Author Organization [facility] Address [address] [place] [address] Phone Care Team Providers Care Complex Manager Name Role Phone Zeynep Smith MD Primary Care Provider [phone] Pcp, Unknown Primary Care Provider Naila Jose MD Primary Care Provider [phone] Encounter Details Date Type Department Care Team (Late st Contact Info) Description 03/17/2020 Prep for Surgery [facility] Orthopedics & Sports Medicine [address] [place] [address] Jessica Horton MD [address] [place] [address] Orthopedics & Sports Medicine, [place] [address] [email or web address] Social History Tobacco Use Types Packs/Day Years Used Date Smoking Tobacco: Former Cigarettes Q uit: 12/30/2016 Smokeless Tobacco: Never Alcohol Use Standard Drinks/Week Comments Not Currently 0 (1 standard drink = 0.6 oz pur e alcohol) Comments Unknown Sex and Gender Information Value Date Recorded Sex Assigned at Not on file Legal Sex Female 9:40 PM EDT Gender Identity Not on file Sexual Orientation Not on file documented as of this encounter Plan of Treatment Not on file documented as of this encounter Visit Diagnoses Not on filedocumented in this encounter Care Teams Complex Manager Relationship Specialty Start Date End Date Zeynep Smith MD [address] [place] [address] PCP - General Internal Medicine 12/13/17 09/28/22 Pcp, Unknown PCP - General 09/29/22 03/20/23 Naila Vargas MD [address] [place] [phone] PCP - General Internal Medicine 03/21/23 documented as of this encounter Additional Source Comments The information contained in this document represents components of the legal health record. It is not the complete legal health record.[facility]
--- OUTSIDE RECORDS SUMMARY | 2025-07-17 11:45 | XMS_ITS | Encounter Summary ---
Author Organization [facility] Address [address] [place] [address] [address] [place] [address] Phone Care Team Providers Care Transportation Maintenance Operator Name Role Phone Zeynep Smith MD Primary Care Provider [phone] Pcp, Unknown Primary Care Provider Naila Jose MD Primary Care Provider [phone] Encounter Details Date Type Department Care Team (Late st Contact Info) Description 07/01/2019 Ancillary Orders [facility] Rheumatology [address] [place] [address] Jessica Luna MD [address] [place] [address] [email or web address] Chronic pain in right foot; Bilateral carpal tunnel syndrome; Plantar fasciitis of right foot Social History Tobacco Use Types Packs/Day Years [...] documented as of this encounter Results * XR FOOT 3 OR MORE VIEWS (BILATERAL) (07/01/2019 10:37 AM EDT) Anatomical Region Laterality Modality Foot Left Radiographic Tanja ging 07/01/2019 11:2 5 AM EDT Impressions 07/01/2019 11:35 AM EDT 1. No significant changes on the right compared with 12/08/2013. 2. Postsurgical changes and mild degenerative changes on the left. 3. Moderate sized plantar calcaneal spur on each side and enthesopathy at the insertion of the Achilles tendons. POS - [id number] Narrative 07/01/2019 11:35 AM EDT HISTORY: Bilateral foot pain, plantar fasciitis on right. COMPARISON: Right foot x-ray 12/08/2013 FINDINGS: Right: Stable mild spurring at the first MTP joint. Joint spaces are well- maintained. No evidence of erosions. No acute fractures. No subluxations or dislocations. Similar calcific or ossific density adjacent to the lateral margin of the cuboid bone stable moderate size plantar calcaneal spur. Similar enthesopathy at the insertion of the Achilles tendon. No other significant changes. Left: Orthopedic plates and screws within the bases of the second, third metatarsals and adjacent cuneiform bones. Transversely oriented screw through the first through third cuneiform bones. Mild degenerative spurring at multiple joints. Moderate size exostosis at the lateral aspect of the base of the proximal phalanx of the first digit. Smaller exostosis within the base of the proximal phalanx of the second digit laterally. No suspicious lucencies or areas of sclerosis within the bones. No acute fractures, subluxations or dislocations. Moderate-sized plantar calcaneal spur. Mild-moderate enthesopathy at the insertion of the Achilles tendon. Procedure Note Rick Webber MD - 07/01/2019 HISTORY: Bilateral foot pain, plantar fasciitis on right. COMPARISON: Right foot x-ray 12/08/2013 FINDINGS: Right: Stable mild spurring at the first MTP joint. Joint spaces arewell- maintained. No evidence of erosions. No acute fractures. Nosubluxations or dislocations. Similar calcific or ossific density adjacentto the lateral margin of the cuboid bone stable moderate size plantarcalcaneal spur. Similar enthesopathy at the insertion of the Achillestendon. No other significant changes. Left: Orthopedic plates and screws within the bases of the second, thirdmetatarsals and adjacent cuneiform bones. Transversely oriented screwthrough the first through third cuneiform bones. Mild degenerativespurring at multiple joints. Moderate size exostosis at the lateral aspectof the base of the proximal phalanx of the first digit. Smaller exostosiswithin the base of the proximal phalanx of the second digit laterally. Nosuspicious lucencies or areas of sclerosis within the bones. No acutefractures, subluxations or dislocations. Moderate-sized plantar calcanealspur. Mild-moderate enthesopathy at the insertion of the Achillestendon. IMPRESSION: 1. No significant changes on the right compared with 12/08/2013. 2. Postsurgical changes and mild degenerative changes on the left. 3. Moderate sized plantar calcaneal spur on each side and enthesopathy atthe insertion of the Achilles tendons. POS - [id number] Jessica Luna MD IMG XR LOWER EXTREMITY F inal Result documented in this encounter Visit Diagnoses Diagnosis Chronic pain in right foot Bilateral carpal tunnel syndrome Carpal tunnel syndrome Plantar fasciitis of right foot Chronic pain in left foot Chronic pain in right foot Bilateral carpal tunnel syndrome Carpal tunnel syndrome Plantar fasciitis of right foot documented in this encounter Care Teams Transportation Maintenance Operator Relationship Specialty Start Date End Date Zeynep Smith MD [address] [place] [phone] PCP - General Internal Medicine 12/13/17 09/28/22 Pcp, Unknown PCP - General 09/29/22 03/20/23 Naila Vargas MD [address] [place] [address] PCP - General Internal Medicine 03/21/23 documented as of this encounter Additional Source Comments The information contained in this document represents components of the legal health record. It is not the complete legal health record.[facility]
--- OUTSIDE RECORDS SUMMARY | 2025-07-17 11:45 | XMS_ITS | Clinical Summary ---
Author Organization [employer] Address [address] 7[address] [place] [address] Care Team Providers Care Embedded Engineer Name Role Phone Unavailable Primary Care [...] 23 Active cholecalciferol (Vitamin D-3) 1.25 MG (12361 UT) capsule Take 50,000 Units by mouth [...] Active Problems Problem Noted Date Diagnosed Date Missing teeth, acquired 03/05/2025 Normal oral exam 09/03/2024 Periodontal disease 10/23/2023 [...] Sign Reading Time Taken Comments Blood Pressure 134/82 03/05/2025 10:12 AM EDT Pulse 72 10/23/2023 10:04 AM EST Temperature - - Respiratory Rate - - Oxygen Saturation - - Inhaled Oxygen Concentration - - Weight - - Height - - Body Mass Index - - Plan of Treatment Upcoming Encounters Date Type Department Care Team (Late st Contact Info) Description 09/18/2025 8:45 AM EST Office Visit [facility] ADULT DENTAL [address] [place] [address] Leticia, Socorro [address] [place] [address] Health Maintenance Due Date Last Done Comments CT Colonography 1966 Colonoscopy 1966 Colorectal Cancer Screening 1966 Depression Screening 1966 FIT DNA/Cologuard 1966 FIT 1966 FOBT 1966 HIV Screening 1966 Lipid Panel 1966 SDOH Screening 1966 Sigmoidoscopy 1966 Disability Screening 1966 Alcohol/Substance Use Screening 1978 Hepatitis C Screening 02/15/1984 DTaP/Tdap/Td Vaccines (1 - Tdap) 1985 Hepatitis B Vaccines (1 of 3 - 19+ 3-dose series) 1985 Pap Smear 1987 Cervical Cancer Screening 02/15/1996 HPV/Cotest 02/15/1996 Zoster Vaccines (1 of 2) 02/15/2016 Pneumococcal Vaccine: 50+ Years (2 of 2 - PCV) 10/06/2022 10/06/2021 Dental Oral Exam 03/05/2025 09/03/2024, 08/2024, 04/22/2022, Additional history exists COVID-19 Vaccine ( - season) 2025 06/13/2022, 08/15/2021, 12/26/2020, Additional history exists Influenza Vaccine (#1) 2025 , 08/09/2023, 07/25/2022, Additional history exists Dental X-Ray: Bitewings 09/04/2025 09/03/20 24, 10/23/2023, 04/22/2022, Additional history exists Dental Prophylaxis 09/05/2025 03/05/2025, 1 11/04/2023, 10/23/2023, Additional history exists Tobacco Screening 03/05/2026 03/05/2025 Mammogram 08/26/2026 08/26/2024, 08/26/2024 Dental X-Ray: Full Mouth 10/24/2026 024, 11/14/2019, 07/02/2015, Additional history exists RSV Patients and Patients Aged 60 years or older (1 - 1-dose 75+ series) 2041 HIB Vaccines Aged Out No longer eligi [...] age to complete this topic Meningococcal B Vaccine Aged Out No l onger eligible based on patient's age to complete [...] Procedure Name Priority Date/Time Associated Diagnosis Comments PROPHYLAXIS - ADULT Routine 03/05/2025 1 0:00 AM EDT Periodontal disease Dental calculus BITEWINGS - 4 [...]
--- OUTSIDE RECORDS SUMMARY | 2025-07-17 11:45 | XMS_ITS | Encounter Summary ---
Author Organization [facility] Address [address] [place] [phone] Phone Care Team Providers Care Tool Crib Supervisor Name Role Phone Naila Vargas MD Primary Care Provider [phone] Encounter Details Date Type Department Care Team (Late st Contact Info) Description 03/21/2023 Prep for Surgery [facility] Orthopedics & Sports Medicine [address] [place] [address] Jessica Horton MD [address] [place] [address] Orthopedics & Sports Medicine, [facility] [place] [place] [address] [email or web address] Social History Tobacco Use Types Packs/Day Years [...] on filedocumented in this encounter Care Teams Tool Crib Supervisor Relationship Specialty Start Date End Date Naila Vargas MD [address] [place] [phone] PCP - General Internal Medicine 03/21/23 documented as of this encounter Additional Source Comments The information contained in this document represents components of the legal health record. It is not the complete legal health record.[facility]
--- OUTSIDE RECORDS SUMMARY | 2025-07-17 11:45 | XMS_ITS | Clinical Summary ---
Author Organization 175 [facility] Address [address] [place] [address] Phone Care Team Providers Care Contour Stitcher Name Role Phone Naila Vargas MD Primary Care Provider [phone] Allergies Active Allergy Reactions Criticality Noted Date Comments Clarithromycin 01/15/2014 Other 02/21/2019 Environmental seasonal allergies; Seasonal Allergies Pollen Extracts 02/21/2019 Medications acetaminophen (TYLENOL) 500 mg tablet Take 1 Tablet by mouth every 6 hours as needed. Active aspirin 81 mg EC tablet Take 81 mg by mouth daily. Active blood-glucose meter kit Use to check blood sugar once daily 07/09/20 24 Active blood-glucose meter kit 04/11/20 24 Active cetirizine (ZyrTEC) 10 mg capsule Take 10 mg by mouth daily. 12/22/19 24 Active ciclopirox (LOPROX) 0.77 % cream Apply to affected cuticle after washing hands 07/25/20 22 Active diclofenac (VOLTAREN) 1 % topical gel Apply 2 g topically 2 times daily as needed for Other (Elbow pain). 07/09/20 24 Active fluticasone propionate (FLONASE) 50 mcg/actuation nasal spray 2 Sprays by Each Nare route daily. 12/22/19 24 Active blood sugar diagnostic (FreeStyle Lite Strips) test strip Use to check blood sugar once daily 07/09/20 24 Active lamoTRIgine (LaMICtal) 25 mg tablet daily. 12/15/19 23 Active ONETOUCH DELICA LANCETS MISC Use to test blood sugar daily 09/30/19 22 Active lancets (OneTouch Delica Plus Lancet) 33 gauge USE ONCE DAILY TO CHECK FASTING BLOOD SUGAR 100 each 1 08/19/20 24 Active lipase-protease- amylase (Creon) 36,000-114,000- 180,000 unit capsule,delayed release(DR/EC) Take 2 capsules by mouth 3 (three) times a day. 540 capsule 4 08/21/20 24 Active albuterol 2.5 mg /3 mL (0.083 %) nebulizer solutionIndicati ons:Moderate persistent asthma with exacerbation Take 3 mL (2.5 mg total) by nebulization every 6 (six) hours if needed for wheezing. 100 mL 2 09/20/19 25 026 Active tiotropium (Spiriva Respimat) 2.5 mcg/actuation inhalation sprayIndications :Moderate persistent asthma with exacerbation Inhale 2 puffs by mouth 1 (one) time each day. 1 each 12 09/20/19 25 026 Active albuterol HFA (PROAIR HFA ; PROVENTIL HFA ; VENTOLIN HFA) 90 mcg/actuation inhalerIndicatio ns:Moderate persistent asthma with exacerbation Inhale 2 puffs by mouth every 4 (four) hours if needed for wheezing or shortness of breath (cough and chest tightness). 54 g 3 09/20/19 25 Active atorvastatin (LIPITOR) 40 mg tablet Take 1 tablet (40 mg total) by mouth at bedtime. Active ticagrelor (Brilinta) 90 mg tablet Take 1 tablet (90 mg total) by mouth 2 (two) times a day. Active metoprolol tartrate (LOPRESSOR) 25 mg tablet Take 1 tablet (25 mg total) by mouth 1 (one) time each day. Active cholecalciferol (VITAMIN D-3) 25 mcg (1,000 unit) tablet Take 1 tablet (1,000 Units total) by mouth 1 (one) time each day. Active hydrOXYzine HCL (ATARAX) 25 mg tablet Take 1 tablet (25 mg total) by mouth. 11/07/19 25 Active omeprazole (PriLOSEC) [address] capsule TAKE 1 CAPSULE BY MOUTH DAILY. TAKE IN A.M. ON EMPTY STOMACH, WAIT 30 MINUTES AND THEN EAT 90 capsule 1 03/07/20 25 Active losartan (COZAAR) 25 mg tablet Take 1 tablet (25 mg total) by mouth 1 (one) time each day. 90 tablet 1 03/07/20 25 Active fluticasone propion-salmeter oL (Advair HFA) 230-21 mcg/actuation inhalerIndicatio ns:Moderate persistent asthma with exacerbation Inhale 2 puffs by mouth 2 (two) times a day. Rinse mouth with water after use to reduce aftertaste and incidence of candidiasis. Do not swallow. 1 each 2 04/20/20 25 025 Active DULoxetine (CYMBALTA) [address] capsule Take 1 capsule (60 mg total) by mouth 1 (one) time each day. 04/15/20 25 Active metFORMIN (GLUCOPHAGE) 500 mg tablet Take 2 tablets (1,000 mg total) by mouth 2 (two) times a day with meals. 360 tablet 1 04/24/20 25 Active amLODIPine (NORVASC) 2.5 mg tablet Take 1 tablet (2.5 mg total) by mouth 1 (one) time each day. 90 tablet 1 06/25/20 25 Active amLODIPine (NORVASC) 2.5 mg tablet TAKE 1 TABLET BY MOUTH EVERY DAY 90 tablet 1 01/04/20 25 025 Discontin ued(Reord er) FLUoxetine (PROzac) 20 mg capsule TAKE 1 CAPSULE BY MOUTH EVERY DAY 90 capsule 1 01/24/20 025 Discontin ued(Thera py completed ) Active Problems Problem Noted Date Diagnosed Date Spinal stenosis of lumbar re gion without neurogenic claudication 06/25/2025 NSTEMI (non-ST elevated myoc ardial infarction) (CMS/HCC V24, CMS/HCC V28) 12/12/2024 History of coronary artery stent placement 11/28 Coronary artery disease invo lving pala coronary artery of pala heart without angina pectoris 11/28/2024 Anxiety and depression 11/28/2024 Achilles tendon disorder 07/18/2024 Overview (07/18/2024): Right s/p PT, 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 Follows with [facility] Dyslipidemia 07/18/2024 Pancreatic insufficiency 07/18/2024 Vitamin D deficiency 07/18/2024 Precordial pain 03/01/2024 Carotid artery stenosis 10/31/2023 Overview (07/18/2024): Right ICA 80% on CTA @ [place] [facility] 10/11/2023 Nocturnal hypoxia 03/09/2023 Overview (07/18/2024): 01/30/2023 overnight oximetry on CPAP showed pulmonary 1. Lowest oxygen saturation 87%. 2. Time spent<88 or below is 2 minutes. 3. Time spent on CPAP with adequate oxygen. GERD (gastroesophageal reflux disease) Glaucoma suspect of both eyes 05/06/2022 Overview (07/18/2024): Low risk Type 2 diabetes mellitus wit h cataract ([facility] V24, [facility] V28) 04/16/2022 DM (diabetes mellitus), type 2 with neurological complications ([facility] V24, [facility] V28) 11/01/2021 Overview (07/18/2024): Dx 09/2021, significant improvement with dietary management DM (diabetes mellitus), type 2 with peripheral vascular complications ([facility] V24, [facility] V28) 02/15/2021 Vitamin B12 deficiency 02/15/2021 Essential hypertension 01/29/2021 Morbid obesity with BMI of 4 0.0-44.9, adult ([facility] V24, [facility] V28) 01/29/2021 Cervical radiculitis 10/28/2020 Obstructive sleep apnea 04/07/2020 [...] normal CT chest 02/2020 Moderate episode of recurren t major depressive disorder ([facility] V24, [facility] V28) 10/08/2019 Carpal tunnel syndrome, bilateral 05/16/2018 Overview (07/18/2024): Severe s/p EMG 05/2018 referred to general surgery Atypical chest pain 02/12/2018 Overview (07/18/2024): Negative nuclear stress 02/2018 Peripheral vascular disease ([facility] V24) 2017 Overview (07/18/2024): CT angio with bilateral SFA occlusions, s/p left SFA repair 12/2017, follows with vascular Plantar fasciitis, bilateral 12/11/2017 Overview (07/18/2024): Follows with orthopedic and podiatry Tarsal tunnel syndrome, bilateral 12/11/2017 Overview (07/18/2024): Follows with podiatry Anatomical narrow angle 11/20/2017 Overview (07/18/2024): s/p LPI Nuclear sclerosis of both eyes 11/20/2017 Encounters Date Type Department Care Team Description 07/15/2025 Results Follow-Up Adult Medicine [address] [phone] Naila Vargas MD 06/26/2025 Telephone Adult Medicine [address] [phone] Naila Vargas MD 06/25/2025 3:30 PM EDT Office Visit Adult Medicine [address] [phone] Naila Vargas MD Peripheral vascular disease ([facility] V24) (Primary Dx); Cervical radiculitis; Moderate episode of recurrent major depressive disorder ([facility] V24, [facility] V28); DM (diabetes mellitus), type 2 with peripheral vascular complications ([facility] V24, [facility] V28); Essential hypertension; Spinal stenosis of lumbar region without neurogenic claudication 05/05/2025 Telephone Pulmonology [facility] [address] [phone] Maricel Hawkins NP 04/24/2025 3:30 PM EDT Office Visit Adult Medicine [address] [phone] Naila Vargas MD Type 2 diabetes mellitus with other circulatory complication, without long-term current use of insulin ([facility] V24, [facility] V28) (Primary Dx); Morbid obesity with BMI of 40.0-44.9, adult ([facility] V24, [facility] V28); Essential hypertension; Screening for cervical cancer; Hair loss; Acquired hypothyroidism 04/21/2025 Telephone Pulmonology [facility] [address] [phone] Leland Chavez [place], [place] 04/16/2025 4:00 PM EDT Office Visit [address]mon[address] [phone] Maricel Hawkins NP Moderate persistent asthma with exacerbation (Primary Dx); Obstructive sleep apnea; Nocturnal hypoxia; Morbid obesity with BMI of 40.0-44.9, adult ([facility] V24, [facility] V28) from Last 3 Months Immunizations Immunization Administration Dates Next Due Influenza Quadravalent, MDCK [...] HISTORICAL TUBAL LIGATION OTHER SURGICAL HISTORY PROCEDURE: CA EXCISION PILONIDAL CYST/SINUS COMPLICATED; COMMENT: x 2 COLONOSCOPY 09/25 PROCEDURE: HISTORICAL COLONOSCOPY LITHOTRIPSY PROCEDURE: HISTORICAL LITHOTRIPSY; COMMENT: x 2 CARPAL TUNNEL RELEASE PROCEDURE: CA NEUROPLASTY &/TRANSPOS MEDIAN NRV CARPAL TUNNE; COMMENT: L side ESOPHAGOGASTRODUODENOSCOPY PROCEDURE: CA EGD TRANSORAL BIOPSY SINGLE/MULTIPLE; COMMENT: Performed on November 24, 2020-performed with colonoscopy, negative celiac COLONOSCOPY PROCEDURE: HISTORICAL COLONOSCOPY; COMMENT: Performed on November 24, 2020 with endoscopy, no evidence of microscopic colitis Medical History Medical History Date Comments Dyslipidemia DX:Dyslipidemia Achilles tendon disorder right DX:Achi lles tendon disorder; COMMENT: s/p PT, f/u with studio technician Vitamin D deficiency DX:Vitamin D deficiency Prediabetes [...] both eyes PAD (peripheral artery disea se) ([facility] V24) 12/18/2017 DX:PAD (peripheral artery di sease) ([facility]); COMMENT: CT angio with bilateral SFA occlusions, pending repair 12/2017, follows with vascular Atypical chest pain 02/12/2018 DX:Atypical chest pain; COMMENT: Negative nuclear stress 02/2018 Carpal tunnel syndrome, bilateral 05/16/2018 DX:Carpal tunnel syndrome, bilateral; COMMENT: Severe s/p EMG 05/2018 referred to general surgery Former tobacco use DX:Former tob acco use; COMMENT: Since age 13, quit 02/2018 Atherosclerosis of pala ar yamila of both lower extremities with intermittent claudication ([facility] V24) 03/21/2018 DX:Atherosclerosis of pala artery of both lower extremities with intermittent claudication (HCC) Obesity (BMI 35.0-39.9 witho ut comorbidity) 02/21/2019 DX:Obesity (BMI 35.0-39.9 wi thout comorbidity) Gassiness DX:Gassiness Change in bowel function DX:[place] ge in bowel function; COMMENT: More oily and floating in the toilet Pancreatic insufficiency DX:Panc reatic insufficiency DM (diabetes mellitus), type 2 with peripheral vascular complications ([facility] V24, [facility] V28) 02/15/2021 DX:DM (diabetes mellitus), type 2 with peripheral vascular complications (HCC) DM (diabetes mellitus), type 2 with neurological complications (CMS/HCC V24, [facility] V28) 11/01/2021 DX:DM (diabetes mellitus), t ype 2 with neurological complications (HCC) Type 2 diabetes mellitus wit h cataract (CMS/HCC V24, [facility] V28) 04/16/2022 DX:Type 2 diabetes mellitus with cataract (HCC) Gassiness DX:Gassiness Esophageal reflux DX:Esophageal reflux Stye external DX:Stye external Family History Medical History Relation Name Comments Other: cancer,other Maternal Grandfather worked at [employer]; in his mid 50s Cataracts Maternal Grandmother [...] Sign Reading Time Taken Comments Blood Pressure 122/78 06/25/2025 3:27 PM EDT Pulse 82 06/25/2025 3:27 PM EDT Temperature 36.6 C (97.8 F) 06/25/2025 3:27 PM EDT Respiratory Rate 14 06/25/2025 3:27 PM EDT Oxygen Saturation 98% 06/25/2025 3:27 PM EDT Inhaled Oxygen Concentration - - Weight 109 kg (241 lb) 06/25/2025 3:27 PM EDT Height 162.6 cm (5' 4 ) 06/25/2025 3:27 PM EDT Body Mass Index 41.37 06/25/2025 3:27 PM EDT Plan of Treatment Upcoming Encounters Date Type Department Care Team (Late st Contact Info) Description 07/24/2025 9:45 AM EST Office Visit Pulmonology - [place] [address] [facility] [address] [place] [phone] Maricel Hawkins, ALFREDA [address] [place] [phone] 10/28/2025 10:15 AM EST Office Visit Adult Medicine [address] [phone] Naila Vargas MD [address] [place] [phone] Health Maintenance Due Date Last Done Comments DTaP,Tdap,and Td Vaccines (1 - Tdap) 1985 Hepatitis B Vaccines (1 of 3 - 19+ 3-dose series) 1985 HIV Screening 08/20/2022 Social Influencers of Health Screening 08/20/2022 Depression Screening 09/11/2024 04/08/2024 COVID-19 Vaccine ( season) 2025 06/13/2022, 08/15/2021, 12/26/2020, Additional history exists Influenza Vaccine (#1) 2025 , 08/09/2023, 07/25/2022, Additional history exists Zoster Vaccines (2 of 2) 06/30/2025 05/05/2025 Cervical Cancer Screening: HPV 08/05/2025 08/05/2020 Diabetes: Annual Foot Exam 09/11/2025 P ostponed from 02/15/1976 (Patient Refused) Diabetes: Annual Retina Eye Exam 09/11/2025 Postponed from 02/15/1976 (Patient Refused) Diabetes: Blood Sugar Control Test (HGBA1C) 12/31/2025 07/02/2025, 12/03/2024, 04/24/2024, Additional history exists Lung Cancer Screening (Low Dose CT) 04/05/2026 04/05/2025, 02/21/2024, 02/21/2024 Diabetes: Annual Urine Albumin-Creatinine Ratio (uACR) 07/02/2026 07/02/2025, 12/03/2024, 04/24/2024 Diabetes: Annual GFR (Glomerular Filtration Rate) 07/02/2026 07/02/2025, 02/25/2025, 12/03/2024, Additional history exists Hypertension/CHF/CAD Annual BMP Blood Test 07/02/2026 07/02/2025, 02/25/2025, 12/03/2024, Additional history exists Breast Cancer Screening 08/26/2026 08/26/20 24, 05/20/2023, 05/14/2022, Additional history exists Cholesterol Screening (Lipid Panel) 07/02/2030 07/02/2025, 12/03/2024, 03/01/2024, Additional history exists Colorectal Cancer Screening: Colonoscopy 11/24/2030 11/24/2020 Hepatitis C Screening Completed 05/20/2014 RSV Immunization Adult Patients Completed 05/05/2025 Pneumococcal Vaccine: 50+ Years Completed 06/09/2025, 10/06/2021 HIB Vaccines Aged Out No longer eligi [...] Procedure Name Priority Date/Time Associated Diagnosis Comments ROUSE URINE CULTURE TUBE Routine 07/02/2025 9:45 AM EDT Urine frequency URINALYSIS WITH REFLEX MICROSCOPIC AND CULTURE Routine 07/02/2025 9:45 AM EDT Urine frequency URINALYSIS WITH REFLEX MICROSCOPIC AND CULTURE Routine 07/02/2025 9:45 AM EDT Urine frequency COMPREHENSIVE METABOLIC PANEL Routine 07/02/2025 9:45 AM EDT Type 2 diabetes mellitus with other circulatory complication, without long-term current use of insulin ([facility] V24, [facility] V28) HEMOGLOBIN A1C Routine 07/02/2025 9:45 AM EDT Type 2 diabetes mellitus with other circulatory complication, without long-term current use of insulin ([facility] V24, [facility] V28) LIPID PANEL WITH REFLEX TO DIRECT LDL Routine 07/02/2025 9:45 AM EDT Type 2 diabetes mellitus with other circulatory complication, without long-term current use of insulin ([facility] V24, [facility] V28) MICROALBUMIN CREATININE URINE RATIO Routine 07/02/2025 9:45 AM EDT Type 2 diabetes mellitus with other circulatory complication, without long-term current use of insulin ([facility] V24, [facility] V28) THYROID STIMULATING HORMONE WITH REFLEX TO FREE T4 AND FREE T3 Routine 07/02/2025 9:45 AM EDT Acquired hypothyroidism CULTURE URINE Routine 07/02/2025 9:45 AM EDT Urine frequency EXTERNAL VASCULAR ULTRASOUND 06/30/2025 EXTERNAL VASCULAR ULTRASOUND 06/30/2025 CT LUNG SCREENING Routine 04/05/2025 8:3 9 AM EDT Encounter for screening for malignant neoplasm of respiratory organs Personal history of nicotine dependence MG MAMMO DIGITAL SCREENING W FARAZ BILAT Routine 08/26/2024 9:27 AM EST Screening breast examination DEPRESSION SCREENING Routine 04/08/2024 COLONOSCOPY Routine 11/24/2020 HPV Routine 08/05/2020 HEPATITIS C SCREENING Routine 05/20/2014 from Last 3 Months or Most Recently Relevant to Health Maintenance Results * (ABNORMAL) Urinalysis with reflex microscopic and culture (07/02/2025 9:45 AM EDT) Specific [place] Urine 1.018 1.003 - 1.030 LAB URINALYSIS - AUTOMATED METHOD 07/02/2025 12:41 PM EDT [facility] pH, Urine 7.5 5.0 - 8.0 pH LAB URINALYSIS - AUTOMATED METHOD 07/02/2025 12:41 PM T [facility] Leukocytes, Urine Trace(A) Negative LAB URINALYSIS - AUTOMATED METHOD 07/02/2025 12:41 PM [facility] Nitrite, Urine Negative Negative LAB URINALYSIS - AUTOMATED METHOD 07/02/2025 12:41 PM [facility] Protein, Urine Negative <=Trace mg/dL LAB URINALYSIS - AUTOMATED METHOD 07/02/2025 12:41 PM [facility] Glucose, Urine Negative Negative mg/dL LAB URINALYSIS - AUTOMATED METHOD 07/02/2025 12:41 PM [facility] Ketones, Urine Negative Negative mg/dL LAB URINALYSIS - AUTOMATED METHOD 07/02/2025 12:41 PM [facility] Urobilinogen , Urine 1.0 0.2 - 1.0 mg/dL LAB URINALYSIS - AUTOMATED METHOD 07/02/2025 12:41 PM [facility] Bilirubin, Urine Negative Negative LAB URINALYSIS - AUTOMATED METHOD 07/02/2025 12:41 PM [facility] Blood, Urine Negative Negative LAB URINALYSIS - AUTOMATED METHOD 07/02/2025 12:41 PM [facility] RBC, Urine 1.2 0 - 4 /HPF LAB URINALYSIS - AUTOMATED METHOD 07/02/2025 12:41 PM [facility] WBC, Urine 2.0 0 - 4 /HPF LAB URINALYSIS - AUTOMATED METHOD 07/02/2025 12:41 PM [facility] Squamous Epithelial, Urine >100(H) 0 - 60 /LPF LAB URINALYSIS - AUTOMATED METHOD 07/02/2025 12:41 PM [facility] Bacteria, Urine Moderate(A) Negative /HPF LAB URINALYSIS - AUTOMATED METHOD 07/02/2025 12:41 PM [facility] Hyaline Casts, Urine 0.8 0 - 3 /LPF LAB URINALYSIS - AUTOMATED METHOD 07/02/2025 12:41 PM [facility] Urine Urine specimen obtained by clean catch procedure / Unknown Non-blood Collection / Unknown 07/02/2025 9:45 AM EDT 07/02/2025 9:45 AM EDT us Naila Vargas MD LAB URINE ORDERABLES Final Resul t Performing Organization Address [facility]/ZIP Co de Phone Number [facility] [address] [place] [address], [place] [phone] * Rouse urine culture tube (07/02/2025 9:45 AM EDT) Extra Tube Hold for add-ons. 07/02/2025 12:01 PM EDT [facility] Comment:Auto resulted. Urine Urine specimen obtained by clean catch procedure / Unknown Non-blood Collection / Unknown 07/02/2025 9:45 AM EDT 07/02/2025 9:45 AM EDT us Naila Vargas MD LAB URINE ORDERABLES Final Resul t Performing Organization Address [facility] de Phone Number [facility] [address] [place] [address], [place] [phone] * Thyroid stimulating hormone with reflex to free t4 and free t3 (07/02/2025 9:45 AM EDT) TSH 1.39 0.40 - 4.00 mcIU/mL LAB CHEMISTRY METHOD 07/02/2025 1:41 PM EDT [facility] Blood Venous blood specimen / Unknown Venipuncture / Unknown 07/02/2025 9:45 AM EDT 07/02/2025 9:45 AM EDT us Naila Vargas MD LAB BLOOD ORDERABLES Final Resul t Performing Organization Address [facility]/ZIP Co de Phone Number [facility] [address] [place] [address], [place] [phone] * (ABNORMAL) Lipid panel with reflex to direct LDL (07/02/2025 9:45 AM EDT) Cholesterol 182 0 - 200 mg/dL LAB CHEMISTRY METHOD 07/02/2025 1:08 PM EDT [facility] Triglycerides 266(H) 0 - 150 mg/dL LAB CHEMISTRY METHOD 07/02/2025 1:08 PM EDT [facility] HDL 45 >=40 mg/dL LAB CHEMISTRY METHOD 07/02/2025 1:08 PM EDT [facility] LDL Calculated 84 0 - 100 mg/dL LAB CHEMISTRY METHOD 07/02/2025 1:08 PM EDT [facility] Comment:Estimated LDL Calcul ated using equation: Total cholesterol - HDL cholesterol - (Triglycerides/5) VLDL Cholesterol Ruiz 53.2 mg/dL LAB CHEMISTRY METHOD 07/02/2025 1:08 PM EDT [facility] Non HDL Chol. (LDL+VLDL) 137 <145 mg/dL LAB CHEMISTRY METHOD 07/02/2025 1:08 PM EDT [facility] Chol/HDL Ratio 4.0 0.0 - 4.4 LAB CHEMISTRY METHOD 07/02/2025 1:08 PM EDT [facility] Blood Venous blood specimen / Unknown Venipuncture / Unknown 07/02/2025 9:45 AM EDT 07/02/2025 9:45 AM EDT us Naila Vargas MD LAB BLOOD ORDERABLES Final Resul t [facility] [address] [place] [address], * Microalbumin creatinine urine ratio (07/02/2025 9:45 AM EDT) Creatinine, Urine 102.0 mg/dL LAB CHEMISTRY METHOD 07/02/2025 1:48 PM EDT [facility] Microalb, Ur 13.0 0.0 - 29.0 mg/L LAB CHEMISTRY METHOD 07/02/2025 1:48 PM EDT [facility] Microalb/Creat Ratio 13 <30 mg/g creat LAB CHEMISTRY METHOD 07/02/2025 1:48 PM EDT [facility] Urine Urine specimen obtained by clean catch procedure / Unknown Non-blood Collection / Unknown 07/02/2025 9:45 AM EDT 07/02/2025 9:45 AM EDT us Naila Vargas MD LAB URINE ORDERABLES Final Resul t Performing Organization Address City/[facility]/ZIP Co de Phone Number [facility] [address] [place] [address], [place] [phone] * Culture urine (07/02/2025 9:45 AM EDT) Culture, Urine <10,000 cfu/ml, insignificant count, no further workup. 07/03/2025 11:01 AM EDT [facility] Urine Urine specimen obtained by clean catch procedure / Unknown Non-blood Collection / Unknown 07/02/2025 9:45 AM EDT 07/02/2025 12:41 PM EDT us Naila Vargas MD LAB MICROBIOLOGY - GENERAL ORDER JAMES Final Result Performing Organization Address City/[facility]/ZIP Co de Phone Number [facility] [address] [place] [address], [place] [phone] * (ABNORMAL) Hemoglobin A1c (07/02/2025 9:45 AM EDT) Hemoglobin A1C 7.0(H) <6.5 % LAB CHEMISTRY METHOD 07/02/2025 1:47 PM EDT [facility] Mean Bld Glu Estim. 154 mg/dL LAB CHEMISTRY METHOD 07/02/2025 1:47 PM EDT [facility] Blood Venous blood specimen / Unknown Venipuncture / Unknown 07/02/2025 9:45 AM EDT 07/02/2025 9:45 AM EDT us Naila Vargas MD LAB BLOOD ORDERABLES Final Resul t [facility] [address] [place] [address], [place] [phone] * (ABNORMAL) Comprehensive metabolic panel (07/02/2025 9:45 AM EDT) Sodium 138 133 - 145 mmol/L LAB CHEMISTRY METHOD 07/02/2025 1:08 PM [facility] Potassium 4.0 3.5 - 5.5 mmol/L LAB CHEMISTRY METHOD 07/02/2025 1:08 PM [facility] Chloride 104 96 - 110 mmol/L LAB CHEMISTRY METHOD 07/02/2025 1:08 PM [facility] CO2 30 21 - 32 mmol/L LAB CHEMISTRY METHOD 07/02/2025 1:08 PM [facility] Anion Gap 4 3 - 11 LAB CHEMISTRY METHOD 07/02/2025 1:08 PM [facility] Glucose 127(H) 70 - 100 mg/dL LAB CHEMISTRY METHOD 07/02/2025 1:08 PM [facility] BUN 9 5 - 25 mg/dL LAB CHEMISTRY METHOD 07/02/2025 1:08 PM [facility] Creatinine 0.93 0.50 - 1.10 mg/dL LAB CHEMISTRY METHOD 07/02/2025 1:08 PM [facility] eGFR 71 >=60 mL/min/1. 73m2 LAB CHEMISTRY METHOD 07/02/2025 1:08 PM [facility] Comment:Calculation based on the Chronic Kidney Disease Epidemiology Collaboration (CKD-EPI) equation refit without adjustment for race. BUN/Creatinine Ratio 9.7 LAB CHEMISTRY METHOD 07/02/2025 1:08 PM EDT [facility] Calcium 9.4 8.5 - 10.5 mg/dL LAB CHEMISTRY METHOD 07/02/2025 1:08 PM EDT [facility] AST (SGOT) 27 10 - 42 unit/L LAB CHEMISTRY METHOD 07/02/2025 1:08 PM EDT [facility] ALT (SGPT) 42 10 - 60 unit/L LAB CHEMISTRY METHOD 07/02/2025 1:08 PM EDT [facility] Alkaline Phosphatase 62 42 - 121 unit/L LAB CHEMISTRY METHOD 07/02/2025 1:08 PM EDT [facility] Total Protein 7.1 6.0 - 8.0 g/dL LAB CHEMISTRY METHOD 07/02/2025 1:08 PM [facility] Albumin 3.9 3.2 - 5.0 g/dL LAB CHEMISTRY METHOD 07/02/2025 1:08 PM T [facility] Total Bilirubin 0.5 0.0 - 1.4 mg/dL LAB CHEMISTRY METHOD 07/02/2025 1:08 PM T [facility] Blood Venous blood specimen / Unknown Venipuncture / Unknown 07/02/2025 9:45 AM EDT 07/02/2025 9:45 AM EDT us Naila Vargas MD LAB BLOOD ORDERABLES Final Resul t [facility] [address] [place] [address], [place] [phone] * External Vascular Ultrasound (06/30/2025) Only the most recent of2 resultswithin the time period is included. Anatomical Region Laterality Modality Ultrasound us Provider [facility] CV VASCULAR PROCEDURES F inal Result * CT Lung Screening (04/05/2025 8:39 AM EDT) Anatomical Region Laterality Modality Chest Computed Tomogra phy 04/08/2025 3:22 PM EDT Impressions 04/08/2025 3:27 PM EDT Impression: No suspicious developing pulmonary nodule. No significant change. Lung-RADS Category: Lung-RADS 1: No nodules or definitely benign nodules. Continue annual screening with Low Dose Chest CT in 12 months[place] ([id number]) -------- FINAL REPORT -------- Dictated By: Akanksha Li Dictated Date: 04/08/2025 15:22 ET Assigned Physician: Akanksha Li Reviewed and Electronically Signed By: Akanksha Li Signed Date: 04/08/2025 15:27 ET Workstation ID: [id number] Transcribed By: Self Edit Transcribed Date: 04/08/2025 15:22 ET Narrative 04/08/2025 3:27 PM EDT History: 60 year-old 21 pack-year former smoker, asymptomatic, for lung cancer screening. Quit smoking 8 years ago. Comparison: 02/21/24 Technique: Helical volumetric imaging of the thorax was performed, using low- dose technique, without IV contrast. DLP: 168.88 mGy/cm CTDIvol: 4.83 mGy [facility] VCT Iterative reconstruction technique Findings: Lungs and Airways: The trachea and central bronchial tree remain patent. Scattered homogeneously calcified nodules are consistent with old granulomatous disease area no suspicious developing pulmonary nodule is seen. Pleura: No pleural or pericardial effusions are identified. Base of neck, mediastinum and heart: The heart remains normal in size. Severe, three-vessel coronary artery calcification is again noted. No developing thoracic lymphadenopathy is seen. Soft tissues: The overlying soft tissues are unremarkable. Abdomen: This study was performed without contrast and with lower than standard dose. These factors reduce the sensitivity for detection of small lesions in the upper abdomen. No significant abnormality is seen. Procedure Note Akanksha Li MD - 04/08/2025 History: 60 year-old 21 pack-year former smoker, asymptomatic, for lungcancer screening. Quit smoking 8 years ago. Comparison: 02/21/24 Technique: Helical volumetric imaging of the thorax was performed, usinglow-dose technique, without IV contrast. DLP: 168.88 mGy/cm CTDIvol: 4.83 mGy [facility] VCT Iterative reconstruction technique Findings: Lungs and Airways: The trachea and central bronchial tree remain patent.Scattered homogeneously calcified nodules are consistent with oldgranulomatous disease area no suspicious developing pulmonary nodule isseen. Pleura: No pleural or pericardial effusions are identified. Base of neck, mediastinum and heart: The heart remains normal in size.Severe, three-vessel coronary artery calcification is again noted. Nodeveloping thoracic lymphadenopathy is seen. Soft tissues: The overlying soft tissues are unremarkable. Abdomen: This study was performed without contrast and with lower thanstandard dose. These factors reduce the sensitivity for detection of smalllesions in the upper abdomen. No significant abnormality is seen. IMPRESSION: Impression: No suspicious developing pulmonary nodule. No significant change. Lung-RADS Category: Lung-RADS 1: No nodules or definitely benign nodules.Continue annual screening with Low Dose Chest CT in 12 months. [place] [place] ([id number]) -------- FINAL REPORT -------- Dictated By: Akanksha Li Dictated Date: 04/08/2025 15:22 ET Assigned Physician: Akanksha Li Reviewed and Electronically Signed By: Akanksha iL Signed Date: 04/08/2025 15:27 ET Workstation ID: [id number] Transcribed By: Self Edit Transcribed Date: 04/08/2025 15:22 ET Caitlyn Chandra MD IMG CT PROCEDURES Final Result * MG Mammo Digital Screening w [...] Breast cancer screen, avg risk, asymptomatic (Age => 40y) TECHNIQUE: Bilateral mediolateral oblique and craniocaudal views were obtained digitally with 3-D mammogram (digital breast tomosynthesis) with CAD. Computer-aided detection was utilized in evaluation of this examination ([employer]; [employer]). FINDINGS: The breast tissue distribution pattern is [...] Signed Date: 08/26/2024 09:45 ET Workstation ID: [id number] Transcribed By: Self Edit Transcribed Date: 08/26/2024 [...] Signed Date: 08/26/2024 09:45 ET Workstation ID: [id number] Transcribed By: Self Edit Transcribed Date: 08/26/2024 09:41 ET Narrative 08/26/2024 9:45 AM EST EXAMINATION TYPE: MG MAMMO DIGITAL SCREENING W FARAZ BILAT DATE OF EXAM ORDERED: 08/26/2024 9:09 AM COMPARISON: Prior mammograms, latest from 05/20/2023. REASON FOR STUDY: Breast cancer screen, avg risk, asymptomatic (Age => 40y) TECHNIQUE: Bilateral mediolateral oblique and craniocaudal views were obtained digitally with 3-D mammogram (digital breast [...] Signed Date: 08/26/2024 09:45 ET Workstation ID: [id number] Transcribed By: Self Edit Transcribed Date: 08/26/2024 09:41 ET Naila Vargas MD [facility] [place] PROCEDURES Edited Result - Final * Depression Screening (04/08/2024) Depression Screening Abstracted Historical Provider HEALTH MAINTENANCE Final Result * Colonoscopy (11/24/2020) Colonoscopy No interpretation , Abstracted Anatomical Region Laterality Modality Other Result [facility] Provider HEALTH MAINTENANCE Final Result * Cervical Cancer Screening: HPV (08/05/2020) [facility] Cervical Cancer Screening: HPV Negative, Abstracted [facility] Provider HEALTH MAINTENANCE Final Result * Hepatitis C Screening (05/20/2014) [facility] Hepatitis C Screening Abstracted [facility] Provider HEALTH MAINTENANCE Final Result from Last 3 Months or Most Recently Relevant to Health Maintenance Insurance [facility] Advance Directives Documents on File Type Date Recorded 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
--- OUTSIDE RECORDS SUMMARY | 2025-07-17 11:45 | XMS_ITS | Encounter Summary ---
Author Organization [facility] Address [address] [facility] [address] [place] [address] Care Team Providers Care Compensation Agent Name Role Phone Unavailable Primary Care Provider Unavailabl e Encounter Details Date Type Department Care Team (Latest Contact Info) Description 04/22/2022 Abstract [facility] CONVERSIONS Dental, Provider, DDS Social History [...] Description 09/18/2025 8:45 AM EST Office Visit [facility] ADULT DENTAL [address] [place] [address] Favian Kellyaris [address] [place] [address] documented as of this encounter Visit Diagnoses Not on filedocumented in this encounter
--- OUTSIDE RECORDS SUMMARY | 2025-07-17 11:45 | XMS_ITS | Encounter Summary ---
Author Organization [facility] Address [address] [place] [address] Phone Care Team Providers Care Drinking Water Technician Name Role Phone Zeynep Smith MD Primary Care Provider [phone] Pcp, Unknown Primary Care Provider Naila Jose MD Primary Care Provider [phone] Encounter Details Date Type Department Care Team (Late st Contact Info) Description 04/01/2020 Procedure Pass [place] Admitting Dept - Virtual Department [address] [place] [phone] Social History Tobacco Use Types Packs/Day Years [...] on filedocumented in this encounter Care Teams Drinking Water Technician Relationship Specialty Start Date End Date Zeynep Smith MD [address] [place] [phone] PCP - General Internal Medicine 12/13/17 09/28/22 Pcp, Unknown PCP - General 09/29/22 03/20/23 Naila Vargas MD [address] [place] [phone] PCP - General Internal Medicine 03/21/23 documented as of this encounter Additional Source Comments The information contained in this document represents components of the legal health record. It is not the complete legal health record.[facility]
--- OUTSIDE RECORDS SUMMARY | 2025-07-17 11:45 | XMS_ITS | Encounter Summary ---
Author Organization [facility] Address [address] [place] [phone] Phone Care Team Providers Care Fishing Tool Operator Name Role Phone Naila Vargas MD Primary Care Provider [phone] Encounter Details Date Type Department Care Team (Late st Contact Info) Description 04/05/2023 Procedure Pass [place] Admitting Dept - Virtual Department [address] [place] [address] Social History Tobacco Use Types Packs/Day Years [...] on filedocumented in this encounter Care Teams Fishing Tool Operator Relationship Specialty Start Date End Date Naila Vargas MD [address] [place] [phone] (work) PCP - General Internal Medicine 03/21/23 documented as of this encounter Additional Source Comments The information contained in this document represents components of the legal health record. It is not the complete legal health record.[facility]
--- OUTSIDE RECORDS SUMMARY | 2025-07-17 11:45 | XMS_ITS | Encounter Summary ---
Author Organization [facility] Address [address] [place] [address] Phone Care Team Providers Care Clinical Educator Name Role Phone AntonioGinna Ashley Gonzales DO Primary Car e Provider Zeynep Smith MD Primary Care Provider [phone] Pcp, Unknown Primary Care Provider UnavailNaila Otoole MD Primary Care Provider [phone] Encounter Details Date Type Department Care Team (Latest Contact Info) Description 12/08/2017 Ancillary Orders [facility] Interventional Rad [address] [place] [address] David Castro MD, CHARLIE [address] [place] [address] [email or web address] PVD (peripheral vascular disease) Social History Tobacco Use Types Packs/Day Years Used Date Smoking Tobacco: Never Assessed Comments Unknown Sex and Gender Information Value Date Recorded Sex Assigned at Not on file Legal Sex Female 9:40 PM EDT Gender Identity Not on file Sexual Orientation Not on file documented as of this encounter Plan of Treatment Not on file documented as of this encounter Results * CT ANGIO ABDOMINAL AORTA AND BILATERAL LOWER EXTREMITY RUNOFF WITH CONTRAST (12/13/2017 12:03 PM EDT) Anatomical Region Laterality Modality Abdominal Vasculature, Foot Right, Foot Left, Ankle Right, Ankle Left, Leg Right, Leg Left, Knee Bilateral, Knee Right, Knee Left, Thigh Right, Thigh Left, Hip Bilateral, Hip Right, Hip Left Computed Faraz graphy 12/13/2017 11:5 1 AM EDT Impressions 12/13/2017 12:04 PM EDT Patent common iliac, external iliac, and common femoral arteries bilaterally. On the right the superficial femoral artery is occluded at its origin with reconstitution at the adductor canal. There is two-vessel runoff in the right calf with no vessels extending across the ankle on the right. On the left the proximal superficial femoral artery is patent but becomes occluded in its mid extent with collateral vessels reconstituting the popliteal artery. There is two-vessel runoff in the left calf with again no continuous vessels evident extending across the left ankle. Neither plantar arch is directly filled on either side. The abdominal aorta is widely patent with minor atherosclerotic plaquing evident just above the bifurcation. TOTAL CTDIvol: 46.90 mGy S/S: Peripheral vascular disease, difficulty walking, bilateral leg numbness and paresthesias, leg cramps POS - [id number] Narrative 12/13/2017 12:04 PM EDT COMPARISON:None TECHNIQUE: Pre-contrast views were obtained in preparation for CT angiogram. Rapid intravenous contrast administration was then performed with multi detector CT obtained from the lower chest to the feet. Multiplanar, 3-D angiographic reformats are evaluated on the workstation. Sagittal and coronal reformats were also generated. Automated exposure control utilized. FINDINGS: The lung bases are clear. No focal hepatic pathology is seen. The spleen is unremarkable. No pancreatic pathology is seen. No adrenal masses are evident. The kidneys are unremarkable. No periaortic lymphadenopathy is seen. The abdominal aorta is widely patent without aneurysm formation. Mild distal bifurcation atherosclerotic plaquing is evident. The the common iliac arteries are widely patent as are the external iliac and common femoral arteries bilaterally. On the right the superficial femoral artery is occluded at its origin with the profunda femoris artery patent and providing circulation to the lower extremity. Reconstitution of the superficial femoral artery at the adductor canal occurs with a patent popliteal artery. Anterior tibial and posterior arteries are patent but terminate in the mid calf. No continuous vessels are evident extending across the ankle. On the left the superficial femoral artery is patent at its origin down to its mid extent where it is occluded. The profunda femoris artery provides collateral circulation to the left lower leg. The popliteal artery is reconstituted on the left. There is two-vessel runoff in the left calf with anterior tibial and peroneal vessels present. No definitive continuous vessel across the ankle is evident on the left. No plantar arch is seen in either foot. Procedure Note Gamaliel Carranza MD - 12/13/2017 COMPARISON:None TECHNIQUE: Pre-contrast views were obtained in preparation for CTangiogram. Rapid intravenous contrast administration was then performedwith multi detector CT obtained from the lower chest to the feet.Multiplanar, 3-D angiographic reformats are evaluated on the workstation.Sagittal and coronal reformats were also generated. Automated exposurecontrol utilized. FINDINGS: The lung bases are clear. No focal hepatic pathology is seen. The spleen is unremarkable. No pancreatic pathology is seen. No adrenal masses are evident. The kidneys are unremarkable. No periaortic lymphadenopathy is seen. The abdominal aorta is widely patent without aneurysm formation. Milddistal bifurcation atherosclerotic plaquing is evident. The the common iliac arteries are widely patent as are the external iliacand common femoral arteries bilaterally. On the right the superficial femoral artery is occluded at its origin withthe profunda femoris artery patent and providing circulation to the lowerextremity. Reconstitution of the superficial femoral artery at theadductor canal occurs with a patent popliteal artery. Anterior tibial andposterior arteries are patent but terminate in the mid calf. No continuousvessels are evident extending across the ankle. On the left the superficial femoral artery is patent at its origin down toits mid extent where it is occluded. The profunda femoris artery providescollateral circulation to the left lower leg. The popliteal artery isreconstituted on the left. There is two-vessel runoff in the left calfwith anterior tibial and peroneal vessels present. No definitivecontinuous vessel across the ankle is evident on the left. No plantar arch is seen in either foot. IMPRESSION: Patent common iliac, external iliac, and common femoral arteriesbilaterally. On the right the superficial femoral artery is occluded atits origin with reconstitution at the adductor canal. There is two-vesselrunoff in the right calf with no vessels extending across the ankle on theright. On the left the proximal superficial femoral artery is patent butbecomes occluded in its mid extent with collateral vessels reconstitutingthe popliteal artery. There is two-vessel runoff in the left calf withagain no continuous vessels evident extending across the left ankle.Neither plantar arch is directly filled on either side. The abdominal aorta is widely patent with minor atherosclerotic plaquingevident just above the bifurcation. TOTAL CTDIvol: 46.90 mGy S/S: Peripheral vascular disease, difficulty walking, bilateral legnumbness and paresthesias, leg cramps POS - [id number] David Castro MD, CHARLIE IMG CT ABD/PELVIS Fin al Result documented in this encounter Visit Diagnoses Diagnosis PVD (peripheral vascular disease) Unspecified peripheral vascular disease PVD (peripheral vascular disease) Unspecified peripheral vascular disease documented in this encounter Care Teams Clinical Educator Relationship Specialty Start Date End Date Ashley Robbins DO [address] [place] [address] PCP - General 06/27/17 12/12/17 Zeynep Smith MD [address] [place] [phone] PCP - General Internal Medicine 12/13/17 09/28/22 Pcp, Unknown PCP - General 09/29/22 03/20/23 Naila Vargas MD [address] [place] [phone] PCP - General Internal Medicine 03/21/23 documented as of this encounter Additional Source Comments The information contained in this document represents components of the legal health record. It is not the complete legal health record.[facility]
--- OUTSIDE RECORDS SUMMARY | 2025-07-17 11:45 | XMS_ITS | Encounter Summary ---
Author Organization [facility] Address [address] [facility] [address] [place] [address] Care Team Providers Care Manager Of Data Name Role Phone Unavailable Primary Care Provider Unavailabl e Encounter Details Date Type Department Care Team (Latest Contact Info) Description 11/14/2019 Abstract [facility] CONVERSIONS Dental, Provider, DDS Social History Tobacco [...] Description 09/18/2025 8:45 AM EST Office Visit [facility] ADULT DENTAL [address] [place] [address] Leticia Socorro [address] [place] [address] documented as of this encounter Visit Diagnoses Not on filedocumented in this encounter
--- OUTSIDE RECORDS SUMMARY | 2025-07-17 11:46 | XMS_ITS | Encounter Summary ---
Author Organization [facility] Address [address] [place] [phone] Phone Care Team Providers Care Devops Consultant Name Role Phone Ashley Robbins DO Primary Car e Provider Zeynep Smith MD Primary Care Provider [phone] Pcp, Unknown Primary Care Provider Naila Jose MD Primary Care Provider [phone] Encounter Details Date Type Department Care Team (Late st Contact Info) Description 12/08/2017 Procedure Pass [facility], Ct Scan - [address] [address] Social History Tobacco Use Types Packs/Day Years [...] on filedocumented in this encounter Care Teams Devops Consultant Relationship Specialty Start Date End Date Ashley Robbins DO [address] [place] [phone] PCP - General 06/27/17 12/12/17 Zeynep Smith MD [address] [place] [phone] PCP - General Internal Medicine 12/13/17 09/28/22 Pcp, Unknown PCP - General 09/29/22 03/20/23 Naila Vargas MD [address] [place] [phone] PCP - General Internal Medicine 03/21/23 documented as of this encounter Additional Source Comments The information contained in this document represents components of the legal health record. It is not the complete legal health record.[facility]
== END 2025-07-17 10:57 | disposition home or self-care (01) ==
LOC: HO.HVS 10:04
PROVIDERS: PCP Internal Medicine; Visit Provider Surgery Vascular Surgery
DX: I65.23 Occlusion and stenosis of bilateral carotid arteries (principal); I73.9 Peripheral vascular disease, unspecified
CPT/HCPCS: 99214

== ENCOUNTER → 2025-07-17 10:03 | Outpatient (BNVA) | payer OTHER, SELFPAY | PROVIDERS: PCP Internal Medicine; Visit Provider Surgery Vascular Surgery | DX: I65.23 Occlusion and stenosis of bilateral carotid arteries (principal); I73.9 Peripheral vascular disease, unspecified | CPT/HCPCS: 99212 ==

== ENCOUNTER 2025-08-11 14:13 | Outpatient (AMB) | payer MEDICARE, MEDICAID, SELFPAY ==
--- NOTE | 2025-08-11 14:36 | A.OFFVIS_ITS ---
Vital Signs 08/11/25 14:40 Height 5 ft 3 in Weight 248 lb 3.848 oz BMI 44.0 BP 120/72 Blood Pressure Location Lt brachial Position Sitting Pulse 67 Pulse Source Monitor Intake Visit Reasons: 4 mth f/up Intake Note: 4 mth f/up Medical Transcription Required: No Accompanied by: Self / Same As Patient Allergies clarithromycin (From Biaxin) Allergy (Intermediate, Verified 08/04/25 14:19) Rash Medication List - Last Reconciled 08/11/25 by Miguel Ángel Goldstein MD albuterol sulfate 90 mcg/actuation (Ventolin HFA) 2 puffs inhalation Q4-6H PRN albuterol sulfate 2.5 mg inhalation Q6H PRN amlodipine 2.5 mg PO DAILY aspirin 81 mg PO BEDTIME atorvastatin 40 mg PO DAILY cetirizine 10 mg PO DAILY PRN cholecalciferol (vitamin D3) 25 mcg PO DAILY duloxetine 60 mg PO DAILY fluticasone propion-salmeterol 230-21 mcg/actuation (Advair HFA) 2 puffs inhalation BID PRN fluticasone propionate 50 mcg/actuation 2 sprays intranasal DAILY PRN lamotrigine 50 mg PO DAILY levothyroxine 25 mcg PO DAILY zpcmes-dtaabdkf-eryvewq (pork) 36,000-114,000- 180,000 unit (Creon) 2 caps PO TIDWM metformin 1,000 mg PO BID Held on 11/07/24. Instructions: Resume on 10/14/24. metoprolol tartrate 25 mg See Protocol PO BID multivitamin 1 tab PO DAILY omeprazole 40 mg PO QAM ticagrelor 90 mg PO BID 90 days ticagrelor (Brilinta) 90 mg PO BID tiotropium bromide 2.5 mcg/actuation (Spiriva Respimat) 2 puffs inhalation DAILY PRN HPI Comments Details: 60-year-old female who is here for follow-up. She was seen in October 2024 when she presented with NSTEMI in the setting of influenza a. She was taken for cardiac catheterization because she had significant chest and bilateral shoulder discomfort. Cardiac catheterization showed severe LAD and circumflex stenosis. Circumflex was treated because it appeared to be the culprit. She had staged PCI to LAD diagonal bifurcation in November 2024. She is saying she has been doing well since then. She has a lot of energy and is able to do more without any chest discomfort. She is still has some shortness of breath and will be starting cardiac rehabilitation soon. She is taking cilostazol for long time and is currently on aspirin cilostazol and ticagrelor. She has been experiencing some bruising on her arms. Blood pressure well controlled. EKGs reviewed. 08/11/2025: She is here for follow-up. She is complaining of fatigue and some shortness of breath with activities. She is walking with a walker at this stage. She also had 1 episode of chest discomfort awhile back but did not have any recurrent symptoms. She has hemorrhoids and is complaining of bright red blood per rectum. No recurrent chest discomfort. [facility] Medical History Asthma Pre-op exam Depression Arthritis Cervical radiculitis Renal calculi HTN (hypertension) Diabetes Glaucoma GERD (gastroesophageal reflux disease) Hypothyroidism Hypercholesteremia Carpal tunnel syndrome Sleep apnea Peripheral arterial disease Surgical History S/P cardiac cath History of esophagogastroduodenoscopy (EGD) Hx of colonoscopy Hx of tubal ligation Hx of repair of rotator cuff Hx of carpal tunnel repair Hx of lithotripsy History of appendectomy History of foot surgery Family History Mother Heart problem Social History Household Members: Significant Other Housing: House Are you a primary care process manager to a significant other at home: No Do you presently have visiting nurse or other home services: No Alcohol intake: current Alcohol intake frequency: holidays/special occasions only Comment: counts correct Patient Tobacco Use Status: Former Tobacco user Tobacco use type: Cigarette Years Smoked: 40 e-Cigarette/Vaping Use: Former Use Second Hand Smoke Exposure: No Substance Use Type: Marijuana service: No 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 Review of Systems Const Denies chills, Denies fatigue, Denies fever(s), Denies frequent falls, Denies weakness, Denies weight gain and Denies weight loss ENT Denies dizziness Card Denies chest pain, Denies leg edema, Denies lightheadedness, Denies palpitations, Denies dyspnea and Denies dyspnea on exertion Resp Denies cough, Denies dyspnea and Denies dyspnea on exertion GI Denies hematochezia Musc Denies abnormal gait, Denies muscle weakness, Denies numbness, Denies radiating pain into limb and Denies tingling Neuro Denies abnormal gait, Denies dizziness, Denies frequent falls, Denies numbness, Denies tingling and Denies weakness Endo Denies fatigue and Denies palpitations Physical Exam Vital Signs: Last Vital Signs Pulse 67 08/11/25 14:40 BP 120/72 08/11/25 14:40 BMI result Body Mass Index 44.0 GENERAL APPEARANCE: in no acute distress, pleasant. NECK: no carotid bruit, no jugular venous distention. SKIN: no suspicious lesions, warm and dry. HEART: no murmurs, regular rate and rhythm. LUNGS: clear to auscultation bilaterally. ABDOMEN: soft, nontender. EXTREMITIES: no edema. PERIPHERAL PULSES: equal. NEUROLOGIC: No gross deficits, AAO X 3 Office Procedures EKG Details: Sinus rhythm 67 beats per minute, low voltage, normal axis, can not rule out anterior infarct, QTC 437 milliseconds. 58829-[id number], Complete Assessment & Plan Assessment & Plan (1) Status post angioplasty with stent: Code(s): Z95.820 - Peripheral vascular angioplasty status with implants and grafts Category: Surgical (2) Fatigue: Code(s): R53.83 - Other fatigue Category: Medical Plan [age] year lady presenting for follow-up. She has known history of coronary disease with previous LAD and circumflex PCI in November 2024. She did well after that but is complaining of some dyspnea and fatigue now. She has hemorrhoids and has been getting some rectal bleeding. He is taking aspirin and Brilinta at this point. She has known history of sleep apnea and has been using CPAP regularly. We will check CBC, TSH and iron studies to rule out any anemia and iron- deficiency has potential cause for symptoms. If testing is normal then I will arrange Lexiscan for her. She has peripheral vascular disease in his saying that she is unable to exercise. Follow up in 3 months. Thank you for allowing me to participate in the care of your patient. Please feel free to contact me if you have any questions. Orders: Orders Complete Blood Count no Diff Today R53.83 - Other fatigue Ferritin Today R53.83 - Other fatigue IRON PROFILE Today R53.83 - Other fatigue TSH reflex Free T4 Today R53.83 - Other fatigue Coding Level of Care Code Est Pt Level 4 (94738) Diagnoses Status post angioplasty with stent Z95.820 Fatigue R53.83 CPT Codes EKG - CPT: 61153-Mapxguhnvlanifmzo, Complete ([id number])
[2025-08-11 14:40] VITALS: BP 120/72; PULSE 67; BMI 44.0
--- OUTSIDE RECORDS SUMMARY | 2025-08-11 17:35 | XMS_ITS | Encounter Summary ---
Author Organization [facility] [address] Care Team Providers Care Anthropology Professor Name Role Phone Naila Vargas MD Primary Care Provider [phone] Reason for Visit * Reason Onset Date Comments dme request 08/11/2025 Encounter Details Date Type Department Care Team (Late st Contact Info) Description [facility] [address] [facility] [address] [place] [address] Maricel Hawkins, ALFREDA [address] [place] [address] Social History Tobacco Use Types Packs/Day Years [...] as of this encounter Progress Notes * Margarette Pritchard - 08/11/2025 2:29 PM EST [place] fax received for confirmation of orders Attached to encounter Nov 08/15/25 documented in this encounter Plan of Treatment Upcoming Encounters Date Type Department Care Team (Late st Contact Info) Description 08/15/2025 9:45 AM EST Office Visit Pulmonology [facility] [address] [place] [address] Maricel Hawkins, ALFREDA [address] [place] [phone] 10/28/2025 10:15 AM EST Office Visit Adult Medicine [address] [phone] Naila Vargas MD [address] [place] [address] documented as of this encounter Visit Diagnoses Not on filedocumented in this encounter Care Teams Anthropology Professor Relationship Specialty Start Date End Date Naila Vargas MD [address] [place] [address] PCP - General Internal Medicine 04/18/22 documented as of this encounter
--- OUTSIDE RECORDS SUMMARY | 2025-08-11 17:35 | XMS_ITS | Encounter Summary ---
Author Organization [facility] [place] [address] Care Team Providers Care Jig Maker Name Role Phone Naila Vargas MD Primary Care Provider [phone] Reason for Visit * Reason Onset Date Comments Results 07/15/2025 Encounter Details Date Type Department Care Team (Late st Contact Info) Description 07/15/2025 Results Follow-Up Adult Medicine [address] [phone] Naila Vargas MD [address] [place] [address] Social History Tobacco Use Types Packs/Day Years [...] AM EST Lm for return call Ext [phone] * Dahiana Wong MA - 07/15/2025 8:42 [...] 08/15/2025 9:45 AM EST Office Visit Pulmonology - [address] [place] [address] Maricel Hawkins, ALFREDA [address] [place] [address] 10/28/2025 10:15 AM EST Office Visit Adult Medicine [address] [phone] Naila Vargas MD [address] [place] [address] documented as of this encounter Visit Diagnoses Not on filedocumented in this encounter Care Teams Jig Maker Relationship Specialty Start Date End Date Naila Vargas MD [address] [place] [address] PCP - General Internal Medicine 04/18/22 documented as of this encounter
--- OUTSIDE RECORDS SUMMARY | 2025-08-11 17:35 | XMS_ITS | Encounter Summary ---
Author Organization [employer] [facility] Address [address] [facility] 7t [place] [address] Care Team Providers Care Academic Associate Name Role Phone Unavailable Primary Care Provider Unavailabl e Encounter Details Date Type Department Care Team (Latest Contact Info) Description 04/22/2022 Abstract [facility] CONVERSIONS Dental, Provider, DDS Social History [...] Description 09/18/2025 8:45 AM EST Office Visit [facility] ADULT DENTAL [address] [place] [address] Favian Kellyaris [address] [place] [address] documented as of this encounter Visit Diagnoses Not on filedocumented in this encounter
--- OUTSIDE RECORDS SUMMARY | 2025-08-11 17:35 | XMS_ITS | Encounter Summary ---
Author Organization [employer] [facility] Address [address] [facility] 7t [place] [address] Care Team Providers Care Creative Arts Music Therapist Name Role Phone Unavailable Primary Care Provider Unavailabl e Encounter Details Date Type Department Care Team (Latest Contact Info) Description 02/18/2021 Abstract [facility] CONVERSIONS Dental, Provider, DDS Social History Tobacco [...] Description 09/18/2025 8:45 AM EST Office Visit [facility] ADULT DENTAL [address] [place] [address] Favian Kellyaris [address] [place] [address] documented as of this encounter Visit Diagnoses Not on filedocumented in this encounter
--- OUTSIDE RECORDS SUMMARY | 2025-08-11 17:35 | XMS_ITS | Encounter Summary ---
Author Organization [employer] [facility] Address [address] [facility] 7t [place] [address] Care Team Providers Care Financial Services Consultant Name Role Phone Unavailable Primary Care Provider Unavailabl e Encounter Details Date Type Department Care Team (Latest Contact Info) Description 11/09/2018 Abstract [facility] CONVERSIONS Dental, Provider, DDS Social History [...] Description 09/18/2025 8:45 AM EST Office Visit [facility] ADULT DENTAL [address] [place] [address] Leticia Socorro [address] [place] [address] documented as of this encounter Visit Diagnoses Not on filedocumented in this encounter
--- OUTSIDE RECORDS SUMMARY | 2025-08-11 17:35 | XMS_ITS | Encounter Summary ---
Author Organization [facility] Address [address] [place] [address] Phone Care Team Providers Care Revenue Director Name Role Phone Naila Vargas MD Primary Care Provider [phone] Encounter Details Date Type Department Care Team (Late st Contact Info) Description 04/05/2023 Procedure Pass OR Admitting Dept - Virtual Department [address] [place] [address] Social History Tobacco Use Types Packs/Day Years [...] on filedocumented in this encounter Care Teams Revenue Director Relationship Specialty Start Date End Date Naila Vargas MD [address] [place] [address] (work) PCP - General Internal Medicine 03/21/23 documented as of this encounter Additional Source Comments The information contained in this document represents components of the legal health record. It is not the complete legal health record.[facility]
--- OUTSIDE RECORDS SUMMARY | 2025-08-11 17:35 | XMS_ITS | Encounter Summary ---
Author Organization [facility] Address [address] [place] [address] Phone Care Team Providers Care Net Technical Architect Name Role Phone Naila Vargas MD Primary Care Provider [phone] Encounter Details Date Type Department Care Team (Late st Contact Info) Description 03/21/2023 Prep for Surgery [facility] Orthopedics & Sports Medicine [address] [place] [address] Jessica Horton MD [address] [place] [address] Orthopedics & Sports Medicine, [facility] [place] [address] [email or web address] Social History Tobacco Use Types Packs/Day Years [...] on filedocumented in this encounter Care Teams Net Technical Architect Relationship Specialty Start Date End Date Naila Vargas MD [address] [place] [address] PCP - General Internal Medicine 03/21/23 documented as of this encounter Additional Source Comments The information contained in this document represents components of the legal health record. It is not the complete legal health record.[facility]
--- OUTSIDE RECORDS SUMMARY | 2025-08-11 17:35 | XMS_ITS | Encounter Summary ---
Author Organization [facility] Address [address] [place] [address] Phone Care Team Providers Care Farm Reporter Name Role Phone Zeynep Smith MD Primary Care Provider Pcp, Unknown Primary Care Provider Naila Jose MD Primary Care Provider Encounter Details Date Type Department Care Team (Late st Contact Info) Description 04/01/2020 Procedure Pass [place] Admitting Dept - Virtual Department [address] [place] [address] Social History Tobacco Use Types Packs/Day Years [...] on filedocumented in this encounter Care Teams Farm Reporter Relationship Specialty Start Date End Date Zeynep Smith MD [address] [place] [address] PCP - General Internal Medicine 12/13/17 09/28/22 Pcp, Unknown PCP - General 09/29/22 03/20/23 Naila Vargas MD [address] [place] [address] PCP - General Internal Medicine 03/21/23 documented as of this encounter Additional Source Comments The information contained in this document represents components of the legal health record. It is not the complete legal health record.[facility]
--- OUTSIDE RECORDS SUMMARY | 2025-08-11 17:35 | XMS_ITS | Encounter Summary ---
Author Organization [facility] Address [address] [place] [address] Phone Care Team Providers Care Quick Sketch Artist Name Role Phone Ashley Robbins DO Primary Car e Provider Zeynep Smith MD Primary Care Provider [phone] Pcp, Unknown Primary Care Provider Naila Jose MD Primary Care Provider [phone] Encounter Details Date Type Department Care Team (Late st Contact Info) Description 12/08/2017 Procedure Pass [facility], Ct Scan - [address] [address] Social History Tobacco Use Types Packs/Day Years [...] on filedocumented in this encounter Care Teams Quick Sketch Artist Relationship Specialty Start Date End Date Ashley Robbins DO [address] [place] [address] PCP - General 06/27/17 12/12/17 Zeynep Smith MD [address] [place] [address] PCP - General Internal Medicine 12/13/17 09/28/22 Pcp, Unknown PCP - General 09/29/22 03/20/23 Naila Vargas MD [address] [place] [address] PCP - General Internal Medicine 03/21/23 documented as of this encounter Additional Source Comments The information contained in this document represents components of the legal health record. It is not the complete legal health record.[facility]
--- OUTSIDE RECORDS SUMMARY | 2025-08-11 17:35 | XMS_ITS | Encounter Summary ---
Author Organization [facility] Address [address] [place] [address] Phone Care Team Providers Care Hasher Machine Operator Name Role Phone AntonioGinna Ashley Gonzales DO Primary Car e Provider Zeynep Smith MD Primary Care Provider [phone] Pcp, Unknown Primary Care Provider UnavailNaila Otoole MD Primary Care Provider [phone] Encounter Details Date Type Department Care Team (Latest Contact Info) Description 12/08/2017 Ancillary Orders [facility] Interventional Rad [address] [place] [address] David Castro MD, CHARLIE [address] [place] [address] [email or web address] PVD (peripheral vascular disease) [...] disease documented in this encounter Care Teams Hasher Machine Operator Relationship Specialty Start Date End Date Ashley Robbins DO [address] [place] [address] PCP - General 06/27/17 12/12/17 Zeynep Smith MD [address] [place] [address] PCP - General Internal Medicine 12/13/17 09/28/22 Pcp, Unknown PCP - General 09/29/22 03/20/23 Naila Vargas MD [address] [place] [address] PCP - General Internal Medicine 03/21/23 documented as of this encounter Additional Source Comments The information contained in this document represents components of the legal health record. It is not the complete legal health record.[facility]
--- OUTSIDE RECORDS SUMMARY | 2025-08-11 17:35 | XMS_ITS | Clinical Summary ---
Author Organization [employer] Address [address] [facility] 7t [place] [address] Care Team Providers Care Insurance Agency Owner Name Role Phone Unavailable Primary Care Provider [...] 23 Active cholecalciferol (Vitamin D-3) 1.25 MG (34353 UT) capsule Take 50,000 Units by mouth [...] Description 09/18/2025 8:45 AM EST Office Visit [facility] ADULT DENTAL [address] [place] [address] Leticia, Socorro [address] [place] [address] Health Maintenance Due Date Last Done Comments [...] 1987 Cervical Cancer Screening 02/15/1996 HPV/Cotest 02/15/1996 RSV Patients and Patients Aged 60 years or older (1 - Risk 50-74 years 1-dose series) 02/15/2016 Zoster Vaccines (1 of 2) 02/15/2016 Pneumococcal Vaccine: 50+ Years (2 of 2 - PCV) 10/06/2022 10/06/2021 Dental Oral Exam 03/05/2025 09/03/2024, 08/2024, 04/22/2022, Additional history exists COVID-19 Vaccine ( season) 2025 06/13/2022, 08/15/2021, 12/26/2020, Additional history exists Influenza Vaccine (#1) 2025 , 08/09/2023, 07/25/2022, Additional history exists Dental X-Ray: Bitewings 09/04/2025 09/03/20 24, 10/23/2023, 04/22/2022, Additional history exists Dental Prophylaxis 09/05/2025 03/05/2025, 1 11/04/2023, 10/23/2023, Additional history exists Tobacco Screening 03/05/2026 03/05/2025 Mammogram 08/26/2026 08/26/2024, 08/26/2024 Dental X-Ray: Full Mouth 10/24/2026 024, 11/14/2019, 07/02/2015, Additional history exists HIB Vaccines Aged Out [...]
--- OUTSIDE RECORDS SUMMARY | 2025-08-11 17:35 | XMS_ITS | Encounter Summary ---
Author Organization [facility] Address [address] [place] [address] Phone Care Team Providers Care Sap Consultant Name Role Phone Zeynep Smith MD Primary Care Provider [phone] Pcp, Unknown Primary Care Provider Naila Joes MD Primary Care Provider [phone] Encounter Details Date Type Department Care Team (Late st Contact Info) Description 03/17/2020 Prep for Surgery [facility] Orthopedics & Sports Medicine [address] [place] [address] Jessica Horton MD [address] [place] [address] Orthopedics & Sports Medicine, [place] [address] [email or web address] Social History Tobacco Use Types Packs/Day Years [...] on filedocumented in this encounter Care Teams Sap Consultant Relationship Specialty Start Date End Date Zeynep Smith MD [address] [place] [address] PCP - General Internal Medicine 12/13/17 09/28/22 Pcp, Unknown PCP - General 09/29/22 03/20/23 Naila Vargas MD [address] [place] [address] PCP - General Internal Medicine 03/21/23 documented as of this encounter Additional Source Comments The information contained in this document represents components of the legal health record. It is not the complete legal health record.[facility]
--- OUTSIDE RECORDS SUMMARY | 2025-08-11 17:35 | XMS_ITS | Clinical Summary ---
Author Organization 175 [facility] Address [address] [place] [address] Phone Care Team Providers Care Sales Clerk Food Name Role Phone Naila Vargas MD Primary Care Provider [phone] Allergies Active Allergy Reactions Criticality Noted Date [...] SUGAR 100 each 1 08/19/20 24 Active lipase-protease -amylase (Creon) 36,000-114,000- 180,000 unit capsule,delayed release(DR/EC) Take 2 capsules by mouth 3 (three) times a day. 540 capsule 4 08/21/20 24 Active albuterol 2.5 mg /3 mL (0.083 %) nebulizer solutionIndicat ions:Moderate persistent asthma with exacerbation Take 3 mL (2.5 mg total) by nebulization every 6 (six) hours if needed for wheezing. 100 mL 2 09/20/19 25 2025 Active tiotropium (Spiriva Respimat) 2.5 mcg/actuation inhalation sprayIndication s:Moderate persistent asthma with exacerbation Inhale 2 puffs by mouth 1 (one) time each day. 1 each 12 09/20/19 25 2025 Active albuterol HFA (PROAIR HFA ; PROVENTIL [...] day. 90 tablet 1 03/07/20 25 Active DULoxetine (CYMBALTA) [address] capsule [...] day. 90 tablet 1 06/25/20 25 Active Advair HFA 230-21 mcg/actuation inhalerIndicati ons:Moderate persistent asthma with exacerbation INHALE 2 PUFFS BY MOUTH 2 (TWO) TIMES A DAY. RINSE MOUTH WITH WATER AFTER USE TO REDUCE AFTERTASTE AND INCIDENCE OF CANDIDIASIS. DO NOT SWALLOW. 12 each 2 07/22/20 25 Active fluticasone propion-salmete roL (Advair HFA) 230-21 mcg/actuation inhalerIndicati ons:Moderate persistent asthma with exacerbation Inhale 2 puffs by mouth 2 (two) times a day. Rinse mouth with water after use to reduce aftertaste and incidence of candidiasis. Do not swallow. 1 each 2 04/20/20 25 2024 Discontinued Active Problems Problem Noted Date Diagnosed Date Spinal stenosis of lumbar re gion without neurogenic claudication 06/25/2025 NSTEMI (non-ST elevated myoc ardial infarction) ([facility] V24, [facility] V28) 12/12/2024 History of coronary artery stent placement 11/28 Coronary artery disease invo lving lummi coronary artery of lummi heart without angina pectoris 11/28/2024 Anxiety and depression 11/28/2024 Achilles tendon disorder 07/18/2024 Overview (07/18/2024): Right s/p PT, f/u with pony edger Arthritis 07/18/2024 Overview (07/18/2024): Hips, knees. Follows with [facility] Dyslipidemia 07/18/2024 Pancreatic insufficiency 07/18/2024 Vitamin D deficiency 07/18/2024 Precordial pain 03/01/2024 Carotid artery stenosis 10/31/2023 Overview (07/18/2024): Right ICA 80% on CTA @ [facility] 10/11/2023 Nocturnal hypoxia 03/09/2023 Overview (07/18/2024): 01/30/2023 overnight oximetry on CPAP showed pulmonary 1. Lowest oxygen saturation 87%. 2. Time spent<88 or below is 2 minutes. 3. Time spent on CPAP with adequate oxygen. GERD (gastroesophageal reflux disease) Glaucoma suspect of both eyes 05/06/2022 Overview (07/18/2024): Low risk Type 2 diabetes mellitus wit h cataract ([facility] V24, [facility] V28) 04/16/2022 DM (diabetes mellitus), type 2 with neurological complications ([facility] V24, [facility] V28) 11/01/2021 Overview (07/18/2024): Dx 09/2021, significant improvement with dietary management DM (diabetes mellitus), type 2 with peripheral vascular complications ([facility] V24, [facility] V28) 02/15/2021 Vitamin B12 deficiency 02/15/2021 Essential hypertension 01/29/2021 Morbid obesity with BMI of 4 0.0-44.9, adult ([facility] V24, [facility] V28) 01/29/2021 Cervical radiculitis 10/28/2020 Obstructive sleep [...] episode of recurren t major depressive disorder ([facility] V24, [facility] V28) 10/08/2019 Carpal tunnel syndrome, bilateral 05/16/2018 Overview (07/18/2024): Severe s/p EMG 05/2018 referred to general surgery Atypical chest pain 02/12/2018 Overview (07/18/2024): Negative nuclear stress 02/2018 Peripheral vascular disease ([facility] V24) 2017 Overview (07/18/2024): CT angio with bilateral SFA occlusions, s/p left SFA repair 12/2017, follows with vascular Plantar fasciitis, bilateral 12/11/2017 Overview (07/18/2024): Follows with orthopedic and podiatry Tarsal tunnel syndrome, bilateral 12/11/2017 Overview (07/18/2024): Follows with podiatry Anatomical narrow angle 11/20/2017 Overview (07/18/2024): s/p LPI Nuclear sclerosis of both eyes 11/20/2017 Encounters Date Type Department Care Team Description 08/11/2025 Telephone Pulmonology - [address] [place] [address] Maricel Hawkins NP 07/15/2025 Results Follow-Up Adult Medicine [address] [phone] Naila Vargas MD 06/26/2025 Telephone Adult Medicine [address] [phone] Naila Vargas MD 06/25/2025 3:30 PM EDT Office Visit Adult Medicine [address] [phone] Naila Vargas MD Peripheral vascular disease ([facility] V24) (Primary Dx); Cervical radiculitis; Moderate episode of recurrent major depressive disorder ([facility] V24, [facility] V28); DM (diabetes mellitus), type 2 with peripheral vascular complications ([facility] V24, [facility] V28); Essential hypertension; Spinal stenosis of lumbar region without neurogenic claudication from Last 3 Months Immunizations Immunization Administration [...] HISTORICAL TUBAL LIGATION OTHER SURGICAL HISTORY PROCEDURE: OH EXCISION PILONIDAL CYST/SINUS COMPLICATED; COMMENT: x 2 COLONOSCOPY 09/25 PROCEDURE: HISTORICAL COLONOSCOPY LITHOTRIPSY PROCEDURE: HISTORICAL LITHOTRIPSY; COMMENT: x 2 CARPAL TUNNEL RELEASE PROCEDURE: OH NEUROPLASTY &/TRANSPOS MEDIAN NRV CARPAL TUNNE; COMMENT: L side ESOPHAGOGASTRODUODENOSCOPY PROCEDURE: OH EGD TRANSORAL BIOPSY SINGLE/MULTIPLE; COMMENT: Performed on November 24, 2020-performed with colonoscopy, negative celiac COLONOSCOPY PROCEDURE: HISTORICAL COLONOSCOPY; COMMENT: Performed on November 24, 2020 with endoscopy, no evidence of microscopic colitis Medical History Medical History Date Comments Dyslipidemia DX:Dyslipidemia Achilles tendon disorder right DX:Achi lles tendon disorder; COMMENT: s/p PT, f/u with pony edger Vitamin D deficiency DX:Vitamin D deficiency Prediabetes [...] both eyes PAD (peripheral artery disea se) ([facility] V24) 12/18/2017 DX:PAD (peripheral artery di sease) ([facility]); COMMENT: CT angio with bilateral SFA occlusions, pending repair 12/2017, follows with vascular Atypical chest pain 02/12/2018 DX:Atypical chest pain; COMMENT: Negative nuclear stress 02/2018 Carpal tunnel syndrome, bilateral 05/16/2018 DX:Carpal tunnel syndrome, bilateral; COMMENT: Severe s/p EMG 05/2018 referred to general surgery Former tobacco use DX:Former tob acco use; COMMENT: Since age 13, quit 02/2018 Atherosclerosis of lummi ar yamila of both lower extremities with intermittent claudication ([facility] V24) 03/21/2018 DX:Atherosclerosis of lummi artery of both lower extremities with intermittent claudication ([facility]) Obesity (BMI 35.0-39.9 witho ut comorbidity) 02/21/2019 DX:Obesity (BMI 35.0-39.9 wi thout comorbidity) Gassiness DX:Gassiness Change in bowel function DX:Gill[place] ge in bowel function; COMMENT: More oily and floating in the toilet Pancreatic insufficiency DX:Panc reatic insufficiency DM (diabetes mellitus), type 2 with peripheral vascular complications ([facility] V24, [facility] V28) 02/15/2021 DX:DM (diabetes mellitus), type 2 with peripheral vascular complications (HCC) DM (diabetes mellitus), type 2 with neurological complications ([facility] V24, [facility] V28) 11/01/2021 DX:DM (diabetes mellitus), t ype 2 with neurological complications (HCC) Type 2 diabetes mellitus wit h cataract ([facility] V24, [facility] V28) 04/16/2022 DX:Type 2 diabetes mellitus with cataract (HCC) Gassiness DX:Gassiness Esophageal reflux DX:Esophageal reflux Stye external DX:Stye external Family History Medical History Relation Name Comments Other: cancer,other Maternal Grandfather worked at [employer]; in his mid 50s Cataracts Maternal Grandmother [...] 40's Other: Other Paternal Grandfather unknown to Mis Breast cancer Sister 1 50s Breast cancer [...] 9:45 AM EST Office Visit Pulmonology - [place] [address] [place] [phone] Maricel Hawkins, ALFREDA [address] [place] [address] 10/28/2025 10:15 AM EST Office Visit Adult Medicine [facility] [address] [place] [phone] Naila Vargas MD [address] [place], [place] Health Maintenance Due Date Last Done Comments [...] complication, without long-term current use of insulin ([facility] V24, [facility] V28) HEMOGLOBIN A1C Routine 07/02/2025 9:45 AM EDT Type 2 diabetes mellitus with other circulatory complication, without long-term current use of insulin ([facility] V24, [facility] V28) LIPID PANEL WITH REFLEX TO DIRECT LDL Routine 07/02/2025 9:45 AM EDT Type 2 diabetes mellitus with other circulatory complication, without long-term current use of insulin ([facility] V24, [facility] V28) MICROALBUMIN CREATININE URINE RATIO Routine 07/02/2025 9:45 AM EDT Type 2 diabetes mellitus with other circulatory complication, without long-term current use of insulin ([facility] V24, [facility] V28) THYROID STIMULATING HORMONE WITH REFLEX TO [...] 08/26/2024 9:27 AM EST Screening breast examination HM DEPRESSION SCREENING Routine 04/08/2024 HM COLONOSCOPY Routine 11/24/2020 HM HPV Routine 08/05/2020 HEPATITIS C SCREENING Routine 05/20/2014 from Last 3 Months or Most Recently Relevant to Health Maintenance Results * (ABNORMAL) Urinalysis with reflex microscopic and culture (07/02/2025 9:45 AM EDT) Specific [place] Urine 1.018 1.003 - 1.030 LAB URINALYSIS - AUTOMATED METHOD 07/02/2025 12:41 PM [facility] pH, Urine 7.5 5.0 - 8.0 pH LAB URINALYSIS - AUTOMATED METHOD 07/02/2025 12:41 PM [facility] Leukocytes, Urine Trace(A) Negative LAB URINALYSIS - AUTOMATED METHOD 07/02/2025 12:41 PM [facility] Nitrite, Urine Negative Negative LAB URINALYSIS - AUTOMATED METHOD 07/02/2025 12:41 PM [facility] Protein, Urine Negative <=Trace mg/dL LAB URINALYSIS - AUTOMATED METHOD 07/02/2025 12:41 PM [facility] Glucose, Urine Negative Negative mg/dL LAB URINALYSIS - AUTOMATED METHOD 07/02/2025 12:41 PM [facility] Ketones, Urine Negative Negative mg/dL LAB URINALYSIS - AUTOMATED METHOD 07/02/2025 12:41 PM [facility] Urobilinogen , Urine 1.0 0.2 - 1.0 mg/dL LAB URINALYSIS - AUTOMATED METHOD 07/02/2025 12:41 PM [facility] Bilirubin, Urine Negative Negative LAB URINALYSIS - AUTOMATED METHOD 07/02/2025 12:41 PM [facility] Blood, Urine Negative Negative LAB URINALYSIS - AUTOMATED METHOD 07/02/2025 12:41 PM [facility] RBC, Urine 1.2 0 - 4 /HPF LAB URINALYSIS - AUTOMATED METHOD 07/02/2025 12:41 PM EDT [facility] WBC, Urine 2.0 0 - 4 /HPF LAB URINALYSIS - AUTOMATED METHOD 07/02/2025 12:41 PM EDT [facility] Squamous Epithelial, Urine >100(H) 0 - 60 /LPF LAB URINALYSIS - AUTOMATED METHOD 07/02/2025 12:41 PM EDT [facility] Bacteria, Urine Moderate(A) Negative /HPF LAB URINALYSIS - AUTOMATED METHOD 07/02/2025 12:41 PM EDT [facility] Hyaline Casts, Urine 0.8 0 - 3 /LPF LAB URINALYSIS - AUTOMATED METHOD 07/02/2025 12:41 PM EDT [facility] Urine Urine specimen obtained by clean catch procedure / Unknown Non-blood Collection / Unknown 07/02/2025 9:45 AM EDT 07/02/2025 9:45 AM EDT us Naila Vargas MD LAB URINE ORDERABLES Final Resul t Performing Organization Address [facility] [[email or web address]] de Phone Number [facility] [address] [place] [address], [place] [phone] * [place] urine culture tube (07/02/2025 9:45 AM EDT) Extra Tube Hold for add-ons. 07/02/2025 12:01 PM EDT [facility] Comment:Auto resulted. Urine Urine specimen obtained by clean catch procedure / Unknown Non-blood Collection / Unknown 07/02/2025 9:45 AM EDT 07/02/2025 9:45 AM EDT us Naila Vargas MD LAB URINE ORDERABLES Final Resul t Performing Organization Address City/[facility]/ZIP Co de Phone Number [facility] [address] [place] [address], [place] [phone] * Thyroid stimulating hormone with reflex to free t4 and free t3 (07/02/2025 9:45 AM EDT) Pathologist [facility] TSH 1.39 0.40 - 4.00 mcIU/mL LAB CHEMISTRY METHOD 07/02/2025 1:41 PM EDT [facility] Blood Venous blood specimen / Unknown Venipuncture / Unknown 07/02/2025 9:45 AM EDT 07/02/2025 9:45 AM EDT us Naila Vargas MD LAB BLOOD ORDERABLES Final Resul t [facility] [address] [place] [address], [place] [phone] * (ABNORMAL) Lipid panel with reflex to direct LDL (07/02/2025 9:45 AM EDT) [facility] Cholesterol 182 0 - 200 mg/dL LAB CHEMISTRY METHOD 07/02/2025 1:08 PM EDT [facility] Triglycerides 266(H) 0 - 150 mg/dL LAB CHEMISTRY METHOD 07/02/2025 1:08 PM T [facility] HDL 45 >=40 mg/dL LAB CHEMISTRY METHOD 07/02/2025 1:08 PM EDT [facility] LDL Calculated 84 0 - 100 mg/dL LAB CHEMISTRY METHOD 07/02/2025 1:08 PM EDT [facility] Comment:Estimated LDL Calcul ated using equation: Total cholesterol - HDL cholesterol - (Triglycerides/5) VLDL Cholesterol Ruiz 53.2 mg/dL LAB CHEMISTRY METHOD 07/02/2025 1:08 PM T [facility] Non HDL Chol. (LDL+VLDL) 137 <145 mg/dL LAB CHEMISTRY METHOD 07/02/2025 1:08 PM EDT [facility] Chol/HDL Ratio 4.0 0.0 - 4.4 LAB CHEMISTRY METHOD 07/02/2025 1:08 PM EDT [facility] Blood Venous blood specimen / Unknown Venipuncture / Unknown 07/02/2025 9:45 AM EDT 07/02/2025 9:45 AM EDT us Naila Vargas MD LAB BLOOD ORDERABLES Final Resul t Performing Organization Address [facility]/ZIP Co de Phone Number [facility] [address] [place] [address], [place] [phone] * Microalbumin creatinine urine ratio (07/02/2025 9:45 AM EDT) Creatinine, Urine 102.0 mg/dL LAB CHEMISTRY METHOD 07/02/2025 1:48 PM EDT [facility] Microalb, Ur 13.0 0.0 - 29.0 mg/L LAB CHEMISTRY METHOD 07/02/2025 1:48 PM EDT [facility] Microalb/Creat Ratio 13 <30 mg/g creat LAB CHEMISTRY METHOD 07/02/2025 1:48 PM EDT [facility] Urine Urine specimen obtained by clean catch procedure / Unknown Non-blood Collection / Unknown 07/02/2025 9:45 AM EDT 07/02/2025 9:45 AM EDT us Naila Vargas MD LAB URINE ORDERABLES Final Resul t [facility] [address] [place] [address], [place] [phone] * Culture urine (07/02/2025 9:45 AM EDT) Culture, Urine <10,000 cfu/ml, insignificant count, no further workup. 07/03/2025 11:01 AM EDT [facility] Urine Urine specimen obtained by clean catch procedure / Unknown Non-blood Collection / Unknown 07/02/2025 9:45 AM EDT 07/02/2025 12:41 PM EDT us Naila Vargas MD LAB MICROBIOLOGY - GENERAL ORDER JAMES Final Result Performing Organization Address [facility]/ZIP Co de Phone Number [facility] [address] [place] [address], [place] [phone] * (ABNORMAL) Hemoglobin A1c (07/02/2025 9:45 AM EDT) Pathologist [facility] Hemoglobin A1C 7.0(H) <6.5 % LAB CHEMISTRY METHOD 07/02/2025 1:47 PM EDT [facility] Mean Bld Glu Estim. 154 mg/dL LAB CHEMISTRY METHOD 07/02/2025 1:47 PM EDT [facility] Blood Venous blood specimen / Unknown Venipuncture / Unknown 07/02/2025 9:45 AM EDT 07/02/2025 9:45 AM EDT us Nalia Vargas MD LAB BLOOD ORDERABLES Final Resul t Performing Organization Address [facility]/ZIP Co de Phone Number [facility] [address] [place] [address], [place] [phone] * (ABNORMAL) Comprehensive metabolic panel (07/02/2025 9:45 AM EDT) Pathologist [facility] Sodium 138 133 - 145 mmol/L LAB CHEMISTRY METHOD 07/02/2025 1:08 PM EDT [facility] Potassium 4.0 3.5 - 5.5 mmol/L LAB CHEMISTRY METHOD 07/02/2025 1:08 PM EDT [facility] Chloride 104 96 - 110 mmol/L LAB CHEMISTRY METHOD 07/02/2025 1:08 PM EDT [facility] CO2 30 21 - 32 mmol/L LAB CHEMISTRY METHOD 07/02/2025 1:08 PM EDT [facility] Anion Gap 4 3 - 11 LAB CHEMISTRY METHOD 07/02/2025 1:08 PM [facility] Glucose 127(H) 70 - 100 mg/dL LAB CHEMISTRY METHOD 07/02/2025 1:08 PM [facility] BUN 9 5 - 25 mg/dL LAB CHEMISTRY METHOD 07/02/2025 1:08 PM [facility] Creatinine 0.93 0.50 - 1.10 mg/dL LAB CHEMISTRY METHOD 07/02/2025 1:08 PM [facility] eGFR 71 >=60 mL/min/1. 73m2 LAB CHEMISTRY METHOD 07/02/2025 1:08 PM [facility] Comment:Calculation based on the Chronic Kidney Disease Epidemiology Collaboration (CKD-EPI) equation refit without adjustment for race. BUN/Creatinine Ratio 9.7 LAB CHEMISTRY METHOD 07/02/2025 1:08 PM [facility] Calcium 9.4 8.5 - 10.5 mg/dL LAB CHEMISTRY METHOD 07/02/2025 1:08 PM [facility] AST (SGOT) 27 10 - 42 unit/L LAB CHEMISTRY METHOD 07/02/2025 1:08 PM [facility] ALT (SGPT) 42 10 - 60 unit/L LAB CHEMISTRY METHOD 07/02/2025 1:08 PM [facility] Alkaline Phosphatase 62 42 - 121 unit/L LAB CHEMISTRY METHOD 07/02/2025 1:08 PM [facility] Total Protein 7.1 6.0 - 8.0 g/dL LAB CHEMISTRY METHOD 07/02/2025 1:08 PM [facility] Albumin 3.9 3.2 - 5.0 g/dL LAB CHEMISTRY METHOD 07/02/2025 1:08 PM [facility] Total Bilirubin 0.5 0.0 - 1.4 mg/dL LAB CHEMISTRY METHOD 07/02/2025 1:08 PM EDT [facility] Blood Venous blood specimen / Unknown Venipuncture / Unknown 07/02/2025 9:45 AM EDT 07/02/2025 9:45 AM EDT us Naila Vargas MD LAB BLOOD ORDERABLES Final Resul t [facility]) [facility] [address] [place] [address], [place] [phone] * External Vascular Ultrasound (06/30/2025) Only the [...] Dose Chest CT in 12 months. [employer] MILI ([id number]) -------- FINAL REPORT -------- Dictated By: Akanksha Li Dictated Date: 04/08/2025 15:22 ET Assigned Physician: Akanksha Li Reviewed and Electronically Signed By: Akanksha Li Signed Date: 04/08/2025 15:27 ET Workstation ID: [id number] Transcribed By: Self Edit Transcribed Date: 04/08/2025 15:22 ET Narrative 04/08/2025 3:27 PM EDT History: 60 year-old 21 pack-year former smoker, asymptomatic, for lung cancer screening. Quit smoking 8 years ago. Comparison: 02/21/24 Technique: Helical volumetric imaging of the thorax was performed, using low- dose technique, without IV contrast. DLP: 168.88 mGy/cm CTDIvol: 4.83 mGy GE Hoffmeister Leuchtenpeed VCT Iterative reconstruction technique Findings: Lungs and [...] contrast. DLP: 168.88 mGy/cm CTDIvol: 4.83 mGy GE [employer] Leuch[employer]peed VCT Iterative reconstruction technique Findings: Lungs and [...] Low Dose Chest CT in 12 months. [employer] MILI ([id number]) -------- FINAL REPORT -------- Dictated By: Akanksha Li Dictated Date: 04/08/2025 15:22 ET Assigned Physician: Akanksha Li Reviewed and Electronically Signed By: Akanksha Li Signed Date: 04/08/2025 15:27 ET Workstation ID: [id number] Transcribed By: Self Edit Transcribed Date: 04/08/2025 [...] was utilized in evaluation of this examination ([employer]; iCAD). FINDINGS: The breast tissue distribution pattern [...] Signed Date: 08/26/2024 09:45 ET Workstation ID: [id number] Transcribed By: Self Edit Transcribed Date: 08/26/2024 [...] Signed Date: 08/26/2024 09:45 ET Workstation ID: [id number] Transcribed By: Self Edit Transcribed Date: 08/26/2024 [...] Michaela Mccallum MD - 08/26/2024 EXAMINATION TYPE: MAMMO DIGITAL SCREENING W FARAZ [...] Signed Date: 08/26/2024 09:45 ET Workstation ID: [id number] Transcribed By: Self Edit Transcribed Date: 08/26/2024 09:41 ET Naila Vargas MD IMG BI PROCEDURES Edited Result - Final * Depression Screening (04/08/2024) Pathologist [facility] Depression Screening Abstracted [facility] Provider HEALTH MAINTENANCE Final Result * Colonoscopy (11/24/2020) [facility] Colonoscopy No interpretation , Abstracted Anatomical Region Laterality Modality Other Historical Provider HEALTH MAINTENANCE Final Result * Cervical Cancer Screening: HPV (08/05/2020) [facility] Cervical Cancer Screening: HPV Negative, Abstracted [facility] Provider HEALTH MAINTENANCE Final Result * Hepatitis C Screening (05/20/2014) [facility] Hepatitis C Screening Abstracted [facility] Provider HEALTH MAINTENANCE Final Result from Last 3 Months or Most Recently Relevant to Health Maintenance Insurance [facility] [address] [facility]AN Advance Directives Documents on File Type Date Recorded Patient Estate Planning Paralegal Expl anation Health Care Decision (hx) 12/30/2017 [...] (hx) 12/30/2017 AD CHAVEZ DIRECTIVE Care Teams Sales Clerk Food Relationship Specialty Start Date End Date Naila Vargas MD [address] [place] [phone] PCP - General Internal Medicine 04/18/22
--- OUTSIDE RECORDS SUMMARY | 2025-08-11 17:35 | XMS_ITS | Encounter Summary ---
Author Organization [employer] [facility] Address [address] [place] [address] Care Team Providers Care Onsite Case Manager Name Role Phone Unavailable Primary Care Provider Unavailabl e Encounter Details Date Type Department Care Team (Latest Contact Info) Description 11/14/2019 Abstract [facility] CONVERSIONS Dental, Provider, DDS Social [...] Description 09/18/2025 8:45 AM EST Office Visit [facility] ADULT DENTAL [address] [place] [address] Leticia Socorro [address] [place] [address] documented as of this encounter Visit Diagnoses Not on filedocumented in this encounter
--- OUTSIDE RECORDS SUMMARY | 2025-08-11 17:35 | XMS_ITS | Clinical Summary ---
Author Organization [facility] Address [address] [place] [phone] Phone Care Team Providers Care Bulb Packer Name Role Phone Naila Vargas MD Primary Care Provider [phone] Allergies Active Allergy Reactions Criticality Noted Date [...] Active azelastine (ASTEPRO) 205.5 mcg (0.15 %) [place] azelastine 205.5 mcg (0.15 %) nasal spray [...] Apply topical Arnica, Voltaren versus Fix using Parrish technique nightly or twice daily and seek [...] radiographic abnormalities documented may need to consider [facility] and sport physicians consult and/ or [...] to fear of needles ( needles petrify ok ). PAD (peripheral artery disease) 07/01/2019 Assessment [...] this topic Medical Devices Implanted Type Area Engineering Group Leader Device Identifier Shelf Expiration Date Model / [...] EDT) SODIUM 140 133 - 146 mmol/L [facility] POTASSIUM 4.2 3.3 - 5.1 mmol/L [facility] CHLORIDE 105 96 - 108 mmol/L [facility] CO2 23 21 - 35 mmol/L [facility] BUN 10 6 - 19 mg/dL [facility] CREATININE 0.70 0.5 - 1.5 mg/dL [facility] GLUCOSE 113(H) 70 - 99 mg/dL [facility] ALBUMIN 4.1 3.9 - 4.8 g/dL [facility] TOTAL PROTEIN 6.9 6.5 - 8.0 g/dL [facility] CALCIUM 9.2 8.4 - 10.3 mg/dL [facility] ALKALINE PHOSPHATASE 65 39 - 117 U/L [facility] TOTAL BILIRUBIN <0.2 0.0 - 1.2 mg/dL [facility] AST 25 0 - 37 U/L [facility] ALT 25 0 - 40 U/L [facility] GLOBULIN 2.8 1 - 4.8 g/dL [facility] EGFR 100 >59 mL/min/1.7 3m2 [facility] Comment:Estimated glomerular filtration rate calculated using the CKD-EPI refit equation. ANION GAP 16 10 - 20 mmol/L [facility] Blood 05/07/2024 10:2 3 AM EDT 05/07/2024 10:27 AM EDT us Jessica Luna MD LAB BLOOD BKR ORDERABLES Final Result [facility] [address] [place] [address] * (ABNORMAL) POCT Hemoglobin A1c (10/04/2022 9:10 AM EST) Hemoglobin A1c 6.9(A) 4.2 - 5.8 % [facility] 10/04/2022 9:10 AM EST us Dahiana Desai SALES [employer] LAB POCT ENTER/EDIT ORDERABLE S Final Result [facility] [address] [place] [address], [facility] from Last 3 Months or Most Recently Relevant to Health Maintenance Insurance [employer] 5gig [employer] Advance Directives For more information, please contact: [phone] (9AM - 5PM [place], Monday-Monday) * Full Code (Presumed) (Latest Code Status on File) Date Activated Date Inactivated Comments 04/01/2020 7:27 AM Care Teams Bulb Packer Relationship Specialty Start Date End Date Naila Vargas MD [address] [place] [id number] PCP - General Internal Medicine 03/21/23 Additional Source Comments The information contained in this document represents components of the legal health record. It is not the complete legal health record.[facility]
--- OUTSIDE RECORDS SUMMARY | 2025-08-11 17:35 | XMS_ITS | Encounter Summary ---
Author Organization [facility] Address [address] [place] [address] [address] [place] [address] Phone Care Team Providers Care Ring Spinner Name Role Phone Zeynep Smith MD Primary Care Provider [phone] Pcp, Unknown Primary Care Provider Naila Jose MD Primary Care Provider [phone] Encounter Details Date Type Department Care Team (Late st Contact Info) Description 07/01/2019 Ancillary Orders [facility] Rheumatology [address] [place] [address] Jessica Luna MD [address] [facility], [address] [place] [address] [email or web address] Chronic pain in right foot; Bilateral [...] foot documented in this encounter Care Teams Ring Spinner Relationship Specialty Start Date End Date Zeynep Smith MD [address] [place] [id number] PCP - General Internal Medicine 12/13/17 09/28/22 Pcp, Unknown PCP - General 09/29/22 03/20/23 Naila Vargas MD [address] [place] [phone] PCP - General Internal Medicine 03/21/23 documented as of this encounter Additional Source Comments The information contained in this document represents components of the legal health record. It is not the complete legal health record.[facility]
== END 2025-08-11 15:07 | disposition home or self-care (01) ==
LOC: HO.HCS 14:13
PROVIDERS: PCP Internal Medicine; Visit Provider Internal Medicine Cardiovascular Disease
DX: Z95.820 Peripheral vascular angioplasty status with implants and grafts (principal); R53.83 Other fatigue
CPT/HCPCS: 93010; 99214

== ENCOUNTER 2025-08-11 14:13 | Outpatient (REF) | payer MEDICARE, MEDICAID, SELFPAY ==
[2025-08-11 15:54] LABS: Hematocrit 42.3 % (37.0-47.0); Hemoglobin 14.5 g/dl (12.0-16.0); Mean Corpuscular HGB Conc 34.3 g/dl (31.0-35.0); Mean Corpuscular Hemoglobin 33.1 pg (27.0-33.0); Mean Corpuscular Volume 96.6 fL (80.0-98.0); NRBC Abs Auto 0.000 X10*3/uL (0.0-0.012); NRBC Pct Auto 0.0 /100WBC (0.0-0.2); Platelet Count 290 X10*3/uL (160-400); Red Blood Count 4.38 X10*6/uL (4.20-5.50); White Blood Count 6.7 X10*3/uL (4.8-10.8)
[2025-08-11 16:35] LABS: Iron 100 mcg/dL (30-160); Percent Iron Saturation 31 % (15-50); Total Iron Binding Capacity 318 mcg/dL (228-428); Unsaturated Iron Binding 218 ug/dL
[2025-08-11 16:50] LABS: Ferritin 113 ng/mL (10-250)
== END 2025-08-11 14:14 | disposition home or self-care (01) ==
LOC: HO.LAB 14:13
PROVIDERS: PCP Internal Medicine; Visit Provider Internal Medicine Cardiovascular Disease
DX: R53.83 Other fatigue (principal); Z95.820 Peripheral vascular angioplasty status with implants and grafts
CPT/HCPCS: 36415; 82728; 83540; 84443; 85027; 93005; 99212